=== PATIENT | male | born 1940 | race Hispanic/Latino ===

== ENCOUNTER 2016-05-10 12:06 | Day surgery (SDC) | payer MEDICARE, MEDICAID ==
[~2016-05-10] VITALS: Ht 167.6 cm; Wt 79.4 kg
--- NOTE | 2016-05-10 07:18 | PCM.HPANE ---
Patient Data Surgeon Admitting Provider: Attending Provider:Jewel Beckford MD Primary Care Physician:Johnson Payton MD Other Provider:[facility] Anesthesia Reason for Visit Nausea Ht/WT & BMI Body Mass Index Allergies Coded Allergies: hydrocodone (Verified Allergy, Severe, hives, 03/27/16) iodine (Verified Allergy, Intermediate, 05/10/16) omeprazole (Verified Allergy, Mild, SHAKINESS, 05/10/16) Uncoded Allergies: CONTRAST MEDIUM (Allergy, Severe, ANAPHYLAXIS, 05/10/16) Past Anesthesia History Anesthesia History: Denies:: Abnormal Airway, Anesthesia Reactions, Difficult Intubation, Fam Anesthesia Reaction, Fam Malignant Hypertherm, Malignant Hyperthermia Diabetes History Hx Diabetes?: No MRSA MRSA: No Medications Blood Thinner: Aspirin Active Scripts Metoclopramide (Reglan)5 Mg Tablet5 Mg PO QID PRN For Nausea #20 TABLET Ref 0 Prov:Zi Arndt MD 03/31/16 Docusate Sodium (Colace)100 Mg Fcoemvo342 Mg PO BID PRN For Constipation #60 CAPSULE Ref 0 Prov:Zi Arndt MD 03/31/16 Promethazine 25 Mg Mdsjtb88 Mg PO Q6H PRN For Nausea #15 TABLET Ref 0 Prov:Isaiah Saucedo MD 03/27/16 Promethazine Supp 25 Mg Supp25 Mg RECTAL Q8H PRN For Nausea #15 SUPP Ref 0 Prov:Isaiah Saucedo MD 03/27/16 Polyethylene Glycol 3350 (Miralax)17 Gm Powd.nxde11-06 Gm PO DAILY #60 Ref 2 Prov:Richi Bell MD 03/13/16 Metoclopramide 10 Mg Munzae60 Mg PO TID PRN For Nausea #30 TABLET Ref 0 Prov:Richi Bell MD 03/13/16 Methadone 10 Mg Tab10 Mg PO Q8H #30 TABLET Ref 0 Prov:Richi Bell MD 03/13/16 Atorvastatin Calcium 10 Mg Izfaqi41 Mg PO DAILY high cholesterol #30 TABLET Ref 11 Prov:Johnson Payton MD 08/03/13 Reported Medications Ranitidine 150 Mg Szmlity361 Mg PO BID Ref 0 05/09/16 Oxybutynin Chloride ER 5 Mg Tab.er.245 Mg PO DAILY Ref 0 05/09/16 Hydromorphone (Dilaudid)2 Mg Tablet1-2 Mg PO Q3H PRN Pain 03/06/16 Ondansetron ODT (Zofran ODT)8 Mg Tablet8 Mg PO q8hrs prn PRN For Nausea 03/03/16 Metoprolol Tartrate 50 Mg Rkrlgu38 Mg PO DAILY 30 Days Ref 0 01/15/15 Citalopram 20 Mg Fgetiq23 Mg PO DAILY Ref 0 01/08/14 Nitroglycerin SL 0.4 Mg Tab.subl0.4 Mg SL PRN PRN For Chest Pain 01/08/14 Tamsulosin (Flomax)0.4 Mg Capsule0.4 Mg PO BID Ref 0 01/08/14 Gabapentin 600 Mg Koeveo195 Mg PO QPM 30 Days Ref 0 10/01/13 Gabapentin 300 Mg Cxbwrlc103 Mg PO QAM 30 Days Ref 0 10/01/13 Discontinued Reported Medications Phenazopyridine (Pyridium)200 Mg Nwcifp095 Mg PO TID Ref 0 05/09/16 Fentanyl 50 mcg/hr Patch 1 Each Patch.td721 Patch TRANSDERM Q3D Ref 0 03/06/16 Potassium Chloride 10 Meq Tab.er.prt10 Meq PO DAILY Ref 0 TAKE WITH FOOD 01/08/14 Oxycodone HCl/Acetaminophen 5-325 (Percocet 5-325)1 Each Tablet1-2 Each PO Q4 PRN For Pain 01/08/14 Docusate Sodium 100 Mg Vezedl843-644 Mg PO BID PRN For Constipation 01/08/14 Discontinued Scripts Ciprofloxacin 500 Mg Wvqeqx629 Mg PO BID #14 TABLET Prov:Zi Arndt MD 03/31/16 Oxycodone (Roxicodone)15 Mg Tjbgzi09 Mg PO Q 4 hours PRN For Pain #20 TABLET Ref 0 Prov:Isaiah Saucedo MD 02/29/16 History History of ENT Problems?: Yes HEENT History: Positive for:: Dysphagia Hearing Problem Denies:: Abnormal Airway Cataracts Difficult Intubation Sinus Problem Hx of Heart Problems?: Yes Cardiovascular History: Positive for:: Hypertension Denies:: AICD Atrial Fibrillation Cardiac Surgery Chest Pain Congestive Heart Failure Edema Heart Murmur Irregular Heartbeat Pacemaker Thrombophlebitis Hx of Respiratory Problem?: No Respiratory History: Positive for:: Dyspnea Pneumonia Denies:: Tuberculosis Hx Neurologic Problems?: No Neurological History: Denies:: CVA Hx of GI Problems?: Yes Gastrointestinal History: Denies:: Cirrhosis Diverticulitis Gastroesphageal Reflux Gastrointestinal Bleeding Hepatitis Hiatal Hernia Rectal Bleeding Hx of Problems?: No Genitourinary History: Denies:: Kidney Stones Urinary Tract Infection Male Hx: Positive for:: Prostate Problems (prostate ca 2006 with mets to bones and spine) Denies:: Scrotal Mass Testicular Surgery Hx Musculoskeletal Problems?: No Musculoskeletal History: Denies:: Joint Replacement Hx of Psycho/Social Problems?: Yes Psycho Social History: Positive for:: Anxiety Hx Depression Denies:: Bipolar Disorder Suicide Attempt Hx Surgeries?: Yes (TOE) Hx Any Other Health Problems?: Yes Other History: Positive for:: Cancer (prostate CA with mets to bones spine) Hospitalization Denies:: Endocrine Disease Thyroid Disease History Blood Transfusions: Denies:: Blood Transfuse Reaction Blood Transfusions Hx Diabetes: No Hx Alcohol Use: NoHx Substance Use: No Smoking Status: Former Smoker Have You Smoked inLast 12 mo: No Stop/Bang Risk Assessment Category Category 1A: Patient has history of documented sleep apnea, and HAS NOT received any narcotic, sedative or anesthesia administration during this stay. Category 1B: Patient has history of documented sleep apnea, and HAS received any narcotic , sedative or anesthesia administration during this stay Category 2: Patient has SUSPECTED Obstructive Sleep Apnea, and HAS received any narcotic , sedative or anesthesia administration during this stay. Category 3: Patient has SUSPECTED Obstructive Sleep Apnea and HAS NOT received narcotic, sedative or anesthesia administration during this stay. Category 4: Outpatient in Procedural Areas with known sleep apnea or who screen positive for High Risk via the STOP/BANG questionnaire. Plan Impression Patient chart reviewed, patient interviewed and anesthestic plan with risks, benefits, and alternatives discussed, and informed consent obtained. Jaydon Lazcano MD May 10, 2016 07:18
[~2016-05-10 12:06] MED LIST: ATOR10TA66 PO; CIPR-198 PO; CITA20TA11 PO; DOCU-41 PO; FENT1PAT9 TRANSDERM; GABA-502 PO; GABA600T2 PO; HYDR2TAB27 PO; Lactated Ringer's 1,000 ML IV ONE; METO10TA3 PO; METO50TA3 PO; METO5TAB78 PO; MTH10T PO; NITR0.4T6 SL; ONDA8TAB7 PO; OXYB5TAB PO; OXYC-284 PO; OXYC15TA45 PO; PHEN-684 PO; POLY17PO6 PO; POTA10TA38 PO; PROM25SU47 RECTAL; PROM25TA14 PO; RANI150C4 PO; TAMS0.4C98 PO
[2016-05-10] MEDS ORDERED: Propofol 10,000 mCg/mL 20 mL Inj ONE (12:07)
[2016-05-10] MEDS ORDERED: Lidocaine PF 1% 30 mL Inj ONE (12:07)
[2016-05-10 12:51] VITALS: BP 133/70; PULSE 57; RESP 14; O2SAT 98
[2016-05-10] MEDS ORDERED: Lactated Ringer's 1,000 ML IV SCH (14:21)
[2016-05-10] MEDS ORDERED: Atropine 0.4 mg/mL Inj IVPUSH PRN (14:25)
[2016-05-10] MEDS ORDERED: MetoCLOpramide 5 mg/mL 2 mL Inj IVPUSH PRN (14:25)
[2016-05-10] MEDS ORDERED: Ondansetron 2 mg/mL 2 mL Inj IVPUSH PRN (14:25)
--- NOTE | 2016-05-10 14:26 | PCM.HPANE ---
Patient Data Date of Service: May 10, 2016 Surgeon Admitting Provider: Attending Provider:Jewel Beckford MD Primary Care Physician:Johnson Payton MD Other Provider:Bimal Godoy Anesthesia Reason for Visit Nausea Ht/WT & BMI Height (Feet): 5 Height (Inches): 6 Weight (Kilograms): 79.38 Body Mass Index 28.00 Allergies Coded Allergies: hydrocodone (Verified Allergy, Severe, hives, 03/27/16) iodine (Verified Allergy, Intermediate, 05/10/16) omeprazole (Verified Allergy, Mild, SHAKINESS, 05/10/16) Uncoded Allergies: CONTRAST MEDIUM (Allergy, Severe, ANAPHYLAXIS, 05/10/16) Past Anesthesia History Anesthesia History: Denies:: Abnormal Airway, Anesthesia Reactions, Difficult Intubation, Fam Anesthesia Reaction, Fam Malignant Hypertherm, Malignant Hyperthermia Diabetes History Hx Diabetes?: No MRSA MRSA: No Medications Blood Thinner: Aspirin Hypertension Medication: Yes Home Meds Incl Beta Ranjeet: Yes Date Beta Ranjeet Taken: May 10, 2016 Time Beta Ranjeet Taken: 0800 Active Scripts Metoclopramide (Reglan)5 Mg Tablet5 Mg PO QID PRN For Nausea #20 TABLET Ref 0 Prov:Zi Arndt MD 03/31/16 Docusate Sodium (Colace)100 Mg Qxydtsz103 Mg PO BID PRN For Constipation #60 CAPSULE Ref 0 Prov:Zi Arndt MD 03/31/16 Promethazine 25 Mg Uvtdoe83 Mg PO Q6H PRN For Nausea #15 TABLET Ref 0 Prov:Isaiah Saucedo MD 03/27/16 Promethazine Supp 25 Mg Supp25 Mg RECTAL Q8H PRN For Nausea #15 SUPP Ref 0 Prov:Isaiah Saucedo MD 03/27/16 Polyethylene Glycol 3350 (Miralax)17 Gm Powd.xfnm99-29 Gm PO DAILY #60 Ref 2 Prov:Richi Bell MD 03/13/16 Metoclopramide 10 Mg Iohvre95 Mg PO TID PRN For Nausea #30 TABLET Ref 0 Prov:Richi Bell MD 03/13/16 Methadone 10 Mg Tab10 Mg PO Q8H #30 TABLET Ref 0 Prov:Richi Bell MD 03/13/16 Atorvastatin Calcium 10 Mg Mntnlt37 Mg PO DAILY high cholesterol #30 TABLET Ref 11 Prov:Johnson Payton MD 08/03/13 Reported Medications Ranitidine 150 Mg Rbrvvvo080 Mg PO BID Ref 0 05/09/16 Oxybutynin Chloride ER 5 Mg Tab.er.245 Mg PO DAILY Ref 0 05/09/16 Hydromorphone (Dilaudid)2 Mg Tablet1-2 Mg PO Q3H PRN Pain 03/06/16 Ondansetron ODT (Zofran ODT)8 Mg Tablet8 Mg PO q8hrs prn PRN For Nausea 03/03/16 Metoprolol Tartrate 50 Mg Porqns99 Mg PO DAILY 30 Days Ref 0 01/15/15 Citalopram 20 Mg Yffltl05 Mg PO DAILY Ref 0 01/08/14 Nitroglycerin SL 0.4 Mg Tab.subl0.4 Mg SL PRN PRN For Chest Pain 01/08/14 Tamsulosin (Flomax)0.4 Mg Capsule0.4 Mg PO BID Ref 0 01/08/14 Gabapentin 600 Mg Cwgoll168 Mg PO QPM 30 Days Ref 0 10/01/13 Gabapentin 300 Mg Qkoxeee315 Mg PO QAM 30 Days Ref 0 10/01/13 Discontinued Reported Medications Phenazopyridine (Pyridium)200 Mg Scytlu570 Mg PO TID Ref 0 05/09/16 Fentanyl 50 mcg/hr Patch 1 Each Patch.td721 Patch TRANSDERM Q3D Ref 0 03/06/16 Potassium Chloride 10 Meq Tab.er.prt10 Meq PO DAILY Ref 0 TAKE WITH FOOD 01/08/14 Oxycodone HCl/Acetaminophen 5-325 (Percocet 5-325)1 Each Tablet1-2 Each PO Q4 PRN For Pain 01/08/14 Docusate Sodium 100 Mg Exetmb430-887 Mg PO BID PRN For Constipation 01/08/14 Discontinued Scripts Ciprofloxacin 500 Mg Rithft913 Mg PO BID #14 TABLET Prov:Zi Arndt MD 03/31/16 Oxycodone (Roxicodone)15 Mg Igxfnl09 Mg PO Q 4 hours PRN For Pain #20 TABLET Ref 0 Prov:Isaiah Saucedo MD 02/29/16 History History of ENT Problems?: Yes HEENT History: Positive for:: Dysphagia Hearing Problem Denies:: Abnormal Airway Cataracts Difficult Intubation Sinus Problem Denture Type: Full- Upper Partial- Lower Hx of Heart Problems?: Yes Cardiovascular History: Positive for:: Hypertension Denies:: AICD Atrial Fibrillation Cardiac Surgery Chest Pain Congestive Heart Failure Edema Heart Murmur Irregular Heartbeat Pacemaker Thrombophlebitis Hx of Respiratory Problem?: No Respiratory History: Positive for:: Dyspnea Pneumonia Denies:: Tuberculosis Hx Neurologic Problems?: No Neurological History: Positive for:: CVA (POSSIBLE TIA) Hx of GI Problems?: Yes Gastrointestinal History: Positive for:: Gastroesphageal Reflux Denies:: Cirrhosis Diverticulitis Gastrointestinal Bleeding Hepatitis Hiatal Hernia Rectal Bleeding Hx of Problems?: No Genitourinary History: Denies:: Kidney Stones Urinary Tract Infection Male Hx: Positive for:: Prostate Problems (prostate ca 2006 with mets to bones and spine) Denies:: Scrotal Mass Testicular Surgery Hx Musculoskeletal Problems?: No Musculoskeletal History: Denies:: Joint Replacement Hx of Psycho/Social Problems?: Yes Psycho Social History: Positive for:: Anxiety Hx Depression Denies:: Bipolar Disorder Suicide Attempt Hx Surgeries?: Yes (TOE) Hx Any Other Health Problems?: Yes Other History: Positive for:: Cancer (prostate CA with mets to bones spine) Hospitalization Denies:: Endocrine Disease Thyroid Disease History Blood Transfusions: Denies:: Blood Transfuse Reaction Blood Transfusions Hx Diabetes: No Other Pertinent History: PROSTATE CANCER, RADIATION YEARS AGO, CURRENT CHEMO. LAST 04/24/16 Hx Alcohol Use: NoHx Substance Use: No Smoking Status: Former Smoker Have You Smoked inLast 12 mo: No Stop/Bang Treated for Sleep Apnea?: No Do You Have a CPAP Machine?: No S-Snoring: Do You Snore Loudly: Yes T-Tired: feel tired, fatigued: Yes O-Obsered: Observed not breath: No P-Blood Pressure: treated: Yes B- Body Mass Index > 35 kg/m2: Yes A- Age over 50: Yes N- Neck Large Circumference: Yes G- Gender Male: Yes RUTH Total Score: 7 RUTH Risk Assessment: High Risk, =/>3 Yes RUTH Category 2: Yes Risk Assessment Category Category 1A: Patient has history of documented sleep apnea, and HAS NOT received any narcotic, sedative or anesthesia administration during this stay. Category 1B: Patient has history of documented sleep apnea, and HAS received any narcotic , sedative or anesthesia administration during this stay Category 2: Patient has SUSPECTED Obstructive Sleep Apnea, and HAS received any narcotic , sedative or anesthesia administration during this stay. Category 3: Patient has SUSPECTED Obstructive Sleep Apnea and HAS NOT received narcotic, sedative or anesthesia administration during this stay. Category 4: Outpatient in Procedural Areas with known sleep apnea or who screen positive for High Risk via the STOP/BANG questionnaire. Exam Exam Vital Signs Vital Signs Date Time Temp Pulse Resp B/P Pulse Ox O2 Delivery O2 Flow Rate FiO2 05/10/16 12:51 57 14 133/70 98 Room Air General Appearance: Alert, Oriented X3, Cooperative HEENT/AIRWAY: MP 2, Mouth Opening (wide, full dentures) Lungs: Clear to Auscultation, Normal Air Movement Heart: Regular Rate/Rhythm, Normal S1, Normal S2 Plan Impression Patient chart reviewed, patient interviewed and anesthestic plan with risks, benefits, and alternatives discussed, and informed consent obtained. NPO Status: > 8 hours ASA Physical Status: ASA2 Mod Systemic Disease Anesthetic Plan: MAC Bene/Risks/Altern/Consents: Yes HP Complete Prior to Induction: Yes Maxime Encarnacion MD May 10, 2016 14:21
--- NOTE | 2016-05-10 15:17 | PCM.ANEP1 ---
Post Anesthesia Phase 1 PACU Phase 1 Assessment Date of Service: May 10, 2016 Vital Signs O2 95% RA, HR 52, BP 143/67, RR 8 Vital Signs Date Time Temp Pulse Resp B/P Pulse Ox O2 Delivery O2 Flow Rate FiO2 05/10/16 12:51 57 14 133/70 98 Room Air Anesthetic Administered: MAC Level of Alertness: Sleeping, hard to arouse SAUL's with Equal Strength: Yes Pain: No Nausea or Vomiting: No Oxygen Delivery: Room Air Lungs: Normal Air Movement Maxime Encarnaicon MD May 10, 2016 15:17
[2016-05-10 15:18] VITALS: BP 143/67; PULSE 53; RESP 15; O2SAT 95
--- NOTE | 2016-05-10 15:18 | PCM.ANEP2 ---
Post Anesthesia Evaluation ASA/CMS Post Anesthesia Date of Service: May 10, 2016 VS in Patient's Normal Range?: Yes Resp Stable; Airway Patent?: Yes CV Function & Hydration Stable: Yes Mental Status Recovered?: Yes Pain control Satisfactory?: Yes N/V Control Satisfactory?: Yes Maxime Encarnacion MD May 10, 2016 15:18
[2016-05-10 15:26] VITALS: BP 153/73; PULSE 53; RESP 15; O2SAT 95
--- NOTE | 2016-05-10 15:34 | ENDO ---
[address] [address] ENDOSCOPY PROCEDURE PATIENT: IZZY THAKKAR : 1940 MR#: [id number] ADMIT: 05/10/2016 JOB ID: [id number] DATE OF PROCEDURE: 05/10/2016 PRIMARY CARE PROVIDER: Johnson Payton MD SURGEON: Jewel Beckford MD PROCEDURE: Esophagogastroduodenoscopy. COMPLICATIONS: None. EQUIPMENT: [id number] J ANESTHESIA: Monitored anesthesia care was provided by Anesthesia personnel. INDICATIONS: This patient is a 76-year-old man with a history of widely metastatic prostate cancer who has been troubled with persistent nausea. He was referred for further evaluation with upper endoscopy. PROCEDURAL DETAILS: The patient was brought to the Endoscopy Suite and placed in the left lateral decubitus position. Sedation was achieved by the Anesthesia personnel. The upper endoscope was then inserted through a bite block and passed under direct visualization through the mouth and oropharynx, down into the esophagus and through the stomach and into the second portion of duodenum. The scope was then slowly withdrawn examining the mucosa for any defects or lesions. No abnormalities were noted. There was mild erythema around the pylorus and perhaps slight atrophic gastritis but nothing to explain his nausea. He had a grade 3 flap valve. GE junction was at 42 cm. The Z-line was regular. The scope was then withdrawn and the case completed. ENDOSCOPIC DIAGNOSIS: Normal upper endoscopy without findings to explain the patient's persistent nausea.
[2016-05-10 15:37] VITALS: BP 130/71; PULSE 53; RESP 15; O2SAT 95
[2016-06-01] MEDS ORDERED: MTH10T PO ×2 (09:46)
[2016-06-01] MEDS ORDERED: HYDR4TAB PO (09:46)
[2016-06-16] MEDS ORDERED: METH5TAB3 PO (12:31)
[2016-07-14] MEDS ORDERED: METH5TAB3 PO (12:07)
[2016-08-11] MEDS ORDERED: MTH10T PO (11:10)
[2016-08-11] MEDS ORDERED: CITA20TA11 PO (11:10)
[2016-08-11] MEDS ORDERED: DXM4T PO (11:10)
== END 2016-05-10 23:59 | disposition home or self-care (01) ==
LOC: END 12:06
PROVIDERS: ATTEND General Practice
DX: R11.0 Nausea (principal); C61 Malignant neoplasm of prostate; I10 Essential (primary) hypertension; F41.9 Anxiety disorder, unspecified; K21.9 Gastro-esophageal reflux disease without esophagitis; Z86.010 Personal history of colon polyps; Z79.82 Long term (current) use of aspirin; Z86.73 Personal history of transient ischemic attack (TIA), and cerebral infarction without residual deficits; Z87.891 Personal history of nicotine dependence
CPT/HCPCS: 43235; J7120

== ENCOUNTER 2016-06-01 13:14 | Inpatient (IN) | payer MEDICARE, MEDICAID ==
[~2016-06-01] VITALS: Ht 177.8 cm; Wt 82.1 kg
[~2016-06-01 13:14] MED LIST changes: -CIPR-198 PO; -FENT1PAT9 TRANSDERM; +HYDR4TAB PO; -Lactated Ringer's 1,000 ML IV ONE; -OXYC-284 PO; -OXYC15TA45 PO; -PHEN-684 PO; -POTA10TA38 PO
[2016-06-01 13:20] VITALS: BP 90/53; PULSE 87; RESP 20; O2SAT 90
--- NOTE | 2016-06-01 13:33 | ED.REPORT ---
HPI-General Illness Date of Service Jun 01, 2016 ED Provider: Zi rAndt MD Patient is as 76-year-old male with a hx of prostate cancer and currently on chemotherapy who presents to the ED with his daughter complaining of tremors and confusion. Via patient's daughter, he is also experiencing generalized weakness, slow speech, Nursing Notes Stated Complaint: CHEST PAIN,TREMBLING Chief Complaint: Chest Pain Nursing Notes Reviewed: Yes Allergies: Coded Allergies: hydrocodone (Verified Allergy, Severe, hives, 06/01/16) iodine (Verified Allergy, Intermediate, 06/01/16) omeprazole (Verified Allergy, Mild, SHAKINESS, 06/01/16) Uncoded Allergies: CONTRAST MEDIUM (Allergy, Severe, ANAPHYLAXIS, 05/10/16) Scheduled Aspirin (Aspirin) 81 Mg Tablet 81 MG PO DAILY Atorvastatin Calcium (Atorvastatin Calcium) 10 Mg Tablet 10 MG PO DAILY Citalopram (Citalopram) 20 Mg Tablet 40 MG PO DAILY Dexamethasone (Dexamethasone) 4 Mg Tablet 4 MG PO DAILY Gabapentin (Gabapentin) 300 Mg Capsule 300 MG PO QAM Gabapentin (Gabapentin) 600 Mg Tablet 600 MG PO QPM Methadone (Methadone) 10 Mg Tab 15 MG PO BID Methadone (Methadone) 10 Mg Tab 10 MG PO DAILYWL Metoprolol Tartrate (Metoprolol Tartrate) 50 Mg Tablet 50 MG PO DAILY Mirtazapine (Mirtazapine) 15 Mg Tablet 15 MG PO HS Oxybutynin Chloride ER (Oxybutynin Chloride ER) 5 Mg Tab.er.24 5 MG PO DAILY Polyethylene Glycol 3350 (Miralax) 17 Gm Powd.pack 17-34 GM PO DAILY Ranitidine (Ranitidine) 150 Mg Capsule 150 MG PO BID Tamsulosin (Flomax) 0.4 Mg Capsule 0.4 MG PO BID Scheduled PRN Docusate Sodium (Colace) 100 Mg Capsule 100 MG PO BID PRN PRN For Constipation Hydromorphone (Hydromorphone) 4 Mg Tablet 4 MG PO Q4H PRN PRN Pain Metoclopramide (Metoclopramide) 10 Mg Tablet 10 MG PO TID PRN PRN For Nausea Metoclopramide (Reglan) 5 Mg Tablet 5 MG PO QID PRN PRN For Nausea Nitroglycerin SL (Nitroglycerin SL) 0.4 Mg Tab.subl 0.4 MG SL PRN PRN PRN For Chest Pain Ondansetron ODT (Zofran ODT) 8 Mg Tablet 8 MG PO q8hrs prn PRN PRN For Nausea Promethazine (Promethazine) 25 Mg Tablet 25 MG PO Q6H PRN PRN For Nausea Promethazine Supp (Promethazine Supp) 25 Mg Supp 25 MG RECTAL Q8H PRN PRN For Nausea General Time Seen by MD: 13:31 Chief Complaint Other (tremors in extremities) Hx Obtained From: Patient, Daughter Arrived By: Walk-in Sudden in Onset?: Yes Onset Occurred: Just prior to arrival Symptom Duration: Since onset Severity: Current: No pain currently Recent Healthcare: Recent doctor visit, Recent hospitalization Similar Sx Previous: No Past Medical History Past Medical History Notes: Oncologist Dr. 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 Physical Exam Vital Signs Vital Signs Date Time Temp Pulse Resp B/P Pulse Ox O2 Delivery O2 Flow Rate FiO2 06/01/16 13:46 100/51 06/01/16 13:20 38.9 87 20 90/53 90 Room Air Initial VS: Reviewed ENT: Mucous membranes moist, Conjunctiva normal, No scleral icterus Neck: Supple, Non-tender, Full range of motion Cardiovascular: Regular rate & rhythm, Heart sounds normal, Intact distal pulses Abdomen / GI: Soft, Non-tender, No guarding, No rebound, No distention Back: No CVA tenderness Extremities: Vascular intact, Neuro intact, No swelling, No tenderness Skin: Warm, Dry, No cyanosis Psychiatric: Mood/affect normal, Behavior normal, Normal thought content General/Constitutional: Awake, Alert, No acute distress, Cooperative Alertness: Positive: Confused Head / Eyes: Atraumatic, Normocephalic, PERRL, EOMI Rales / Rhonchi: Positive: Rales R base (right bases are crackling ) Interpretation & Diagnostics Lab Results Interpretation Result Diagram: 06/01/16 1330 06/01/16 1330 Test 06/01/16 13:30 06/01/16 14:55 White Blood Count 8.7th/mm3 (3.8-10.1) Red Blood Count 3.89mil/mm3 (4.40-5.80) Hemoglobin 11.0g/dL (13.8-17.2) Hematocrit 34.7% (41.0-50.0) Mean Corpuscular Volume 89.2fL (81-100) Mean Corpuscular Hemoglobin 28.3pg (27.0-35.0) Mean Corpuscular Hemoglobin Concent 31.7% (32.0-37.0) Red Cell Distribution Width 18.4% (12.3-15.4) Platelet Count 218bil/L (150-400) Neutrophils (%) (Auto) 65% (40-74) Lymphocytes (%) (Auto) 20% (14-46) Monocytes (%) (Auto) 6% (4-12) Eosinophils (%) (Auto) 0% (0-5) Basophils (%) (Auto) 1% (0-3) Band Neutrophils % 3% (1-5) Metamyelocytes % 0% (0-0) Myelocytes % 5% (0-0) Nucleated Red Blood Cells 3/100 WBC (0-24) Sodium Level 138mEq/L (134-144) Potassium Level 3.9mEq/L (3.5-5.2) Chloride Level 101mEq/L (97-108) Carbon Dioxide Level 23mmol/L (18-29) Blood Urea Nitrogen 15mg/dL (8-27) Creatinine 0.80mg/dL (0.76-1.27) Estimat Glomerular Filtration Rate 100mL/min (>59) Glucose Level 110mg/dL (60-99) Lactic Acid Level 1.9mmol/L (0.4-2.0) Calcium Level 8.1mg/dL (8.5-10.1) Magnesium Level 1.9mg/dL (1.6-2.6) Total Bilirubin 0.5mg/dL (0.0-1.2) Aspartate Amino Transf (AST/SGOT) 17U/L (0-50) Alanine Aminotransferase (ALT/SGPT) 12U/L (0-44) Alkaline Phosphatase 90U/L (25-160) Troponin T < 0.010ug/L (0.0-0.011) Total Protein 6.0g/dL (6.4-8.4) Albumin 3.3g/dL (3.4-5.0) Urine Color Yellow (YELLOW) Urine Appearance Hazy (CLEAR,HAZY) Urine pH 6.0 (5.0-8.0) Urine Specific [place] 1.015 (1.003-1.035) Urine Protein Negativemg/dL (NEG,TRACE) Urine Glucose (UA) Negativemg/dL (NEGATIVE) Urine Ketones Negativemg/dL (NEGATIVE) Urine Occult Blood Trace (NEGATIVE) Urine Nitrite Negative (NEGATIVE) Urine Bilirubin Negative (NEGATIVE) Urine Urobilinogen Normalmg/dL (NORMAL) Urine Leukocyte Esterase Negative (NEGATIVE) Urine RBC 3-10/hpf (0-2) Urine WBC 0-5/hpf (0-5) Urine Epithelial Cells Occasional/hpf (NONE-MOD) Urine Crystals None seen (NONE SEEN) Urine Bacteria None/hpf (NONE-FEW) Urine Hyaline Casts None/lpf (NONE) Urine Granular Casts None seen (NONE SEEN) Urine Waxy Casts None seen (NONE SEEN) Urine Red Blood Cell Casts None seen (NONE SEEN) Urine White Blood Cell Casts None seen (NONE SEEN) Urine Mucus Present (None Seen) Urine Trichomonas None seen (NONE SEEN) Urine Yeast None (NONE SEEN) Urinalysis Comment None Urine Culture Reflexed Not indicated Lab Results Interpretation: negative for influenza A & B ECG Interpretation ECG Interpretation: Abnormal R-wave progression Time: 10:51 Interpreted by: ED physician Normal ECG Interpretation: Normal sinus rhythm (86), No acute ischemic changes Re-Eval/Medical Decision Med Decision/Clinical Course 76-year-old male history of prostate cancer on chemotherapy presenting with confusion and weakness today per daughter. Febrile on arrival. Map's 70. Lactate normal. White blood cell count normal. Urine dip with positive leukocytes. Patient with SIRS physiology and urine suggestive of UTI on dip. He will be treated with Rocephin, given 2 L normal saline. Given one dose stress dose steroids hydrocortisone given he has been on steroids as an outpatient which were stopped one week ago. Admitted to telemetry. Time of Eval: 14:55 Patient Status: Condition unchanged Re-Evaluation/Progress Note: Pt rechecked. Informed pt of need for admission. Pt understands and agrees with plan for admission. All questions addressed. Consultation : Consulted With: Hospitalist Call Returned at: 15:00 Fur Blower: Accepts admit Note: Case discussed. Counseled Regarding: Diagnosis, Lab results, Need for admission Discharge & Departure Primary Impression: UTI (urinary tract infection) Urinary tract infection type: site unspecified Hematuria presence: without hematuria Qualified Code: N39.0 - Urinary tract infection, site not specified Additional Impression: SIRS due to non-infectious process without acute organ dysfunction Disposition: ADMITTED TO HOSPITAL Discharge Condition All VS Reviewed: Yes Condition: Stable Referrals: Johnson Payton MD (PCP) Scribe Attestation Portion of this note were transcribed by Felix Prabhakar. I, Dr. Arndt, personally performed the history, physical exam, and medical decision-making: I reviewed and confirmed the accuracy for the information in the transcribed note. Signed by: kenny Huff, 06/01/16 1500 copies to: Johnson Payton MD, Ben M MD Jun 01, 2016 13:33 FELIX PRABHAKAR Jun 01, 2016 13:42
[2016-06-01 13:46] VITALS: BP 100/51
[2016-06-01 13:49] LABS: Mean Corpuscular Hemoglobin 28.3 pg (27.0-35.0); Mean Corpuscular Volume 89.2 fL (81-100); Platelet Count 218 bil/L (150-400)
[2016-06-01] MEDS ORDERED: 0.9% Sodium Chloride 1,000 ML IV SCH (13:50)
--- NOTE | 2016-06-01 13:58 | DRSVH ---
PROCEDURE: X-RAY CHEST ONE VIEW, PORTABLE ([id number]) INDICATIONS: FEVER, LOW SPO2 TECHNIQUE: One view of the chest was acquired. COMPARISON: None. FINDINGS: Surgical changes and devices: None. Lungs and pleura: No pleural effusions or pneumothorax. Lungs are clear, aside from scarring within the left lung base which is unchanged. Mediastinum: Mediastinal contours appear normal. Heart size is normal. Bones and chest wall: No suspicious bony lesions. Overlying soft tissues appear unremarkable. IMPRESSION: No acute cardiopulmonary disease. Dictated by: Bart Mcclellan [facility] Interpreted: Colleen Fitzpatrick MD on 06/01/2016 at 13:57 Transcribed by: JOSE on 06/01/2016 at 13:58 Approved by: Colleen Fitzpatrick MD, PhD on 06/01/2016 at 17:26
[2016-06-01] MEDS ORDERED: DXM4T PO (14:02)
[2016-06-01] MEDS ORDERED: ASPI-973 PO (14:02)
[2016-06-01] MEDS ORDERED: MIRT15TA6 PO (14:02)
[2016-06-01 14:28] LABS: Magnesium 1.9 mg/dL (1.6-2.6)
[2016-06-01 14:30] LABS: BASOPHILS % (AUTO) 1 % (0-3); EOSINOPHILS % (AUTO) 0 % (0-5); MONOCYTES % (AUTO) 6 % (4-12); NEUTROPHILS % (AUTO) 65 % (40-74)
[2016-06-01 14:32] LABS: TROPONIN T < 0.010 ug/L (0.0-0.011)
[2016-06-01] MEDS ORDERED: cefTRIAXone Inj 1,000 MG in IV Premix 1 EACH IV ONE (14:50)
--- NOTE | 2016-06-01 15:11 | PCM.HPMED ---
Subjective Date of Service Jun 01, 2016 Primary Provider: Admitting Physician: Primary Care Physician: Johnson Payton MD Attending Physician: Chief Complaint: Confusion and weakness History of Present Illness: 76-year-old male history of prostate cancer on chemotherapy presenting with confusion and weakness today per daughter. Febrile on arrival. Map's 70. Lactate normal. White blood cell count normal. Urine dip with positive leukocytes. Patient with SIRS physiology and urine suggestive of UTI on dip. He will be treated with Rocephin, given 2 L normal saline. Given one dose stress dose steroids hydrocortisone given he has been on steroids as an outpatient which were stopped one week ago. Admitted to telemetry. As I get the story she has had sort of a cold and a cough for about 2 weeks and has been eating less for 3-4 weeks. He began feeling particularly poorly and having the shakes out so much confusion and encephalopathy Sunday 3 days ago. His daughter states that he was actually mentating just findings as having shakes and movement disorders. It is not clear whether these represented Reiger 's worth dystonic reactions to medication such as Reglan and/or gabapentin to that end I am going to stop those and going to continue his narcotics and I am going to treat him with antibiotics for possible bronchitis though I doubt UTI given the absolutely clear urine. Review of Systems: Gen.: No fevers chills weight loss weight gain Eyes: no visual disturbances or blurring vision HEENT: No nose/throat drainage, no pain in ears or throat, no hearing loss Lymph: No lymph nodes noted Cardiac: No chest pain, orthopnea, PND, palpitations , pedal edema or dyspnea on exertion Pulmonary: no cough, wheezing or bringing up of sputum GI: No anorexia nausea vomiting blood or black in the stool : no dysuria hematuria urinary frequency or decrease in urine output Musculoskeletal: Joint swelling no joint pain no new muscle aches or back pain Neuro: No syncope, seizures no loss of consciousness no new focal weakness, numbness or tingling Psychiatric: New new anxiety insomnia or depression Endocrine: No new heat or cold intolerances polyuria or polydipsia Hematology: No lymphadenopathy or easy bleeding or bruising noted skin: No new rashes, stasis dermatitis Allergies Coded Allergies: hydrocodone (Verified Allergy, Severe, hives, 06/01/16) iodine (Verified Allergy, Severe, it brought him to the hospital, 06/01/16) omeprazole (Verified Allergy, Mild, SHAKINESS, 06/01/16) Uncoded Allergies: CONTRAST MEDIUM (Allergy, Severe, ANAPHYLAXIS, 05/10/16) Home Medications Scheduled Aspirin (Aspirin) 81 Mg Tablet 81 MG PO DAILY Atorvastatin Calcium (Atorvastatin Calcium) 10 Mg Tablet 10 MG PO DAILY Citalopram (Citalopram) 20 Mg Tablet 40 MG PO DAILY Dexamethasone (Dexamethasone) 4 Mg Tablet 4 MG PO DAILY Gabapentin (Gabapentin) 300 Mg Capsule 300 MG PO QAM Gabapentin (Gabapentin) 600 Mg Tablet 600 MG PO QPM Methadone (Methadone) 10 Mg Tab 15 MG PO BID Methadone (Methadone) 10 Mg Tab 10 MG PO DAILYWL Metoprolol Tartrate (Metoprolol Tartrate) 50 Mg Tablet 50 MG PO DAILY Mirtazapine (Mirtazapine) 15 Mg Tablet 15 MG PO HS Oxybutynin Chloride ER (Oxybutynin Chloride ER) 5 Mg Tab.er.24 5 MG PO DAILY Polyethylene Glycol 3350 (Miralax) 17 Gm Powd.pack 17-34 GM PO DAILY Ranitidine (Ranitidine) 150 Mg Capsule 150 MG PO BID Tamsulosin (Flomax) 0.4 Mg Capsule 0.4 MG PO BID Scheduled PRN Docusate Sodium (Colace) 100 Mg Capsule 100 MG PO BID PRN PRN For Constipation Hydromorphone (Hydromorphone) 4 Mg Tablet 4 MG PO Q4H PRN PRN Pain Metoclopramide (Metoclopramide) 10 Mg Tablet 10 MG PO TID PRN PRN For Nausea Metoclopramide (Reglan) 5 Mg Tablet 5 MG PO QID PRN PRN For Nausea Nitroglycerin SL (Nitroglycerin SL) 0.4 Mg Tab.subl 0.4 MG SL PRN PRN PRN For Chest Pain Ondansetron ODT (Zofran ODT) 8 Mg Tablet 8 MG PO q8hrs prn PRN PRN For Nausea Promethazine (Promethazine) 25 Mg Tablet 25 MG PO Q6H PRN PRN For Nausea Promethazine Supp (Promethazine Supp) 25 Mg Supp 25 MG RECTAL Q8H PRN PRN For Nausea PMH 1. Metastatic prostate cancer with chronic bony pain. 2. Chronic narcotic and benzodiazepine use for pain and anxiety associated with cancer treatment. 3. Thoracic aortic aneurysm. 4. Hypertension. 5. Excess weight. 6. History of right calcaneal fracture with surgery in 2012. 7. Prior ankle surgery. 8. Upper dentures. 9. Excess weight. 10. Depression. Lives independently accompanied by his and daughter. 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 He smoked less than one pack year and has quit for over 40 years. Family History No known history of cancer or heart disease Social History Hx Alcohol Use: No Hx Substance Use: No Hx Tobacco Use: No Smoking Status: Former Smoker Exam Vital Signs Vital Sign - Last Date Time Temp Pulse Resp B/P Pulse Ox O2 Delivery O2 Flow Rate FiO2 06/01/16 13:46 100/51 06/01/16 13:20 38.9 87 20 90 Room Air Exam Gen.- A+ O 3 no apparent distress. Pleasant gentleman sitting up in bed does not look ill Eyes- open conjunctiva clear, pupils equal nonicteric Mouth- oral mucosa moist, no exudate, he is edentulous ENT- ears normal, nose normal Neck- supple/trach midline CVS- RRR no murmur or gallop Lungs CTA other than some Rales/rhonchi on the left particularly towards the bases. GI- NABS/NT soft Musc- moving 4 no obvious deformity Neuro- cranial nerves II through XII intact to gross examination, nonfocal Skin- warm and dry, no rashes/lesions/wounds noted Psych- pleasant and appropriate, Lab and Diagnostics Labs LFTs WNL, UA clear no bacteria 06/01 Result Diagram: 06/01/16 1330 06/01/16 1330 X-Rays, CTs and MRIs cxr-IMPRESSION: No acute cardiopulmonary disease. Assessment & Plan 76-year-old male admitted 06/01 with a diagnosis of UTI despite having clear urinalysis from the emergency room and being treated with Rocephin. Presenting problems or weakness/confusion given the patient's medications which include methadone and gabapentin this is not altogether surprising. I see no evidence for UTI will stop Rocephin and hold sedating meds until patient wakes up more than titrate them back in. Given global prognosis and issues will not pursue any neuro imaging unless there are focal findings. I do see evidence for possible medication side effects either these were rigors or dystonic motions for medication. Does not appear to have influenza as he does not have ongoing symptoms but he does have some bronchitis type symptoms the chest x-ray is clear but I am going to go ahead and treat with Augmentin and a bronchodilator and hydrate him overnight. I am going to hold Reglan and gabapentin and continue his narcotics and reassess tomorrow. He may be dischargeable to morning he certainly looked that way at this time. Metabolic encephalopathy acute- as above holding sedating meds gabapentin/ methadone/promethazine/hydromorphone all of which can sedate and cause encephalopathy. Metastatic prostate CA- patient on no meds at this time here. We will continue as per oncology. Urinary retention-continue Flomax hold oxybutynin as this has anticholinergic effects that may also exacerbate encephalopathy. HTN/lipids- continue patient home medications Prophylaxis- DVT with heparin and SCDs, GI not indicated Disposition- patient Is DO NOT RESUSCITATE as per palliative care consultation notes and from home Resuscitation Status: DNR/DNI:Do Not Resuscitate/Intubate Kirk Cornell MD Jun 01, 2016 15:11
[2016-06-01 15:13] LABS: APPEARANCE,URINE HAZY (CLEAR,HAZY); COLOR,URINE YELLOW (YELLOW); OCCULT BLOOD,URINE TRACE (NEGATIVE); UROBILINOGEN,URINE NORMAL (NORMAL)
[2016-06-01] MEDS ORDERED: Alum-Mag Hydrox-Simeth 30 mL Suspension PO PRN (15:15)
[2016-06-01] MEDS ORDERED: Polyethylene Glycol (PEG) 17 Gm Powder PO PRN (15:15)
[2016-06-01] MEDS ORDERED: Ondansetron 2 mg/mL 2 mL Inj IVPUSH PRN (15:15)
[2016-06-01] MEDS ORDERED: Promethazine 25 mg Rectal Suppository RECTAL PRN (15:15)
[2016-06-01] MEDS ORDERED: Ondansetron 8 mg ODT Tablet PO PRN (15:15)
[2016-06-01] MEDS ORDERED: Hydrocortisone 50 mg/mL 2 mL Inj IVPUSH ONE (15:25)
[2016-06-01] MEDS ORDERED: cefTRIAXone Inj 1,000 MG in Dextrose 5% Minibag Plus 50 ML IV SCH (15:34)
[2016-06-01 16:17] VITALS: BP 116/51; PULSE 71; RESP 16; O2SAT 90
[2016-06-01 16:38] VITALS: BP 138/68; PULSE 76; RESP 17; O2SAT 94
[2016-06-01 16:42] VITALS: PULSE 77
[2016-06-01] MEDS ORDERED: HYDR2TAB28 PO (16:44)
[2016-06-01] MEDS ORDERED: METO-272 PO (17:02)
[2016-06-01] MEDS ORDERED: POLY17PO23 PO (17:13)
--- NOTE | 2016-06-01 17:15 | NUR ---
ADMIT Pt brought onto floor via around 1715. Admit nurse ANUSHA Ortega documented initial admit assessments, reviewed MED REC - paged about medications. Report received from Shannon. Pt Arabic speaking, prefers/requests only to have family translate. Assessment completed, pt oriented to unit, room, and call light. Belongings stored, tele in place. Pt tolerates ambulation well, steady on feet. SBA for potential hypotension/reported weakness.
[2016-06-01 21:48] VITALS: BP 134/68; PULSE 64; RESP 16; O2SAT 93
[2016-06-01] MEDS: 0.9% NaCl + KCl 20 mEq/L 1,000 ML IV SCH (22:08)
[2016-06-02] VITALS (7 sets, daily range): BP systolic 125–164; BP diastolic 62–77; PULSE 58–68; RESP 16–18; O2SAT 92–96
[2016-06-02] MEDS: 0.9% NaCl + KCl 20 mEq/L 1,000 ML IV SCH ×3 (08:10→19:31)
[2016-06-02] MEDS ORDERED: Amoxicillin-Clav 875-125 mg Tablet PO SCH (08:30)
[2016-06-02] MEDS: MeTOProlol XL 50 mg ER24 Tablet PO SCH ×2 (09:00→20:36)
[2016-06-02 10:04] LABS: Mean Corpuscular Hemoglobin 28.3 pg (27.0-35.0); Mean Corpuscular Volume 90.1 fL (81-100); Platelet Count 199 bil/L (150-400)
[2016-06-02 10:20] LABS: BASOPHILS % (AUTO) 0 % (0-3); EOSINOPHILS % (AUTO) 0 % (0-5); MONOCYTES % (AUTO) 6 % (4-12); NEUTROPHILS % (AUTO) 76 % (40-74)
--- NOTE | 2016-06-02 11:17 | NUR ---
Social Work: Initial Assessment / readiness for d/c Data: Pt is a 76 y/o male admitted for SIRS, UTI. Pt's PCP is Dr Payton, pt's insurance is Medicare with [facility] supp. Readmit score is 4. DIETETIC TECHNICIAN REGISTERED met with pt at bedside with family, role explained. Pt states that he lives in [place] with his in a single story home where he uses a cane and walker sometimes. Pt states that he has no LTC or VA benefits, no history of HH or SNF, and is not a caregiver. Pt states he has been up independently in the room. Contact information and plan written on board. DIETETIC TECHNICIAN REGISTERED will continue to follow for possible HH need. DIETETIC TECHNICIAN REGISTERED will continue to follow. Assessment: Pt who is independent at baseline. Plan: Pt will d/c home via POV with family when medically stable, likely tomorrow. DIETETIC TECHNICIAN REGISTERED will continue to follow for possible HH need. DIETETIC TECHNICIAN REGISTERED will continue to follow. CARMEN Nava Addendum: 06/02/16 at 1120 by GLORY DE LA CRUZ Amended: Links added.
--- NOTE | 2016-06-02 12:55 | PCM.PNMED ---
Subjective Date of Service Jun 02, 2016 Subjective Mentation back at baseline per family Patient without new complaints Exam Vital Signs Vital Sign - Last Date Time Temp Pulse Resp B/P Pulse Ox O2 Delivery O2 Flow Rate FiO2 06/02/16 09:06 36.6 65 18 164/71 95 Room Air 06/02/16 05:40 2.00 Intake and Output 06/01/16 06/01/16 06/02/16 Cumulative From/Thru 15:00 23:00 07:00 06/01/16 13:20 - 06/02/16 06:07 Intake Total 2000 ml 400 ml 777 ml 3177 ml Balance 2000 ml 400 ml 777 ml 3177 ml Intake Oral 400 ml 400 ml IV Total 2000 ml 777 ml 2777 ml # Voids 1 1 Exam General: Alert, Oriented X3, Cooperative, No Acute Distress Eyes: PERRLA, Scleral Anicteric Mouth: Mucous Membr Moist/Kevin Chest & Lungs: Clear to auscultation & percussion, No adventitious breath sounds Cardiovascular: Regular Rate/Rhythm, Other (No JVP noted) Abdomen: Non-tender, Distended, Normoactive bowel tones, Soft Extremities: No cyanosis/clubbing/edma bilat, Warm, No Edema Neurological: Grossly Neurologically Intact, Normal Speech, Normal Gait IVs and Medications Medications Reviewed: Medications were reviewed in detail Lab and Diagnostics Result Diagram: 06/02/16 0950 06/02/16 0950 X-Rays, CTs and MRIs cxr-IMPRESSION: No acute cardiopulmonary disease. Assessment & Plan Patient is a 76yom with MHx significant for metastatic prostate cancer on multiple pain medications presented to ED weak and confused, admitted for metabolic encephalopathy. Metabolic encephalopathy acute, present on admission, resolved -- Vitals wnl, no leukocytosis, urine pristine -- Likely polypharmacy, suspect oxybutynin -- Hold promethazine and oxybutynin -- Restart gabapentin and methadone -- Monitor mentation Bronchitis, present on admission, active -- Mild coarse breath on occultation, Crx essentially normal -- Cont Augmentin and bronchodilator, will d/c if procalcitonin <0.25 Metastatic prostate Cancer, present on admission, active -- Will cont as per oncology -- Resume pain medications. Urinary retention, present on admission, ongoing -- Cont home flomax -- holding oxybutynin indefinitely Essential hypertension, present on admission, stable -- resume home meds Dyslipidemia, present on admission, presumed stable -- resume home meds. Disposition: anticipate patient d/c to home without needs in the AM. VTE Mechanical Devices: Venous Foot Pump Resuscitation Status: DNR/DNI:Do Not Resuscitate/Intubate Attending Statement The patient was seen and examined together with Dr. Pedro Pavon on 06/02/2016 and I agree with the history, exam and plan as outlined in the note above. Pedro Pavon DO Jun 02, 2016 11:31 Chano Flores MD Jun 03, 2016 13:02
--- NOTE | 2016-06-02 15:36 | NUR ---
Case Management: NURIA explained, patient signed, copy provided, original in chart. [email or web address]
[2016-06-03] VITALS (7 sets, daily range): BP systolic 102–153; BP diastolic 54–71; PULSE 67–80; RESP 18–20; O2SAT 80–94
[2016-06-03] MEDS: 0.9% NaCl + KCl 20 mEq/L 1,000 ML IV SCH (04:53)
--- NOTE | 2016-06-03 04:57 | NUR ---
TEMP & RESPIRATORY During last set of shift VS, pts temp 38.6, oxygen saturations 80s on RA. Pts LS have been coarse. Pt has congested cough, w/ c/o difficulty expectorating sputum. Pt instructed on how to use acapella valve and deep breathing exercises. Pt given prn po tylenol for fever. Pt denies difficulty breathing. Pt placed on 2L, oxygen saturation 92-93%. notified, wants to continue to monitor. No change in IVF or CXR at this time. Continue to monitor.
[2016-06-03 08:22] LABS: BASOPHILS % (AUTO) 0.3 % (0-3); EOSINOPHILS % (AUTO) 0.5 % (0-5); MONOCYTES % (AUTO) 8.8 % (4-12); Mean Corpuscular Hemoglobin 28.2 pg (27.0-35.0); NEUTROPHILS % (AUTO) 67.3 % (40-74); Platelet Count 190 bil/L (150-400)
[2016-06-03] MEDS: MeTOProlol XL 50 mg ER24 Tablet PO SCH ×2 (08:48→21:17)
--- NOTE | 2016-06-03 10:01 | PCM.PNMED ---
Subjective Date of Service Jun 03, 2016 Subjective Rodrigo spiked a fever last night and continues to have a deep cough. He is having a hard time bringing the phlegm up. Denies any increase in SOB or CP. Has been tolerating PO intake. Has not been taking his Methadone because he reports he is not in pain. Family is there overnight and is supportive. Exam Vital Signs Vital Sign - Last Date Time Temp Pulse Resp B/P Pulse Ox O2 Delivery O2 Flow Rate FiO2 06/03/16 05:45 38.0 06/03/16 04:52 73 93 Nasal Cannula 2.00 06/03/16 04:25 18 146/71 Intake and Output 06/02/16 06/02/16 06/03/16 Cumulative From/Thru 15:00 23:00 07:00 06/01/16 13:20 - 06/03/16 06:09 Intake Total 300 ml 4006 ml 1777 ml 9260 ml Output Total 1400 ml 1175 ml 1100 ml 3675 ml Balance -1100 ml 2831 ml 677 ml 5585 ml Intake Oral 300 ml 986 ml 700 ml 2386 ml IV Total 3020 ml 1077 ml 6874 ml Output Urine Total 1400 ml 1175 ml 1100 ml 3675 ml # Voids 2 3 Exam General: Alert, Oriented X3, Cooperative, No Acute Distress Eyes: PERRLA, Scleral Anicteric Mouth: Mucous Membr Moist/Lenora Chest & Lungs: RLL crackles noted, no wheezing, normal effort Cardiovascular: Regular Rate/Rhythm with soft systolic murmurnoted, No JVP upright Abdomen: Non-tender, Distended, Normoactive bowel tones, Soft Extremities: No cyanosis/clubbing/edma bilat, Warm, No Edema Neurological: Grossly Neurologically Intact, Normal Speech, IVs and Medications Medications Reviewed: Medications were reviewed in detail Lab and Diagnostics Result Diagram: 06/02/16 0950 06/03/16 0605 X-Rays, CTs and MRIs cxr-IMPRESSION: No acute cardiopulmonary disease. Assessment & Plan Patient is a 76yom with MHx significant for metastatic prostate cancer on multiple pain medications presented to ED weak and confused, admitted for AMS and possible bronchitis vs PNA. AMS, present on admission, resolved -- Vitals wnl, no leukocytosis, urine pristine -- Likely polypharmacy, suspect oxybutynin, although methadone possible too -- Hold promethazine and oxybutynin -- Restart gabapentin and methadone, continue to monitor -- Mentation improved today per family. Eating and tolerating PO well, will stop IVF. Bronchitis vs pneumonia, present on admission, active -- Patient with increased productive cough and RLL crackles and fever. -- Augmentin PO started on 06/02 and Accunebs 1.25mg/ml Q4hwa, encourage Acapella , Guaifenesin bid for expectorant -- Will workup RLL crackles to evaluate for pneumonia: CXR and viral pcr pending Metastatic prostate Cancer, present on admission, active -- Will cont as per oncology -- Resume pain medications. Urinary retention, present on admission, ongoing -- Cont home flomax -- holding oxybutynin indefinitely Essential hypertension, present on admission, stable -- resume home meds Dyslipidemia, present on admission, presumed stable -- resume home meds. Disposition: With onset of fever and increase in cough, will likely need 1-2 more days to work up possible pneumonia and for treatment. Pain Evaluation: Adequate Pain Control VTE Prophylaxis: Sub-Q Heparin (Unfractionated) VTE Mechanical Devices: Venous Foot Pump Resuscitation Status: DNR/DNI:Do Not Resuscitate/Intubate Attending Statement The patient was seen and examined together with Dr. Singh on 06/03/2016 and I agree with the findings, assessment and plan as stated above. Te Singh DO Jun 03, 2016 07:13 Chano Flores MD Jun 04, 2016 13:15
[2016-06-03] MEDS: guaiFENesin 600 mg ER12 Tablet PO SCH ×2 (11:48→21:14)
[2016-06-03] MEDS: Amoxicillin-Clav 875-125 mg Tablet PO SCH ×2 (11:48→21:17)
[2016-06-03] MEDS: Albuterol 1.25 mg/3 mL Inhalation Solution NEB SCH ×3 (11:55→20:30)
--- NOTE | 2016-06-03 13:31 | NUR ---
Case Management: IMM given and explained to Daughter Antonieta. Yaima KWONG RN
--- NOTE | 2016-06-03 15:13 | DRSVH ---
PROCEDURE: X-RAY CHEST, TWO VIEWS ([id number]) INDICATIONS: cough, RLL crackles TECHNIQUE: 2 views of the chest were acquired. COMPARISON: [facility], CR, XR CHEST 2VW, 03/17/2016, 22:33. FINDINGS: Surgical changes and devices: None. Lungs and pleura: Bilateral lower lobe infiltrates, left greater than right, suspicious for pneumonia . Possible small left effusion. No pleural effusions or pneumothorax. Mediastinum: Mediastinal contours are normal. Heart size is normal. Bones and chest wall: No suspicious bony abnormalities. Soft tissues appear unremarkable. IMPRESSION: Bilateral lower lobe infiltrates suspicious for pneumonia. Dictated by: Crys White M.D. on 06/03/2016 at 15:11 Approved by: Crys White M.D. on 06/03/2016 at 15:12
--- NOTE | 2016-06-03 17:44 | NUR ---
shakes per doc the pt has the shakes because he was beginning to withdraw from the steroids. steroids are re-ordered
[2016-06-03] MEDS ORDERED: Heparin 5,000 Unit/mL Inj SUBQ SCH (20:30)
--- NOTE | 2016-06-04 04:48 | NUR ---
PT ACTIVITY/CHILLS Pt has slept most of shift. Pt up to BR w/ SBA. Pt has denied any pain. Pt continues to have c/o "chills and being cold." Pt has remained afebrile during shift. Continue to monitor. Call light in reach. Bed alarm on. Family in room. Intentional rounding.
[2016-06-04 05:29] VITALS: BP 114/62; PULSE 58; RESP 18; O2SAT 94
[2016-06-04 06:47] LABS: Mean Corpuscular Hemoglobin 28.5 pg (27.0-35.0); Platelet Count 209 bil/L (150-400)
[2016-06-04 08:00] LABS: BASOPHILS % (AUTO) 0 % (0-3); EOSINOPHILS % (AUTO) 1 % (0-5); MONOCYTES % (AUTO) 6 % (4-12); NEUTROPHILS % (AUTO) 75 % (40-74)
[2016-06-04] MEDS: Albuterol 1.25 mg/3 mL Inhalation Solution NEB SCH ×2 (08:00→11:49)
[2016-06-04 08:01] VITALS: PULSE 63; RESP 18; O2SAT 93
[2016-06-04] MEDS: guaiFENesin 600 mg ER12 Tablet PO SCH (10:09)
[2016-06-04] MEDS: Amoxicillin-Clav 875-125 mg Tablet PO SCH (10:10)
[2016-06-04] MEDS: MeTOProlol XL 50 mg ER24 Tablet PO SCH (10:11)
--- NOTE | 2016-06-04 11:06 | PCM.DIMED ---
Pedro Pavon DO 06/04/16 1106: Discharge Instructions Date of Service Jun 04, 2016 Dates of Hospitalization Jun 01, 2016 at 16:10 Discharge Diagnosis Discharge Diagnosis AMS, present on admission, resolved Bronchitis, present on admission, stable --Will need to continue Augmentin 1 tablet each time, twice a day for 6days --Tessalon pearls for cough --Will need to followup with your primary care provider in 1wk Metastatic prostate Cancer, present on admission, ongoing Urinary retention, present on admission, ongoing Essential hypertension, present on admission, stable Dyslipidemia, present on admission, presumed stable Diet Heart Healthy Activity No restrictions Call your provider Fever or Chills, Shortness of breath, Chest pain, Excessive diarrhea Patient Instructions For your stay, you were admitted for altered mentation and bronchitis. The cause of your altered mentation likely due to Polypharmacy. Likely due to oxybutynin that you took for overactive bladder. We have discontinue oxybutynin. Please consult with your primary care provider for possible alternatives. You may not needed at all. Bronchitis--you likely have an upper respiratory infection. We will treat you with Augmentin. Please take this medication twice daily for the next 6days. Follow-up Provider: Johnson Payton MD Follow-up with PCP in: 1 week Chano Flores MD 06/04/16 1314: Pedro Pavon DO Jun 04, 2016 11:06 Chano Flores MD Jun 04, 2016 13:14
[2016-06-04] MEDS ORDERED: AGM875T PO (11:10)
--- NOTE | 2016-06-04 11:38 | NUR ---
Social Work-discharge: Data:EMR reviewed. Pt is on day 3 of hospitalization for UTI per H&P. Pt is medically stable to discharge home today. SW followed up with pt and family at bedside, SW role explained. Pt and family declining HH stating they do not feel like this will be needed. Pt has been up independent in his room. No discharge needs identified. All updated and agreeable to plan. Assessment:pt who is independent at baseline. Plan:Pt to discharge home today via POV. No discharge needs identified. All updated and agreeable to plan. CARMEN You
[2016-06-04 11:49] VITALS: PULSE 66; RESP 18; O2SAT 91
--- NOTE | 2016-06-04 13:50 | NUR ---
Discharge Nursing Note: Patient was discharged to home at 1350. Patients IV was removed intact. All of patients discharge information was reviewed with patients daughters(who are his caregivers) and all of their questions were answered to their satisfaction. Patient was brought to the hospital lobby by nursing staff member and he was driven to home by his daughter.
--- NOTE | 2016-06-04 17:39 | PCM.DC.MED ---
Discharge Summary Date of Service Jun 04, 2016 Dates of Hospitalization Date of Hospital Admission Jun 01, 2016 at 16:10 Date of Discharge: Jun 04, 2016 Providers: Admitting Physician: Kirk Cornell MD Primary Care Physician: Johnson Gallardo MD Attending Physician: Kirk Cornell MD Diagnosis at Time of Discharge Diagnosis at Time of Discharge AMS, present on admission, resolved Bronchitis, present on admission, stable --Will need to continue Augmentin 1 tablet each time, twice a day for 6days --Tessalon pearls for cough --Will need to followup with your primary care provider in 1wk Metastatic prostate Cancer, present on admission, ongoing Urinary retention, present on admission, ongoing Essential hypertension, present on admission, stable Dyslipidemia, present on admission, presumed stable Procedures XRay, CTs & MRIs cxr-IMPRESSION: No acute cardiopulmonary disease. Brief History 76-year-old male history of prostate cancer on chemotherapy presenting with confusion and weakness today per daughter. Febrile on arrival. Map's 70. Lactate normal. White blood cell count normal. Urine dip with positive leukocytes. Patient with SIRS physiology and urine suggestive of UTI on dip. He will be treated with Rocephin, given 2 L normal saline. Given one dose stress dose steroids hydrocortisone given he has been on steroids as an outpatient which were stopped one week ago. Admitted to telemetry. As I get the story she has had sort of a cold and a cough for about 2 weeks and has been eating less for 3-4 weeks. He began feeling particularly poorly and having the shakes out so much confusion and encephalopathy Sunday 3 days ago. His daughter states that he was actually mentating just findings as having shakes and movement disorders. It is not clear whether these represented Reiger 's worth dystonic reactions to medication such as Reglan and/or gabapentin to that end I am going to stop those and going to continue his narcotics and I am going to treat him with antibiotics for possible bronchitis though I doubt UTI given the absolutely clear urine. Hospital Course Patient is a 76yom with MHx significant for metastatic prostate cancer on multiple pain medications presented to ED weak and confused, admitted for AMS and possible bronchitis vs PNA. AMS, present on admission, resolved -- Vitals wnl, no leukocytosis, urine pristine -- Likely polypharmacy, suspect oxybutynin, although methadone possible too -- Hold promethazine and oxybutynin -- Restart gabapentin and methadone. Consider titrating down methadone -- Mentation improved today per family. Eating and tolerating PO well Bronchitis, resent on admission, resolving -- Patient with increased productive cough and RLL crackles and fever. -- some concern of pneumonia --- Work up RLL crackles to evaluate for pneumonia: CXR and viral pcr all negative -- Likely that patient has bronchitis. -- Augmentin PO started on 06/02 will continue for 6 more days. Metastatic prostate Cancer, present on admission, active -- Will cont as per oncology -- Resume pain medications. Urinary retention, present on admission, ongoing -- Cont home flomax -- holding oxybutynin indefinitely Essential hypertension, present on admission, stable -- resume home meds Dyslipidemia, present on admission, presumed stable -- resume home meds. Exam Vital Signs (Last) Date Time Temp Pulse Resp B/P Pulse Ox O2 Delivery O2 Flow Rate FiO2 06/04/16 11:49 66 18 91 Nasal Cannula 1.50 06/04/16 05:29 36.0 114/62 Test 06/01/16 13:30 06/01/16 14:55 06/02/16 09:50 06/04/16 06:15 Nucleated Red Blood Cells 3/100 WBC (0-24) Lactic Acid Level 1.9mmol/L (0.4-2.0) Magnesium Level 1.9mg/dL (1.6-2.6) Total Bilirubin 0.5mg/dL (0.0-1.2) Aspartate Amino Transf (AST/SGOT) 17U/L (0-50) Alanine Aminotransferase (ALT/SGPT) 12U/L (0-44) Alkaline Phosphatase 90U/L (25-160) Troponin T < 0.010ug/L (0.0-0.011) Total Protein 6.0g/dL (6.4-8.4) Albumin 3.3g/dL (3.4-5.0) Urine Color Yellow (YELLOW) Urine Appearance Hazy (CLEAR,HAZY) Urine pH 6.0 (5.0-8.0) Urine Specific Gattman 1.015 (1.003-1.035) Urine Protein Negativemg/dL (NEG,TRACE) Urine Glucose (UA) Negativemg/dL (NEGATIVE) Urine Ketones Negativemg/dL (NEGATIVE) Urine Occult Blood Trace (NEGATIVE) Urine Nitrite Negative (NEGATIVE) Urine Bilirubin Negative (NEGATIVE) Urine Urobilinogen Normalmg/dL (NORMAL) Urine Leukocyte Esterase Negative (NEGATIVE) Urine RBC 3-10/hpf (0-2) Urine WBC 0-5/hpf (0-5) Urine Epithelial Cells Occasional/hpf (NONE-MOD) Urine Crystals None seen (NONE SEEN) Urine Bacteria None/hpf (NONE-FEW) Urine Hyaline Casts None/lpf (NONE) Urine Granular Casts None seen (NONE SEEN) Urine Waxy Casts None seen (NONE SEEN) Urine Red Blood Cell Casts None seen (NONE SEEN) Urine White Blood Cell Casts None seen (NONE SEEN) Urine Mucus Present (None Seen) Urine Trichomonas None seen (NONE SEEN) Urine Yeast None (NONE SEEN) Urinalysis Comment None Urine Culture Reflexed Not indicated Myelocytes % 2% (0-0) White Blood Count 6.4th/mm3 (3.8-10.1) Red Blood Count 3.44mil/mm3 (4.40-5.80) Hemoglobin 9.8g/dL (13.8-17.2) Hematocrit 30.6% (41.0-50.0) Mean Corpuscular Volume 89.0fL (81-100) Mean Corpuscular Hemoglobin 28.5pg (27.0-35.0) Mean Corpuscular Hemoglobin Concent 32.0% (32.0-37.0) Red Cell Distribution Width 18.5% (12.3-15.4) Platelet Count 209bil/L (150-400) Neutrophils (%) (Auto) 75% (40-74) Lymphocytes (%) (Auto) 13% (14-46) Monocytes (%) (Auto) 6% (4-12) Eosinophils (%) (Auto) 1% (0-5) Basophils (%) (Auto) 0% (0-3) Band Neutrophils % 3% (1-5) Metamyelocytes % 2% (0-0) Sodium Level 142mEq/L (134-144) Potassium Level 4.3mEq/L (3.5-5.2) Chloride Level 106mEq/L (97-108) Carbon Dioxide Level 25mmol/L (18-29) Blood Urea Nitrogen 10mg/dL (8-27) Creatinine 0.66mg/dL (0.76-1.27) Estimat Glomerular Filtration Rate 124mL/min (>59) Glucose Level 110mg/dL (60-99) Calcium Level 7.7mg/dL (8.5-10.1) C-Reactive Protein 9.3mg/dL (0.0-0.5) Procalcitonin < 0.05ng/mL (See Comment) Discharge Medications Discharge Medications Atorvastatin Calcium (Atorvastatin Calcium) 10 Mg Tablet 10 MG PO DAILY Prescribed by: JOHNSON GALLARDO MD Dexamethasone (Dexamethasone) 4 Mg Tablet 2 MG PO DAILY (Reported) Gabapentin (Gabapentin) 300 Mg Capsule 600 PO TID (Reported) Methadone (Methadone) 10 Mg Tab 15 MG PO BID Prescribed by: BARBI ACRRERO MD Methadone (Methadone) 10 Mg Tab 10 MG PO DAILYWL (Reported) Metoprolol Succinate ER (Metoprolol Succinate ER) 50 Mg Tab.er.24h 50 MG PO BID (Reported) Mirtazapine (Mirtazapine) 15 Mg Tablet 7.5 MG PO HS (Reported) Pantoprazole DR (Pantoprazole DR) 20 Mg Tablet.dr 20 MG PO DAILY (Reported) Polyethylene Glycol 3350 (Miralax) 17 Gm Powd.pack 17-34 GM PO DAILY Prescribed by: SCARLETT SANCHES MD Tamsulosin (Flomax) 0.4 Mg Capsule 0.4 MG PO TID (Reported) As needed Hydromorphone (Hydromorphone) 2 Mg Tablet 2 MG PO Q4H PRN PRN For Pain (Reported ) Nitroglycerin SL (Nitroglycerin SL) 0.4 Mg Tab.subl 0.4 MG SL PRN PRN PRN For Chest Pain (Reported) Followup Plan Discharge Diet: Heart Healthy Discharge Activity: No restrictions Patient Instructions For your stay, you were admitted for altered mentation and bronchitis. The cause of your altered mentation likely due to Polypharmacy. Likely due to oxybutynin that you took for overactive bladder. We have discontinue oxybutynin. Please consult with your primary care provider for possible alternatives. You may not needed at all. Bronchitis--you likely have an upper respiratory infection. We will treat you with Augmentin. Please take this medication twice daily for the next 6days. Follow-up Provider: Johnson Gallardo MD Follow-up with PCP in: 1 week Time spent 35 minutes Attending Statement The patient was seen and examined together with Dr. Pedro Pavon on 06/04/2016 and I have added additional information to the note above copies to: Johnson Gallardo MD, Phuc H DO Jun 04, 2016 17:39 Chano Flores MD Jun 13, 2016 10:52
[2016-06-16] MEDS ORDERED: METH5TAB3 PO (12:31)
[2016-07-14] MEDS ORDERED: METH5TAB3 PO (12:07)
[2016-08-11] MEDS ORDERED: MTH10T PO (11:10)
[2016-08-11] MEDS ORDERED: DXM4T PO (11:10)
[2016-08-11] MEDS ORDERED: CITA20TA11 PO (11:10)
== END 2016-06-04 13:50 | disposition home or self-care (01) | DRG 72 ==
LOC: SED 13:14 → OBSVTOIN 16:10 → INTOOBSV 16:10 → MPC 16:10
PROVIDERS: ADMIT Hospitalist; ATTEND Hospitalist
DX: G93.41 Metabolic encephalopathy (principal); T44.3X5A Adverse effect of other parasympatholytics [anticholinergics and antimuscarinics] and spasmolytics, initial encounter; J40 Bronchitis, not specified as acute or chronic; Z92.21 Personal history of antineoplastic chemotherapy; Z79.82 Long term (current) use of aspirin; C61 Malignant neoplasm of prostate; R33.9 Retention of urine, unspecified; I10 Essential (primary) hypertension; Z66 Do not resuscitate; E78.5 Hyperlipidemia, unspecified; T40.3X5A Adverse effect of methadone, initial encounter

== ENCOUNTER 2016-06-11 08:55 | Inpatient (IN) | payer MEDICARE, MEDICAID ==
[~2016-06-11] VITALS: Ht 167.6 cm; Wt 73.4 kg
[~2016-06-11 08:55] MED LIST changes: +AGM875T PO; -CITA20TA11 PO; -DOCU-41 PO; +DXM4T PO; -GABA-502 PO; -GABA600T2 PO; -HYDR2TAB27 PO; +HYDR2TAB28 PO; -HYDR4TAB PO; +METO-272 PO; -METO10TA3 PO; -METO50TA3 PO; -METO5TAB78 PO; +MIRT15TA6 PO; -ONDA8TAB7 PO; -OXYB5TAB PO; -PROM25SU47 RECTAL; -PROM25TA14 PO; -RANI150C4 PO
[2016-06-11 09:02] VITALS: BP 120/58; PULSE 78; RESP 14; O2SAT 96
--- NOTE | 2016-06-11 09:07 | ED.REPORT ---
HPI-Chest Pain 40 and Over Date of Service Jun 11, 2016 ED Provider: Barndyn Freitas DO Pt is a 76 y.o. 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 Pt reports associated fever ( subjective), diaphoresis, mild green productive cough, vomiting, and mild SOB. Pt was recently admitted to the hospital (06/01-06/04) for bronchitis and AMS and he was discharged on a 6 day course of Augmentin. Pt states he is unsure of his current medications as his , whom he lives with, dispenses them for him. Per records pt is currently on 2mg dexamethasone daily. He denies home O2 use. Upon recheck daughter reports that pt has been vomiting due to chemo and has not been keeping his medication down. Daughter and report that 2 days ago pt was active and walking around and just yesterday began complaining of pain and "feeling ill". His became worried this morning because he kept vomiting and coughing up phlegm so she called her daughter and told her that the pt needed to be brought in to the ED. Nursing Notes Stated Complaint: CHEST PAIN Chief Complaint: Chest Pain-Non Cardiac Nature Nursing Notes Reviewed: Yes Allergies: Coded Allergies: hydrocodone (Verified Allergy, Severe, hives, 06/01/16) iodine (Verified Allergy, Severe, it brought him to the hospital, 06/01/16) omeprazole (Verified Allergy, Mild, SHAKINESS, 06/01/16) Uncoded Allergies: CONTRAST MEDIUM (Allergy, Severe, ANAPHYLAXIS, 05/10/16) Scheduled Atorvastatin Calcium (Atorvastatin Calcium) 10 Mg Tablet 10 MG PO DAILY Dexamethasone (Dexamethasone) 4 Mg Tablet 2 MG PO DAILY Gabapentin (Gabapentin) 300 Mg Capsule 600 PO TID Levofloxacin (Levaquin) 750 Mg Tablet 750 MG PO Q24H Methadone (Methadone) 10 Mg Tab 10 MG PO BID Methadone (Methadone) 5 Mg Tablet 15 MG PO AM Metoprolol Succinate ER (Metoprolol Succinate ER) 50 Mg Tab.er.24h 50 MG PO BID Mirtazapine (Mirtazapine) 15 Mg Tablet 7.5 MG PO HS Pantoprazole DR (Pantoprazole DR) 20 Mg Tablet.dr 20 MG PO DAILY Polyethylene Glycol 3350 (Miralax) 17 Gm Powd.pack 17-34 GM PO DAILY Tamsulosin (Flomax) 0.4 Mg Capsule 0.4 MG PO BID Scheduled PRN Hydromorphone (Hydromorphone) 2 Mg Tablet 2 MG PO Q4H PRN PRN For Pain Nitroglycerin SL (Nitroglycerin SL) 0.4 Mg Tab.subl 0.4 MG SL PRN PRN PRN For Chest Pain General Time Seen by MD: 09:06 Chief Complaint Chest pain Hx Obtained From: Patient Arrived By: Ambulance Sudden in Onset?: Yes Onset Occurred: 1 - 4 hours ago Symptom Duration: Since onset Location: : Chest left Quality: Painful Severity: Current: Pain level 8 out of 10 (06/01-06/04) Recent Healthcare: Recent hospitalization Past Medical History Past Medical History Notes: Oncologist Dr. Gomez [facility] Past Medical History Stage IV prostate CA with skeletal metastases (records indicate, progressive metastatic CA, with multiple new lesions identified on nuclear bone scan March 10 to Reports: Hypertension Past Surgical History toe surgery Smoking History Former Smoker Social History Alcohol Use: Denies alcohol use Drug Use: Denies drug use Other Social History: Good social support, Ambulatory Status Independent Review of Systems Constitutional: Reports: Fever (Subjective) Respiratory: Reports: Prod cough, green, Shortness of breath Cardiovascular: Reports: Chest pain GI: Reports: Vomiting Skin: Reports Diaphoresis Complete sys rev & neg: except as marked. Physical Exam Initial Vital Signs Initial VS: Reviewed Head / Eyes: Atraumatic, Normocephalic Extremities: Vascular intact, Neuro intact Skin: Warm, Dry, No cyanosis Neurologic: Alert, Oriented, Nonfocal Psychiatric: Mood/affect normal, Behavior normal, Normal thought content General/Constitutional: Awake, Alert, No acute distress Respiratory / Chest: Atraumatic, Breath sounds NL, Breath sounds = bilat, No respiratory distress, No rhonchi, No wheezing, No stridor, No chest tenderness Bibasilar rales, worse on left Cardiovascular: Heart rate NL, Regular rhythm, Heart sounds NL, No gallop, No murmurs, No rubs, Peripheral circulation NL Abdomen: Atraumatic, Soft, Non-tender, No distention Mouth: Positive: Stomatitis present (Erythematous peticheal areas covering roof of mouth) Interpretation & Diagnostics Lab Results Interpretation Test 06/11/16 09:30 06/11/16 09:50 Prothrombin Time 10.5sec (8.1-12.5) Prothromb Time International Ratio 0.98ratio Activated Partial Thromboplast Time 25.2sec (22.8-33.0) Troponin T 0.010ug/L (0.0-0.011) Pro-B-Type Natriuretic Peptide 544.9pg/mL (0-486) Lactic Acid Level 1.0mmol/L (0.4-2.0) Lab Results Interpretation: Influenza negative Point of Care Testing: Hematocrit low ECG Interpretation ECG Interpretation: No ST changes Time: 09:55 Interpreted by: ED physician Normal ECG Interpretation: Normal rate (72), Normal sinus rhythm CBC Interpretation WBC elevated X-Ray Chest Interpretation Chest Xray Interpretation: IMPRESSION: Decrease patchy residual left lung base pneumonia. Dictated by: Dennys Cote M.D. on 06/11/2016 at 10:31 Approved by: Dennys Cote M.D. on 06/11/2016 at 10:33 Re-Eval/Medical Decision Med Decision/Clinical Course 76-year-old male with a history of metastatic/refractory prostate cancer presents with increasing weakness, vomiting, and a productive cough for green sputum. He lives at home with his and she notes he has been unable to keep his medication down that he was prescribed a week ago after hospitalization for bronchitis. He has not been eating well and has sores in his mouth. He has been more weak and they are worried about his lungs. His white count is markedly increased from last visit although he is on daily dexamethasone and he did receive filgrastim last week which I confirmed with Dr. Huggins, a partner of his oncologist Dr. Gomez. Last admission one week ago his pro calcitonin was not elevated but today it is. His chest x-ray today appears improved from last week but clinically it sounds like he has worsened and I am concerned that he will not do well at home since he is unable to keep down his meds or his food. His vitals are within normal limits. I elected to treat his pneumonia with Levaquin 750 mg IV. Blood cultures were obtained. Patient will be admitted for further workup and treatment. Discussed with hospitalist Source of Hx: Old records Time of Eval: 11:17 Patient Status: Pain improved Re-Evaluation/Progress Note: Pt rechecked. Pt's family is now presents. Pt is resting but arouseable. He states pain is improved. Daughter reports that pt has been vomiting after taking his medications. Time of Eval: 11:52 Re-Evaluation/Progress Note: Pt rechecked. Pt is resting. Family states that pt has recently had trouble eating due to mouth sores. They also request pt be admitted as they do not believe they can care for him at home at this time. Consultation #1: Referral / Consult Name: Phi Huggins MD Call Returned at: 11:35 Continuing Education Specialist: Agrees with plan Note: Consulted with Dr. Huggins, oncology. State pt recieved Filgrastim, which could explain increased WBC. He agreed with plan to begin pt on Levaquin. Consultation #2: Referral / Consult Name: Mignon Corbett MD Call Returned at: 12:10 Continuing Education Specialist: Agrees with plan, Accepts admit Note: Discussed pt condition and consult with Dr. Huggins. Dr. Giron agrees with plan and accepts admit. Counseled Regarding: Diagnosis, Lab results, Need for follow-up, When/why to return to ED Discharge & Departure Primary Impression: Bacterial pneumonia Additional Impressions: Weakness SOB (shortness of breath) Stomatitis Prostate cancer metastatic to bone Disposition: ADMITTED TO HOSPITAL Discharge Condition All VS Reviewed: Yes Condition: Stable Referrals: Johnson Payton MD (PCP) Satish Attestation Portions of this note were transcribed by Jesus Orozco. I, Dr. Freitas personally performed the history, physical exam and medical decision-making; I reviewed and confirmed the accuracy of the information in the transcribed note. Signed by: Satish Gaming, 06/11/2016 and 1213. copies to: Johnson Payton MD, Gary R DO Jun 11, 2016 09:07 JESUS OROZCO Jun 11, 2016 09:19 Aspartate Amino Transf (AST/SGOT) 24U/L (0-50) Alanine Aminotransferase (ALT/SGPT) 13U/L (0-44) Alkaline Phosphatase 146U/L (25-160) Troponin T 0.010ug/L (0.0-0.011) Pro-B-Type Natriuretic Peptide 544.9pg/mL (0-486) Total Protein 6.6g/dL (6.4-8.4) Albumin 3.7g/dL (3.4-5.0) Procalcitonin 0.11ng/mL (0.00-0.08) Lactic Acid Level 1.0mmol/L (0.4-2.0) Lab Results Interpretation: Influenza negative Point of Care Testing: Hematocrit low ECG Interpretation ECG Interpretation: No ST changes Time: 09:55 Interpreted by: ED physician Normal ECG Interpretation: Normal rate (72), Normal sinus rhythm CBC Interpretation WBC elevated X-Ray Chest Interpretation Chest Xray Interpretation: IMPRESSION: Decrease patchy residual left lung base pneumonia. Dictated by: Dennys Cote M.D. on 06/11/2016 at 10:31 Approved by: Dennys Cote M.D. on 06/11/2016 at 10:33 Re-Eval/Medical Decision Med Decision/Clinical Course 76-year-old male with a history of metastatic/refractory prostate cancer presents with increasing weakness, vomiting, and a productive cough for green sputum. He lives at home with his and she notes he has been unable to keep his medication down that he was prescribed a week ago after hospitalization for bronchitis. He has not been eating well and has sores in his mouth. He has been more weak and they are worried about his lungs. His white count is markedly increased from last visit although he is on daily dexamethasone and he did receive filgrastim last week which I confirmed with Dr. Huggins, a partner of his oncologist Dr. Gomez. Last admission one week ago his pro calcitonin was not elevated but today it is. His chest x-ray today appears improved from last week but clinically it sounds like he has worsened and I am concerned that he will not do well at home since he is unable to keep down his meds or his food. His vitals are within normal limits. I elected to treat his pneumonia with Levaquin 750 mg IV. Blood cultures were obtained. Patient will be admitted for further workup and treatment. Discussed with hospitalist Source of Hx: Old records Time of Eval: 11:17 Patient Status: Pain improved Re-Evaluation/Progress Note: Pt rechecked. Pt's family is now presents. Pt is resting but arouseable. He states pain is improved. Daughter reports that pt has been vomiting after taking his medications. Time of Eval: 11:52 Re-Evaluation/Progress Note: Pt rechecked. Pt is resting. Family states that pt has recently had trouble eating due to mouth sores. They also request pt be admitted as they do not believe they can care for him at home at this time. Consultation #1: Referral / Consult Name: Phi Huggins MD Call Returned at: 11:35 Continuing Education Specialist: Agrees with plan Note: Consulted with Dr. Huggins, oncology. State pt recieved Filgrastim, which could explain increased WBC. He agreed with plan to begin pt on Levaquin. Consultation #2: Referral / Consult Name: Mignon Corbett MD Call Returned at: 12:10 Continuing Education Specialist: Agrees with plan, Accepts admit Note: Discussed pt condition and consult with Dr. Huggins. Dr. Grion agrees with plan and accepts admit. Counseled Regarding: Diagnosis, Lab results, Need for follow-up, When/why to return to ED Discharge & Departure Primary Impression: Bacterial pneumonia Additional Impressions: Weakness SOB (shortness of breath) Stomatitis Prostate cancer metastatic to bone Disposition: ADMITTED TO HOSPITAL Discharge Condition All VS Reviewed: Yes Condition: Stable Referrals: Johnson Payton MD (PCP) Satish Attestation Portions of this note were transcribed by Jesus Orozco. I, Dr. Freitas personally performed the history, physical exam and medical decision-making; I reviewed and confirmed the accuracy of the information in the transcribed note. Signed by: Satish Gaming, 06/11/2016 and 1213. copies to: Johnson Payton MD, Gary R DO Jun 11, 2016 09:07 JESUS OROZCO Jun 11, 2016 09:19
[2016-06-11 09:53] LABS: BASOPHILS % (AUTO) 0.6 % (0-3); EOSINOPHILS % (AUTO) 0.2 % (0-5); MONOCYTES % (AUTO) 0.8 % (4-12); Mean Corpuscular Hemoglobin 28.3 pg (27.0-35.0); Mean Corpuscular Volume 89.2 fL (81-100); NEUTROPHILS % (AUTO) 79.4 % (40-74); Platelet Count 237 bil/L (150-400)
[2016-06-11 10:02] LABS: INR 0.98 ratio
[2016-06-11 10:23] LABS: TROPONIN T 0.01 ug/L (0.0-0.011)
--- NOTE | 2016-06-11 10:34 | DRSVH ---
PROCEDURE: X-RAY CHEST, TWO VIEWS ([id number]) INDICATIONS: 76 year-old male with chest pain and shortness of breath. TECHNIQUE: 2 views of the chest were acquired. COMPARISON: [facility], CR, XR CHEST 2VW, 06/03/2016, 13:24. [facility], CR, XR CHEST 1VW (PORTABLE), 06/01/2016, 13:34. [facility], CR, XR CHEST 1VW (PORTABLE), , 12:49. FINDINGS: Surgical changes and devices: None. Lungs and pleura: No pleural effusions or pneumothorax. Left lung base opacities have decreased but not resolved. Right lung remains clear. Mediastinum: Mediastinal contours are normal. Heart size is normal. There is aortic atherosclerosi s. Bones and chest wall: No suspicious bony abnormalities. Soft tissues appear unremarkable. IMPRESSION: Decrease patchy residual left lung base pneumonia. Dictated by: Dennys Cote M.D. on 06/11/2016 at 10:31 Approved by: Dennys Cote M.D. on 06/11/2016 at 10:33
[2016-06-11 10:35] LABS: Magnesium 2.2 mg/dL (1.6-2.6)
[2016-06-11] MEDS ORDERED: levoFLOXacin Inj 750 MG in IV Premix 1 EACH IV ONE (11:40)
[2016-06-11] MEDS ORDERED: 0.9% Sodium Chloride 1,000 ML IV ONE (11:40)
[2016-06-11 12:02] VITALS: BP 133/51; PULSE 69; RESP 12; O2SAT 93
[2016-06-11] MEDS ORDERED: DIPHEN PO ONE ×2 (12:10→13:45)
[2016-06-11] MEDS ORDERED: LIDO PO ONE ×2 (12:10→13:45)
[2016-06-11] MEDS ORDERED: MAALOX PO ONE ×2 (12:10→13:45)
[2016-06-11 13:22] VITALS: BP 133/51; PULSE 69; RESP 12; O2SAT 93
[2016-06-11 13:51] VITALS: BP 143/63; PULSE 74; RESP 19; O2SAT 93
[2016-06-11] MEDS ORDERED: GABA-502 PO (14:19)
[2016-06-11] MEDS ORDERED: PANT20TA2 PO (14:21)
[2016-06-11] MEDS ORDERED: Ondansetron 2 mg/mL 2 mL Inj IVPUSH PRN (15:40)
[2016-06-11] MEDS ORDERED: Alum-Mag Hydrox-Simeth 30 mL Suspension PO PRN (16:00)
[2016-06-11] MEDS ORDERED: Albuterol 2.5 mg/3 mL Inhalation Solution NEB PRN (16:00)
[2016-06-11] MEDS ORDERED: Polyethylene Glycol (PEG) 17 Gm Powder PO PRN (16:00)
--- NOTE | 2016-06-11 16:20 | PCM.HPMED ---
Subjective Date of Service Jun 11, 2016 Primary Provider: Admitting Physician: Mignon Corbett MD Primary Care Physician: Johnson Gallardo MD Attending Physician: Mignon Corbett MD Admit Status: From the Emergency Department Chief Complaint: weakness, increasing productive cough, n/v History of Present Illness: Patient is Barbadian speaking but has several family members with him here today who speak Serbian. ED physician stated that he does speak Barbadian but when he tried to obtain a history from the patient the patient was not able to give very good details and a better history was actually obtained from family. So my history was obtained from the family, who did translate some questions to the patient, and from his recent medical records. He was just discharged home from the hospital June 04, having been admitted on June 01 for bronchitis versus pneumonia. During that admission it was reported that chest x-ray was unremarkable but chest x-ray today refers to a left basilar infiltrate that was noted recently. He was discharged home on Augmentin. Initially he was doing well. He then had chemotherapy for his prostate cancer 2 days ago and since then is noting decreasing appetite and decreasing energy. Today he noted nausea and began vomiting around 5 AM. Emesis was mostly phlegm and bile although perhaps there was a small amount of blood which he attributes to a nosebleed. Today also noting increased cough which is more productive and now has green sputum. He did have an obvious episode of feeling hot and sweaty last night and some mild shaking chills. He is also noting chest pain which he says is in the left lateral rib cage but since this is his usual pain associated with his cancer and not acutely changed. He did have a bowel movement this morning which was softer than usual but brown and no blood noted. Review of Systems: He is noting some sore areas in his mouth and a sore on the lip which he attributes to fever. Otherwise review of systems is unremarkable except as above. Allergies Coded Allergies: hydrocodone (Verified Allergy, Severe, hives, 06/01/16) iodine (Verified Allergy, Severe, it brought him to the hospital, 06/01/16) omeprazole (Verified Allergy, Mild, SHAKINESS, 06/01/16) Uncoded Allergies: CONTRAST MEDIUM (Allergy, Severe, ANAPHYLAXIS, 05/10/16) Home Medications The daughter who puts his medications out in the container is for him to take is not here currently. When the family called her on the phone she stated that patient is on the same medication he was discharged home on on the . These medicines include: Discharge Medications Amoxicillin/Clav K 875-125 mg (Amoxicillin/Clav K 875-125 mg) 875 Mg Tab 1 TAB PO BID Prescribed by: DELFINA SWAN DO Atorvastatin Calcium (Atorvastatin Calcium) 10 Mg Tablet 10 MG PO DAILY Prescribed by: JOHNSON GALLARDO MD Dexamethasone (Dexamethasone) 4 Mg Tablet 2 MG PO DAILY (Reported) Methadone (Methadone) 10 Mg Tab 15 MG PO BID Prescribed by: BARBI CARRERO MD Methadone (Methadone) 10 Mg Tab 10 MG PO DAILYWL (Reported) Metoprolol Succinate ER (Metoprolol Succinate ER) 50 Mg Tab.er.24h 50 MG PO BID (Reported) Mirtazapine (Mirtazapine) 15 Mg Tablet 7.5 MG PO HS (Reported) Polyethylene Glycol 3350 (Miralax) 17 Gm Powd.pack 17-34 GM PO DAILY Prescribed by: SCARLETT SANCHES MD Tamsulosin (Flomax) 0.4 Mg Capsule 0.4 MG PO TID (Reported) As needed Hydromorphone (Hydromorphone) 2 Mg Tablet 2 MG PO Q4H PRN PRN For Pain (Reported ) Nitroglycerin SL (Nitroglycerin SL) 0.4 Mg Tab.subl 0.4 MG SL PRN PRN PRN For Chest Pain (Reported) However the above list is a bit different than the list obtained by the person doing his med rec today upon admission. PMH Metastatic prostate cancer with chronic bone pain, currently undergoing chemotherapy. Recent hospitalization with bronchitis versus pneumonia Urinary retention Essential hypertension Dyslipidemia Depression History of thoracic aortic aneurysm Surgical History History of right calcaneal fracture with surgery in 2012 Prior ankle surgery Family History No known history of cancer or heart disease Social History Hx Alcohol Use: Yes Alcoholic Drinks Per Day: Quit long time ago Hx Substance Use: No Hx Tobacco Use: Yes Smoking Status: Former Smoker (he smoked less than one pack per year and quit over 40 years ago) Living Arrangement: with Family (. Also have several children who live locally and assist. 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.) Exam Vital Signs Vital Sign - Last Date Time Temp Pulse Resp B/P Pulse Ox O2 Delivery O2 Flow Rate FiO2 06/11/16 13:51 36.9 74 19 143/63 93 Room Air Exam He is alert and cooperative, seems to be answering questions appropriately through his family, in no acute distress HEENT unremarkable other than a shallow ulceration on the lip and some erythematous areas in the mouth Neck supple, no JVD, carotids 2+ Heart regular Lungs clear Abdomen soft, nontender, normal bowel tones, no obvious mass or hepatosplenomegaly Lower extremities no pedal edema Neuro: Hand preventive medicine specialist are strong and equal and able to lift both legs off the bed against resistance symmetrically Lab and Diagnostics Result Diagram: 06/11/16 0930 06/11/16 0930 X-Rays, CTs and MRIs PROCEDURE: X-RAY CHEST, TWO VIEWS ([id number]) INDICATIONS: 76 year-old male with chest pain and shortness of breath. TECHNIQUE: 2 views of the chest were acquired. COMPARISON: [facility], CR, XR CHEST 2VW, 06/03/2016, 13:24. [facility], CR, XR CHEST 1VW (PORTABLE), 06/01/2016, 13:34. [facility], CR, XR CHEST 1VW (PORTABLE), 03/31/2016, 12:49. FINDINGS: Surgical changes and devices: None. Lungs and pleura: No pleural effusions or pneumothorax. Left lung base opacities have decreased but not resolved. Right lung remains clear. Mediastinum: Mediastinal contours are normal. Heart size is normal. There is aortic atherosclerosis. Bones and chest wall: No suspicious bony abnormalities. Soft tissues appear unremarkable. IMPRESSION: Decrease patchy residual left lung base pneumonia. Assessment & Plan # Left lower lobe pneumonia which by x-ray is improving but is today noting worsened productive cough with green sputum. He does have worsened leukocytosis that but this could also be related to the Neupogen he recently received (according to his oncologist). He was recently discharged home on Augmentin . Plan by his oncologist and the ED physician was to switch him to Levaquin but he is having nausea and vomiting prior to admission and there was a concern he would not be able to keep this down so he is being admitted for IV antibiotics and control of his nausea and vomiting. Will also give oxygen and albuterol nebs as needed. Continue his usual dexamethasone dose, if his condition worsened he might need stress doses of steroids. # Metastatic prostate cancer, currently undergoing chemotherapy We will continue his same narcotics, also some when necessary IV morphine, as needed for pain control Apparently he is also on gabapentin so will continue this # Urinary retention noted during recent admission, oxybutynin was discontinued and he was started on tamsulosin Continue tamsulosin # Hypertension We will continue his same medications, his pro-calcitonin is elevated but he has not had any hypotension. # Oral lesions and soreness of the mouth We will use Magic mouthwash # Hyperlipidemia Continue atorvastatin # Depression Continue mirtazapine Mignon Corbett MD Jun 11, 2016 16:20
[2016-06-11] MEDS: 0.9% Sodium Chloride 1,000 ML IV SCH (17:07)
[2016-06-11] MEDS: DIPHEN PO SCH ×2 (17:56→22:00)
[2016-06-11] MEDS: LIDO PO SCH ×2 (17:56→22:00)
[2016-06-11] MEDS: MAALOX PO SCH ×2 (17:56→22:00)
--- NOTE | 2016-06-11 19:37 | NUR ---
Arrival to Floor Patient arrived to the floor from ED with no pain, but had some nausea shortly after arrival. Orders for antiemetic received, which alleviated nausea, patient able to eat dinner without difficulty. Ordered fluids hung, SCDs in place, O2 sats mid 90s on room air. Some crackles in left base. MRSA swab sent to lab. Patient Tunisian speaking only, admit done by admit nurse. Care is ongoing.
[2016-06-11 20:08] VITALS: BP 116/63; PULSE 72; RESP 16; O2SAT 92
[2016-06-11] MEDS: MeTOProlol XL 50 mg ER24 Tablet PO SCH (20:33)
[2016-06-11 23:59] VITALS: BP 120/82; PULSE 79; RESP 16; O2SAT 92
--- NOTE | 2016-06-12 03:50 | NUR ---
ACTIVITY: Pt. resting in bed with no c/o pain or discomfort. Denies SOB, RA. Voiding per urinal with family assist. Family at his side. On going care.
[2016-06-12 05:17] LABS: APPEARANCE,URINE CLEAR (CLEAR,HAZY); COLOR,URINE STRAW (YELLOW); OCCULT BLOOD,URINE NEGATIVE (NEGATIVE); UROBILINOGEN,URINE NORMAL (NORMAL)
[2016-06-12] MEDS: 0.9% Sodium Chloride 1,000 ML IV SCH ×2 (05:29→16:59)
[2016-06-12 08:07] LABS: BASOPHILS % (AUTO) 1.8 % (0-3); EOSINOPHILS % (AUTO) 0.6 % (0-5); MONOCYTES % (AUTO) 3.4 % (4-12); Mean Corpuscular Hemoglobin 28.4 pg (27.0-35.0); Mean Corpuscular Volume 91.2 fL (81-100); NEUTROPHILS % (AUTO) 70.5 % (40-74); Platelet Count 203 bil/L (150-400)
[2016-06-12] MEDS: LIDO PO SCH ×5 (08:30→22:00)
[2016-06-12] MEDS: MAALOX PO SCH ×5 (08:30→22:00)
[2016-06-12] MEDS: DIPHEN PO SCH ×5 (08:30→22:00)
[2016-06-12] MEDS: MeTOProlol XL 50 mg ER24 Tablet PO SCH ×2 (09:11→22:07)
[2016-06-12] MEDS: Pantoprazole 20 mg ER24 Tablet PO SCH (09:11)
[2016-06-12] MEDS: Polyethylene Glycol (PEG) 17 Gm Powder PO SCH (09:13)
[2016-06-12] MEDS: levoFLOXacin Inj 750 MG in IV Premix 1 EACH IV SCH (09:17)
[2016-06-12 09:51] VITALS: BP 113/68; PULSE 79; RESP 20; O2SAT 91
--- NOTE | 2016-06-12 11:04 | NUR ---
Respiratory Pt assessed, found supine in bed breathing RA. Sat 91%, HR 73, RR16, BS clear bilaterally. Pt stated no difficulty with breathing or his lungs. Pt aware of Tx for breathing difficulty.
--- NOTE | 2016-06-12 13:17 | PCM.PNMED ---
Subjective Date of Service Jun 12, 2016 Subjective Patient felt much better today Denied abdominal pain, nausea, vomiting Patient thinks that his breathing also significant for improved Denied pleural sputum, remained white Daughter was at the bedside very fine the story Exam Vital Signs Vital Sign - Last Date Time Temp Pulse Resp B/P Pulse Ox O2 Delivery O2 Flow Rate FiO2 06/12/16 09:51 36.7 79 20 113/68 91 Room Air Intake and Output 06/11/16 06/11/16 06/12/16 Cumulative From/Thru 15:00 23:00 07:00 06/11/16 09:02 - 06/12/16 06:50 Intake Total 500 ml 0 ml 1313 ml 1813 ml Output Total 0 ml 950 ml 950 ml Balance 500 ml 0 ml 363 ml 863 ml Intake Oral 0 ml 350 ml 350 ml IV Total 500 ml 963 ml 1463 ml Output Urine Total 0 ml 950 ml 950 ml Exam NAD, comfortably laying down on the bed no JVD, MMM, no LAD RRR, nl s1, s2 no mrg Right lower lung field crackles S,ND,NT,normoactive BS+ warm, no edema, pulses 2/2 IVs and Medications Medications Reviewed: Medications were reviewed in detail Lab and Diagnostics Result Diagram: 06/12/16 0527 06/11/16 0930 X-Rays, CTs and MRIs PROCEDURE: X-RAY CHEST, TWO VIEWS ([id number]) INDICATIONS: 76 year-old male with chest pain and shortness of breath. TECHNIQUE: 2 views of the chest were acquired. COMPARISON: [facility], CR, XR CHEST 2VW, 06/03/2016, 13:24. [facility], CR, XR CHEST 1VW (PORTABLE), 06/01/2016, 13:34. [facility], CR, XR CHEST 1VW (PORTABLE), 03/31/2016, 12:49. FINDINGS: Surgical changes and devices: None. Lungs and pleura: No pleural effusions or pneumothorax. Left lung base opacities have decreased but not resolved. Right lung remains clear. Mediastinum: Mediastinal contours are normal. Heart size is normal. There is aortic atherosclerosis. Bones and chest wall: No suspicious bony abnormalities. Soft tissues appear unremarkable. IMPRESSION: Decrease patchy residual left lung base pneumonia. Assessment & Plan #Generalized weakness, nausea, vomiting, acute dyspnea, POA, likely due to response to chemotherapy as patient had similar episodes in the past, quickly resolved, currently asymptomatic, -zofran prn for n/v -advance diet as tolerate -Consider fluid resuscitation if pt remains symptomatic #probable LLL PNA with purulent sputum, d/kam with Augmentin but not finished from prior hospitalization -Continue Levaquin for now, will do 10days course # Metastatic prostate cancer, currently undergoing chemotherapy, follow-up with Dr. Gomez upon d/c, scheduled for Neupogen today but will hold given no neutropenia. # Urinary retention noted during recent admission, oxybutynin was discontinued and he was started on tamsulosin, Continue tamsulosin # Hypertension, resume home BP meds # Oral lesions and soreness of the mouth, continue Magic mouthwash # Hyperlipidemia, continue atorvastatin # Depression, continue mirtazapine dispo: expecting tomorrow home with HH dvt ppx: LMWH diet: general DNR/DNI VTE Mechanical Devices: Intermittant Pneumatic CD Time spent 35 minutes Jean Pierre Hanna MD Jun 12, 2016 13:17
--- NOTE | 2016-06-12 17:45 | NUR ---
Activity/output Pt up SBA, has walked to the bathroom with family Voided in to toilet, taught family and pt the need to use the urinal so we can have an accurate output, stated they would comply, [employer] check a little later and family had pt use the toilet again. continue teaching done.
[2016-06-12 20:34] VITALS: PULSE 82; RESP 18; O2SAT 95
[2016-06-12 20:58] VITALS: BP 114/66; PULSE 72; RESP 16; O2SAT 96
--- NOTE | 2016-06-13 04:06 | NUR ---
activity pt has had no complaints of pain this shift, he has not complained of SOB, or N/V. family is at bedside and he has walked to the bathroom with their assistance. despite teaching pt still does not use urinal. care continues.
[2016-06-13] MEDS: 0.9% Sodium Chloride 1,000 ML IV SCH (05:29)
[2016-06-13 05:36] VITALS: BP 137/72; PULSE 62; RESP 18; O2SAT 92
[2016-06-13 06:36] LABS: Mean Corpuscular Hemoglobin 28.5 pg (27.0-35.0); Mean Corpuscular Volume 90.4 fL (81-100); Platelet Count 215 bil/L (150-400)
[2016-06-13 07:12] LABS: Magnesium 2.1 mg/dL (1.6-2.6); Phosphorus 2.5 mg/dL (2.5-4.9)
[2016-06-13 08:04] LABS: BASOPHILS % (AUTO) 0 % (0-3); EOSINOPHILS % (AUTO) 0 % (0-5); MONOCYTES % (AUTO) 6 % (4-12); NEUTROPHILS % (AUTO) 57 % (40-74)
[2016-06-13] MEDS: Polyethylene Glycol (PEG) 17 Gm Powder PO SCH (08:30)
[2016-06-13] MEDS: MeTOProlol XL 50 mg ER24 Tablet PO SCH (09:14)
[2016-06-13] MEDS: Pantoprazole 20 mg ER24 Tablet PO SCH (09:15)
[2016-06-13] MEDS: MAALOX PO SCH (09:17)
[2016-06-13] MEDS: LIDO PO SCH (09:17)
[2016-06-13] MEDS: DIPHEN PO SCH (09:17)
[2016-06-13] MEDS: levoFLOXacin Inj 750 MG in IV Premix 1 EACH IV SCH (09:18)
[2016-06-13] MEDS ORDERED: LEVO750T9 PO (12:53)
--- NOTE | 2016-06-13 12:59 | PCM.DIMED ---
Discharge Instructions Date of Service Jun 13, 2016 Dates of Hospitalization Jun 11, 2016 at 12:44 Discharge Diagnosis Discharge Diagnosis probable pneumonia adverse effect from chemotherapy Medication Instructions Please continue to take Levaquin for 7more days Diet No restrictions Call your provider Shortness of breath, Chest pain Patient Instructions You were hospitalized with multiple symptoms including cough, difficulty of breathing, nausea, vomiting. You were treated for possible pneumonia with antibiotics, all of symptoms subsided. Please follow medicine instruction as above Follow-up plan Please follow up with your primary doctor in 2weeks Please follow up with for follow up as scheduled Follow-up Provider: Johnson Payton MD Follow-up with PCP in: 2 weeks Provider: Meet Hardy MD Follow-up in: 1 week Jean Pierre Hanna MD Jun 13, 2016 12:59
--- NOTE | 2016-06-13 15:00 | NUR ---
Discharge Pt left with family in stable condition with all belongings at 1445, IV d/c'd, discharge information gone over with pt and family with an financial planning adviser, prescription given, instructions for scheduling follow up appointment given.
--- NOTE | 2016-06-13 15:06 | PCM.DC.MED ---
Discharge Summary Date of Service Jun 13, 2016 Dates of Hospitalization Date of Hospital Admission Jun 11, 2016 at 12:44 Date of Discharge: Jun 13, 2016 Providers: Admitting Physician: Mignon Corbett MD Primary Care Physician: Johnson Gallardo MD Attending Physician: Mignon Corbett MD Diagnosis at Time of Discharge Diagnosis at Time of Discharge #Generalized weakness, nausea, vomiting likely due to adverse effect from chemotherapy #probable pneumonia #Metastatic prostate cancer, #Urinary retention, presumably due to BPH # Hypertension, #Apthous ulcer, controlled with magic mouth wash #HLD #Depression, e Procedures XRay, CTs & MRIs PROCEDURE: X-RAY CHEST, TWO VIEWS ([id number]) INDICATIONS: 76 year-old male with chest pain and shortness of breath. TECHNIQUE: 2 views of the chest were acquired. COMPARISON: [facility], CR, XR CHEST 2VW, 06/03/2016, 13:24. [facility], CR, XR CHEST 1VW (PORTABLE), 06/01/2016, 13:34. [facility], CR, XR CHEST 1VW (PORTABLE), 03/31/2016, 12:49. FINDINGS: Surgical changes and devices: None. Lungs and pleura: No pleural effusions or pneumothorax. Left lung base opacities have decreased but not resolved. Right lung remains clear. Mediastinum: Mediastinal contours are normal. Heart size is normal. There is aortic atherosclerosis. Bones and chest wall: No suspicious bony abnormalities. Soft tissues appear unremarkable. IMPRESSION: Decrease patchy residual left lung base pneumonia. Brief History H&P performed by Dr. Corbett on 06/11 Patient is Mozambican speaking but has several family members with him here today who speak Telugu. ED physician stated that he does speak Mozambican but when he tried to obtain a history from the patient the patient was not able to give very good details and a better history was actually obtained from family. So my history was obtained from the family, who did translate some questions to the patient, and from his recent medical records. He was just discharged home from the hospital June 04, having been admitted on June 01 for bronchitis versus pneumonia. During that admission it was reported that chest x-ray was unremarkable but chest x-ray today refers to a left basilar infiltrate that was noted recently. He was discharged home on Augmentin. Initially he was doing well. He then had chemotherapy for his prostate cancer 2 days ago and since then is noting decreasing appetite and decreasing energy. Today he noted nausea and began vomiting around 5 AM. Emesis was mostly phlegm and bile although perhaps there was a small amount of blood which he attributes to a nosebleed. Today also noting increased cough which is more productive and now has green sputum. He did have an obvious episode of feeling hot and sweaty last night and some mild shaking chills. He is also noting chest pain which he says is in the left lateral rib cage but since this is his usual pain associated with his cancer and not acutely changed. He did have a bowel movement this morning which was softer than usual but brown and no blood noted. Hospital Course #Generalized weakness, nausea, vomiting, acute dyspnea, initially given respiratory symptoms, he was thought to be from pneumonia. However, patient had similar episodes in the past after chemo, GI symptoms quickly resolved with conservative treatment, it was thought to be more from adverse effect from chemotherapy. Patient tolerated diet well without any GI symptoms, ambulating with normal gait, evaluated by PT, deemed safe for discharge to home #probable LLL PNA with purulent sputum, patient was discharged with Augmentin but only continued for 2 days, therefore patient was started on Levaquin, plan is to finish 10 days course although respiratory symptoms were not impressive, patient maintained adequate oxygenation on room air throughout hospitalization # Metastatic prostate cancer, currently undergoing chemotherapy, follow-up with Dr. Gomez upon d/c, scheduled for Neupogen today but held given no neutropenia, patient has scheduled appointment with . # Urinary retention noted during recent admission, oxybutynin was discontinued and he was started on tamsulosin, Continued tamsulosin # Hypertension, resumed home BP meds # Apthous ulcer, controlled with magic mouth wash # Hyperlipidemia, continued atorvastatin # Depression, continued mirtazapine Exam Vital Signs (Last) Date Time Temp Pulse Resp B/P Pulse Ox O2 Delivery O2 Flow Rate FiO2 06/13/16 05:36 36.7 62 18 137/72 92 Nasal Cannula 2.00 Exam NAD, comfortably laying down on the bed no JVD, MMM, no LAD RRR, nl s1, s2 no mrg CTAB, no w,c S,ND,NT,normoactive BS+ warm, no edema, pulses 2/2 Test 06/11/16 09:30 06/11/16 09:50 06/12/16 05:05 06/12/16 05:27 Prothrombin Time 10.5sec (8.1-12.5) Prothromb Time International Ratio 0.98ratio Activated Partial Thromboplast Time 25.2sec (22.8-33.0) Troponin T 0.010ug/L (0.0-0.011) Pro-B-Type Natriuretic Peptide 544.9pg/mL (0-486) Lactic Acid Level 1.0mmol/L (0.4-2.0) Urine Color Straw (YELLOW) Urine Appearance Clear (CLEAR,HAZY) Urine pH 6.0 (5.0-8.0) Urine Specific [place] 1.005 (1.003-1.035) Urine Protein Negativemg/dL (NEG,TRACE) Urine Glucose (UA) Negativemg/dL (NEGATIVE) Urine Ketones Negativemg/dL (NEGATIVE) Urine Occult Blood Negative (NEGATIVE) Urine Nitrite Negative (NEGATIVE) Urine Bilirubin Negative (NEGATIVE) Urine Urobilinogen Normalmg/dL (NORMAL) Urine Leukocyte Esterase Negative (NEGATIVE) Urine RBC 0-2/hpf (0-2) Urine WBC 0-5/hpf (0-5) Urine Epithelial Cells Occasional/hpf (NONE-MOD) Urine Crystals None seen (NONE SEEN) Urine Bacteria None/hpf (NONE-FEW) Urine Hyaline Casts None/lpf (NONE) Urine Granular Casts None seen (NONE SEEN) Urine Waxy Casts None seen (NONE SEEN) Urine Red Blood Cell Casts None seen (NONE SEEN) Urine White Blood Cell Casts None seen (NONE SEEN) Urine Mucus None seen (None Seen) Urine Trichomonas None seen (NONE SEEN) Urine Yeast None (NONE SEEN) Urinalysis Comment Urine Culture Reflexed Not indicated Procalcitonin 0.10ng/mL (0.00-0.08) Test 06/13/16 06:00 White Blood Count 3.7th/mm3 (3.8-10.1) Red Blood Count 3.23mil/mm3 (4.40-5.80) Hemoglobin 9.2g/dL (13.8-17.2) Hematocrit 29.2% (41.0-50.0) Mean Corpuscular Volume 90.4fL (81-100) Mean Corpuscular Hemoglobin 28.5pg (27.0-35.0) Mean Corpuscular Hemoglobin Concent 31.5% (32.0-37.0) Red Cell Distribution Width 18.6% (12.3-15.4) Platelet Count 215bil/L (150-400) Neutrophils (%) (Auto) 57% (40-74) Lymphocytes (%) (Auto) 33% (14-46) Monocytes (%) (Auto) 6% (4-12) Eosinophils (%) (Auto) 0% (0-5) Basophils (%) (Auto) 0% (0-3) Band Neutrophils % 2% (1-5) Metamyelocytes % 1% (0-0) Myelocytes % 1% (0-0) Sodium Level 141mEq/L (134-144) Potassium Level 4.0mEq/L (3.5-5.2) Chloride Level 107mEq/L (97-108) Carbon Dioxide Level 23mmol/L (18-29) Blood Urea Nitrogen 9mg/dL (8-27) Creatinine 0.64mg/dL (0.76-1.27) Estimat Glomerular Filtration Rate 129mL/min (>59) Glucose Level 107mg/dL (60-99) Calcium Level 7.6mg/dL (8.5-10.1) Phosphorus Level 2.5mg/dL (2.5-4.9) Magnesium Level 2.1mg/dL (1.6-2.6) Total Bilirubin 0.4mg/dL (0.0-1.2) Aspartate Amino Transf (AST/SGOT) 16U/L (0-50) Alanine Aminotransferase (ALT/SGPT) 9U/L (0-44) Alkaline Phosphatase 91U/L (25-160) Total Protein 5.0g/dL (6.4-8.4) Albumin 3.0g/dL (3.4-5.0) Discharge Medications Discharge Medications Atorvastatin Calcium (Atorvastatin Calcium) 10 Mg Tablet 10 MG PO DAILY Prescribed by: JOHNSON GALLARDO MD Dexamethasone (Dexamethasone) 4 Mg Tablet 2 MG PO DAILY (Reported) Gabapentin (Gabapentin) 300 Mg Capsule 600 PO TID (Reported) Levofloxacin (Levaquin) 750 Mg Tablet 750 MG PO Q24H Prescribed by: JEAN PIERRE RIVERA MD Methadone (Methadone) 10 Mg Tab 15 MG PO BID Prescribed by: BARBI CARRERO MD Methadone (Methadone) 10 Mg Tab 10 MG PO DAILYWL (Reported) Metoprolol Succinate ER (Metoprolol Succinate ER) 50 Mg Tab.er.24h 50 MG PO BID (Reported) Mirtazapine (Mirtazapine) 15 Mg Tablet 7.5 MG PO HS (Reported) Pantoprazole DR (Pantoprazole DR) 20 Mg Tablet.dr 20 MG PO DAILY (Reported) Polyethylene Glycol 3350 (Miralax) 17 Gm Powd.pack 17-34 GM PO DAILY Prescribed by: SCARLETT SANCHES MD Tamsulosin (Flomax) 0.4 Mg Capsule 0.4 MG PO TID (Reported) As needed Hydromorphone (Hydromorphone) 2 Mg Tablet 2 MG PO Q4H PRN PRN For Pain (Reported ) Nitroglycerin SL (Nitroglycerin SL) 0.4 Mg Tab.subl 0.4 MG SL PRN PRN PRN For Chest Pain (Reported) Additional med instructions Please continue to take Levaquin for 7more days Followup Plan Disposition: Home Follow-up plan Please follow up with your primary doctor in 2weeks Please follow up with for follow up as scheduled Discharge Diet: No restrictions Patient Instructions You were hospitalized with multiple symptoms including cough, difficulty of breathing, nausea, vomiting. You were treated for possible pneumonia with antibiotics, all of symptoms subsided. Please follow medicine instruction as above Follow-up Provider: Johnson Gallardo MD Follow-up with PCP in: 2 weeks Provider: Meet aHrdy MD Follow-up in: 1 week Time spent 65 minutes Jean Pierre Rivera MD Jun 13, 2016 15:06
--- NOTE | 2016-06-13 15:59 | NUR ---
Social Work Discharge: Patient discharged home and SW spoke to patient daughter Mely, via phone to discuss discharge. Patient resides in [facility] with . Patient uses a cane and walker at home. Patient payer as Medicare and [facility] secondary. Patient PCP as MD Pay[place]. SW offered [facility] support if assistance needed. Patient daughter declined. Patient daughter states patient current with [facility] program for care and support and caregiver support benefiting. SW contacted [facility] and faxed clinicals. SW discussed readmissions and daughter aware. Patient daughter to ensure follow up with PCP office and clinicians in community. No other anticipated discharge needs at this time. PLAN: Home with and continued [facility] caregiver services. Annie MORALES
[2016-06-14] MEDS ORDERED: levoFLOXacin 750 mg Tablet PO SCH (08:30)
[2016-06-16] MEDS ORDERED: METH5TAB3 PO (12:31)
[2016-07-14] MEDS ORDERED: METH5TAB3 PO (12:07)
[2016-08-11] MEDS ORDERED: MTH10T PO (11:10)
[2016-08-11] MEDS ORDERED: DXM4T PO (11:10)
[2016-08-11] MEDS ORDERED: CITA20TA11 PO (11:10)
== END 2016-06-13 14:45 | disposition home or self-care (01) | DRG 194 ==
LOC: SED 08:55 → OSC 12:44
PROVIDERS: ADMIT Internal Medicine; ATTEND Internal Medicine
DX: J18.9 Pneumonia, unspecified organism (principal); C79.51 Secondary malignant neoplasm of bone; I10 Essential (primary) hypertension; E78.5 Hyperlipidemia, unspecified; F32.9 Major depressive disorder, single episode, unspecified; C61 Malignant neoplasm of prostate; R33.9 Retention of urine, unspecified; R11.2 Nausea with vomiting, unspecified; T45.1X5A Adverse effect of antineoplastic and immunosuppressive drugs, initial encounter; K12.0 Recurrent oral aphthae; Z87.891 Personal history of nicotine dependence

== ENCOUNTER 2016-07-04 10:34 | Inpatient (IN) | payer MEDICARE, MEDICAID ==
[2016-07-04] VITALS (8 sets, daily range): BP systolic 93–131; BP diastolic 46–67; PULSE 67–86; RESP 11–20; O2SAT 90–98
[~2016-07-04] VITALS: Ht 175.3 cm; Wt 81.7 kg
[~2016-07-04 10:34] MED LIST changes: -AGM875T PO; +GABA-502 PO; +METH5TAB3 PO; +PANT20TA2 PO
--- NOTE | 2016-07-04 10:46 | ED.REPORT ---
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 The patient has also experienced a fever, chills, diaphoresis, decreased urination, and foul smelling urine. He was seen by Dr. Gomez yesterday and had blood work and urine testing that looked okay. He has a chronic cough. He denies shortness of breath, chest pain, abdominal pain, diarrhea, nausea or vomiting. He was on antibiotics 2 weeks ago for a UTI and pneumonia. Nursing Notes Stated Complaint: FEVER,CHILLS Chief Complaint: General Complaint Nursing Notes Reviewed: Yes ([employer], meds not reconciled) Allergies: Coded Allergies: hydrocodone (Verified Allergy, Severe, hives, 07/04/16) iodine (Verified Allergy, Severe, it brought him to the hospital, 07/04/16) omeprazole (Verified Allergy, Mild, SHAKINESS, 07/04/16) Uncoded Allergies: CONTRAST MEDIUM (Allergy, Severe, ANAPHYLAXIS, 05/10/16) Scheduled Atorvastatin Calcium (Atorvastatin Calcium) 10 Mg Tablet 10 MG PO DAILY Gabapentin (Gabapentin) 300 Mg Capsule 300 MG PO TID Methadone (Methadone) 5 Mg Tablet 10 MG PO TID at 0700,0100,190 Metoprolol Succinate ER (Metoprolol Succinate ER) 50 Mg Tab.er.24h 50 MG PO BID Mirtazapine (Mirtazapine) 15 Mg Tablet 7.5 MG PO HS Pantoprazole DR (Pantoprazole DR) 20 Mg Tablet.dr 20 MG PO DAILY Tamsulosin (Flomax) 0.4 Mg Capsule 0.4 MG PO BID Scheduled PRN Aspirin (Aspirin) 81 Mg Tablet 81 MG PO DAILY PRN PRN For Pain Hydromorphone (Hydromorphone) 2 Mg Tablet 2 MG PO Q4H PRN PRN For Pain Nitroglycerin SL (Nitroglycerin SL) 0.4 Mg Tab.subl 0.4 MG SL PRN PRN PRN For Chest Pain Polyethylene Glycol 3350 (Miralax) 17 Gm Powd.pack 17 GM PO DAILY PRN PRN For Constipation General Time Seen by MD: 10:41 Chief Complaint Weakness Hx Obtained From: Patient, Spouse, Osteologist, EMS Arrived By: Ambulance Sudden in Onset?: No Onset Occurred: 4 days ago Symptom Duration: Since onset Severity: Current: No pain currently Severity: Maximum: No pain Recent Healthcare: Recent doctor visit, Recent hospitalization Similar Sx Previous: No Past Medical History Past Medical History Notes: Oncologist Dr. Gomez PCP - [place] CODE: DNR/DNI Past Medical History 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 Hematology oncology office visit with increasing weakness 07/03/2016 Reports: Hypertension Past Surgical History Toe surgery Family History Noncontributory Smoking History Former Smoker Social History Alcohol Use: Denies alcohol use Drug Use: Denies drug use Other Social History: Good social support, , Local resident Ambulatory Status Independent Review of Systems +foul smelling urine Full Review of Systems Constitutional: Reports: Chills, Fatigue, Fever, Weakness - generalized Respiratory: Reports: Non-productive cough (chronic) Cardiovascular: Denies: Chest pain GI: Denies: Abdominal pain, Diarrhea, Nausea, Vomiting Male: Reports Urination decreased Skin: Reports Diaphoresis Complete sys rev & neg: except as marked. Physical Exam Vital Signs Vital Signs Date Time Temp Pulse Resp B/P Pulse Ox O2 Delivery O2 Flow Rate FiO2 07/04/16 13:11 36.4 67 16 98/46 93 Nasal Cannula 2 07/04/16 11:22 86 16 114/57 90 Nasal Cannula 2 07/04/16 10:36 38.1 84 20 131/59 96 Room Air Initial VS: Reviewed, Unavailable (no vitals on chart, ordered) Head / Eyes: Atraumatic, Normocephalic, PERRL ENT: Mucous membranes moist, Conjunctiva normal, No scleral icterus Neck: Supple, Non-tender, Full range of motion Abdomen / GI: Soft, Non-tender, No guarding, No rebound, No distention Lymphatic: No lymphadenopathy Extremities: Vascular intact, Neuro intact, No swelling, No tenderness Skin: Warm, Dry, No cyanosis Neurologic: Alert, Nonfocal Psychiatric: Mood/affect normal, Behavior normal, Normal thought content General/Constitutional: Awake, Alert, Cooperative Appears fatigued. Mildly ill appearing but he is not in disress. Globally weak. Respiratory / Chest: Breath sounds = bilat, No respiratory distress Rales / Rhonchi: Positive: Rhonchi diffuse Mild cough, not dyspneic, newly hypoxic compared to clinic notes from yesterday. Cardiovascular: Heart rate NL, Regular rhythm, Heart sounds NL, No gallop, No murmurs, No rubs, Cap refill not delayed, Peripheral circulation NL Heart Rate / Rhythm: Negative: Tachycardia Interpretation & Diagnostics Lab Results Interpretation Result Diagram: 07/04/16 1050 07/04/16 1050 Test 07/04/16 10:50 07/04/16 11:23 White Blood Count 5.1th/mm3 (3.8-10.1) Red Blood Count 3.26mil/mm3 (4.40-5.80) Hemoglobin 9.4g/dL (13.8-17.2) Hematocrit 30.4% (41.0-50.0) Mean Corpuscular Volume 93.3fL (81-100) Mean Corpuscular Hemoglobin 28.8pg (27.0-35.0) Mean Corpuscular Hemoglobin Concent 30.9% (32.0-37.0) Red Cell Distribution Width 21.1% (12.3-15.4) Platelet Count 164bil/L (150-400) Neutrophils (%) (Auto) 61% (40-74) Lymphocytes (%) (Auto) 26% (14-46) Monocytes (%) (Auto) 2% (4-12) Eosinophils (%) (Auto) 2% (0-5) Basophils (%) (Auto) 1% (0-3) Band Neutrophils % 8% (1-5) Hematology Comments Sodium Level 133mEq/L (134-144) Potassium Level 4.2mEq/L (3.5-5.2) Chloride Level 98mEq/L (97-108) Carbon Dioxide Level 25mmol/L (18-29) Blood Urea Nitrogen 16mg/dL (8-27) Creatinine 0.73mg/dL (0.76-1.27) Estimat Glomerular Filtration Rate 111mL/min (>59) Glucose Level 85mg/dL (60-99) Lactic Acid Level 1.3mmol/L (0.4-2.0) Calcium Level 7.9mg/dL (8.5-10.1) Total Bilirubin 1.3mg/dL (0.0-1.2) Aspartate Amino Transf (AST/SGOT) 24U/L (0-50) Alanine Aminotransferase (ALT/SGPT) 17U/L (0-44) Alkaline Phosphatase 101U/L (25-160) Troponin T < 0.010ug/L (0.0-0.011) Pro-B-Type Natriuretic Peptide 779.0pg/mL (0-486) Total Protein 5.7g/dL (6.4-8.4) Albumin 3.2g/dL (3.4-5.0) Urine Color Yellow (YELLOW) Urine Appearance Hazy (CLEAR,HAZY) Urine pH 6.5 (5.0-8.0) Urine Specific [place] 1.020 (1.003-1.035) Urine Protein Negativemg/dL (NEG,TRACE) Urine Glucose (UA) Negativemg/dL (NEGATIVE) Urine Ketones Negativemg/dL (NEGATIVE) Urine Occult Blood Trace (NEGATIVE) Urine Nitrite Negative (NEGATIVE) Urine Bilirubin Negative (NEGATIVE) Urine Urobilinogen Normalmg/dL (NORMAL) Urine Leukocyte Esterase Negative (NEGATIVE) Urine RBC 11-50/hpf (0-2) Urine WBC 0-5/hpf (0-5) Urine Epithelial Cells Occasional/hpf (NONE-MOD) Urine Crystals None seen (NONE SEEN) Urine Bacteria None/hpf (NONE-FEW) Urine Hyaline Casts None/lpf (NONE) Urine Granular Casts None seen (NONE SEEN) Urine Waxy Casts None seen (NONE SEEN) Urine Red Blood Cell Casts None seen (NONE SEEN) Urine White Blood Cell Casts None seen (NONE SEEN) Urine Mucus Present (None Seen) Urine Trichomonas None seen (NONE SEEN) Urine Yeast None (NONE SEEN) Urinalysis Comment None Urine Culture Reflexed Not indicated Lab Results Interpretation: CBC normal, positive bandemia-times the patient did receive Neupogen yesterday CMP normal Lactic acid normal Blood cultures 2 pending UA positive hematuria following Porras placement, but no markers of infection ECG Interpretation ECG Interpretation: Normal sinus rhythm with a rate of 78 bpm No acute ischemic changes No interval changes compared with EKG taken earlier this month Time: 11:15 Interpreted by: ED physician X-Ray Chest Interpretation Chest Xray Interpretation: IMPRESSION: Increased appearance of bibasilar opacities and effusions as above. Findings are suggestive of developing airspace disease such as pneumonia. Underlying atelectasis cannot be excluded. Dictated by: Brooklynn Maria M.D. on 07/04/2016 at 11:21 Interpretation / Wet Read by: Interpret - Radiologist Re-Eval/Medical Decision Med Decision/Clinical Course This is a 76-year-old male with metastatic prostate CA on chemotherapy was hospitalized the beginning of this month with pneumonia. He then developed profound weakness and fatigue over the past 2 days. He was seen yesterday in the oncology clinic were given his symptoms he had a workup including blood work , a chest x-ray, and urine-but no clear source of infection was identified. He still had some scarring on the left chest but seemed improved compared to before and he was satting 93% without clear respiratory symptoms. However since discharge from the clinic yesterday the patient developed mikayla chills, today a fever, and worsening weakness-as well as an increased cough. His family therefore brought him in. Here on arrival to the emergency department he appears extremely fatigued, and he is febrile, additionally his O2 sats now 88% on room air. He also has a mild to moderate cough and the family talks about how is bringing up sputum to this morning which is new for him. He also has a complaint of mild dysuria, and the family noticed decreased urinary output. He has a department he had a post void residual 400 mL, so a Porras catheter was placed. However urinalysis did not reveal clear markers of infection. Blood work is no for a bandemia, but the patient receive Neupogen yesterday which would explain this. A chest x-ray demonstrates more pronounced abnormality left base than yesterday, but overall review the serial x-rays over the past couple of months and while there is an abnormality in the left lower lobe, it is not a full on mikayla infiltrate. However the patient clearly now has respiratory symptoms, hypoxia and a source. Cultures are drawn and the patient received initial starting antibiotics with Zosyn, as he has had multiple antibiotics with his previous admission for pneumonia the hospitalist is reviewing his course to help sort out additional antimicrobial coverage. Discussed the case with the patient's oncologist, and a noncontrast CT for better evaluation the lungs given his recent hospitalization for pneumonia is being obtained. Additionally with his contrast allergy, a VQ scan is being attempted has been ordered by the hospitalist. The patient's being taken over for the VQ scan at this time and then will be admitted to the floor. Receive hydration, antipyretics and is slightly improved but still very fatigued and reevaluation. Source of Hx: Old records, EMS, Family Time of Eval: 13:23 Re-Evaluation/Progress Note: Discussed plan for admission with the patient and family. All questions were addressed. Consultation #1: Referral / Consult Name: Trung Walker MD Consulted With: Hospitalist Call Returned at: 12:33 Housekeeper And Laundry Assistant: Will see patient, Agrees with eval, Agrees with plan, Accepts admit Consultation #2: Referral / Consult Name: Meet Hardy MD Consulted With: Fashion Consultant Sales Call Returned at: 13:21 Housekeeper And Laundry Assistant: Agrees with eval, Agrees with plan Note: The patient received Neupogen yesterday. Differential Diagnosis: Positive: Pneumonia, Negative: Abdominal pain, Acute coronary syndrome, Neutropenia Counseled Regarding: Diagnosis, Lab results, Need for admission Discharge & Departure Primary Impression: Pneumonia Pneumonia type: due to unspecified organism Laterality: bilateral Lung location: lower lobe of lung Qualified Code: J18.9 - Pneumonia, unspecified organism Additional Impressions: Urinary retention Prostate cancer metastatic to bone Hypoxia Fever Fever type: unspecified Qualified Code: R50.9 - Fever, unspecified Generalized weakness Disposition: ADMITTED TO HOSPITAL Discharge Condition All VS Reviewed: Yes Condition: Stable Referrals: Johnson Payton MD (PCP) Meet Hardy MD Attestation Portions of this note were transcribed by Angelita Beckford. I, Dr. Bell personally performed the history, physical exam and medical decision-making; I reviewed and confirmed the accuracy of the information in the transcribed note. Signed by: Satish Wiggins, 07/04/2016 and 1330. copies to: Johnson Payton MD; Meet Hardy MD, Matthew F MD Jul 04, 2016 10:46 Angelita Beckford Jul 04, 2016 10:52
[2016-07-04] MEDS ORDERED: [UNRECOGNIZED DRUG - CODE] IV (10:48)
[2016-07-04 11:00] LABS: Mean Corpuscular Hemoglobin 28.8 pg (27.0-35.0); Mean Corpuscular Volume 93.3 fL (81-100); Platelet Count 164 bil/L (150-400)
[2016-07-04] MEDS ORDERED: 0.9% Sodium Chloride 1,000 ML IV ONE (11:05)
--- NOTE | 2016-07-04 11:23 | DRSVH ---
PROCEDURE: X-RAY CHEST ONE VIEW, PORTABLE ([id number]) INDICATIONS: fever TECHNIQUE: One view of the chest was acquired. COMPARISON: [facility], CR, XR CHEST 2VW, 07/03/2016, 16:36. FINDINGS: Surgical changes and devices: None. Lungs and pleura: There is a slight increased appearance of bibasilar opacities, left greater than ri ght including trace effusions, left greater than right. Mediastinum: Mediastinal contours appear normal. Heart size is normal. Bones and chest wall: No suspicious bony lesions. Overlying soft tissues appear unremarkable. IMPRESSION: Increased appearance of bibasilar opacities and effusions as above. Findings are suggesti ve of developing airspace disease such as pneumonia. Underlying atelectasis cannot be excluded. Dictated by: Brooklynn Maria M.D. on 07/04/2016 at 11:21 Approved by: Brooklynn Maria M.D. on 07/04/2016 at 11:21
[2016-07-04 11:33] LABS: MONOCYTES % (AUTO) 2 % (4-12); NEUTROPHILS % (AUTO) 61 % (40-74)
[2016-07-04 11:34] LABS: BASOPHILS % (AUTO) 1 % (0-3); EOSINOPHILS % (AUTO) 2 % (0-5)
[2016-07-04] MEDS ORDERED: Piperacillin-Tazo 3.375 Gm Inj 3.375 GM in Dextrose 5% Minibag Plus 50 ML IV ONE (11:45)
[2016-07-04] MEDS ORDERED: Lidocaine 2% 5 mL Urojet Topical Jelly Syringe MUC_MEMBRM ONE (11:45)
[2016-07-04] MEDS ORDERED: Lidocaine 2% 6mL Topical Jelly ONE (11:46)
[2016-07-04 11:52] LABS: APPEARANCE,URINE HAZY (CLEAR,HAZY); COLOR,URINE YELLOW (YELLOW); OCCULT BLOOD,URINE TRACE (NEGATIVE); PH,URINE 6.5 (5.0-8.0); UROBILINOGEN,URINE NORMAL (NORMAL)
[2016-07-04] MEDS ORDERED: Alum-Mag Hydrox-Simeth 30 mL Suspension PO PRN (12:40)
[2016-07-04] MEDS ORDERED: Polyethylene Glycol (PEG) 17 Gm Powder PO PRN ×2 (12:40→16:55)
[2016-07-04] MEDS: 0.9% Sodium Chloride 1,000 ML IV SCH (13:03)
[2016-07-04] MEDS ORDERED: POLY17PO6 PO (13:53)
[2016-07-04] MEDS ORDERED: ASPI-973 PO (13:53)
--- NOTE | 2016-07-04 15:39 | DRSVH ---
PROCEDURE: CT CHEST WITHOUT CONTRAST ([id number]) INDICATIONS: Recurrent pneumonia, hypoxia, ho metas.prostate CA TECHNIQUE: Noncontrast 5 mm thick sections acquired from the pulmonary apices to the posterior costophrenic angl es. 7 mm thick coronal and sagittal MIP reformats were then acquired. For radiation dose reduction, the following was used: automated exposure control, adjustment of mA and/or kV according to patient size. COMPARISON: [facility], CT, CHEST/ABD/PELVIS/ WO CON (PNL), 08/28/2012, 12:17. [facility], CT, CT CHEST ABD PELVIS WO CON, 12/01/2015, 11:25. [facility], CT, CT CHES T ABD PELVIS WO CON, 03/15/2016, 11:35. FINDINGS: Image quality: Excellent. Lungs and pleura: Patchy consolidation is present at the bilateral lung bases which is new when rayshawn red with study dated 03/15/16. Trace groundglass opacities are present within the lateral aspect of t he right upper lobe which are new when compared with the prior study (series 3, image 12). There is t race centrilobular emphysema with apical predominance. No pleural effusion or pneumothorax. An ill-de fined 3 mm diameter solid nodule is present at the base of the right middle lobe (series 3, image 41) . This is unchanged when compared with the study dated 08/28/12. Mediastinum: Heart size is normal. No pericardial effusion. No mediastinal adenopathy by size crit eria. Thoracic aorta and central pulmonary arteries are normal in size. Scattered atheromatous calci fications are present within the aortic arch. Esophagus is normal in caliber. No hiatal hernia. Bones and chest wall: No suspicious bony lesions. No vertebral body compression fractures. No axil nguyen or supraclavicular adenopathy by size criteria. Thyroid gland is unremarkable. Abdomen: Visualized upper abdominal solid organs and bowel loops appear normal in the absence of con trast. IMPRESSION: 1. Patchy consolidation in the dependent lung bases bilaterally which is new when compared with [facility] dated 03/15/16. Differential considerations include aspiration/infection and atelectasis. 2. Trace pulmonary radiopacities at the lateral aspect of the right upper lobe likely associated with infection. 3. Aortic atherosclerosis. Dictated by: Susannah Stacy M.D. on 07/04/2016 at 15:33 Approved by: Susannah Stacy M.D. on 07/04/2016 at 15:37
--- NOTE | 2016-07-04 16:58 | DRSVH ---
PROCEDURE: NM LUNG VQ RADIOPHARMACEUTICAL: 26.7 mCi Tc-99m DTPA aerosol by inhalation and 5.36mCi Tc-99m MAA intravenously . INDICATIONS: Hypoxia with malignancy/Possible PE. TECHNIQUE: Ventilation images were obtained first with Tc-99m DTPA aerosol. Subsequently, perfusion images were acquired after intravenous injection of Tc-99m MAA. Anterior, posterior, COBURN, MAORI, RPO, LPO, left and right lateral views were obtained. COMPARISON: [facility], CT, CT CHEST WO [facility], 07/04/2016, 14:23. FINDINGS: Chest CT dated 07/04/16 demonstrate dependent changes at the bases. There is a moderate siz ed matched defect within the right middle lobe. Remain portions are unremarkable. No mismatch defects are clearly identified. IMPRESSION: Moderate right middle lobe matched defect most suggestive of low probability for embolism . Dictated by: Brooklynn Maria M.D. on 07/04/2016 at 16:47 Approved by: Brooklynn Maria M.D. on 07/04/2016 at 16:56
--- NOTE | 2016-07-04 19:00 | NUR ---
Admit Pt arrived on floor at 1600, family at bedside, admit already done, pt stating no discomfort at this time. oriented to room and call light. on 2L O2.
[2016-07-04] MEDS: Piperacillin-Tazo 3.375 Gm Inj 3.375 GM in Dextrose 5% Minibag Plus 50 ML IV SCH (19:19)
--- NOTE | 2016-07-04 19:38 | PCM.HPMED ---
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 The patient reports through his daughter who is acting as an seismic interpreter fever chills and diaphoresis with decreased urination and foul-smelling urine. Patient was seen by Dr Gomez yesterday and had blood work and urine testing that looked "okay". Patient has a chronic cough. His daughter states that he has had 4 courses of chemotherapy now for his stage IV prostate cancer and each time has ended up in the emergency room after treatment. With each episode he has had fever and chills the first episode after the first course of chemotherapy he was treated in the emergency room and released the following 3 including this one he was admitted to the hospital. After coming to the [facility] emergency room patient appeared extremely fatigue he was febrile with temperature over 101 and his oxygen saturations were low to down to 88% on room air. Patient also had a mild /moderate cough and the patient is bringing up sputum in the morning which is new for him. Patient also complains of mild dysuria and decreased urine output that the family has noticed. Emergency department he had a postvoid residual 400 mL so Porras, catheter was placed. However urinalysis did not reveal any clear markers of infection. Blood work was positive for bandemia but the patient did receive Neupogen at Dr Gomez's office yesterday which would explain the bandemia. A chest x-ray demonstrated more pronounced abnormality at the left base than the previous x-ray done yesterday. Blood Cultures were drawn in the emergency room and patient was started on IV Zosyn. A VQ scan was ordered which showed low probability of pulmonary embolism a CT scan without contrast was ordered which showed a patchy consolidation in the dependent lung bases bilaterally which is new when compared with the prior CT dated 03/15/16. As patient has bibasilar infiltrates and is immunosuppressed after chemotherapy with fever and chills the patient was admitted to the hospital service for further evaluation and treatment. As the patient is likely to be hospitalized for greater than 2 midnight for evaluation and treatment of the above problem patient was admitted as an inpatient. Review of Systems: HEENT: Patient has no headache, patient has no diplopia, patient has had recently a decrease in his visual acuity. It is described by one of his daughters as it difficulty to focus. Patient has no problems with their ears, nose or throat. Patient has no new dental problems. Patient has recently had a tooth pulled. He has full upper dentures and partial lower dentures. Has no pharyngitis or history of thrush. Neck: Patient has no stiffness in the neck. Patient has no lymphadenopathy. Patient has no other problems with their neck. Pulmonary: Patient has no shortness of breath, no cough, no expectoration of sputum. Patient has no pleurisy. Patient has no chest pain. Patient has no history of asthma or COPD. Cardiovascular: Patient has no chest pain. Patient has no history of heart murmur. Patient has no palpitations. Patient has no history of myocardial infarction. Patient has no history of coronary artery disease. Patient had a full cardiac workup approximately 10 years ago as he was having chest pressure and a cardiac workup was completely normal and it was felt that he was suffering from anxiety. Gastrointestinal: Patient has no history of hepatitis A, B or C. Patient has no history of peptic ulcer disease. Patient has no history of gastroesophageal reflux disease. Patient has no history of nausea, vomiting, or diarrhea. Patient has no history of hematemesis, hematochezia, or melena. Patient has no history of colitis. Renal: Patient has no history of kidney disease. No history of kidney stones. Genitourinary: Patient has no history of dysuria, frequency, or incontinence. Patient's family stated that patient has decreased urine output and his urine is foul-smelling. Musculoskeletal: Patient has no history of muscular skeletal problems. Neurologic: Patient has no history of stroke, no history of seizure, no history of TIA. Psychiatric: Patient has no history of psychiatric problems. The remainder of the entire review of systems was reviewed with patient and is as mentioned above otherwise negative. Allergies Coded Allergies: hydrocodone (Verified Allergy, Severe, hives, 07/04/16) iodine (Verified Allergy, Severe, it brought him to the hospital, 07/04/16) omeprazole (Verified Allergy, Mild, SHAKINESS, 07/04/16) Uncoded Allergies: CONTRAST MEDIUM (Allergy, Severe, ANAPHYLAXIS, 05/10/16) Home Medications Scheduled Atorvastatin Calcium (Atorvastatin Calcium) 10 Mg Tablet 10 MG PO DAILY Gabapentin (Gabapentin) 300 Mg Capsule 300 MG PO TID Methadone (Methadone) 5 Mg Tablet 10 MG PO TID at 0700,0100,190 Metoprolol Succinate ER (Metoprolol Succinate ER) 50 Mg Tab.er.24h 50 MG PO BID Mirtazapine (Mirtazapine) 15 Mg Tablet 7.5 MG PO HS Pantoprazole DR (Pantoprazole DR) 20 Mg Tablet.dr 20 MG PO DAILY Tamsulosin (Flomax) 0.4 Mg Capsule 0.4 MG PO BID Scheduled PRN Aspirin (Aspirin) 81 Mg Tablet 81 MG PO DAILY PRN PRN For Pain Hydromorphone (Hydromorphone) 2 Mg Tablet 2 MG PO Q4H PRN PRN For Pain Nitroglycerin SL (Nitroglycerin SL) 0.4 Mg Tab.subl 0.4 MG SL PRN PRN PRN For Chest Pain Polyethylene Glycol 3350 (Miralax) 17 Gm Powd.pack 17 GM PO DAILY PRN PRN For Constipation PMH Metastatic prostate cancer with skeletal involvement with chronic bone pain, currently undergoing chemotherapy. He has received at least 4 courses of chemotherapy. Recent hospitalization with bronchitis after second course of chemotherapy and pneumonia after third course of chemotherapy. Urinary retention with postvoid residual of over 400 mL in the emergency room. Porras catheter was placed Essential hypertension Dyslipidemia Anxiety disorder History of thoracic aortic aneurysm per chart history Surgical History History of right calcaneal fracture with surgery in 2012 Prior ankle surgery which his daughter states was an Achilles tendon repair Previous records mention a "toe surgery" patient's daughter denies this acting as his seismic interpreter. Patient denies any other surgeries other than dental extractions. Family History His father at the age of 50 of unknown causes Patient's mother at 85 from presumed old age. Patient has 6 brothers and one of which has Parkinson's disease and one has had leukemia and is a leukemia survivor at 88 years old Patient has 4 sisters who are healthy. 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 He has lived in [facility] for 50 years first in [place] for approximately 20 years and then in [place] for the the remaining 30 years. 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 He has 14 children. Patient is over 50 grandchildren. Patient smoked for 10-15 years but quit approximately 30 years ago. Patient used to drink heavily up to a case of beer a day. However, he has been sober for the last 15 years patient currently lives here in the [facility] with his family. Exam Vital Signs Vital Sign - Last Date Time Temp Pulse Resp B/P Pulse Ox O2 Delivery O2 Flow Rate FiO2 07/04/16 17:33 70 07/04/16 16:21 Supplement Oxygen 07/04/16 16:16 36.6 16 114/67 98 07/04/16 13:47 2 Exam General: Currently patient is in no apparent distress. He was having fever and chills and tremor in the emergency room. HEENT: Head is atraumatic and normocephalic. Eyes: Pupils are equally round and reactive to light and accommodation. Extraocular muscles are intact. Sclera are white, anicteric. Subconjunctival mucosa is pink. Ears and nose are unremarkable. Oropharynx: There is no mucosal lesions, there is no thrush, there is no pharyngitis. Neck: Is supple, there are no nodes, or masses or tenderness. Chest: There are rales and a few rhonchi in the right base to the right midlung and at the left base. There are no wheezes Heart: Rate, rhythm is regular. There is no murmur, rub or gallop. Abdomen: Good bowel sounds are present. Abdomen is soft, nontender, no organomegaly or masses were appreciated. Extremities: Are symmetrical and well perfused. There is no edema, there is no cellulitis, no rash. Neurologic: There are no focal neurological deficits. Cranial nerves II through XII are intact. There are no sensory or motor deficits. Psychiatric: Patients mood is calm and shows no sign of agitation. Genital: Porras catheter is present Rectal: Deferred Lab and Diagnostics Result Diagram: 07/04/16 1050 07/04/16 1050 Microbiology Blood cultures are pending X-Rays, CTs and MRIs PROCEDURE: CT CHEST WITHOUT CONTRAST ([id number]) INDICATIONS: Recurrent pneumonia, hypoxia, ho metas.prostate CA TECHNIQUE: Noncontrast 5 mm thick sections acquired from the pulmonary apices to the posterior costophrenic angles. 7 mm thick coronal and sagittal MIP reformats were then acquired. For radiation dose reduction, the following was used: automated exposure control, adjustment of mA and/or kV according to patient size. COMPARISON: [facility], CT, CHEST/ABD/PELVIS/ WO CON (PNL), 2012, 12:17. [facility], CT, CT CHEST ABD PELVIS WO CON, 12/01/2015 , 11:25. [facility], CT, CT CHEST ABD PELVIS WO CON, 03/15/2016, 11 :35. FINDINGS: Image quality: Excellent. Lungs and pleura: Patchy consolidation is present at the bilateral lung bases which is new when compared with study dated 03/15/16. Trace groundglass opacities are present within the lateral aspect of the right upper lobe which are new when compared with the prior study (series 3, image 12). There is trace centrilobular emphysema with apical predominance. No pleural effusion or pneumothorax. An ill-defined 3 mm diameter solid nodule is present at the base of the right middle lobe (series 3, image 41). This is unchanged when compared with the study dated 08/28/12. Mediastinum: Heart size is normal. No pericardial effusion. No mediastinal adenopathy by size criteria. Thoracic aorta and central pulmonary arteries are normal in size. Scattered atheromatous calcifications are present within the aortic arch. Esophagus is normal in caliber. No hiatal hernia. Bones and chest wall: No suspicious bony lesions. No vertebral body compression fractures. No axillary or supraclavicular adenopathy by size criteria. Thyroid gland is unremarkable. Abdomen: Visualized upper abdominal solid organs and bowel loops appear normal in the absence of contrast. IMPRESSION: 1. Patchy consolidation in the dependent lung bases bilaterally which is new when compared with the prior CT dated 03/15/16. Differential considerations include aspiration/infection and atelectasis. 2. Trace pulmonary radiopacities at the lateral aspect of the right upper lobe likely associated with infection. 3. Aortic atherosclerosis. Dictated by: Susannah Stacy M.D. on 07/04/2016 at 15:33 Approved by: Susananh Stacy M.D. 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 The patient reports through his daughter who is acting as an seismic interpreter fever chills and diaphoresis with decreased urination and foul-smelling urine. Patient was seen by Dr Gomez yesterday and had blood work and urine testing that looked "okay". Patient has a chronic cough. His daughter states that he has had 4 courses of chemotherapy now for his stage IV prostate cancer and each time has ended up in the emergency room after treatment. With each episode he has had fever and chills the first episode after the first course of chemotherapy he was treated in the emergency room and released the following 3 including this one he was admitted to the hospital. After coming to the [facility] emergency room patient appeared extremely fatigue he was febrile with temperature over 101 and his oxygen saturations were low to down to 88% on room air. Patient also had a mild /moderate cough and the patient is bringing up sputum in the morning which is new for him. Patient also complains of mild dysuria and decreased urine output that the family has noticed. Emergency department he had a postvoid residual 400 mL so Porras, catheter was placed. However urinalysis did not reveal any clear markers of infection. Blood work was positive for bandemia but the patient did receive Neupogen at Dr Gomez's office yesterday which would explain the bandemia. A chest x-ray demonstrated more pronounced abnormality at the left base than the previous x-ray done yesterday. Blood Cultures were drawn in the emergency room and patient was started on IV Zosyn. A VQ scan was ordered which showed low probability of pulmonary embolism a CT scan without contrast was ordered which showed a patchy consolidation in the dependent lung bases bilaterally which is new when compared with the prior CT dated 03/15/16. As patient has bibasilar infiltrates and is immunosuppressed after chemotherapy with fever and chills the patient was admitted to the hospital service for further evaluation and treatment. As the patient is likely to be hospitalized for greater than 2 midnight, for evaluation and treatment of the above problem patient was admitted as an inpatient. # Bilateral lower lobe pneumonia, present on admission with fever and chills -Continue Zosyn started in the emergency room -Check respiratory PCR panel -Check MRSA screen -Check sputum cultures -Check blood cultures # Metastatic prostate cancer with skeletal involvement, present on admission, currently undergoing chemotherapy -We will continue his same narcotics, also some when necessary IV morphine, as needed for pain control -We will continue Gabapentin # Urinary retention noted during recent admission, oxybutynin was discontinued and he was started on tamsulosin last admission -Continue Tamsulosin -Continue Porras catheter placed in the emergency room, as patient had a large postvoid residual # Hypertension -We will continue his home medications # Oral lesions and soreness of the mouth -We will use Magic mouthwash # Hyperlipidemia -Continue Atorvastatin # Depression and history of anxiety -Continue Mirtazapine Disposition: Patient will require greater than 2 midnight in the hospital for evaluation and treatment of the above. Pain Evaluation: Adequate Pain Control VTE Mechanical Devices: Intermittant Pneumatic CD Resuscitation Status: DNR/DNI:Do Not Resuscitate/Intubate Trung Walker MD Jul 04, 2016 19:38
--- NOTE | 2016-07-04 20:02 | CCS NOTE ---
[facility] [address] [address] MEDICAL ONCOLOGY OFFICE NOTE PATIENT: IZZY THAKKAR : 1940 MR#: [id number] DATE: 07/04/2016 JOB ID: [id number] DATE: 07/04/2016 HISTORY OF PRESENT ILLNESS: The patient is a 76-year-old gentleman with longstanding history of metastatic prostate cancer to the skeletal system since 2007 who has exhausted all hormonal therapy and second-line and third line options. He has been recently started on chemotherapy. For details, please refer to my office note of yesterday and from June 30. He received his chemotherapy with Taxotere at 85% of the standard dose last week and received Neupogen injection on Sunday, June 30, and then yesterday July 03. He was supposed to receive a 3rd Neupogen today. He is admitted with fevers and cough and weakness. He was seen yesterday in the infusion room by me when he was getting his Neupogen and, at that time, he was afebrile and did not have any evidence of UTI, had an adequate white count and chest x-ray had shown only a chronic consolidation in the left lower lobe. He has now developed a fever. He has had recurrent respiratory infections that have occurred several times in the past couple of months often shortly after the chemotherapy even though he has never been neutropenic. He is seen at bedside with multiple family members present. His PSA has actually started coming down. PHYSICAL EXAMINATION: He is weak and has been hypoxic, requiring oxygen. V/Q scan showed low probability for PE. CT has shown patchy consolidation suggestive for an infectious process. His labs show normal a white count with a left shift due to Neupogen injection yesterday. His creatinine has been stable. He has crackles on the left base. He is alert and oriented. Appears weak but otherwise vitals stable. ASSESSMENT AND PLAN: A 76-year-old gentleman who is on chemotherapy with single agent Taxotere with a 15% dose reduction over the past several months. He has had extensive treatment exposure over the past eight years in the metastatic setting. He has no further treatment options other than the ongoing Taxotere that was started a few months ago. His PSA that was rapidly increasing has stabilized initially and now it has started coming down. He has had now several respiratory infections and ED visits with change of pneumonia going into upper respiratory viral infections and again now pneumonia. These have occurred often shortly after the chemotherapy although he has never been neutropenic and he is receiving Neupogen support. I had a protracted conversation with the family. At this time, since his prostate cancer has somewhat improved we can afford to place the chemotherapy temporarily on hold. His next cycle would have been due in 2-1/2 weeks which will be postponed. Once he gets over this infection, he was hoping to visit his brother in [place] which I think is reasonable, and we continue simply monitoring his PSA for a month or two before starting him back on treatment if he desires. I also asked him to think about whether he wants to continue therapy at all, but at this point, he seems to want to continue, however, at this point chemotherapy will be on hold as discussed above for 4-6 weeks. He should receive his Neupogen injection that he missed from the clinic today.
--- NOTE | 2016-07-04 20:10 | NUR ---
Nasal Specimen MRSA nasopharyngeal and respiratory viral swabs collected and sent to the lab.
--- NOTE | 2016-07-04 20:27 | NUR ---
Case Management: Attempted to provide IMM but staff providing care at this time. Beth Ross RN
[2016-07-04] MEDS: MeTOProlol XL 50 mg ER24 Tablet PO SCH (20:30)
[2016-07-05] VITALS (8 sets, daily range): BP systolic 92–125; BP diastolic 55–66; PULSE 73–92; RESP 14–18; O2SAT 87–95
[2016-07-05] MEDS: Piperacillin-Tazo 3.375 Gm Inj 3.375 GM in Dextrose 5% Minibag Plus 50 ML IV SCH ×4 (00:28→17:19)
[2016-07-05 01:36] LABS: TROPONIN T 0.01 ug/L (0.0-0.011)
[2016-07-05] MEDS: 0.9% Sodium Chloride 1,000 ML IV SCH ×3 (05:27→18:45)
[2016-07-05] MEDS: Pantoprazole 20 mg ER24 Tablet PO SCH (06:05)
[2016-07-05 06:55] LABS: INR 1.04 ratio; TROPONIN T 0.01 ug/L (0.0-0.011)
[2016-07-05 06:57] LABS: BASOPHILS % (AUTO) 0.8 % (0-3); EOSINOPHILS % (AUTO) 0.8 % (0-5); MONOCYTES % (AUTO) 9.6 % (4-12); NEUTROPHILS % (AUTO) 55.4 % (40-74); Platelet Count 168 bil/L (150-400)
[2016-07-05 07:11] LABS: Phosphorus 3.3 mg/dL (2.5-4.9)
[2016-07-05] MEDS: Ondansetron 2 mg/mL 2 mL Inj IVPUSH PRN (07:13)
[2016-07-05] MEDS: MeTOProlol XL 50 mg ER24 Tablet PO SCH ×2 (08:10→20:30)
--- NOTE | 2016-07-05 10:43 | DRSVH ---
PROCEDURE: X-RAY CHEST ONE VIEW, PORTABLE ([id number]) INDICATIONS: Follow up for pneumonia/hypoxia TECHNIQUE: One view of the chest was acquired. COMPARISON: [facility], CR, XR CHEST 1VW (PORTABLE), 07/04/2016, 10:58. FINDINGS: Surgical changes and devices: None. Lungs and pleura: No pleural effusions or pneumothorax. Interval increase in bibasilar airspace opa cities.. Mediastinum: Mediastinal contours appear normal. Heart size is normal. Bones and chest wall: No suspicious bony lesions. Overlying soft tissues appear unremarkable. IMPRESSION: Increasing bibasilar airspace opacities consistent with worsening aspiration versus pneum onia. Dictated by: Bart Mcclellan RRA Interpreted: Susannah Stacy MD on 07/05/2016 at 10:42 Transcribed by: JENNIFER on 07/05/2016 at 10:43 Approved by: Susannah Stacy M.D. on 07/05/2016 at 17:01
--- NOTE | 2016-07-05 10:54 | NUR ---
Case Management: IMM given and explained to pt and via lacing cutter at 10:10. Yaima KWONG RN
--- NOTE | 2016-07-05 13:36 | DRSVH ---
[facility] [address] [place] [address] Echocardiogram Report Name: IZZY THAKKAR LStudy Date: 07/05/2016 Height: 69 in Hospital Exam Location: [facility] Weight: 18 3 lb Gender: Male BSA: 2.0 m2 : 1940 Age: 76 yrs BP: 108/60 mmHg Reason For Study: Pneumonia Ordering Physician: HOSPITALIST [facility] Performed By: Harriet Monk Referring Physician: Dr. Johnson Payton Interpretation Summary The ejection fraction is estimated to be 60-65%. The left atrium is severely dilated. There is systolic anterior motion of the chordal apparatus. There is mild to moderate aortic regurgitation. The right ventricular systolic pressure is estimated at 39 mmHg assuming a right atrial pressure of 3 mm Hg. The ascending aorta is moderately enlarged. Procedure: A two-dimensional transthoracic echocardiogram with color flow and Doppler was performed. The study quality was technically adequate. Comparison is made with the echocardiogram of 12-24-07. The patient was in normal sinus rhythm during the exam. Left Ventricle: The left ventricle is normal in size, wall thickness, and systolic function without any focal wall motion abnormalities. The ejection fraction is estimated to be 60-65%. Assessment of diastolic parameters suggests a pseudonormalization pattern, consistent with elevated filling pressures. Right Ventricle: The right ventricle is normal in size and function. Atria: The left atrium is severely dilated. The right atrium is mild to moderately dilated. The interatrial septum is intact with no evidence for an atrial septal defect. Mitral Valve: The mitral valve is grossly normal. There is systolic anterior motion of the chordal apparatus. There is trace mitral regurgitation. Aortic Valve: The aortic valve is trileaflet. The aortic valve opens well. There is mild to moderate aortic regurgitation. Tricuspid Valve: The tricuspid valve is normal in structure and function. There is trace tricuspid regurgitation. The right ventricular systolic pressure is estimated at 39 mmHg assuming a right atrial pressure of 3 mm Hg. Pulmonic Valve: There is no pulmonic valvular regurgitation. Great Vessels: The aortic root is moderately dilated. The ascending aorta is moderately enlarged. The IVC is of normal diameter and collapses greater than 50% with a sniff. This suggests a low right atrial pressure of 3 mm Hg. Pericardium/ Pleura There is no pericardial effusion. There is no pleural effusion. MMode/2D Measurements & Calculations LVIDd: 5.6 cm LA dimension: 4.6 cm RA long axis LVOT diam: 2.4 cm LVIDs: 2.2 cm AoV Opening FS: 60.2 % LA A2 area: 36.4 cm RA area IVSd: 1.3 cm LA A4 area: 34.0 cm Ao root diam LVPWd: 0.95 cm LA length (vol) : 24.2 cm RA vol Aortic Jxn: 3.6 cm LA vol: 147.5 ml : 85.0 ml asc Aorta Diam LA vol index RA : 42.7 mm/ Ao Arch Diam (Prox RVDd major Trans): 3.8 cm IVC diam: 1.7 cm : 6.6 cm LV ren. diameter/BSA LV sys. diameter/BSA RVD1 (basal) RVD2 (mid): 4.0 cm (cm/m^2): 2.8 (cm/m^2): 1.1 Doppler Measurements & Calculations Ao V2 max MV E max manpreet MV E/A: 1.1 TR max manpreet : 221.1 cm/sec : 95.8 cm/sec Med Peak E' Manpreet : 300.8 cm/sec Ao max PG MV A max manpreet TR max PG : 19.6 mmHg : 86.4 cm/sec E/E' med: 14.5 : 36.2 mmHg Ao mean PG MV P1/2t: 64.3 msec Lat Peak E' Manpreet PA V2 max : 10.3 mmHg : 106.2 cm/sec LVOT Max Manpreet E/E' lat: 11.2 PA mean PG : 114.9 cm/sec E/e' average BILL(I,D): 2.4 cm PA Accel Time sev ratio: 0.51 MV A dur: 0.13 sec: 0.13 sec AI P1/2t : 513.4 msec AI dec slope : 224.7 cm/s2c MV dec time MV P1/2t max manpreet Ao V2 mean LV V1 max PG : 0.22 sec : 146.1 cm/sec MVA(P1/2t): 3.4 cm2 Ao V2 VTI: 49.4 cmLV V1 VTI BILL(V,D): 2.4 cm2 : 25.3 cm PA V2 mean BILL indexed to BSA : 71.1 cm/sec (cm^2/m^2): 1.2 PA pr(Accel) : 16.6 mmHg Electronically signed by: Praneeth Conn on Reading Physician:07/05/2016 01:35 PM
--- NOTE | 2016-07-05 14:20 | NUR ---
Evaluation completed. Please go to "Notes" then click on "Assessments and Notes" (bottom left corner of screen). Then select appropriate discipline tab on top of screen.
--- NOTE | 2016-07-05 15:28 | NUR ---
Patient has CM at [facility] and it is Marion Henao and I faxed H&P to her. Updated DIRECTOR OF FLIGHT OPERATIONS
--- NOTE | 2016-07-05 15:42 | NUR ---
Social Work-initial assessment: Data:See initial assessment. Pt is a 76 y/o male who was admitted on 07/04/16 for pneumonia per H&P. Pt's insurance is [employer] and PCP is Johnson Payton MD. EMR Reviewed. SW met with pt and with internal combustion engine assembler( pt is primary Mongolian speaking) to discuss discharge planning, SW role explained. Pt is alert and oriented x3. Pt resides at home with his where he remains independent with basic ADLs. Pt uses a fww or cane at baseline and doesn't drive. Pt has no HH or SNF history. Pt has no terminal supervisor care or VA benefits. SW discussed DPOA/ advanced directive, pt confirms that he has completed this, SW encouraged a copy to be brought into the hospital. Pt's daughter Mely is caregiver and his SAMANTA CM is Marion Henao. UR Specialist has sent updated clinicals. Pt's family to provide transport home when medically stable via POV. SW provided phone number on white board in room. No anticipated discharge needs. SW will continue to follow if needs arise. Assessment:Pt who has caregivers at home. Plan:Pt to discharge back home when medically stable via POV. Pt to continue with SAMANTA at home. No anticipated discharge needs. SW will continue to follow if needs arise. CARMEN You Addendum: 07/05/16 at 1601 by NILAY SILVA SS Amended: Links added.
--- NOTE | 2016-07-05 18:27 | NUR ---
spiritual care: routine with document management specialist, arranged for pt to receive tawana sunday ritual. pt also agreeable for eucharistic recycler forklift driver truck driver visits.
[2016-07-05] MEDS ORDERED: Filgrastim 480 mCg/1.6 mL Inj SUBQ ONE (18:30)
--- NOTE | 2016-07-05 19:22 | NUR ---
Activity Pt. up to chair with PT today. Up with FWW, gait belt, 1 person minimal assist. Sat in chair for a couple hours. pt. has good strength to reposition in bed. Reminded to reposition today to decrease risk of pressure sore. Pt. compliant with this and with wearing SCDs. States he feels much better than he did yesterday. denies pain today.
--- NOTE | 2016-07-05 19:43 | CCS NOTE ---
[facility] [address], [address] [address] MEDICAL ONCOLOGY OFFICE NOTE PATIENT: IZZY THAKKAR : 1940 MR#: [id number] DATE: 07/04/2016 JOB ID: [id number] DATE: 07/05/2016 SUBJECTIVE: The patient has still some ongoing cough and raspiness in his voice. He feels though overall better. He has remained afebrile. His oxygen requirement has also improved. His nasal swab was positive for rhinovirus. His labs show a white count of 3.6 with a slight downward trend. Neutrophil count is still adequate. OBJECTIVE: On exam he has slight wheezing and voice hoarseness. He was eating dinner when I saw him. He was on 2 L of oxygen. No peripheral edema. ASSESSMENT AND PLAN: A 76-year-old gentleman with prostate cancer admitted with a respiratory infection. For details, please refer to my note of yesterday. I did write today for a single dose of Neupogen 480 mcg subcu x1 to complete the 3rd planned dose that he missed to [facility] the [facility]. I spoke with the nurse about that, to give the injection this evening. His overall condition is slightly improved in terms of weakness, but he still is dealing with a respiratory infection with positive rhinovirus and continues on Zosyn.
--- NOTE | 2016-07-05 22:23 | PCM.PNMED ---
Subjective Date of Service Jul 05, 2016 Subjective Patient is feeling a little bit better today. He has no other new complaints. Exam Vital Signs Vital Sign - Last Date Time Temp Pulse Resp B/P Pulse Ox O2 Delivery O2 Flow Rate FiO2 07/05/16 20:00 37.2 77 18 121/62 92 Nasal Cannula 3.50 Intake and Output 07/04/16 07/04/16 07/05/16 Cumulative From/Thru 15:00 23:00 07:00 07/04/16 10:36 - 07/05/16 06:58 Intake Total 1000 ml 400 ml 1807 ml 3207 ml Output Total 300 ml 1200 ml 625 ml 2125 ml Balance 700 ml -800 ml 1182 ml 1082 ml Intake Oral 400 ml 800 ml 1200 ml IV Total 1000 ml 1007 ml 2007 ml Output Urine Total 300 ml 1200 ml 625 ml 2125 ml Bladder Scan Volume Amount 403mLs # Bowel Movements 0 0 0 Exam General: Currently patient is in no apparent distress. He is much more comfortable lying supine in bed. HEENT: Head is atraumatic and normocephalic. Eyes: Pupils are equally round and reactive to light and accommodation. Extraocular muscles are intact. Sclera are white, anicteric. Subconjunctival mucosa is pink. Ears and nose are unremarkable. Oropharynx: There is no mucosal lesions, there is no thrush, there is no pharyngitis. Neck: Is supple, there are no nodes, or masses or tenderness. Chest: There are rales and a few rhonchi in the right base to the right midlung and at the left base. However, the lungs are clearer today. Heart: Rate, rhythm is regular. There is no murmur, rub or gallop. Abdomen: Good bowel sounds are present. Abdomen is soft, nontender, no organomegaly or masses were appreciated. Extremities: Are symmetrical and well perfused. There is no edema, there is no cellulitis, no rash. Neurologic: There are no focal neurological deficits. Cranial nerves II through XII are intact. There are no sensory or motor deficits. Psychiatric: Patients mood is calm and shows no sign of agitation. Genital: Porras catheter is present Rectal: Deferred Lab and Diagnostics Result Diagram: 07/05/16 0605 07/05/16 0605 Microbiology Blood cultures are pending X-Rays, CTs and MRIs PROCEDURE: CT CHEST WITHOUT CONTRAST ([id number]) INDICATIONS: Recurrent pneumonia, hypoxia, ho metas.prostate CA TECHNIQUE: Noncontrast 5 mm thick sections acquired from the pulmonary apices to the posterior costophrenic angles. 7 mm thick coronal and sagittal MIP reformats were then acquired. For radiation dose reduction, the following was used: automated exposure control, adjustment of mA and/or kV according to patient size. COMPARISON: [facility], CT, CHEST/ABD/PELVIS/ WO CON (PNL), 2012, 12:17. [facility], CT, CT CHEST ABD PELVIS WO CON, 12/01/2015 , 11:25. [facility], CT, CT CHEST ABD PELVIS WO CON, 03/15/2016, 11 :35. FINDINGS: Image quality: Excellent. Lungs and pleura: Patchy consolidation is present at the bilateral lung bases which is new when compared with study dated 03/15/16. Trace groundglass opacities are present within the lateral aspect of the right upper lobe which are new when compared with the prior study (series 3, image 12). There is trace centrilobular emphysema with apical predominance. No pleural effusion or pneumothorax. An ill-defined 3 mm diameter solid nodule is present at the base of the right middle lobe (series 3, image 41). This is unchanged when compared with the study dated 08/28/12. Mediastinum: Heart size is normal. No pericardial effusion. No mediastinal adenopathy by size criteria. Thoracic aorta and central pulmonary arteries are normal in size. Scattered atheromatous calcifications are present within the aortic arch. Esophagus is normal in caliber. No hiatal hernia. Bones and chest wall: No suspicious bony lesions. No vertebral body compression fractures. No axillary or supraclavicular adenopathy by size criteria. Thyroid gland is unremarkable. Abdomen: Visualized upper abdominal solid organs and bowel loops appear normal in the absence of contrast. IMPRESSION: 1. Patchy consolidation in the dependent lung bases bilaterally which is new when compared with the prior CT dated 03/15/16. Differential considerations include aspiration/infection and atelectasis. 2. Trace pulmonary radiopacities at the lateral aspect of the right upper lobe likely associated with infection. 3. Aortic atherosclerosis. Dictated by: Susannah Stacy M.D. on 07/04/2016 at 15:33 Approved by: Susannah Stacy M.D. on 07/04/2016 at 15:3 Cardiac Echo Impressions Echocardiogram Report Name: IZZY THAKKAR LStudy Date: 07/05/2016 Height: 69 in Hospital Exam Location: [facility] Weight: 18 3 lb Gender: Male BSA: 2.0 m2 : 1940 Age: 76 yrs BP: 108/60 mmHg Reason For Study: Pneumonia Ordering Physician: HOSPITALIST [facility] Performed By: Harriet Monk Referring Physician: Dr. Johnson Payton Interpretation Summary The ejection fraction is estimated to be 60-65%. The left atrium is severely dilated. There is systolic anterior motion of the chordal apparatus. There is mild to moderate aortic regurgitation. The right ventricular systolic pressure is estimated at 39 mmHg assuming a right atrial pressure of 3 mm Hg. The ascending aorta is moderately enlarged. 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 The patient reports through his daughter who is acting as an greenhouse transplanter fever chills and diaphoresis with decreased urination and foul-smelling urine. Patient was seen by Dr Gomez yesterday and had blood work and urine testing that looked "okay". Patient has a chronic cough. His daughter states that he has had 4 courses of chemotherapy now for his stage IV prostate cancer and each time has ended up in the emergency room after treatment. With each episode he has had fever and chills the first episode after the first course of chemotherapy he was treated in the emergency room and released the following 3 including this one he was admitted to the hospital. After coming to the [facility] emergency room patient appeared extremely fatigue he was febrile with temperature over 101 and his oxygen saturations were low to down to 88% on room air. Patient also had a mild /moderate cough and the patient is bringing up sputum in the morning which is new for him. Patient also complains of mild dysuria and decreased urine output that the family has noticed. Emergency department he had a postvoid residual 400 mL so Porras, catheter was placed. However urinalysis did not reveal any clear markers of infection. Blood work was positive for bandemia but the patient did receive Neupogen at Dr Gomez's office yesterday which would explain the bandemia. A chest x-ray demonstrated more pronounced abnormality at the left base than the previous x-ray done yesterday. Blood Cultures were drawn in the emergency room and patient was started on IV Zosyn. A VQ scan was ordered which showed low probability of pulmonary embolism a CT scan without contrast was ordered which showed a patchy consolidation in the dependent lung bases bilaterally which is new when compared with the prior CT dated 03/15/16. As patient has bibasilar infiltrates and is immunosuppressed after chemotherapy with fever and chills the patient was admitted to the hospital service for further evaluation and treatment. As the patient is likely to be hospitalized for greater than 2 midnight, for evaluation and treatment of the above problem patient was admitted as an inpatient. # Bilateral lower lobe pneumonia, present on admission with fever and chills -Oncology consulted and appreciate their input. Neupogen was added again today 07/05/2016 -Continue Zosyn started in the emergency room -Check respiratory PCR panel -Check MRSA screen -Check sputum cultures -Check blood cultures # Metastatic prostate cancer with skeletal involvement, present on admission, currently undergoing chemotherapy -We will continue his same narcotics, also some when necessary IV morphine, as needed for pain control -We will continue Gabapentin -Appreciate oncology input and follow-up # Urinary retention noted during recent admission, oxybutynin was discontinued and he was started on tamsulosin last admission -Continue Tamsulosin -Continue Porras catheter placed in the emergency room, as patient had a large postvoid residual # Hypertension -We will continue his home medications # Oral lesions and soreness of the mouth -We will use Magic mouthwash # Hyperlipidemia -Continue Atorvastatin # Depression and history of anxiety -Continue Mirtazapine Disposition: Patient will require another 24-48 hours hospitalization to ensure improvement prior to discharging home on oral antibiotics. Pain Evaluation: Adequate Pain Control GI Prophylaxis: Proton Pump Inhibitor VTE Prophylaxis: Sub-Q Enoxaparin VTE Mechanical Devices: Intermittant Pneumatic CD Resuscitation Status: DNR/DNI:Do Not Resuscitate/Intubate Trung Walker MD Jul 05, 2016 22:23
[2016-07-06] VITALS (9 sets, daily range): BP systolic 104–118; BP diastolic 51–65; PULSE 68–83; RESP 16–20; O2SAT 93–98
[2016-07-06] MEDS: Piperacillin-Tazo 3.375 Gm Inj 3.375 GM in Dextrose 5% Minibag Plus 50 ML IV SCH ×3 (00:32→16:05)
--- NOTE | 2016-07-06 04:42 | NUR ---
Activity Patient A&OX3, and pleasant this evening. Patient has denied any pain. Denies CP, but states SOB when coughing for an extended period of time. 3.5 L O2 via NC being worn to maintain oxygen saturation levels >92%. Patient complains of dry nose; lubrication Jel applied in the nares, and patient states relief. Patient has been able to reposition self in bed this evening. IV is running NS @ 100cc/hr with int. ABX infusing. Patient has been able to achieve an optimal amount of sleep this evening. Will continue to monitor, and continue Q1 hour checks. Addendum: 07/06/16 at 0620 by DESTINEE QUEVEDO RN Patient placed on Oxy mask due to increased irritation of the nares. CORPORATE LOGISTICS MANAGER applied. Patients O2 sats > 92%
[2016-07-06] MEDS: 0.9% Sodium Chloride 1,000 ML IV SCH ×2 (04:49→14:48)
[2016-07-06 06:09] LABS: Mean Corpuscular Hemoglobin 28.1 pg (27.0-35.0); Platelet Count 172 bil/L (150-400)
[2016-07-06] MEDS: Pantoprazole 20 mg ER24 Tablet PO SCH (06:30)
[2016-07-06 06:41] LABS: BASOPHILS % (AUTO) 0 % (0-3); EOSINOPHILS % (AUTO) 1 % (0-5); MONOCYTES % (AUTO) 6 % (4-12); NEUTROPHILS % (AUTO) 67 % (40-74)
[2016-07-06] MEDS: MeTOProlol XL 50 mg ER24 Tablet PO SCH ×2 (08:39→21:05)
--- NOTE | 2016-07-06 14:39 | NUR ---
emergency care attendantmanager harbor note: Met with patient and family. Patient is well known to me from the [facility]. Explained my role as manager harbor to his daughter who speaks Vietnamese. Patient was playing the card game "21" with his grandchildren. Daughter was concerned because Mely, Daughter was told they would be called with the results of the "Xrays" done but they were not called. Patient got worse so they brought patient to the ER. Patient did have CT Chest, Lung Scan-VQ NM, and a Chest Xray on 07/04/16. I did let her know I would try and found out what happened when Ena and Dr. Gomez return to the office tomorrow. I or Ena will let them know why they were not called. Daughter states they have no care needs at this time. Will continue to follow and address any care needs as they arise.
[2016-07-06] MEDS: Albuterol-Ipratropium 3 mL Inhalation Solution NEB PRN (17:00)
--- NOTE | 2016-07-06 17:18 | NUR ---
PAIN/ACTIVITY Patient denies pain at this time. Tolerating liquids PO and his diet well. Denies nausea. No emesis noted. Continues to be on O2 at 3 LPM via an oxymask. Neb treatments ordered for complaints of SOB. Patient got up with 1 PA and the FWW and tolerated it fairly. Patient showered this morning. Family is at the bedside.
[2016-07-06] MEDS ORDERED: HYDROmorphone 1 mg/mL Inj IVPUSH ONE (20:15)
--- NOTE | 2016-07-06 23:39 | NUR ---
Chest pain At 1956 patient complained of sudden onset of chest pain, and 8/10 generalized pain. Vitals were taken, and stat EKG was ordered. BP 110/61, HR 74, O2 94% on 2L O2 via oxy mask, T 36.9. Night hospitalist notified, and ordered Troponin levels to be drawn now and in the am. MD states no significant findings on EKG. At approx 2020 patient states pain has improved, and has denied the need for additional pain medication. Patient also states that he feels that the pain worsens when he coughs. MD aware. Will continue to monitor, and continue Q1 hours checks.
[2016-07-07] VITALS (9 sets, daily range): BP systolic 111–147; BP diastolic 60–77; PULSE 70–106; RESP 16–20; O2SAT 94–99
--- NOTE | 2016-07-07 00:30 | PCM.PNMED ---
Subjective Date of Service Jul 07, 2016 Subjective Patient is feeling a little bit better. He has no new complaints. Shortness of breath is a little better. He has less shortness of breath. Exam Vital Signs Vital Sign - Last Date Time Temp Pulse Resp B/P Pulse Ox O2 Delivery O2 Flow Rate FiO2 07/06/16 20:02 Supplement Oxygen 07/06/16 19:42 36.7 76 18 104/64 96 3.00 Intake and Output 07/06/16 07/06/16 07/07/16 Cumulative From/Thru 15:00 23:00 07:00 07/04/16 10:36 - 07/06/16 18:33 Intake Total 1844 ml 8583 ml Output Total 800 ml 4975 ml Balance 1044 ml 3608 ml Intake Oral 600 ml 3200 ml IV Total 1244 ml 5383 ml Output Urine Total 800 ml 4825 ml Emesis 150 ml # Bowel Movements 0 Exam General: Currently patient is in no apparent distress. He remains comfortable lying supine in bed. HEENT: Head is atraumatic and normocephalic. Eyes: Pupils are equally round and reactive to light and accommodation. Extraocular muscles are intact. Sclera are white, anicteric. Subconjunctival mucosa is pink. Ears and nose are unremarkable. Oropharynx: There is no mucosal lesions, there is no thrush, there is no pharyngitis. Neck: Is supple, there are no nodes, or masses or tenderness. Chest: There are rales and a few rhonchi are somewhat clearer again today Heart: Rate, rhythm is regular. There is no murmur, rub or gallop. Abdomen: Good bowel sounds are present. Abdomen is soft, nontender, no organomegaly or masses were appreciated. Extremities: Are symmetrical and well perfused. There is no edema, there is no cellulitis, no rash. Neurologic: There are no focal neurological deficits. Cranial nerves II through XII are intact. There are no sensory or motor deficits. Psychiatric: Patients mood is calm and shows no sign of agitation. Genital: Porras catheter is present Rectal: Deferred Lab and Diagnostics Result Diagram: 07/06/16 0550 07/06/16 0550 Microbiology Blood cultures are pending X-Rays, CTs and MRIs PROCEDURE: CT CHEST WITHOUT CONTRAST ([id number]) INDICATIONS: Recurrent pneumonia, hypoxia, ho metas.prostate CA TECHNIQUE: Noncontrast 5 mm thick sections acquired from the pulmonary apices to the posterior costophrenic angles. 7 mm thick coronal and sagittal MIP reformats were then acquired. For radiation dose reduction, the following was used: automated exposure control, adjustment of mA and/or kV according to patient size. COMPARISON: [facility], CT, CHEST/ABD/PELVIS/ WO CON (PNL), 2012, 12:17. [facility], CT, CT CHEST ABD PELVIS WO CON, 12/01/2015 , 11:25. [facility], CT, CT CHEST ABD PELVIS WO CON, 03/15/2016, 11 :35. FINDINGS: Image quality: Excellent. Lungs and pleura: Patchy consolidation is present at the bilateral lung bases which is new when compared with study dated 03/15/16. Trace groundglass opacities are present within the lateral aspect of the right upper lobe which are new when compared with the prior study (series 3, image 12). There is trace centrilobular emphysema with apical predominance. No pleural effusion or pneumothorax. An ill-defined 3 mm diameter solid nodule is present at the base of the right middle lobe (series 3, image 41). This is unchanged when compared with the study dated 08/28/12. Mediastinum: Heart size is normal. No pericardial effusion. No mediastinal adenopathy by size criteria. Thoracic aorta and central pulmonary arteries are normal in size. Scattered atheromatous calcifications are present within the aortic arch. Esophagus is normal in caliber. No hiatal hernia. Bones and chest wall: No suspicious bony lesions. No vertebral body compression fractures. No axillary or supraclavicular adenopathy by size criteria. Thyroid gland is unremarkable. Abdomen: Visualized upper abdominal solid organs and bowel loops appear normal in the absence of contrast. IMPRESSION: 1. Patchy consolidation in the dependent lung bases bilaterally which is new when compared with the prior CT dated 03/15/16. Differential considerations include aspiration/infection and atelectasis. 2. Trace pulmonary radiopacities at the lateral aspect of the right upper lobe likely associated with infection. 3. Aortic atherosclerosis. Dictated by: Susannah Stacy M.D. on 07/04/2016 at 15:33 Approved by: Susannah Stacy M.D. on 07/04/2016 at 15:3 Cardiac Echo Impressions Echocardiogram Report Name: IZZY THAKKAR LStudy Date: 07/05/2016 Height: 69 in Hospital Exam Location: [facility] Weight: 18 3 lb Gender: Male BSA: 2.0 m2 : 1940 Age: 76 yrs BP: 108/60 mmHg Reason For Study: Pneumonia Ordering Physician: HOSPITALIST [facility] Performed By: Harriet Monk Referring Physician: Dr. Johnson Payton Interpretation Summary The ejection fraction is estimated to be 60-65%. The left atrium is severely dilated. There is systolic anterior motion of the chordal apparatus. There is mild to moderate aortic regurgitation. The right ventricular systolic pressure is estimated at 39 mmHg assuming a right atrial pressure of 3 mm Hg. The ascending aorta is moderately enlarged. 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 The patient reports through his daughter who is acting as an church organist fever chills and diaphoresis with decreased urination and foul-smelling urine. Patient was seen by Dr Gomez yesterday and had blood work and urine testing that looked "okay". Patient has a chronic cough. His daughter states that he has had 4 courses of chemotherapy now for his stage IV prostate cancer and each time has ended up in the emergency room after treatment. With each episode he has had fever and chills the first episode after the first course of chemotherapy he was treated in the emergency room and released the following 3 including this one he was admitted to the hospital. After coming to the [facility] emergency room patient appeared extremely fatigue he was febrile with temperature over 101 and his oxygen saturations were low to down to 88% on room air. Patient also had a mild /moderate cough and the patient is bringing up sputum in the morning which is new for him. Patient also complains of mild dysuria and decreased urine output that the family has noticed. Emergency department he had a postvoid residual 400 mL so Porras, catheter was placed. However urinalysis did not reveal any clear markers of infection. Blood work was positive for bandemia but the patient did receive Neupogen at Dr Gomez's office yesterday which would explain the bandemia. A chest x-ray demonstrated more pronounced abnormality at the left base than the previous x-ray done yesterday. Blood Cultures were drawn in the emergency room and patient was started on IV Zosyn. A VQ scan was ordered which showed low probability of pulmonary embolism a CT scan without contrast was ordered which showed a patchy consolidation in the dependent lung bases bilaterally which is new when compared with the prior CT dated 03/15/16. As patient has bibasilar infiltrates and is immunosuppressed after chemotherapy with fever and chills the patient was admitted to the hospital service for further evaluation and treatment. As the patient is likely to be hospitalized for greater than 2 midnight, for evaluation and treatment of the above problem patient was admitted as an inpatient. # Bilateral lower lobe Aspiration pneumonia, present on admission with fever and chills symptomatically improved -Oncology consulted and appreciate their input. Neupogen was added again today 07/05/2016 -Continue Zosyn started in the emergency room -Check respiratory PCR panel -MRSA screen is negative -Check sputum cultures -Check blood cultures # Metastatic prostate cancer with skeletal involvement, present on admission, currently undergoing chemotherapy -We will continue his same narcotics, also some when necessary IV morphine, as needed for pain control -We will continue Gabapentin -Appreciate oncology input and follow-up # Urinary retention noted during recent admission, oxybutynin was discontinued and he was started on tamsulosin last admission -Continue Tamsulosin -Continue Porras catheter for now, placed in the emergency room, as patient had a large postvoid residual -The patient will need Porras catheter removal soon # Hypertension -We will continue his home medications # Oral lesions and soreness of the mouth -We will use Magic mouthwash # Hyperlipidemia -Continue Atorvastatin # Depression and history of anxiety -Continue Mirtazapine Disposition: Patient will require another 24-48 hours hospitalization to ensure improvement prior to discharging home on oral antibiotics. Pain Evaluation: Adequate Pain Control GI Prophylaxis: Proton Pump Inhibitor VTE Prophylaxis: Sub-Q Enoxaparin VTE Mechanical Devices: Intermittant Pneumatic CD Resuscitation Status: DNR/DNI:Do Not Resuscitate/Intubate Trung Walker MD Jul 07, 2016 00:30
[2016-07-07] MEDS: 0.9% Sodium Chloride 1,000 ML IV SCH ×3 (00:40→20:39)
[2016-07-07] MEDS: Piperacillin-Tazo 3.375 Gm Inj 3.375 GM in Dextrose 5% Minibag Plus 50 ML IV SCH ×3 (00:40→16:31)
[2016-07-07] MEDS: Pantoprazole 20 mg ER24 Tablet PO SCH (06:06)
[2016-07-07 07:16] LABS: Mean Corpuscular Hemoglobin 28.4 pg (27.0-35.0); Mean Corpuscular Volume 94.5 fL (81-100); Platelet Count 205 bil/L (150-400)
[2016-07-07 07:22] LABS: TROPONIN T 0.01 ug/L (0.0-0.011)
[2016-07-07 08:08] LABS: BASOPHILS % (AUTO) 0 % (0-3); EOSINOPHILS % (AUTO) 0 % (0-5); MONOCYTES % (AUTO) 7 % (4-12); NEUTROPHILS % (AUTO) 70 % (40-74)
[2016-07-07] MEDS: MeTOProlol XL 50 mg ER24 Tablet PO SCH ×2 (08:51→21:11)
--- NOTE | 2016-07-07 11:49 | NUR ---
Ambulate w/Nsg Pt has met all PT goals and is discharged from further PT at this time; pt to ambulate w/nsg 2-3x/day as pt tolerates.
--- NOTE | 2016-07-07 11:54 | DRSVH ---
PROCEDURE: X-RAY CHEST, TWO VIEWS ([id number]) INDICATIONS: Follow up for aspiration pneumonia TECHNIQUE: 2 views of the chest were acquired. COMPARISON: [facility], CR, XR CHEST 1VW (PORTABLE), 07/05/2016, 9:45. [facility], CR, XR CHEST 2VW, 07/03/2016, 16:36. FINDINGS: Surgical changes and devices: None. Lungs and pleura: Resolving basilar airspace opacities, otherwise lungs are clear. Mediastinum: Mediastinal contours are normal. Heart size is normal. Bones and chest wall: No suspicious bony abnormalities. Soft tissues appear unremarkable. IMPRESSION: Resolving aspiration versus pneumonia. Short interval followup is recommended with resolu tion of the patient's symptoms to ensure there is no underlying pulmonary pathology. Dictated by: Bart LOPEZ Interpreted: Susannah Stacy MD on 07/07/2016 at 11:53 Transcribed by: JENNIFER on 07/07/2016 at 11:54 Approved by: Susannah Stacy M.D. on 07/07/2016 at 13:55
[2016-07-07] MEDS: Albuterol-Ipratropium 3 mL Inhalation Solution NEB PRN ×2 (11:56→19:20)
[2016-07-07] MEDS ORDERED: Furosemide 10 mg/mL 2 mL Inj IV ONE (15:45)
--- NOTE | 2016-07-07 18:03 | NUR ---
ACTIVITY Patient denies pain. Tolerating liquids PO and his diet well. He has been eating 75-100 % of his meals. Denies nausea. No emesis noted. Denies SOB. Continues to be on O2 at 2 LPM via an oxymask. Unable to wean off O2. PO2 on room air is in the high 80's. Dr. Walker is aware of this. IFC intact and draining to pale colored UO. Patient ambulated in the hallway and has been able to sit the chair for his meals. Tolerated activity well. Family is always at the bedside and they have been calling appropriately for assistance.
[2016-07-08] MEDS: Piperacillin-Tazo 3.375 Gm Inj 3.375 GM in Dextrose 5% Minibag Plus 50 ML IV SCH ×3 (00:02→16:30)
--- NOTE | 2016-07-08 00:13 | PCM.PNMED ---
Subjective Date of Service Jul 08, 2016 Subjective Patient claims he is feeling better. However, his family states that he is not eating even food he likes brought in from home. Exam Vital Signs Vital Sign - Last Date Time Temp Pulse Resp B/P Pulse Ox O2 Delivery O2 Flow Rate FiO2 07/07/16 20:27 37.0 106 20 146/77 94 OxyMask 2.00 Intake and Output 07/07/16 07/07/16 07/08/16 Cumulative From/Thru 15:00 23:00 07:00 07/04/16 10:36 - 07/07/16 18:52 Intake Total 1286 ml 74860 ml Output Total 1185 ml 7510 ml Balance 101 ml 4071 ml Intake Oral 740 ml 4340 ml IV Total 546 ml 7241 ml Output Urine Total 1185 ml 7360 ml Emesis 150 ml # Bowel Movements 1 1 Exam General: Currently patient is in no apparent distress. He remains comfortable lying supine in bed. HEENT: Head is atraumatic and normocephalic. Eyes: Pupils are equally round and reactive to light and accommodation. Extraocular muscles are intact. Sclera are white, anicteric. Subconjunctival mucosa is pink. Ears and nose are unremarkable. Oropharynx: There is no mucosal lesions, there is no thrush, there is no pharyngitis. Neck: Is supple, there are no nodes, or masses or tenderness. Chest: There are a few basilar rales otherwise the lung trent are much clearer. Heart: Rate, rhythm is regular. There is no murmur, rub or gallop. Abdomen: Good bowel sounds are present. Abdomen is soft, nontender, no organomegaly or masses were appreciated. Extremities: Are symmetrical and well perfused. There is no edema, there is no cellulitis, no rash. Neurologic: There are no focal neurological deficits. Cranial nerves II through XII are intact. There are no sensory or motor deficits. Psychiatric: Patients mood is calm and shows no sign of agitation. Genital: Porras catheter is present Rectal: Deferred Lab and Diagnostics Result Diagram: 07/07/16 0645 07/07/16 06 Microbiology Blood cultures are pending X-Rays, CTs and MRIs PROCEDURE: CT CHEST WITHOUT CONTRAST ([id number]) INDICATIONS: Recurrent pneumonia, hypoxia, ho metas.prostate CA TECHNIQUE: Noncontrast 5 mm thick sections acquired from the pulmonary apices to the posterior costophrenic angles. 7 mm thick coronal and sagittal MIP reformats were then acquired. For radiation dose reduction, the following was used: automated exposure control, adjustment of mA and/or kV according to patient size. COMPARISON: [facility], CT, CHEST/ABD/PELVIS/ WO CON (PNL), 2012, 12:17. [facility], CT, CT CHEST ABD PELVIS WO CON, 12/01/2015 , 11:25. [facility], CT, CT CHEST ABD PELVIS WO CON, 03/15/2016, 11 :35. FINDINGS: Image quality: Excellent. Lungs and pleura: Patchy consolidation is present at the bilateral lung bases which is new when compared with study dated 03/15/16. Trace groundglass opacities are present within the lateral aspect of the right upper lobe which are new when compared with the prior study (series 3, image 12). There is trace centrilobular emphysema with apical predominance. No pleural effusion or pneumothorax. An ill-defined 3 mm diameter solid nodule is present at the base of the right middle lobe (series 3, image 41). This is unchanged when compared with the study dated 08/28/12. Mediastinum: Heart size is normal. No pericardial effusion. No mediastinal adenopathy by size criteria. Thoracic aorta and central pulmonary arteries are normal in size. Scattered atheromatous calcifications are present within the aortic arch. Esophagus is normal in caliber. No hiatal hernia. Bones and chest wall: No suspicious bony lesions. No vertebral body compression fractures. No axillary or supraclavicular adenopathy by size criteria. Thyroid gland is unremarkable. Abdomen: Visualized upper abdominal solid organs and bowel loops appear normal in the absence of contrast. IMPRESSION: 1. Patchy consolidation in the dependent lung bases bilaterally which is new when compared with the prior CT dated 03/15/16. Differential considerations include aspiration/infection and atelectasis. 2. Trace pulmonary radiopacities at the lateral aspect of the right upper lobe likely associated with infection. 3. Aortic atherosclerosis. Dictated by: Susannah Stacy M.D. on 07/04/2016 at 15:33 Approved by: Susannah Stacy M.D. on 07/04/2016 at 15:3 Cardiac Echo Impressions Echocardiogram Report Name: IZZY THAKKAR LStudy Date: 07/05/2016 Height: 69 in Hospital Exam Location: [facility] Weight: 18 3 lb Gender: Male BSA: 2.0 m2 : 1940 Age: 76 yrs BP: 108/60 mmHg Reason For Study: Pneumonia Ordering Physician: HOSPITALIST [facility] Performed By: Harriet Monk Referring Physician: Dr. Johnson Payton Interpretation Summary The ejection fraction is estimated to be 60-65%. The left atrium is severely dilated. There is systolic anterior motion of the chordal apparatus. There is mild to moderate aortic regurgitation. The right ventricular systolic pressure is estimated at 39 mmHg assuming a right atrial pressure of 3 mm Hg. The ascending aorta is moderately enlarged. 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 The patient reports through his daughter who is acting as an educational interpreter fever chills and diaphoresis with decreased urination and foul-smelling urine. Patient was seen by Dr Gomez yesterday and had blood work and urine testing that looked "okay". Patient has a chronic cough. His daughter states that he has had 4 courses of chemotherapy now for his stage IV prostate cancer and each time has ended up in the emergency room after treatment. With each episode he has had fever and chills the first episode after the first course of chemotherapy he was treated in the emergency room and released the following 3 including this one he was admitted to the hospital. After coming to the [facility] emergency room patient appeared extremely fatigue he was febrile with temperature over 101 and his oxygen saturations were low to down to 88% on room air. Patient also had a mild /moderate cough and the patient is bringing up sputum in the morning which is new for him. Patient also complains of mild dysuria and decreased urine output that the family has noticed. Emergency department he had a postvoid residual 400 mL so Porras, catheter was placed. However urinalysis did not reveal any clear markers of infection. Blood work was positive for bandemia but the patient did receive Neupogen at Dr Gomez's office yesterday which would explain the bandemia. A chest x-ray demonstrated more pronounced abnormality at the left base than the previous x-ray done yesterday. Blood Cultures were drawn in the emergency room and patient was started on IV Zosyn. A VQ scan was ordered which showed low probability of pulmonary embolism a CT scan without contrast was ordered which showed a patchy consolidation in the dependent lung bases bilaterally which is new when compared with the prior CT dated 03/15/16. As patient has bibasilar infiltrates and is immunosuppressed after chemotherapy with fever and chills the patient was admitted to the hospital service for further evaluation and treatment. As the patient is likely to be hospitalized for greater than 2 midnight, for evaluation and treatment of the above problem patient was admitted as an inpatient. # Bilateral lower lobe Aspiration pneumonia, present on admission with fever and chills symptomatically improved -Oncology consulted and appreciate their input. Neupogen was added again today 07/05/2016 -Continue Zosyn started in the emergency room -Check respiratory PCR panel -MRSA screen is negative -Sputum cultures normal ashu -Blood cultures are negative # Metastatic prostate cancer with skeletal involvement, present on admission, currently undergoing chemotherapy -We will continue his same narcotics, also when necessary IV morphine, as needed for pain control -We will continue Gabapentin -Appreciate oncology input and follow-up # Urinary retention noted during recent admission, oxybutynin was discontinued and he was started on tamsulosin last admission -Continue Tamsulosin -Continue Porras catheter for now, placed in the emergency room, as patient had a large postvoid residual -The patient will need Porras catheter removal soon # Hypertension -We will continue his home medications # Oral lesions and soreness of the mouth -We will use Magic mouthwash # Hyperlipidemia -Continue Atorvastatin # Depression and history of anxiety -Continue Mirtazapine Disposition: Patient will require another 24-48 hours hospitalization to ensure improvement prior to discharging home on oral antibiotics. Would recommend Augmentin 875 mg by mouth twice a day when discharged Pain Evaluation: Adequate Pain Control GI Prophylaxis: Proton Pump Inhibitor VTE Prophylaxis: Sub-Q Enoxaparin VTE Mechanical Devices: Intermittant Pneumatic CD Resuscitation Status: DNR/DNI:Do Not Resuscitate/Intubate Trung Walker MD Jul 08, 2016 00:13
[2016-07-08 03:41] VITALS: PULSE 79; O2SAT 92
[2016-07-08] MEDS: Albuterol-Ipratropium 3 mL Inhalation Solution NEB PRN ×2 (03:41→12:38)
--- NOTE | 2016-07-08 04:05 | NUR ---
ACTIVITY: Pt. resting in bed through the night. Made no attempts to get oob independently. Has oxymask on with 2 lit/02 but won't keep it on while asleep. Pt. desaturates on room air into the 80s. With 02 on saturation staying in the low to mid 90s. He denies SOB. Forgetful and somnolent most of the time. Pleasant and cooperative with care. Cont. to monitor.
[2016-07-08 05:53] VITALS: BP 112/52; PULSE 78; RESP 20; O2SAT 95
[2016-07-08] MEDS: Pantoprazole 20 mg ER24 Tablet PO SCH (06:37)
[2016-07-08] MEDS: 0.9% Sodium Chloride 1,000 ML IV SCH ×2 (06:39→16:39)
[2016-07-08 07:09] LABS: BASOPHILS % (AUTO) 0.3 % (0-3); EOSINOPHILS % (AUTO) 0.3 % (0-5); MONOCYTES % (AUTO) 6.8 % (4-12); Mean Corpuscular Hemoglobin 28.9 pg (27.0-35.0); NEUTROPHILS % (AUTO) 52.9 % (40-74); Platelet Count 207 bil/L (150-400)
[2016-07-08 07:34] LABS: Magnesium 1.9 mg/dL (1.6-2.6)
[2016-07-08] MEDS: MeTOProlol XL 50 mg ER24 Tablet PO SCH ×2 (08:13→21:41)
[2016-07-08 08:21] VITALS: BP 112/54; PULSE 80; RESP 14; O2SAT 96
[2016-07-08 12:38] VITALS: PULSE 74; O2SAT 95
--- NOTE | 2016-07-08 14:14 | PCM.PNMED ---
Subjective Date of Service Jul 08, 2016 Subjective He was seen to follow-up his aspiration pneumonia. His is present. They do not appear to have any significant questions. Other family members have not arrived yet for their daily visits. There are no new symptoms. Exam Vital Signs Vital Sign - Last Date Time Temp Pulse Resp B/P Pulse Ox O2 Delivery O2 Flow Rate FiO2 07/08/16 11:00 Supplement Oxygen 07/08/16 08:21 37.1 80 14 112/54 96 2.00 Intake and Output 07/07/16 07/07/16 07/08/16 Cumulative From/Thru 15:00 23:00 07:00 07/04/16 10:36 - 07/08/16 06:34 Intake Total 1286 ml 665 ml 33138 ml Output Total 1185 ml 1400 ml 8910 ml Balance 101 ml -735 ml 3336 ml Intake Oral 740 ml 400 ml 4740 ml IV Total 546 ml 265 ml 7506 ml Output Urine Total 1185 ml 1400 ml 8760 ml Emesis 150 ml # Bowel Movements 1 0 1 Exam General: Currently patient is in no apparent distress. He remains comfortable lying supine in bed. HEENT: Head is atraumatic and normocephalic. Chest: Lungs are clear to auscultation today. Heart: Rate, rhythm is regular. There is no murmur, rub or gallop. Extremities: Are symmetrical and well perfused. There is no edema, there is no cellulitis, no rash. Neurologic: There are no focal neurological deficits Psychiatric: Patients mood is calm and shows no sign of agitation. Genital: Porras catheter is present IVs and Medications Medications Reviewed: Medications were reviewed in detail Lab and Diagnostics Result Diagram: 07/08/1661907/08/16619 Microbiology Blood cultures are pending X-Rays, CTs and MRIs PROCEDURE: CT CHEST WITHOUT CONTRAST ([id number]) INDICATIONS: Recurrent pneumonia, hypoxia, ho metas.prostate CA TECHNIQUE: Noncontrast 5 mm thick sections acquired from the pulmonary apices to the posterior costophrenic angles. 7 mm thick coronal and sagittal MIP reformats were then acquired. For radiation dose reduction, the following was used: automated exposure control, adjustment of mA and/or kV according to patient size. COMPARISON: [facility], CT, CHEST/ABD/PELVIS/ WO CON (PNL), 2012, 12:17. [facility], CT, CT CHEST ABD PELVIS WO CON, 12/01/2015 , 11:25. [facility], CT, CT CHEST ABD PELVIS WO CON, 03/15/2016, 11 :35. FINDINGS: Image quality: Excellent. Lungs and pleura: Patchy consolidation is present at the bilateral lung bases which is new when compared with study dated 03/15/16. Trace groundglass opacities are present within the lateral aspect of the right upper lobe which are new when compared with the prior study (series 3, image 12). There is trace centrilobular emphysema with apical predominance. No pleural effusion or pneumothorax. An ill-defined 3 mm diameter solid nodule is present at the base of the right middle lobe (series 3, image 41). This is unchanged when compared with the study dated 08/28/12. Mediastinum: Heart size is normal. No pericardial effusion. No mediastinal adenopathy by size criteria. Thoracic aorta and central pulmonary arteries are normal in size. Scattered atheromatous calcifications are present within the aortic arch. Esophagus is normal in caliber. No hiatal hernia. Bones and chest wall: No suspicious bony lesions. No vertebral body compression fractures. No axillary or supraclavicular adenopathy by size criteria. Thyroid gland is unremarkable. Abdomen: Visualized upper abdominal solid organs and bowel loops appear normal in the absence of contrast. IMPRESSION: 1. Patchy consolidation in the dependent lung bases bilaterally which is new when compared with the prior CT dated 03/15/16. Differential considerations include aspiration/infection and atelectasis. 2. Trace pulmonary radiopacities at the lateral aspect of the right upper lobe likely associated with infection. 3. Aortic atherosclerosis. Dictated by: Susannah Stacy M.D. on 07/04/2016 at 15:33 Approved by: Susannah Stacy M.D. on 07/04/2016 at 15:3 Cardiac Echo Impressions Echocardiogram Report Name: IZZY THAKKAR LStudy Date: 07/05/2016 Height: 69 in Hospital Exam Location: [facility] Weight: 18 3 lb Gender: Male BSA: 2.0 m2 : 1940 Age: 76 yrs BP: 108/60 mmHg Reason For Study: Pneumonia Ordering Physician: HOSPITALIST [facility] Performed By: Harriet Monk Referring Physician: Dr. Johnson Payton Interpretation Summary The ejection fraction is estimated to be 60-65%. The left atrium is severely dilated. There is systolic anterior motion of the chordal apparatus. There is mild to moderate aortic regurgitation. The right ventricular systolic pressure is estimated at 39 mmHg assuming a right atrial pressure of 3 mm Hg. The ascending aorta is moderately enlarged. 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 # Bilateral lower lobe Aspiration pneumonia, present on admission with fever and chills symptomatically improved -Oncology consulted and appreciate their input. Neupogen was added 07/05/2016 -Continue Zosyn started in the emergency room -MRSA screen is negative -Sputum cultures normal ashu -Blood cultures are negative # Metastatic prostate cancer with skeletal involvement, present on admission, currently undergoing chemotherapy -We will continue his same narcotics, also when necessary IV morphine, as needed for pain control -We will continue Gabapentin -Appreciate oncology input and follow-up # Urinary retention noted during recent admission, oxybutynin was discontinued and he was started on tamsulosin last admission -Continue Tamsulosin -Continue Porras catheter for now, placed in the emergency room, as patient had a large postvoid residual -The patient will need Porras catheter removal soon # Hypertension -We will continue his home medications # Oral lesions and soreness of the mouth -We will use Magic mouthwash # Hyperlipidemia -Continue Atorvastatin # Depression and history of anxiety -Continue Mirtazapine Disposition: Patient will require another 24 hours hospitalization to ensure improvement prior to discharging home on oral antibiotics. Would recommend Augmentin 875 mg by mouth twice a day when discharged David Landers MD GI Prophylaxis: Proton Pump Inhibitor VTE Prophylaxis: Sub-Q Enoxaparin VTE Mechanical Devices: Intermittant Pneumatic CD Resuscitation Status: DNR/DNI:Do Not Resuscitate/Intubate Brad Landers MD Jul 08, 2016 11:15
[2016-07-08 16:00] VITALS: BP 107/59; PULSE 80; RESP 16; O2SAT 94
--- NOTE | 2016-07-08 16:14 | NUR ---
Mentation Patient is alert and able to make needs known. Denies pain or discomfort. stable vital signs. family at bed side this shift.
--- NOTE | 2016-07-08 18:38 | NUR ---
Elevated Temp Patient having Temp 100.8. PRN Tylenol given as ordered. Will continue to monitor Temp. Encouraged fluids for hydration. Theodore Jesus Doctor Leesa.
--- NOTE | 2016-07-08 18:55 | NUR ---
New orders New orders for ABO and blood cultures for temp more than 38.5.
[2016-07-08 19:56] VITALS: BP 119/54; PULSE 78; RESP 16; O2SAT 95
[2016-07-08] MEDS: Cefepime Inj 1,000 MG in Dextrose 5% Minibag Plus 50 ML IV SCH (21:36)
--- NOTE | 2016-07-08 23:01 | NUR ---
ACTIVITY: During first assessment Pt. is resting in bed awake visiting with family and friends, multiple visitors in pt's room at this time. All vss. Temp 36.8, Pt. denies pain, no c/o n/v, denies discomfort. Very pleasant and cooperative with nursing care. Pt's spending the night in tonight. On going care.
[2016-07-09 01:11] VITALS: BP 126/61; PULSE 70; RESP 16; O2SAT 94
[2016-07-09] MEDS: Piperacillin-Tazo 3.375 Gm Inj 3.375 GM in Dextrose 5% Minibag Plus 50 ML IV SCH ×2 (02:09→17:14)
[2016-07-09] MEDS: 0.9% Sodium Chloride 1,000 ML IV SCH ×3 (02:39→22:39)
[2016-07-09 06:00] VITALS: BP 118/59; PULSE 78; RESP 16; O2SAT 94
[2016-07-09] MEDS: Pantoprazole 20 mg ER24 Tablet PO SCH (06:08)
[2016-07-09 06:36] LABS: Mean Corpuscular Hemoglobin 28.6 pg (27.0-35.0); Mean Corpuscular Volume 93.5 fL (81-100); Platelet Count 221 bil/L (150-400)
[2016-07-09 07:13] LABS: Magnesium 2.1 mg/dL (1.6-2.6)
[2016-07-09] MEDS ORDERED: 0.9% Sodium Chloride 250 ML ONE (09:24)
[2016-07-09 09:33] LABS: BASOPHILS % (AUTO) 0 % (0-3); EOSINOPHILS % (AUTO) 1 % (0-5); MONOCYTES % (AUTO) 4 % (4-12); NEUTROPHILS % (AUTO) 59 % (40-74)
[2016-07-09] MEDS: MeTOProlol XL 50 mg ER24 Tablet PO SCH ×2 (10:09→20:27)
[2016-07-09] MEDS: Fluconazole Inj 200 MG in IV Premix 1 EACH IV SCH (10:11)
[2016-07-09 10:46] VITALS: BP 136/71; PULSE 81; RESP 18; O2SAT 93
[2016-07-09] MEDS: Cefepime Inj 1,000 MG in Dextrose 5% Minibag Plus 50 ML IV SCH (12:33)
[2016-07-09] MEDS: Triamcinolone 0.1% 30 Gm Cream TOPICAL SCH ×2 (12:33→20:28)
--- NOTE | 2016-07-09 13:23 | NUR ---
PAPITO signed. Francy Crandall TOOL LIAISON
--- NOTE | 2016-07-09 14:31 | NUR ---
Social Work- Readiness for Discharge Data:Pt is on day 5 of hospitalization for pneumonia per H&P. SW met with pt and son to follow up regarding discharge plan. Pt is not medically stable, anticipate 1-2 more days. Pt anticipated to discharge on oral abx. Pt's daughter Mely is caregiver and his SAMANTA CM is Marion Henao. SAMANTA CM will be faxed discharge packet upon discharge. Pt's family to provide transport home when medically stable via POV. No anticipated discharge needs. SW will continue to follow if needs arise. Assessment: Pt who has caregivers at home. Plan:Pt to discharge back home when medically stable via POV. Pt to continue with SAAMNTA at home. No anticipated discharge needs. SW will continue to follow if needs arise. Francy Crandall MSW
--- NOTE | 2016-07-09 15:14 | PCM.PNMED ---
Subjective Date of Service Jul 09, 2016 Subjective Seen today for ongoing Fevers and Pneumonia. Will be trying to void without catheter today. Has developed folliculitis on the right axilla and a new right elbow rash. His son is present and helpfully translates today. Exam Vital Signs Vital Sign - Last Date Time Temp Pulse Resp B/P Pulse Ox O2 Delivery O2 Flow Rate FiO2 07/09/16 06:00 36.9 78 16 118/59 94 OxyMask 2.00 Intake and Output 07/08/16 07/08/16 07/09/16 Cumulative From/Thru 15:00 23:00 07:00 07/04/16 10:36 - 07/09/16 06:31 Intake Total 445 ml 229 ml 70426 ml Output Total 250 ml 750 ml 9910 ml Balance 195 ml -521 ml 3010 ml Intake Oral 336 ml 0 ml 5076 ml IV Total 109 ml 229 ml 7844 ml Output Urine Total 250 ml 750 ml 9760 ml Emesis 150 ml # Bowel Movements 0 1 Exam General: Currently patient is in no apparent distress. He remains comfortable lying supine in bed. HEENT: Head is atraumatic and normocephalic. Chest: Lungs are clear to auscultation today. Heart: Rate, rhythm is regular. There is no murmur, rub or gallop. Extremities: Are symmetrical and well perfused. There is no edema, there is no cellulitis, no rash. Neurologic: There are no focal neurological deficits Psychiatric: Patients mood is calm and shows no sign of agitation. Genital: Porras catheter is present but is about to be removed Skin: Large patch of eczematous skin on ventral right elbow. Clumped pustules on the right axilla. IVs and Medications Medications Reviewed: Medications were reviewed in detail Lab and Diagnostics Result Diagram: 07/09/1660507/09/16 06 Microbiology Blood cultures are pending X-Rays, CTs and MRIs PROCEDURE: CT CHEST WITHOUT CONTRAST ([id number]) INDICATIONS: Recurrent pneumonia, hypoxia, ho metas.prostate CA TECHNIQUE: Noncontrast 5 mm thick sections acquired from the pulmonary apices to the posterior costophrenic angles. 7 mm thick coronal and sagittal MIP reformats were then acquired. For radiation dose reduction, the following was used: automated exposure control, adjustment of mA and/or kV according to patient size. COMPARISON: [facility], CT, CHEST/ABD/PELVIS/ WO CON (PNL), 2012, 12:17. [facility], CT, CT CHEST ABD PELVIS WO CON, 12/01/2015 , 11:25. [facility], CT, CT CHEST ABD PELVIS WO CON, 03/15/2016, 11 :35. FINDINGS: Image quality: Excellent. Lungs and pleura: Patchy consolidation is present at the bilateral lung bases which is new when compared with study dated 03/15/16. Trace groundglass opacities are present within the lateral aspect of the right upper lobe which are new when compared with the prior study (series 3, image 12). There is trace centrilobular emphysema with apical predominance. No pleural effusion or pneumothorax. An ill-defined 3 mm diameter solid nodule is present at the base of the right middle lobe (series 3, image 41). This is unchanged when compared with the study dated 08/28/12. Mediastinum: Heart size is normal. No pericardial effusion. No mediastinal adenopathy by size criteria. Thoracic aorta and central pulmonary arteries are normal in size. Scattered atheromatous calcifications are present within the aortic arch. Esophagus is normal in caliber. No hiatal hernia. Bones and chest wall: No suspicious bony lesions. No vertebral body compression fractures. No axillary or supraclavicular adenopathy by size criteria. Thyroid gland is unremarkable. Abdomen: Visualized upper abdominal solid organs and bowel loops appear normal in the absence of contrast. IMPRESSION: 1. Patchy consolidation in the dependent lung bases bilaterally which is new when compared with the prior CT dated 03/15/16. Differential considerations include aspiration/infection and atelectasis. 2. Trace pulmonary radiopacities at the lateral aspect of the right upper lobe likely associated with infection. 3. Aortic atherosclerosis. Dictated by: Susannah Stacy M.D. on 07/04/2016 at 15:33 Approved by: Susannah Stacy M.D. on 07/04/2016 at 15:3 Cardiac Echo Impressions Echocardiogram Report Name: IZZY THAKKAR LStudy Date: 07/05/2016 Height: 69 in Hospital Exam Location: [facility] Weight: 18 3 lb Gender: Male BSA: 2.0 m2 : 1940 Age: 76 yrs BP: 108/60 mmHg Reason For Study: Pneumonia Ordering Physician: HOSPITALIST [facility] Performed By: Harriet Monk Referring Physician: Dr. Johnson Payton Interpretation Summary The ejection fraction is estimated to be 60-65%. The left atrium is severely dilated. There is systolic anterior motion of the chordal apparatus. There is mild to moderate aortic regurgitation. The right ventricular systolic pressure is estimated at 39 mmHg assuming a right atrial pressure of 3 mm Hg. The ascending aorta is moderately enlarged. 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 # Bilateral lower lobe Aspiration pneumonia, present on admission with fever and chills symptomatically improved -Oncology consulted and appreciate their input. Neupogen was added 07/05/2016 -Continue Zosyn started in the emergency room -MRSA screen is negative -Sputum cultures normal ashu -Blood cultures are negative -Remains febrile daily. -Diflucan was added empirically yesterday # Metastatic prostate cancer with skeletal involvement, present on admission, currently undergoing chemotherapy -We will continue his same narcotics, also when necessary IV morphine, as needed for pain control -We will continue Gabapentin -Appreciate oncology input and follow-up # Urinary retention noted during recent admission, oxybutynin was discontinued and he was started on tamsulosin last admission -Continue Tamsulosin -Trial of Catheter removal today # Hypertension -We will continue his home medications # Oral lesions and soreness of the mouth -We will use Magic mouthwash # Hyperlipidemia -Continue Atorvastatin # Depression and history of anxiety -Continue Mirtazapine # Dermatitis of right elbow -Begin Triamcinolone cream BID # Presumed Staph Folliculitis of the right axilla -Follow and add Septra or other MRSA targeted agent if persists/spreads Disposition: Patient will require another 24-72 hours hospitalization to ensure improvement prior to discharging home on oral antibiotics. Would recommend Augmentin 875 mg by mouth twice a day when discharged David Landers MD GI Prophylaxis: Proton Pump Inhibitor VTE Prophylaxis: Sub-Q Enoxaparin VTE Mechanical Devices: Intermittant Pneumatic CD Resuscitation Status: DNR/DNI:Do Not Resuscitate/Intubate Brad Landers MD Jul 09, 2016 10:44
[2016-07-09 16:39] VITALS: BP 132/68; PULSE 76; RESP 18; O2SAT 97
--- NOTE | 2016-07-09 18:38 | NUR ---
Franklin Removed franklin per orders at approx 1130. Pt educated on voiding in urinal Reassessed pt throughout shift, at approx 1730 pt still had not voided BLadder scan 174mls Spoke to hospitalist, pt's labs do not show him as dehydrated, orders to replace franklin if bladder scan >300mls. Bed down and locked, call light w/in reach.
[2016-07-09 20:01] VITALS: BP 122/62; PULSE 83; RESP 17; O2SAT 95
--- NOTE | 2016-07-09 23:17 | NUR ---
NO VOID: Pt. unable to void. Bladder scan qxoz=334 ml. Explained to pt. he needs the Porras catheter back in. He requested a chance to try to void on his own. He attempted x2 to void and was unable. 18 Fr. Porras catheter placed and 2300 Immediately he put out about 300 ml of oriana urine. Resting in bed after Porras placement. On going care.
[2016-07-09 23:57] VITALS: BP 130/66; PULSE 82; RESP 18; O2SAT 95
[2016-07-10] MEDS: Cefepime Inj 1,000 MG in Dextrose 5% Minibag Plus 50 ML IV SCH ×2 (00:02→12:38)
[2016-07-10] MEDS: Piperacillin-Tazo 3.375 Gm Inj 3.375 GM in Dextrose 5% Minibag Plus 50 ML IV SCH ×3 (01:12→18:14)
[2016-07-10 05:25] VITALS: BP 111/57; PULSE 76; RESP 17; O2SAT 94
--- NOTE | 2016-07-10 05:55 | PCM.PNMED ---
Subjective Date of Service Jul 10, 2016 Subjective PAteint is nodding but otherwise not communicating in Polish. There are large number of family members in the room, two of the daughters are asking most of the questions. Among their concerns: patient not eating well (staff say he did eat ok), patient appears to be "out of it", they feel he is coughing and he may be having fevers. Patient is not coughing in the room though he does appear to be staring into space at times. He is on Zosyn and cefipime (dual coverage for pseudomonas). He has received neupogen once since coming to the [facility]. He has had contact with healthcare in early jun for a hospitalization for two days. Negative for diarrhea and nausea. Exam Vital Signs Vital Sign - Last Date Time Temp Pulse Resp B/P Pulse Ox O2 Delivery O2 Flow Rate FiO2 07/10/16 05:25 37.1 76 17 111/57 94 Room Air 2.00 Intake and Output 07/09/16 07/09/16 07/10/16 Cumulative From/Thru 15:00 23:00 07:00 07/04/16 10:36 - 07/10/16 05:49 Intake Total 795 ml 644 ml 80992 ml Output Total 300 ml 600 ml 15688 ml Balance 495 ml 44 ml 3549 ml Intake Oral 518 ml 400 ml 5994 ml IV Total 277 ml 244 ml 8365 ml Output Urine Total 300 ml 600 ml 85959 ml Emesis 150 ml # Bowel Movements 1 Exam General: Polite , laying in bed Eyes: [place] conjunctivae. No ptosis Neck: No masses, trachea midline, no thyromegaly Lungs: Diminished in left lower lobe with normal respiratory effort CV: RRR, no murmurs/rubs/gallops, normal PMI GI: Soft, non-tender with no hepatosplenomegaly Skin: Warm and dry. Psych: flat affect, mood neutral IVs and Medications Medications Reviewed: Medications were reviewed in detail Lab and Diagnostics CBC Test 07/07/16 06:45 07/09/16 06:06 07/10/16 06:04 Metamyelocytes % 2% (0-0) Myelocytes % 2% (0-0) Hematology Comments Rbc Neutrophils (%) (Auto) 59% (40-74) Lymphocytes (%) (Auto) 22% (14-46) Monocytes (%) (Auto) 4% (4-12) Eosinophils (%) (Auto) 1% (0-5) Basophils (%) (Auto) 0% (0-3) Band Neutrophils % 10% (1-5) White Blood Count 11.9th/mm3 (3.8-10.1) Red Blood Count 3.28mil/mm3 (4.40-5.80) Hemoglobin 9.3g/dL (13.8-17.2) Hematocrit 30.3% (41.0-50.0) Mean Corpuscular Volume 92.4fL (81-100) Mean Corpuscular Hemoglobin 28.4pg (27.0-35.0) Mean Corpuscular Hemoglobin Concent 30.7% (32.0-37.0) Red Cell Distribution Width 20.3% (12.3-15.4) Platelet Count 206bil/L (150-400) CMP Test 07/04/16 10:50 07/05/16 00:34 07/05/16 06:05 07/07/16 06:45 Lactic Acid Level 1.3mmol/L Procalcitonin 0.17ng/mL Phosphorus Level 3.3mg/dL Troponin T 0.010ug/L Pro-B-Type Natriuretic Peptide 1136pg/mL Test 07/09/16 06:06 07/10/16 05:17 Magnesium Level 2.1mg/dL Total Bilirubin 0.5mg/dL Aspartate Amino Transf (AST/SGOT) 21U/L Alanine Aminotransferase (ALT/SGPT) 9U/L Alkaline Phosphatase 139U/L Total Protein 5.4g/dL Albumin 2.8g/dL Sodium Level 138mEq/L Potassium Level 4.0mEq/L Chloride Level 102mEq/L Carbon Dioxide Level 24mmol/L Blood Urea Nitrogen 6mg/dL Creatinine 0.63mg/dL Estimat Glomerular Filtration Rate 131mL/min Glucose Level 105mg/dL Calcium Level 7.8mg/dL Result Diagram: 07/09/1606 07/09/16605 Microbiology Blood cultures are pending X-Rays, CTs and MRIs PROCEDURE: CT CHEST WITHOUT CONTRAST ([id number]) INDICATIONS: Recurrent pneumonia, hypoxia, ho metas.prostate CA TECHNIQUE: Noncontrast 5 mm thick sections acquired from the pulmonary apices to the posterior costophrenic angles. 7 mm thick coronal and sagittal MIP reformats were then acquired. For radiation dose reduction, the following was used: automated exposure control, adjustment of mA and/or kV according to patient size. COMPARISON: [facility], CT, CHEST/ABD/PELVIS/ WO CON (PNL), 2012, 12:17. [facility], CT, CT CHEST ABD PELVIS WO CON, 12/01/2015 , 11:25. [facility], CT, CT CHEST ABD PELVIS WO CON, 03/15/2016, 11 :35. FINDINGS: Image quality: Excellent. Lungs and pleura: Patchy consolidation is present at the bilateral lung bases which is new when compared with study dated 03/15/16. Trace groundglass opacities are present within the lateral aspect of the right upper lobe which are new when compared with the prior study (series 3, image 12). There is trace centrilobular emphysema with apical predominance. No pleural effusion or pneumothorax. An ill-defined 3 mm diameter solid nodule is present at the base of the right middle lobe (series 3, image 41). This is unchanged when compared with the study dated 08/28/12. Mediastinum: Heart size is normal. No pericardial effusion. No mediastinal adenopathy by size criteria. Thoracic aorta and central pulmonary arteries are normal in size. Scattered atheromatous calcifications are present within the aortic arch. Esophagus is normal in caliber. No hiatal hernia. Bones and chest wall: No suspicious bony lesions. No vertebral body compression fractures. No axillary or supraclavicular adenopathy by size criteria. Thyroid gland is unremarkable. Abdomen: Visualized upper abdominal solid organs and bowel loops appear normal in the absence of contrast. IMPRESSION: 1. Patchy consolidation in the dependent lung bases bilaterally which is new when compared with the prior CT dated 03/15/16. Differential considerations include aspiration/infection and atelectasis. 2. Trace pulmonary radiopacities at the lateral aspect of the right upper lobe likely associated with infection. 3. Aortic atherosclerosis. Dictated by: Susannah Stacy M.D. on 07/04/2016 at 15:33 Approved by: Susannah Stacy M.D. on 07/04/2016 at 15:3 Cardiac Echo Impressions Echocardiogram Report Name: THAKKARIZZY SIMPSON LStudy Date: 07/05/2016 Height: 69 in Hospital Exam Location: [facility] Weight: 18 3 lb Gender: Male BSA: 2.0 m2 : 1940 Age: 76 yrs BP: 108/60 mmHg Reason For Study: Pneumonia Ordering Physician: HOSPITALIST [facility] Performed By: Harriet Monk Referring Physician: Dr. Johnson Payton Interpretation Summary The ejection fraction is estimated to be 60-65%. The left atrium is severely dilated. There is systolic anterior motion of the chordal apparatus. There is mild to moderate aortic regurgitation. The right ventricular systolic pressure is estimated at 39 mmHg assuming a right atrial pressure of 3 mm Hg. The ascending aorta is moderately enlarged. 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 # Bilateral lower lobe Aspiration pneumonia, present on admission with fever and chills symptomatically improved -Oncology consulted and appreciate their input. Neupogen was added 07/05/2016 -Continue Zosyn started in the emergency room, he is also on cefepime: Consider discontinuing cefipime -MRSA screen is negative: No Vancomycin is added -Sputum cultures normal ashu -Blood cultures are negative -Remains afebrile daily. -Diflucan was added empirically yesterday -His WBC is not impressive, he does not appear too sick: F/U 2 view CXR is ordered. F/U procalcitonin tomorrow. He may be able to go home on PO antibiotics tomorrow as he has been on IV abx > 5 days. # Metastatic prostate cancer with skeletal involvement, present on admission, currently undergoing chemotherapy -We will continue his same narcotics, also when necessary IV morphine, as needed for pain control: Held methadone, gabapentin tonight, gave him PRN morphine IV -Appreciate oncology input and follow-up # Urinary retention noted during recent admission, oxybutynin was discontinued and he was started on tamsulosin last admission -Continue Tamsulosin -Trial of Catheter removal today: He failed, still needing a franklin # Hypertension -We will continue his home medications # Oral lesions and soreness of the mouth -We will use Magic mouthwash # Hyperlipidemia -Continue Atorvastatin # Depression and history of anxiety -Continue Mirtazapine # Dermatitis of right elbow -Begin Triamcinolone cream BID # Presumed Staph Folliculitis of the right axilla -Follow and add Septra or other MRSA targeted agent if persists/spreads #Delirium: Family is given tips on reorienting the patient. MEthadone, gabapentin and remeron were stopped. He has dilaudid PO but he is not taking it per staff. Disposition: Patient will require another 24-72 hours hospitalization to ensure improvement prior to discharging home on oral antibiotics. Would recommend Augmentin 875 mg by mouth twice a day when discharged Pain Evaluation: Adequate Pain Control GI Prophylaxis: Proton Pump Inhibitor VTE Prophylaxis: Sub-Q Enoxaparin VTE Mechanical Devices: Intermittant Pneumatic CD Resuscitation Status: DNR/DNI:Do Not Resuscitate/Intubate Noemy Cardoza DO Jul 10, 2016 05:55
[2016-07-10] MEDS: Pantoprazole 20 mg ER24 Tablet PO SCH (05:56)
[2016-07-10 06:38] LABS: Mean Corpuscular Hemoglobin 28.4 pg (27.0-35.0); Mean Corpuscular Volume 92.4 fL (81-100)
[2016-07-10] MEDS: Fluconazole Inj 200 MG in IV Premix 1 EACH IV SCH (08:30)
[2016-07-10] MEDS: Triamcinolone 0.1% 30 Gm Cream TOPICAL SCH ×2 (08:30→20:27)
[2016-07-10] MEDS: 0.9% Sodium Chloride 1,000 ML IV SCH ×2 (08:39→18:39)
[2016-07-10 09:17] VITALS: BP 127/54; PULSE 77; RESP 20; O2SAT 93
[2016-07-10] MEDS: MeTOProlol XL 50 mg ER24 Tablet PO SCH ×2 (09:39→20:25)
[2016-07-10] MEDS: Albuterol-Ipratropium 3 mL Inhalation Solution NEB PRN (11:25)
[2016-07-10 11:26] VITALS: PULSE 73; O2SAT 97
[2016-07-10 12:49] VITALS: BP 118/66; PULSE 74; RESP 20; O2SAT 96
[2016-07-10 19:35] VITALS: BP 137/62; PULSE 81; RESP 18; O2SAT 95
--- NOTE | 2016-07-10 21:07 | DRSVH ---
PROCEDURE: X-RAY CHEST, TWO VIEWS ([id number]) INDICATIONS: pneumonia TECHNIQUE: 2 views of the chest were acquired. COMPARISON: [facility], CR, XR CHEST 2VW, 07/07/2016, 11:09. FINDINGS: Surgical changes and devices: None. Lungs and pleura: There is minimal bilateral pleural effusions, improved compared to prior exam. Mini mal appearance of streaky opacities remain within the bases, also improved. Mediastinum: Mediastinal contours are normal. Heart size is normal. Bones and chest wall: No suspicious bony abnormalities. Soft tissues appear unremarkable. IMPRESSION: Improved appearance of bibasilar streaky opacities and effusions with mild residual noted . Dictated by: Brooklynn Maria M.D. on 07/10/2016 at 21:05 Approved by: Brooklynn Maria M.D. on 07/10/2016 at 21:06
[2016-07-11] MEDS: Cefepime Inj 1,000 MG in Dextrose 5% Minibag Plus 50 ML IV SCH ×2 (00:40→12:43)
[2016-07-11] MEDS: Piperacillin-Tazo 3.375 Gm Inj 3.375 GM in Dextrose 5% Minibag Plus 50 ML IV SCH ×3 (03:26→18:33)
[2016-07-11 06:05] VITALS: BP 126/51; PULSE 66; RESP 17; O2SAT 97
[2016-07-11 08:22] LABS: Mean Corpuscular Hemoglobin 28.5 pg (27.0-35.0); Mean Corpuscular Volume 92.2 fL (81-100); Platelet Count 186 bil/L (150-400)
[2016-07-11 08:32] VITALS: PULSE 71; O2SAT 95
[2016-07-11] MEDS: Albuterol-Ipratropium 3 mL Inhalation Solution NEB PRN (08:32)
[2016-07-11] MEDS: Pantoprazole 20 mg ER24 Tablet PO SCH (09:01)
[2016-07-11] MEDS: Fluconazole Inj 200 MG in IV Premix 1 EACH IV SCH (09:02)
[2016-07-11] MEDS: MeTOProlol XL 50 mg ER24 Tablet PO SCH ×2 (09:07→20:20)
[2016-07-11] MEDS: Triamcinolone 0.1% 30 Gm Cream TOPICAL SCH ×2 (09:08→23:01)
[2016-07-11 09:33] LABS: BASOPHILS % (AUTO) 0 % (0-3); EOSINOPHILS % (AUTO) 2 % (0-5); MONOCYTES % (AUTO) 7 % (4-12); NEUTROPHILS % (AUTO) 57 % (40-74)
--- NOTE | 2016-07-11 09:38 | NUR ---
public health social workerpharmacy technician trainee note: Met with patient. Patient's family states that he just "threw up". Patient's nurse is in the room and will provide patient with anti-nausea medication. Family states patient has no care needs at this time. Per Senior Infrastructure Architect, patient has SAMANTA assistance at home. Will continue to follow and address any care needs that might arise.
--- NOTE | 2016-07-11 11:59 | NUR ---
Palliative Care Palliative Care received verbal order from Dr Gladys Cardoza 07/11/16 to assist with goals of care. 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 He presented to the ED due to generalized weakness. He was admitted 07/04/16 and has been receiving care for bilateral aspiration pneumonia. Patient's oncologist is Dr Gomez. Dr Stoll, of the Outpatient Palliative Care Team, has seen patient (w/ dtr Mely) multiple times over the last 5-6 months for outpatient pain management r/t to his cancer dx. Patient and his are Panamanian-speaking only. They both live with Mely in [place]. Mely Barlow (daughter/caregiver for pt) [phone] Andreina Barlow (daughter) [phone] Palliative Care to follow. Alicia Delgado
[2016-07-11 15:21] VITALS: BP 114/63; PULSE 75; RESP 18; O2SAT 94
--- NOTE | 2016-07-11 17:26 | PCM.CONPAL ---
Date of Service Jul 11, 2016 Date of Hospital Admission: Jul 04, 2016 at 13:17 Date of Palliative Consult: Jul 11, 2016 Requesting Provider: Noemy Cardoza DO Reason Palliative Care Consult: Pain, Goals of Care Discussion Hospital Unit @time of consult: Orthopedic/Surgical Care Palliative Care Recommendation Summary of palliative recommendations: -Symptom management (Pain/other) WEAKNESS-reviewed this can be from being in bed for 1 week but I believe also biggest component is from his severity of illness. He continues to have a moist cough. Reviewed gradual rehabilitation but to listen to his level of fatigue. White count improving with Neupogen. Oversedation-- suspect this was due to interaction of his methadone with fluconazole. Pharmacy notified. Dose initially decreased in half but then later to one third. He will need to be monitored closely for withdrawal symptoms and these are reviewed with the family. We will follow this patient through this hospitalization to monitor pain management. Urinary retention-reviewed a trial of getting this out in another couple days preferably before she goes home. He is still fairly weak and I suspect will take least another couple days of recovery. He is on Flomax twice a day. Reviewed details hospice anesthetics towards end of life. Reviewed that Dr. Gomez will assist them regarding this decision based on his assessment of response to chemotherapy. -DPOA/Advanced Directives/POLST-- we will need to get this completed prior to discharge. He has not at home but has never completed -Family/emotional support-large extended family with remarkable support -Spiritual support-he is Gnosticism Additional Medical Diagnoses with primary management by Hospitalist team include : Antibiotics and antifungals will need to watch carefully regarding symptom of withdrawal Management of urinary retention Pharmacy notified regarding drug interaction with methadone and need for monitoring. He will need follow-up with Dr. Gomez at discharge Problems: End of Life Preferences DO NOT RESUSCITATE DO NOT INTUBATE no feeding tube Goals of Care Goal is to improve and be able to be home hopefully in a matter of days. Further chemotherapy to be assessed in another month- monitoring by Dr. Gomez Resuscitation Status Resuscitation Status: DNR/DNI:Do Not Resuscitate/Intubate POLST Updates/Changes Artificially Admin Nutrition: No Artifical Nutrition by Tube POLST Discussed with: Patient . Pain: Mild Symptom management: Drowsiness/sleepiness, Dyspnea Pt History History of Present Illness PALLIATIVE CONSULT NOTE consulting provider: Dr. Gladys Cardoza oncologist: Dr. Gomez PCP Dr. Payton 76 yo patient with hx of metastatic prostate CA with known bone mets since 2007. He has gone through multiple chemo tx options and radiation tx and is now on his last option Taxotere. He has had a response with this-specifically with a stabilization to decline on his PSA and a significant decrease in his pain. His pain was also being managed with methadone at 10 mg AM and PM and 5 mg MD and dexamethasone. Trial off dexamethasone failed with increase in pain and some agitation.He has been on 1-2 mg daily. On admission to hospital he was placed on methadone [address] Gomez has been giving him reduced doses but he has still had multiple complications with hospitalization for UTI, pneumonia and again pneumonia. He is now going to go off chemo for 4-6 weeks and assess hx QOL and assess if evidence of progression of ds and decide if he will be going back on Taxotere. He identifies that he would prefer to be home than in the hospital and that he is not sure the chemo is worth it. He was very sedated over the past 2 days and family thought due to methadone so it has now been held since yest and he is much better. He is accompanied by multiple daughters with excellent questions. Past Medical History Significant PMH Noted: PMH Metastatic prostate cancer with skeletal involvement with chronic bone pain, currently undergoing chemotherapy. He has received at least 4 courses of chemotherapy. Recent hospitalization with bronchitis after second course of chemotherapy and pneumonia after third course of chemotherapy. Urinary retention with postvoid residual of over 400 mL in the emergency room. Porras catheter was placed Essential hypertension Dyslipidemia Anxiety disorder History of thoracic aortic aneurysm per chart history Surgical History History of right calcaneal fracture with surgery in 2012 Prior ankle surgery which his daughter states was an Achilles tendon repair Family History His father at the age of 50 of unknown causes Patient's mother at 85 from presumed old age. Patient has 6 brothers and one of which has Parkinson's disease and one has had leukemia and is a leukemia survivor at 88 years old Patient has 4 sisters who are healthy. Exsmoker Exdrinker-hx overuse Social History Occupation: retired Family Members Issues: lives with his and large extended family in area for support Spiritual Support Spiritual Support Gnosticism- Responsive Patient Symptoms Pain (current): Mild (pain primarily sternal- with coughing. different from before and the pain in L chest is gone.) Tiredness/Fatigue: Moderate Drowsiness/Sleepiness: Moderate Anorexia: Mild Shortness of Breath: Mild Other Urinary retention now with Porras catheter. Attempt to discontinue but unable to void after 12 hours and Porras replaced Palliative Performance Scale PPS Ambulation: Reduced PPS Activity: Unable to do most activity PPS Self-Care: Considerable assistance required PPS Intake: Normal or reduced PPS Conscious Level: Full or confusion Performance Scale: 60% (able to getup to BR with walker but very weak) Medications Current Medications: Current Medications Cefepime HCl 1000 mg/Dextrose/Water 50 ml @ 12.5 mls/hr Q12H IV Last administered on 07/11/16 12:43; Admin Dose 12.5 MLS/HR; Start 07/10/16 at 00:30 Piperacillin Sod/ Tazobactam Sod/ Dextrose/Water 50 ml @ 12.5 mls/hr Q8H IV Last administered on 07/11/16 10:32; Admin Dose 12.5 MLS/HR; Start 07/10/16 at 01 :30 Morphine Sulfate 2-4 Q4H PRN IVPUSH; Start 07/10/16 at 19:35 Methadone HCl 5 mg Q8H PO Last administered on 07/11/16 16:03; Admin Dose 5 MG; Start 07/11/16 at 14:25 Scheduled Atorvastatin Calcium (Atorvastatin Calcium) 10 Mg Tablet 10 MG PO DAILY Gabapentin (Gabapentin) 300 Mg Capsule 300 MG PO TID Methadone (Methadone) 5 Mg Tablet 10 MG PO TID at 0700,0100,190 Metoprolol Succinate ER (Metoprolol Succinate ER) 50 Mg Tab.er.24h 50 MG PO BID Mirtazapine (Mirtazapine) 15 Mg Tablet 7.5 MG PO HS Pantoprazole DR (Pantoprazole DR) 20 Mg Tablet.dr 20 MG PO DAILY Tamsulosin (Flomax) 0.4 Mg Capsule 0.4 MG PO BID Scheduled PRN Aspirin (Aspirin) 81 Mg Tablet 81 MG PO DAILY PRN PRN For Pain Hydromorphone (Hydromorphone) 2 Mg Tablet 2 MG PO Q4H PRN PRN For Pain Nitroglycerin SL (Nitroglycerin SL) 0.4 Mg Tab.subl 0.4 MG SL PRN PRN PRN For Chest Pain Polyethylene Glycol 3350 (Miralax) 17 Gm Powd.pack 17 GM PO DAILY PRN PRN For Constipation Objective Findings Exam Vital Sign - Last Date Time Temp Pulse Resp B/P Pulse Ox O2 Delivery O2 Flow Rate FiO2 07/11/16 15:21 37.3 75 18 114/63 94 Nasal Cannula 2.00 Intake and Output 07/10/16 07/10/16 07/11/16 Cumulative From/Thru 15:00 23:00 07:00 07/04/16 10:36 - 07/11/16 06:08 Intake Total 500 ml 768 ml 66028 ml Output Total 500 ml 1300 ml 98244 ml Balance 0 ml -532 ml 3017 ml Intake Oral 500 ml 100 ml 6594 ml IV Total 668 ml 9033 ml Output Urine Total 500 ml 1300 ml 72924 ml Emesis 150 ml # Bowel Movements 0 1 General: Alert/Oriented x3, Other (end of visit he is feeding to sleep) HEENT: PERRLA, EOMI, Scleral Anicteric Heart: Regular Rate/Rhythm Lungs: Clear to Auscultation, Normal Air Movement Abdomen: Soft Neuro: Cranial Nerve 3-12 Intact, Other (definitely appropriate and decisional , involved in the conversation, 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 On right upper arm areas approximately 2-3 cm across with faint erythema and scaling. Daughter states had one on his chest wall treated with steroid cream and has resolved) Lab/Diagnostics Lab and Imaging results reviewed in detail in EMR. Patient/Family Conference Members Present Family Members Present 6 family members in the room. 2 daughters are primarily in conversation with one granddaughter also involved Medical Team Members Present? Gordon Stoll M.D. Discussion/Goals of Care Discussion FAMILY UNDERSTANDING OF DISEASE: Reviewed option of continuing chemotherapy depending on his interpretation of response in another 4-6 weeks. Reviewed the balance of treatment versus side effects and quality of life at this part of his illness. Patient raises the question whether his chemotherapy is worse it, but he is then willing to consider continuing his chemotherapy if necessary His daughter thinks that a majority of the family is aware of his situation but that he has a harder time accepting that he is closer to end-of-life. Counselled re EOL discussion and shifting of goals when time is appropriate toward being home with family. DISEASE PROGRESSION/EVIDENCE OF DECLINE: SYMPTOM BURDEN: GOALS: His goal is to spend as much time at home with his family as possible which is what he considers ideal quality HOPES/WORRIES: He hopes that things will be fairly well controlled as is his pain at this time-with stopping his chemotherapy He enjoys visiting with people in oncology at infusion enjoying their stories and being strength in by them Palliative Care counselled: Time spent Total time 70 minutes; >50% face to face with patient and/or family, providing counselling regarding plans and recommendations, and in care coordination with his/her medical teams. I also spent an additional [ ] minutes counseling for advanced care planning with the patient/the patients family/the surrogate decision maker. copies to: Johnson Payton MD; Meet Hardy MD, Deborah A MD Jul 11, 2016 17:26
[2016-07-11] MEDS: 0.9% Sodium Chloride 1,000 ML IV SCH (18:32)
--- NOTE | 2016-07-11 19:18 | PCM.PNMED ---
Subjective Date of Service Jul 11, 2016 Subjective Patient is feeling much better, sitting up in bed and chatting with family. He denies constipation, poor appetite. He is coughing and his chest hurts from coughing. He has failed to pass the voiding challenge last time but he wants to try again tomorrow. He also wants to get up and walking tomorrow. Palliative care has met with patient and family. He has not used the oxygen or franklin at home prior to this admission. No other concerns. Exam Vital Signs Vital Sign - Last Date Time Temp Pulse Resp B/P Pulse Ox O2 Delivery O2 Flow Rate FiO2 07/11/16 15:21 37.3 75 18 114/63 94 Nasal Cannula 2.00 Intake and Output 07/10/16 07/10/16 07/11/16 Cumulative From/Thru 15:00 23:00 07:00 07/04/16 10:36 - 07/11/16 06:08 Intake Total 500 ml 768 ml 52811 ml Output Total 500 ml 1300 ml 05931 ml Balance 0 ml -532 ml 3017 ml Intake Oral 500 ml 100 ml 6594 ml IV Total 668 ml 9033 ml Output Urine Total 500 ml 1300 ml 01368 ml Emesis 150 ml # Bowel Movements 0 1 Exam General: NAD HEENT: Normocephalic, atruamatic Heart: RRR, no S3/S4 Lungs: Improved lumg sounds since yesterday, no wheezing Abd: Soft, non-tender Ext: W/O edema Neuro: More alert and oriented IVs and Medications IV Fluids NSS 40 cc/hr Medications Reviewed: Medications were reviewed in detail Lab and Diagnostics Result Diagram: 07/11/16 0710 07/11/16 0710 Microbiology Blood cultures are pending X-Rays, CTs and MRIs PROCEDURE: CT CHEST WITHOUT CONTRAST ([id number]) INDICATIONS: Recurrent pneumonia, hypoxia, ho metas.prostate CA TECHNIQUE: Noncontrast 5 mm thick sections acquired from the pulmonary apices to the posterior costophrenic angles. 7 mm thick coronal and sagittal MIP reformats were then acquired. For radiation dose reduction, the following was used: automated exposure control, adjustment of mA and/or kV according to patient size. COMPARISON: [facility], CT, CHEST/ABD/PELVIS/ WO CON (PNL), 2012, 12:17. [facility], CT, CT CHEST ABD PELVIS WO CON, 12/01/2015 , 11:25. [facility], CT, CT CHEST ABD PELVIS WO CON, 03/15/2016, 11 :35. FINDINGS: Image quality: Excellent. Lungs and pleura: Patchy consolidation is present at the bilateral lung bases which is new when compared with study dated 03/15/16. Trace groundglass opacities are present within the lateral aspect of the right upper lobe which are new when compared with the prior study (series 3, image 12). There is trace centrilobular emphysema with apical predominance. No pleural effusion or pneumothorax. An ill-defined 3 mm diameter solid nodule is present at the base of the right middle lobe (series 3, image 41). This is unchanged when compared with the study dated 08/28/12. Mediastinum: Heart size is normal. No pericardial effusion. No mediastinal adenopathy by size criteria. Thoracic aorta and central pulmonary arteries are normal in size. Scattered atheromatous calcifications are present within the aortic arch. Esophagus is normal in caliber. No hiatal hernia. Bones and chest wall: No suspicious bony lesions. No vertebral body compression fractures. No axillary or supraclavicular adenopathy by size criteria. Thyroid gland is unremarkable. Abdomen: Visualized upper abdominal solid organs and bowel loops appear normal in the absence of contrast. IMPRESSION: 1. Patchy consolidation in the dependent lung bases bilaterally which is new when compared with the prior CT dated 03/15/16. Differential considerations include aspiration/infection and atelectasis. 2. Trace pulmonary radiopacities at the lateral aspect of the right upper lobe likely associated with infection. 3. Aortic atherosclerosis. Dictated by: Susannah Stacy M.D. on 07/04/2016 at 15:33 Approved by: Susannah Stacy M.D. on 07/04/2016 at 15:3 MERGED WITH [facility] Diagnostic [place] [address] Patient Name: IZZY THAKKAR MR#: [id number] Location: [facility] [place] Ordering Phys: Noemy Cardoza DO Date of Service: 07/10/16 192 PROCEDURE: X-RAY CHEST, TWO VIEWS ([id number]) INDICATIONS: pneumonia TECHNIQUE: 2 views of the chest were acquired. COMPARISON: [facility], CR, XR CHEST 2VW, 07/07/2016, 11:09. FINDINGS: Surgical changes and devices: None. Lungs and pleura: There is minimal bilateral pleural effusions, improved compared to prior exam. Minimal appearance of streaky opacities remain within the bases, also improved. Mediastinum: Mediastinal contours are normal. Heart size is normal. Bones and chest wall: No suspicious bony abnormalities. Soft tissues appear unremarkable. IMPRESSION: Improved appearance of bibasilar streaky opacities and effusions with mild residual noted. Dictated by: Brooklynn Maria M.D. on 07/10/2016 at 21:05 Approved by: Brooklynn Maria M.D. on 07/10/2016 at 21:06 Cardiac Echo Impressions Echocardiogram Report Name: IZZY THAKKAR LStudy Date: 07/05/2016 Height: 69 in Hospital Exam Location: [facility] Weight: 18 3 lb Gender: Male BSA: 2.0 m2 : 1940 Age: 76 yrs BP: 108/60 mmHg Reason For Study: Pneumonia Ordering Physician: HOSPITALIST [facility] Performed By: Harriet Monk Referring Physician: Dr. Johnson Payton Interpretation Summary The ejection fraction is estimated to be 60-65%. The left atrium is severely dilated. There is systolic anterior motion of the chordal apparatus. There is mild to moderate aortic regurgitation. The right ventricular systolic pressure is estimated at 39 mmHg assuming a right atrial pressure of 3 mm Hg. The ascending aorta is moderately enlarged. Assessment & Plan Patient is a very pleasant 76-year-old Sinhala-speaking male with history of stage IV prostate cancer with skeletal metastasis and hypertension who presents to the emergency department by EMS services for generalized weakness that had worsened over the last few days. # Bilateral lower lobe Aspiration pneumonia, present on admission with fever and chills symptomatically improved -Oncology consulted and appreciate their input. Neupogen was added 07/05/2016 -Continue Zosyn started in the emergency room, he is also on cefepime: Consider discontinuing cefipime -MRSA screen is negative: No Vancomycin is added -Sputum cultures normal ashu -Blood cultures are negative -Remains afebrile daily. -Diflucan was added empirically yesterday -His WBC is not impressive, he does not appear too sick: F/U 2 view CXR is ordered. F/U procalcitonin tomorrow. He may be able to go home on PO antibiotics tomorrow as he has been on IV abx > 5 days. # Metastatic prostate cancer with skeletal involvement, present on admission, currently undergoing chemotherapy -We will continue his same narcotics, also when necessary IV morphine, as needed for pain control: Held methadone, gabapentin tonight, gave him PRN morphine IV: Palliative care is consulted and they have changed his pain meds again, to cut methadone. He still has morphine PRN -Appreciate oncology input and follow-up # Urinary retention noted during recent admission, oxybutynin was discontinued and he was started on tamsulosin last admission -Continue Tamsulosin -Trial of Catheter removal today: He failed, still needing a franklin - will order another trial tomorrow, he may not be able to pass. # Hypertension -We will continue his home medications # Oral lesions and soreness of the mouth -We will use Magic mouthwash # Hyperlipidemia -Continue Atorvastatin # Depression and history of anxiety -Continue Mirtazapine # Dermatitis of right elbow -Begin Triamcinolone cream BID # Presumed Staph Folliculitis of the right axilla -Follow and add Septra or other MRSA targeted agent if persists/spreads #Delirium: Family is given tips on reorienting the patient. Methadone, gabapentin and remeron were stopped. He has dilaudid PO but he is not taking it per staff. Disposition: Patient will require another 24-72 hours hospitalization to ensure improvement prior to discharging home on oral antibiotics. Would recommend fluconazole PO when discharged Pain Evaluation: Adequate Pain Control GI Prophylaxis: Proton Pump Inhibitor VTE Prophylaxis: Sub-Q Enoxaparin VTE Mechanical Devices: Intermittant Pneumatic CD Resuscitation Status: DNR/DNI:Do Not Resuscitate/Intubate Noemy Cardoza DO Jul 11, 2016 19:18
[2016-07-11] MEDS: Ondansetron 2 mg/mL 2 mL Inj IVPUSH PRN (19:32)
--- NOTE | 2016-07-11 20:07 | NUR ---
Nausea, Pain Patient reported nausea that quickly came and passed at beginning of shift, denied any anti-nausea medication. Near end of shift patient again reported some nausea, this time with a small amount of emesis. Anti-nausea medication administered. Patient reports generalized pain during shift, states new mediation regimen helps with pain. Involved with this pain was some epigastric pain, which was completely resolved with Maalox and a small amount of pain medication. Care is ongoing.
[2016-07-11 20:33] VITALS: BP 116/67; PULSE 81; RESP 18; O2SAT 96
--- NOTE | 2016-07-12 00:10 | CONS ---
[address] [address] CONSULTATION REPORT PATIENT: IZZY THAKKAR : 1940 MR#: [id number] ADMIT: 07/04/2016 JOB ID: [id number] DATE OF SERVICE: 07/11/[address] Jose Cardoza for this timely consultation. REASON FOR CONSULTATION: Viral pneumonia in a patient with underlying prostate cancer who is receiving chemotherapy. 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 He was admitted to this facility back on July 04 when he presented with fevers, chills, sweats, concentrated foul-smelling urine and some cough with pleuritic chest pain. At that time, he was found in the ED to have a temperature over 101 with O2 sats dropping to the 80s on room air. The patient noted that he had increased cough which had been going on for several days and was becoming more productive. He also noted that in addition to his dark foul-smelling urine, he was having a bit of dysuria, and a Porras was placed which drained 400 cc of urine. Note that he had recently received chemotherapy for his prostate cancer prior to this admission, and had been receiving Neupogen to boost his white count, so his white count was difficult to interpret at the time he was admitted to this hospital on the . Because the patient was immunosuppressed by virtue of his ongoing chemotherapy and appeared to have pulmonary infiltrates on chest x-ray, he was admitted and started on intravenous antibiotics. At that time, Zosyn was started and appropriate cultures were done. Subsequently, additional antibiotics have been added and the patient is currently receiving a combination of cefepime, fluconazole and the original Zosyn he was receiving previously. The patient reports that his course throughout this hospital stay over the last week has been one of continuous improvement. Both he and his family note that he seems much better today and that his fevers and chills have essentially resolved. It is likewise notable that his cough seems to be improving and he is less short of breath than he was at the time of admission. He no longer has any urinary symptoms but, of course, this is largely a function of the fact he has a Porras catheter. The patient was also admitted to this facility in late May with possible urinary tract infection and some disorientation following that admission. The patient was admitted with bronchitis and was discharged on Augmentin prior to this admission on July 04. PAST MEDICAL HISTORY: 1. Metastatic prostate cancer times about 8 years, for which he has received considerable chemotherapy and most recently has been receiving Taxotere with G-CSF after chemotherapy. 2. Recent hospitalizations and ED visits with both bronchitis and presumptive urinary tract infections. 3. Urinary retention with placement of Porras catheter, July 04. 4. Hypertension. 5. Hyperlipidemia. 6. Anxiety disorder. 7. Thoracic aortic aneurysm. 8. History of Achilles tendon injury and repair. SOCIAL HISTORY: The patient was born in [place], but has lived in [place] for a considerable period. He has 14 children and 54 grandchildren. He lives with parts of his large extended family. He is retired at this point. He used to be a heavy drinker up to a case of beer a day, but he quit 15 years ago and has not had any since. He was a smoker, but quit 30 years ago. His last trip back to [facility] was just a little over a year ago. FAMILY HISTORY: Notable for a father who young of unknown causes. His mother at age 85 from old age. He does have a brother with Parkinson's and another brother with leukemia, but he has eight other siblings who are relatively healthy. There is no family history of tuberculosis in his parents, siblings or children. REVIEW OF SYSTEMS: Was done. The patient states he has no significant headache. No sinus complaints at this point, though he has had in the past. No sore throat, odynophagia or dysphagia. No stiff neck. He notes he did have a dry cough when he came in the hospital that was associated with shortness of breath and, of course, the fevers, chills, sweats. The cough has essentially resolved but he still has an occasional hack, but basically very little left in the way of coughing. He is no longer short of breath. His fevers, chills and sweats have resolved. He has had some nausea for which he has been receiving antiemetics, and he attributes that probably to chemotherapy. No vomiting and no diarrhea. He did have some urinary retention when he came in and received a Porras which is still present. He did have some dysuria perhaps prior to admission, but that seems a little unclear. At this point, he does not have any, of course, as he has a Porras. He has not noticed swelling in his extremities. The remainder of the review of systems is negative. PHYSICAL EXAMINATION: Reveals an afebrile gentleman, temp 37.3, pulse 81, respiratory rate 18, blood pressure 116/67. He is saturating well on 2 L. He appears comfortable and is smiling. I obtained an excellent history through his granddaughters who are available and excellent translators. The patient is fully oriented x3 and able to give a lucid history. His head is without trauma. His sinuses are nontender. Eyes with conjunctival pallor. Oral cavity without thrush, pharyngitis, palatal petechia or any other abnormality. The submandibular area and anterior neck are soft and nontender without adenopathy. His neck is supple. His back is straight and without evidence of spinous tenderness. His lungs are notable for very few crackles at the bases when he is sitting up, taking deep breaths, and auscultated from the posterior. Cardiac tones with a soft 1/6 systolic murmur heard best in the aortic area. There is no gallop rhythm. The patient's abdomen is soft and nontender without organomegaly. A Porras catheter is present. There is no suprapubic abnormalities. There is no evidence for synovitis or joint inflammation. There is no significant skin rash present. The patient has good peripheral pulses in his lower extremities. There is no evidence for cellulitis or venous stasis type changes. His motor function is intact and he is quite strong throughout. No obvious sensory abnormalities. LABORATORIES: Include white blood count 8300, platelet count 186,000, differential white blood count is notable for 10% bands, 4% metamyelocytes and 6% myelocytes, but of course, he received a G-CSF within the past few days. He has a creatinine 0.6. His LFTs are normal. Procalcitonin was 0.17 a week ago, and when repeated this morning is again 0.17. During his June admission, his procalcitonins were negative and during his May evaluation his procalcitonins were negative. Urinalysis on this occasion had 0 white cells. A respiratory viral PCR panel was positive for the rhinovirus and enterovirus combination. Sputum obtained on admission had a few polys and just showed normal ashu. Blood cultures on admission on the were negative, and going back through his lab work from his other admissions over the past month, these have all been essentially negative as well. A urine done back in March did grow Citrobacter koseri, which was sensitive to all standard antibiotics. IMAGING: During this admission, includes a chest x-ray done yesterday which showed improved bibasilar streaky infiltrates. The admission chest x-ray, back on the , showed bibasilar airspace infiltrates consistent with aspiration or pneumonia. A chest CT was also done on the date of admission on the and showed patchy consolidation in the dependent lung bases which included the possibility of atelectasis, aspiration or true pneumonia. IMPRESSION: This gentleman was admitted back on July 04, one of the series of continual admissions and ED visits, as he receives Taxotere as salvage chemotherapy for his metastatic prostate cancer. When he was admitted on the , his white blood count was 5100, which was slightly elevated. It is now 8300 with left shift, which I think is likely due to G-CSF. His procalcitonin has remained consistently negative and his urinalysis is not indicative of infection. His chest x-ray showed some bibasilar abnormalities which may have been atelectasis or pneumonia and I suspect what we are dealing with here is a rhinovirus or perhaps enterovirus pneumonia. We used to believe that only a small percentage of pneumonias in adults were due to viruses, but with the lutheran of better technology, it now appears that a very significant percentage of pneumonias in adults are viral, and recent data indicates that rhinoviruses may be the most common cause of these viral pneumonia in adults, perhaps with the exception of influenza. I see little evidence for ongoing infection in this patient and certainly no reason for dual beta-lactam therapy. At this point, I think the patient is rapidly progressing towards a point where he could be reasonably discharged. RECOMMENDATIONS: 1. I would go ahead and discontinue the cefepime. I made that recommendation earlier today, and it has already been done. 2. I would cautiously continue overnight with the Zosyn, with the plan to consider stopping that in the near future as well, as the patient has now had eight days. 3. The fluconazole was added recently and I am not certain what the indication was for the addition of this, as I do not think there is any possibility the patient has fungal pneumonia and I see no evidence for thrush at this time, but I plan to discuss this with the hospitalist tomorrow. Strongly consider discontinuing that unless there is an obvious reason. 4. I think the patient could probably discharge in the next day or two, and I am not certain that he requires any additional antibiotics, as I think what has been going on here is primarily a viral pneumonia. Thank you very much for this consult.
[2016-07-12] MEDS: Piperacillin-Tazo 3.375 Gm Inj 3.375 GM in Dextrose 5% Minibag Plus 50 ML IV SCH ×2 (02:11→10:10)
[2016-07-12 05:08] VITALS: BP 110/53; PULSE 76; RESP 16; O2SAT 94
[2016-07-12] MEDS: Pantoprazole 20 mg ER24 Tablet PO SCH (06:18)
--- NOTE | 2016-07-12 06:32 | NUR ---
GORMAN: Gorman catheter removed this am at 0615
[2016-07-12 07:00] LABS: Mean Corpuscular Hemoglobin 28.7 pg (27.0-35.0); Mean Corpuscular Volume 91.8 fL (81-100); Platelet Count 208 bil/L (150-400)
[2016-07-12 07:57] VITALS: PULSE 71; RESP 16; O2SAT 96
[2016-07-12 07:57] LABS: BASOPHILS % (AUTO) 0 % (0-3); EOSINOPHILS % (AUTO) 1 % (0-5); MONOCYTES % (AUTO) 7 % (4-12); NEUTROPHILS % (AUTO) 60 % (40-74)
[2016-07-12] MEDS: Fluconazole Inj 200 MG in IV Premix 1 EACH IV SCH (08:30)
[2016-07-12] MEDS: Triamcinolone 0.1% 30 Gm Cream TOPICAL SCH (08:30)
--- NOTE | 2016-07-12 09:26 | PCM.PALLBR ---
Palliative Care Recommendation Summary of palliative recommendations: 07/12/16- Reviewed pain management with family member this AM and called Mely ( daughter who sets up his meds) and reviewed. He is discharged on methadone 5 mg BID-but his fluconazole has been stopped as of today. Unclear if he will need more or not - at this time -no pain and no sx of withdrawal. Reviewed w/d sx-diarrhea, abd pain, sweats, agitation. His methadone can be increased to 5 mg TID if needed but to use hydromorphone PRN for sx of pain or withdrawal after that. Instructed to call Palliative office if sx develop. Follow up will be on a prn basis. Mely states she was able to taper him off the dexamethasone. 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 Answered questions and concerns this AM with family re holding on chemo, monitoring tumor markers etc. -Symptom management (Pain/other) WEAKNESS-reviewed this can be from being in bed for 1 week but I believe also biggest component is from his severity of illness. He continues to have a moist cough. Reviewed gradual rehabilitation but to listen to his level of fatigue. White count improving with Neupogen. Oversedation-- suspect this was due to interaction of his methadone with fluconazole. Pharmacy notified. Dose initially decreased in half but then later to one third. He will need to be monitored closely for withdrawal symptoms and these are reviewed with the family. We will follow this patient through this hospitalization to monitor pain management. Urinary retention-reviewed a trial of getting this out in another couple days preferably before she goes home. He is still fairly weak and I suspect will take least another couple days of recovery. He is on Flomax twice a day. Reviewed details hospice anesthetics towards end of life. Reviewed that Dr. Gomez will assist them regarding this decision based on his assessment of response to chemotherapy. -DPOA/Advanced Directives/POLST-- we will need to get this completed prior to discharge. He has not at home but has never completed -Family/emotional support-large extended family with remarkable support -Spiritual support-he is [employer] Additional Medical Diagnoses with primary management by Hospitalist team include : Antibiotics and antifungals will need to watch carefully regarding symptom of withdrawal Management of urinary retention Pharmacy notified regarding drug interaction with methadone and need for monitoring. He will need follow-up with Dr. Gomez at discharge Problems: End of Life Preferences DO NOT RESUSCITATE DO NOT INTUBATE no feeding tube Goals of Care Goal is to improve and be able to be home hopefully in a matter of days. Further chemotherapy to be assessed in another month- monitoring by Dr. Gomez Disposition HOME today Resuscitation Status Resuscitation Status: DNR/DNI:Do Not Resuscitate/Intubate POLST Updates/Changes Artificially Admin Nutrition: No Artifical Nutrition by Tube POLST Discussed with: Patient . Pain: None Symptom management: Nausea Total time 35 minutes; >50% face to face with patient and/or family, providing counselling regarding plans and recommendations, and in care coordination with his/her medical teams. including med management and conversations with family I also spent an additional [ ] minutes counseling for advanced care planning with the patient/the patients family/the surrogate decision maker. copies to: Meet Hardy MD Palliative Brief Note Date of Service Jul 12, 2016 . Patient main c/o nausea. No pain or withdrawal sx noted. Had BM this AM and happy with that. Not taking in much PO due to nausea. Dr. Conley's/Dr. Gomez's note reviewed. Jen Stoll MD Jul 12, 2016 09:26
--- NOTE | 2016-07-12 09:39 | PROG NOTE ---
[address] [address] PROGRESS NOTE PATIENT: IZZY THAKKAR : 1940 MR#: [id number] ADMIT: 07/04/2016 JOB ID: [id number] DATE: 07/12/2016 INFECTIOUS DISEASE FOLLOWUP NOTE: REASON FOR FOLLOWUP: Viral pneumonia in a patient receiving chemotherapy for prostate cancer. INTERVAL HISTORY: Overnight, the patient has felt reasonably well. He still has some nausea. He has some appetite but he is concerned that if he eats he may vomit. Aside from that, he feels quite well with no fevers, chills, or sweats. He continues to have a cough productive of some whitish sputum but is not short of breath and has no pleuritic chest pain. No skin rash or additional symptoms have been noted. PHYSICAL EXAMINATION: Reveals an afebrile gentleman, temperature 36.7, pulse 71, respiratory rate 16, blood pressure 110/53, saturating well on 2 L. Examination of the eyes reveals conjunctival pallor. Oral cavity negative. Lungs quite clear posteriorly. Surprisingly, maybe a few crackles at the left base but otherwise clear. Cardiac tones without new murmur. Abdomen is nontender. No skin rash noted. LABORATORIES: Include white count 7800, platelet count 208, hematocrit 30. He still has a left shift, which I think is due to G-CSF. He still has 6% bands, 4% myelocytes, 2% metamyelocytes, but is actually resolving. Urinalysis is negative. Micro studies include the PCR positive for rhino/enterovirus. Blood cultures are negative. Sputum was normal ashu. IMAGING: Includes a chest x-ray, which was done two days ago now on the that shows improving bibasilar infiltrates. IMPRESSION: This is a gentleman who is receiving Taxotere for salvage therapy for prostate cancer with metastasis to the skeleton. He gets sick after basically each course of Taxotere but it is at least effective and is lowering his PSA. This time he is admitted with possible pneumonia and, in fact, it would appear that he has a viral pneumonia, as evidenced by our PCR. Other studies directed at looking at causes of pneumonia have been negative, and the patient is doing well at this point. RECOMMENDATIONS: 1. I would go ahead and discontinue the Zosyn, as he has been treated now for eight or nine days. 2. I am not sure what the indication for fluconazole here is. He does not have thrush nor do I have any particular concern about a systemic fungal infection, and I think the fluconazole could also be stopped today. 3. The patient wants to be discharged today and assuming he can ambulate and take care of himself, I think that is reasonable at this point. 4. Infectious Disease will go ahead and sign off at this time. Thank you very much for this consultation.
[2016-07-12] MEDS: MeTOProlol XL 50 mg ER24 Tablet PO SCH (10:27)
--- NOTE | 2016-07-12 11:39 | NUR ---
Patient tolerating current diet. Family is aware of recommendation of NTL at home with free water protocol between meals. No further skilled acute [employer] needs at this time. [employer] to sign off
--- NOTE | 2016-07-12 11:49 | NUR ---
weaned from Oxygen pt 92-95% sats on RA, even while sleeping
--- NOTE | 2016-07-12 12:31 | PCM.DIMED ---
Discharge Instructions Date of Service Jul 12, 2016 Dates of Hospitalization Jul 04, 2016 at 13:17 Discharge Diagnosis Discharge Diagnosis Viral Pneumonia, Stage IV Prostate Cancer with skeletal mets, HTN Medication Instructions Please use Albuterol PRN Test Results Laboratory Tests Test 07/12/16 06:30 07/12/16 07:48 White Blood Count 7.8th/mm3 (3.8-10.1) Red Blood Count 3.28mil/mm3 (4.40-5.80) Hemoglobin 9.4g/dL (13.8-17.2) Hematocrit 30.1% (41.0-50.0) Mean Corpuscular Volume 91.8fL (81-100) Mean Corpuscular Hemoglobin 28.7pg (27.0-35.0) Mean Corpuscular Hemoglobin Concent 31.2% (32.0-37.0) Red Cell Distribution Width 20.4% (12.3-15.4) Platelet Count 208bil/L (150-400) Neutrophils (%) (Auto) 60% (40-74) Lymphocytes (%) (Auto) 20% (14-46) Monocytes (%) (Auto) 7% (4-12) Eosinophils (%) (Auto) 1% (0-5) Basophils (%) (Auto) 0% (0-3) Band Neutrophils % 6% (1-5) Metamyelocytes % 2% (0-0) Myelocytes % 4% (0-0) Hematology Comments Rbc Sodium Level 138mEq/L (134-144) Potassium Level 3.9mEq/L (3.5-5.2) Chloride Level 104mEq/L (97-108) Carbon Dioxide Level 21mmol/L (18-29) Blood Urea Nitrogen 7mg/dL (8-27) Creatinine 0.57mg/dL (0.76-1.27) Estimat Glomerular Filtration Rate 147mL/min (>59) Glucose Level 94mg/dL (60-99) Calcium Level 7.9mg/dL (8.5-10.1) Total Bilirubin 0.4mg/dL (0.0-1.2) Aspartate Amino Transf (AST/SGOT) 18U/L (0-50) Alanine Aminotransferase (ALT/SGPT) 7U/L (0-44) Alkaline Phosphatase 156U/L (25-160) Total Protein 4.8g/dL (6.4-8.4) Albumin 3.0g/dL (3.4-5.0) Microbiology 07/04/16 Blood Culture - Final, Complete NO GROWTH AFTER 5 DAYS 07/05/16 Sputum Quality Screen - Final, Complete 07/05/16 Sputum Culture - Final, Complete SCANT NORMAL MICHEAL PRESENT [facility] Diagnostic Imaging Department [place], [place] [id number] Patient Name: IZZY THAKKAR MR#: [id number] Location: [facility] Ordering Phys: Noemy Cardoza DO Date of Service: 07/10/16 1925 PROCEDURE: X-RAY CHEST, TWO VIEWS ([id number]) INDICATIONS: pneumonia TECHNIQUE: 2 views of the chest were acquired. COMPARISON: [facility], CR, XR CHEST 2VW, 07/07/2016, 11:09. FINDINGS: Surgical changes and devices: None. Lungs and pleura: There is minimal bilateral pleural effusions, improved compared to prior exam. Minimal appearance of streaky opacities remain within the bases, also improved. Mediastinum: Mediastinal contours are normal. Heart size is normal. Bones and chest wall: No suspicious bony abnormalities. Soft tissues appear unremarkable. IMPRESSION: Improved appearance of bibasilar streaky opacities and effusions with mild residual noted. Dictated by: Brooklynn Maria M.D. on 07/10/2016 at 21:0 [facility] Diagnostic [place] [address] Patient Name: IZZY THAKKAR MR#: [id number] Location: [facility] Ordering Phys: Trung Walker MD Date of Service: 07/07/16 0902 PROCEDURE: X-RAY CHEST, TWO VIEWS ([id number]) INDICATIONS: Follow up for aspiration pneumonia TECHNIQUE: 2 views of the chest were acquired. COMPARISON: [facility], CR, XR CHEST 1VW (PORTABLE), 07/05/2016, 9: 45. [facility], CR, XR CHEST 2VW, 07/03/2016, 16:36. FINDINGS: Surgical changes and devices: None. Lungs and pleura: Resolving basilar airspace opacities, otherwise lungs are clear. Mediastinum: Mediastinal contours are normal. Heart size is normal. Bones and chest wall: No suspicious bony abnormalities. Soft tissues appear unremarkable. IMPRESSION: Resolving aspiration versus pneumonia. Short interval followup is recommended with resolution of the patient's symptoms to ensure there is no underlying pulmonary pathology. Dictated by: Bart LOPEZ Interpreted: Susannah Stacy MD on 07/07/2016 at 11:53 Transcribed by: JENNIFER on 07/07/2016 at 11:54 Approved by: Susannah Stacy M.D. on 07/07/2016 at 13:55 5 Approved by: Brooklynn Maria M.D. on 07/10/2016 at 21:06 [facility] Diagnostic [place] [address] Patient Name: IZZY THAKKAR MR#: [id number] Location: [facility] Ordering Phys: Trung Walker MD Date of Service: 07/05/16 0600 PROCEDURE: X-RAY CHEST ONE VIEW, PORTABLE ([id number]) INDICATIONS: Follow up for pneumonia/hypoxia TECHNIQUE: One view of the chest was acquired. COMPARISON: [facility], CR, XR CHEST 1VW (PORTABLE), 07/04/2016, 10: 58. FINDINGS: Surgical changes and devices: None. Lungs and pleura: No pleural effusions or pneumothorax. Interval increase in bibasilar airspace opacities.. Mediastinum: Mediastinal contours appear normal. Heart size is normal. Bones and chest wall: No suspicious bony lesions. Overlying soft tissues appear unremarkable. IMPRESSION: Increasing bibasilar airspace opacities consistent with worsening aspiration versus pneumonia. Dictated by: Bart LOPEZ Interpreted: Susannah Stacy MD on 07/05/2016 at 10:42 Transcribed by: JENNIFER on 07/05/2016 at 10:43 Approved by: Susannah Stacy M.D. on 07/05/2016 at 17:01 [facility] Diagnostic Imaging Department [place], [place] [id number] Patient Name: IZZY THAKKAR MR#: [id number] Location: [facility] Ordering Phys: Richi Bell MD Date of Service: 07/04/16 1322 PROCEDURE: CT CHEST WITHOUT CONTRAST ([id number]) INDICATIONS: Recurrent pneumonia, hypoxia, ho metas.prostate CA TECHNIQUE: Noncontrast 5 mm thick sections acquired from the pulmonary apices to the posterior costophrenic angles. 7 mm thick coronal and sagittal MIP reformats were then acquired. For radiation dose reduction, the following was used: automated exposure control, adjustment of mA and/or kV according to patient size. COMPARISON: [facility], CT, CHEST/ABD/PELVIS/ WO CON (PNL), 2012, 12:17. [facility], CT, CT CHEST ABD PELVIS WO CON, 12/01/2015 , 11:25. [facility], CT, CT CHEST ABD PELVIS WO CON, 03/15/2016, 11 :35. FINDINGS: Image quality: Excellent. Lungs and pleura: Patchy consolidation is present at the bilateral lung bases which is new when compared with study dated 03/15/16. Trace groundglass opacities are present within the lateral aspect of the right upper lobe which are new when compared with the prior study (series 3, image 12). There is trace centrilobular emphysema with apical predominance. No pleural effusion or pneumothorax. An ill-defined 3 mm diameter solid nodule is present at the base of the right middle lobe (series 3, image 41). This is unchanged when compared with the study dated 08/28/12. Mediastinum: Heart size is normal. No pericardial effusion. No mediastinal adenopathy by size criteria. Thoracic aorta and central pulmonary arteries are normal in size. Scattered atheromatous calcifications are present within the aortic arch. Esophagus is normal in caliber. No hiatal hernia. Bones and chest wall: No suspicious bony lesions. No vertebral body compression fractures. No axillary or supraclavicular adenopathy by size criteria. Thyroid gland is unremarkable. Abdomen: Visualized upper abdominal solid organs and bowel loops appear normal in the absence of contrast. IMPRESSION: 1. Patchy consolidation in the dependent lung bases bilaterally which is new when compared with the prior CT dated 03/15/16. Differential considerations include aspiration/infection and atelectasis. 2. Trace pulmonary radiopacities at the lateral aspect of the right upper lobe likely associated with infection. 3. Aortic atherosclerosis. Dictated by: Susannah Stacy M.D. on 07/04/2016 at 15:33 Approved by: Susannah Stacy M.D. on 07/04/2016 at 15:37 [facility] Diagnostic [place] [address] Patient Name: IZZY THAKKAR MR#: [id number] Location: [facility] Ordering Phys: Trung Walker MD Date of Service: 07/04/16 1239 PROCEDURE: NM LUNG VQ RADIOPHARMACEUTICAL: 26.7 mCi Tc-99m DTPA aerosol by inhalation and 5.36mCi Tc- 99m MAA intravenously. INDICATIONS: Hypoxia with malignancy/Possible PE. TECHNIQUE: Ventilation images were obtained first with Tc-99m DTPA aerosol. Subsequently, perfusion images were acquired after intravenous injection of Tc-99m MAA. Anterior, posterior, COBURN, GUINEAN, RPO, LPO, left and right lateral views were obtained. COMPARISON: [facility], CT, CT CHEST WO CON, 07/04/2016, 14:23. FINDINGS: Chest CT dated 07/04/16 demonstrate dependent changes at the bases. There is a moderate sized matched defect within the right middle lobe. Remain portions are unremarkable. No mismatch defects are clearly identified. IMPRESSION: Moderate right middle lobe matched defect most suggestive of low probability for embolism. Dictated by: Brooklynn Maria M.D. on 07/04/2016 at 16:47 Approved by: Brooklynn Maria M.D. on 07/04/2016 at 16:56 [facility] Diagnostic Imaging Department [place], [place] [id number] Patient Name: IZZY THAKKAR MR#: [id number] Location: [facility] Ordering Phys: Richi Bell MD Date of Service: 07/04/16 1046 PROCEDURE: X-RAY CHEST ONE VIEW, PORTABLE ([id number]) INDICATIONS: fever TECHNIQUE: One view of the chest was acquired. COMPARISON: [facility], CR, XR CHEST 2VW, 07/03/2016, 16:36. FINDINGS: Surgical changes and devices: None. Lungs and pleura: There is a slight increased appearance of bibasilar opacities , left greater than right including trace effusions, left greater than right. Mediastinum: Mediastinal contours appear normal. Heart size is normal. Bones and chest wall: No suspicious bony lesions. Overlying soft tissues appear unremarkable. IMPRESSION: Increased appearance of bibasilar opacities and effusions as above. Findings are suggestive of developing airspace disease such as pneumonia. Underlying atelectasis cannot be excluded. Dictated by: Brooklynn Maria M.D. on 07/04/2016 at 11:21 Approved by: Brooklynn Maria M.D. on 07/04/2016 at 11:21 Diet Heart Healthy Activity No restrictions, Home Health Phyical Therapy Call your provider Fever or Chills, Shortness of breath, Bleeding, Chest pain, Vomitting, Excessive diarrhea, Weakness (unilateral), Other Patient Instructions Follow-up with PCP in: 2 weeks Provider: Meet Hardy MD Follow-up in: 1 week Noemy Cardoza DO Jul 12, 2016 12:31
[2016-07-12] MEDS ORDERED: METH5TAB3 PO (12:35)
[2016-07-12] MEDS ORDERED: ALBU18HF INH (12:36)
--- NOTE | 2016-07-12 12:50 | PCM.DC.MED ---
Discharge Summary Date of Service Jul 12, 2016 Dates of Hospitalization Date of Hospital Admission Jul 04, 2016 at 13:17 Date of Discharge: Jul 12, 2016 Providers: Admitting Physician: Trung Walker MD Primary Care Physician: Johnson Gallardo MD Attending Physician: Trung Walker MD Diagnosis at Time of Discharge Diagnosis at Time of Discharge Viral Pneumonia, Stage IV Prostate Cancer with skeletal mets, HTN Consultations Oncology, PT, ST, palliative care, infectious disease Procedures XRay, CTs & MRIs PROCEDURE: CT CHEST WITHOUT CONTRAST ([id number]) INDICATIONS: Recurrent pneumonia, hypoxia, ho metas.prostate CA TECHNIQUE: Noncontrast 5 mm thick sections acquired from the pulmonary apices to the posterior costophrenic angles. 7 mm thick coronal and sagittal MIP reformats were then acquired. For radiation dose reduction, the following was used: automated exposure control, adjustment of mA and/or kV according to patient size. COMPARISON: [facility], CT, CHEST/ABD/PELVIS/ WO CON (PNL), 2012, 12:17. [facility], CT, CT CHEST ABD PELVIS WO CON, 12/01/2015 , 11:25. [facility], CT, CT CHEST ABD PELVIS WO CON, 03/15/2016, 11 :35. FINDINGS: Image quality: Excellent. Lungs and pleura: Patchy consolidation is present at the bilateral lung bases which is new when compared with study dated 03/15/16. Trace groundglass opacities are present within the lateral aspect of the right upper lobe which are new when compared with the prior study (series 3, image 12). There is trace centrilobular emphysema with apical predominance. No pleural effusion or pneumothorax. An ill-defined 3 mm diameter solid nodule is present at the base of the right middle lobe (series 3, image 41). This is unchanged when compared with the study dated 08/28/12. Mediastinum: Heart size is normal. No pericardial effusion. No mediastinal adenopathy by size criteria. Thoracic aorta and central pulmonary arteries are normal in size. Scattered atheromatous calcifications are present within the aortic arch. Esophagus is normal in caliber. No hiatal hernia. Bones and chest wall: No suspicious bony lesions. No vertebral body compression fractures. No axillary or supraclavicular adenopathy by size criteria. Thyroid gland is unremarkable. Abdomen: Visualized upper abdominal solid organs and bowel loops appear normal in the absence of contrast. IMPRESSION: 1. Patchy consolidation in the dependent lung bases bilaterally which is new when compared with the prior CT dated 03/15/16. Differential considerations include aspiration/infection and atelectasis. 2. Trace pulmonary radiopacities at the lateral aspect of the right upper lobe likely associated with infection. 3. Aortic atherosclerosis. Dictated by: Susannah Stacy M.D. on 07/04/2016 at 15:33 Approved by: Susannah Stacy M.D. on 07/04/2016 at 15:3 [facility] Diagnostic Imaging Department [place], [place] [id number] Patient Name: IZZY THAKKAR MR#: [id number] Location: [facility] [place] Ordering Phys: Noemy Goodwin DO Date of Service: 07/10/161924 PROCEDURE: X-RAY CHEST, TWO VIEWS ([id number]) INDICATIONS: pneumonia TECHNIQUE: 2 views of the chest were acquired. COMPARISON: [facility], CR, XR CHEST 2VW, 07/07/2016, 11:09. FINDINGS: Surgical changes and devices: None. Lungs and pleura: There is minimal bilateral pleural effusions, improved compared to prior exam. Minimal appearance of streaky opacities remain within the bases, also improved. Mediastinum: Mediastinal contours are normal. Heart size is normal. Bones and chest wall: No suspicious bony abnormalities. Soft tissues appear unremarkable. IMPRESSION: Improved appearance of bibasilar streaky opacities and effusions with mild residual noted. Dictated by: Brooklynn Maria M.D. on 07/10/2016 at 21:05 Approved by: Brooklynn Maria M.D. on 07/10/2016 at 21:06 Cardiac Echo Impression Echocardiogram Report Name: IZZY THAKKAR LStudy Date: 07/05/2016 Height: 69 in Hospital Exam Location: [facility] Weight: 18 3 lb Gender: Male BSA: 2.0 m2 : 1940 Age: 76 yrs BP: 108/60 mmHg Reason For Study: Pneumonia Ordering Physician: HOSPITALIST [facility] Performed By: Harriet Monk Referring Physician: Dr. Johnson Gallardo Interpretation Summary The ejection fraction is estimated to be 60-65%. The left atrium is severely dilated. There is systolic anterior motion of the chordal apparatus. There is mild to moderate aortic regurgitation. The right ventricular systolic pressure is estimated at 39 mmHg assuming a right atrial pressure of 3 mm Hg. The ascending aorta is moderately enlarged. Brief History PALLIATIVE CONSULT NOTE consulting provider: Dr. Gladys Goodwin oncologist: Dr. Gomez PCP Dr. Gallardo 76 yo patient with hx of metastatic prostate CA with known bone mets since 2007. He has gone through multiple chemo tx options and radiation tx and is now on his last option Taxotere. He has had a response with this-specifically with a stabilization to decline on his PSA and a significant decrease in his pain. His pain was also being managed with methadone at 10 mg AM and PM and 5 mg MD and dexamethasone. Trial off dexamethasone failed with increase in pain and some agitation.He has been on 1-2 mg daily. On admission to hospital he was placed on methadone [address] Gomez has been giving him reduced doses but he has still had multiple complications with hospitalization for UTI, pneumonia and again pneumonia. He is now going to go off chemo for 4-6 weeks and assess hx QOL and assess if evidence of progression of ds and decide if he will be going back on Taxotere. He identifies that he would prefer to be home than in the hospital and that he is not sure the chemo is worth it. He was very sedated over the past 2 days and family thought due to methadone so it has now been held since yest and he is much better. He is accompanied by multiple daughters with excellent questions. Hospital Course Patient is a very pleasant 76-year-old [place]ese-speaking male with history of stage IV prostate cancer with skeletal metastasis and hypertension who presents to the emergency department by EMS services for generalized weakness that had worsened over the last few days. # Bilateral lower lobe Aspiration pneumonia, present on admission with fever and chills symptomatically improved. Oncology consulted and appreciate their input. Neupogen was added 07/05/2016. Patient was given 1 week of Zosyn. His sputum, blood cultures remained negative. Follow-up x-ray showed much improvement pneumonia. His respiratory panel did show H RV/ENTV. He appeared to have viral pneumonia as well. On the day of discharge patient was oxygenating without oxygen via cannula. He is ambulating with the help of his relatives. Nursing performed oxygen saturation test while walking. History of cough and chest pain and eager to go home. Sputum cultures were negative. # Metastatic prostate cancer with skeletal involvement, present on admission, currently undergoing chemotherapy - He was treated for pain with his home medications which were later titrated to avoid delirium. He will be going home on a reduced pain medication dosage. Oncology and palliative care were consulted. # Urinary retention noted during recent admission, oxybutynin was discontinued and he was started on tamsulosin last admission: Discontinued on tamsulosin, he required Porras catheter during this admission but was able to pass voiding challenge prior to discharge. # Hypertension: Home medications continued # Hyperlipidemia: Her medications were continued # Depression and history of anxiety: Home medications were continued # Dermatitis of right elbow -Begin Triamcinolone cream BID # Presumed Staph Folliculitis of the right axilla - Controlled #Delirium: Family is given tips on reorienting the patient. Methadone, gabapentin and remeron were stopped temporarily and pain medications were titrated for palliative care.. He has dilaudid PO but he is not taking it per staff. Exam Vital Signs (Last) Date Time Temp Pulse Resp B/P Pulse Ox O2 Delivery O2 Flow Rate FiO2 07/12/16 07:57 71 16 96 Nasal Cannula 2.00 07/12/16 05:08 36.7 110/53 Exam Gen.: Cheerful, sitting up talking to family HEENT: Normocephalic atraumatic Heart: Regular rate and rhythm, no S3-S4 sounds Lungs: Clear to auscultation, no crackles or wheezes Abdomen: Soft nontender, nondistended. Normal bowel sounds Neuro: No focal episodes Psych: Negative for anxiety Test 07/04/16 10:50 07/04/16 11:23 07/05/16 06:05 07/07/16 06:45 Lactic Acid Level 1.3mmol/L (0.4-2.0) Urine Color Yellow (YELLOW) Urine Appearance Hazy (CLEAR,HAZY) Urine pH 6.5 (5.0-8.0) Urine Specific [place] 1.020 (1.003-1.035) Urine Protein Negativemg/dL (NEG,TRACE) Urine Glucose (UA) Negativemg/dL (NEGATIVE) Urine Ketones Negativemg/dL (NEGATIVE) Urine Occult Blood Trace (NEGATIVE) Urine Nitrite Negative (NEGATIVE) Urine Bilirubin Negative (NEGATIVE) Urine Urobilinogen Normalmg/dL (NORMAL) Urine Leukocyte Esterase Negative (NEGATIVE) Urine RBC 11-50/hpf (0-2) Urine WBC 0-5/hpf (0-5) Urine Epithelial Cells Occasional/hpf (NONE-MOD) Urine Crystals None seen (NONE SEEN) Urine Bacteria None/hpf (NONE-FEW) Urine Hyaline Casts None/lpf (NONE) Urine Granular Casts None seen (NONE SEEN) Urine Waxy Casts None seen (NONE SEEN) Urine Red Blood Cell Casts None seen (NONE SEEN) Urine White Blood Cell Casts None seen (NONE SEEN) Urine Mucus Present (None Seen) Urine Trichomonas None seen (NONE SEEN) Urine Yeast None (NONE SEEN) Urinalysis Comment None Urine Culture Reflexed Not indicated Prothrombin Time 11.1sec (8.1-12.5) Prothromb Time International Ratio 1.04ratio Phosphorus Level 3.3mg/dL (2.5-4.9) Troponin T 0.010ug/L (0.0-0.011) Pro-B-Type Natriuretic Peptide 1136pg/mL (0-486) Test 07/09/16 06:06 07/11/16 07:10 07/12/16 06:30 07/12/16 07:48 Magnesium Level 2.1mg/dL (1.6-2.6) Procalcitonin 0.17ng/mL (0.00-0.08) White Blood Count 7.8th/mm3 (3.8-10.1) Red Blood Count 3.28mil/mm3 (4.40-5.80) Hemoglobin 9.4g/dL (13.8-17.2) Hematocrit 30.1% (41.0-50.0) Mean Corpuscular Volume 91.8fL (81-100) Mean Corpuscular Hemoglobin 28.7pg (27.0-35.0) Mean Corpuscular Hemoglobin Concent 31.2% (32.0-37.0) Red Cell Distribution Width 20.4% (12.3-15.4) Platelet Count 208bil/L (150-400) Neutrophils (%) (Auto) 60% (40-74) Lymphocytes (%) (Auto) 20% (14-46) Monocytes (%) (Auto) 7% (4-12) Eosinophils (%) (Auto) 1% (0-5) Basophils (%) (Auto) 0% (0-3) Band Neutrophils % 6% (1-5) Metamyelocytes % 2% (0-0) Myelocytes % 4% (0-0) Hematology Comments Rbc Sodium Level 138mEq/L (134-144) Potassium Level 3.9mEq/L (3.5-5.2) Chloride Level 104mEq/L (97-108) Carbon Dioxide Level 21mmol/L (18-29) Blood Urea Nitrogen 7mg/dL (8-27) Creatinine 0.57mg/dL (0.76-1.27) Estimat Glomerular Filtration Rate 147mL/min (>59) Glucose Level 94mg/dL (60-99) Calcium Level 7.9mg/dL (8.5-10.1) Total Bilirubin 0.4mg/dL (0.0-1.2) Aspartate Amino Transf (AST/SGOT) 18U/L (0-50) Alanine Aminotransferase (ALT/SGPT) 7U/L (0-44) Alkaline Phosphatase 156U/L (25-160) Total Protein 4.8g/dL (6.4-8.4) Albumin 3.0g/dL (3.4-5.0) Microbiology Results Blood cultures are pending Discharge Medications Discharge Medications Atorvastatin Calcium (Atorvastatin Calcium) 10 Mg Tablet 10 MG PO DAILY Prescribed by: JOHNSON GALLARDO MD Gabapentin (Gabapentin) 300 Mg Capsule 300 MG PO TID (Reported) Methadone (Methadone) 5 Mg Tablet 5 MG PO BID Prescribed by: NOEMY GOODWIN DO Metoprolol Succinate ER (Metoprolol Succinate ER) 50 Mg Tab.er.24h 50 MG PO BID (Reported) Mirtazapine (Mirtazapine) 15 Mg Tablet 7.5 MG PO HS (Reported) Pantoprazole DR (Pantoprazole DR) 20 Mg Tablet.dr 20 MG PO DAILY (Reported) Tamsulosin (Flomax) 0.4 Mg Capsule 0.4 MG PO BID (Reported) As needed Albuterol Sulfate (Ventolin HFA Inhaler) 200 Puff/18 Gm Inhaler 1 PUFF INH Q4 PRN PRN For Wheezing Prescribed by: NOEMY GOODWIN DO Aspirin (Aspirin) 81 Mg Tablet 81 MG PO DAILY PRN PRN For Pain (Reported) Hydromorphone (Hydromorphone) 2 Mg Tablet 2 MG PO Q4H PRN PRN For Pain (Reported ) Nitroglycerin SL (Nitroglycerin SL) 0.4 Mg Tab.subl 0.4 MG SL PRN PRN PRN For Chest Pain (Reported) Polyethylene Glycol 3350 (Miralax) 17 Gm Powd.pack 17 GM PO DAILY PRN PRN For Constipation (Reported) Additional med instructions Please use Albuterol PRN Followup Plan Discharge Diet: Heart Healthy Discharge Activity: No restrictions, Home Health Phyical Therapy Follow-up with PCP in: 2 weeks Provider: Meet Hardy MD Follow-up in: 1 week Noemy Goodwin DO Jul 12, 2016 12:49 Discharge Activity: No restrictions, Home Health Phyical Therapy Follow-up with PCP in: 2 weeks Provider: Meet Hardy MD Follow-up in: 1 week Noemy Goodwin DO Jul 12, 2016 12:49
[2016-07-12 14:24] VITALS: BP 130/69; PULSE 68; RESP 16; O2SAT 92
--- NOTE | 2016-07-12 15:37 | NUR ---
Social Work Note/Readiness for discharge: D&A: Reviewed chart. Discussed case in AM rounds and d/c is expected within the next 24-48hrs. Palliative currently following and PT evaluation pending. Pt.'s caregiver is daughter Mely. Pt. weaning off of oxygen today and has been cleared by Speech therapy. P: Anticipate home when medically stable. SAMANTA/KIKI Henao to be notified and d/c summary faxed at time of d/c. Family to provide transport. CARMEN Madden Addendum: 07/12/16 at 1544 by EBONIE DE LA CRUZ Reviewed previous PT note from 07-07-16. Therapy recommending pt. up with nrsg several times during the day. Anticipate that pt. will return home to previous level of functioning and caregiver support through his daughter.
--- NOTE | 2016-07-12 16:30 | NUR ---
discharged home with family, new Rx for Albuterol inhaler and new dose of Methadone sent electronically to [place]. Pt eating /drinking, ambulating, on RA satting 95%, while walking in hallway maintained sats 92-94% Addendum: 07/12/16 at 1632 by CARLOS WELLINGTON RN also pt voiding without problems since Vern jefferson
[2016-07-14] MEDS ORDERED: METH5TAB3 PO (12:07)
[2016-08-11] MEDS ORDERED: MTH10T PO (11:10)
[2016-08-11] MEDS ORDERED: CITA20TA11 PO (11:10)
[2016-08-11] MEDS ORDERED: DXM4T PO (11:10)
== END 2016-07-12 16:25 | disposition home or self-care (01) | DRG 178 ==
LOC: EDUNIT# 10:34 → SED 10:34 → EDBD 10:34 → OSC 13:17 → OBSVTOIN 13:17 → OSC 16:07
PROVIDERS: ADMIT Internal Medicine Infectious Disease; ATTEND Internal Medicine Infectious Disease
DX: J69.0 Pneumonitis due to inhalation of food and vomit (principal); C79.51 Secondary malignant neoplasm of bone; C61 Malignant neoplasm of prostate; I10 Essential (primary) hypertension; Z87.891 Personal history of nicotine dependence; E78.5 Hyperlipidemia, unspecified; F32.9 Major depressive disorder, single episode, unspecified; Z66 Do not resuscitate; L30.9 Dermatitis, unspecified; L73.9 Follicular disorder, unspecified; R33.9 Retention of urine, unspecified; Z51.5 Encounter for palliative care; B97.10 Unspecified enterovirus as the cause of diseases classified elsewhere

== ENCOUNTER 2016-07-26 16:29 | Inpatient (IN) | payer MEDICARE, MEDICAID ==
[~2016-07-26] VITALS: Ht 177.8 cm; Wt 78.2 kg
[~2016-07-26 16:29] MED LIST changes: +ALBU18HF INH; +ASPI-973 PO; -DXM4T PO; -MTH10T PO
[2016-07-26 16:40] VITALS: BP 201/167; PULSE 87; RESP 20; O2SAT 96
[2016-07-26 17:02] LABS: BASOPHILS % (AUTO) 0.4 % (0-3); EOSINOPHILS % (AUTO) 6.9 % (0-5); MONOCYTES % (AUTO) 14.2 % (4-12); Mean Corpuscular Hemoglobin 27.8 pg (27.0-35.0); Mean Corpuscular Volume 92.1 fL (81-100); NEUTROPHILS % (AUTO) 55.4 % (40-74); Platelet Count 327 bil/L (150-400)
[2016-07-26 17:19] LABS: TROPONIN T < 0.010 ug/L (0.0-0.011)
[2016-07-26 17:30] LABS: Magnesium 2.2 mg/dL (1.6-2.6)
[2016-07-26 17:54] VITALS: BP 115/42; PULSE 83; RESP 15; O2SAT 95
--- NOTE | 2016-07-26 17:56 | DRSVH ---
PROCEDURE: X-RAY CHEST ONE VIEW, PORTABLE ([id number]) INDICATIONS: chest pain TECHNIQUE: One view of the chest was acquired. COMPARISON: [facility], CR, XR CHEST 2VW, 07/10/2016, 20:08. FINDINGS: Surgical changes and devices: None. Lungs and pleura: No pleural effusions or pneumothorax. Lungs are clear. Bibasilar scarring/atelec tasis, and linear scarring in the left costophrenic angle Mediastinum: Mediastinal contours appear normal. Heart size is normal. Bones and chest wall: No suspicious bony lesions. Overlying soft tissues appear unremarkable. IMPRESSION: Scattered bibasilar scarring/atelectasis. No definite acute disease Dictated by: Jp Paulino M.D. on 07/26/2016 at 17:55 Approved by: Jp Paulino M.D. on 07/26/2016 at 17:56
--- NOTE | 2016-07-26 18:15 | ED.REPORT ---
HPI-Dyspnea / Wheezing Date of Service Jul 26, 2016 ED Provider: Tien Villanueva DO A 76 year old male with a history of hypertension, prostate cancer with multiple mets, and pneumonia is brought to the ED via EMS due to shortness of breath. This is accompanied by cough, chills, and fever. Per family, the pt has been more confused in the last few hours. He denies headache, neck pain, or dysuria. The pt has been in the hospital repeatedly for pneumonia in recent months. His last session of chemotherapy was two weeks ago. Nursing Notes Stated Complaint: CHEST PAIN,SOB Chief Complaint: Respiratory Distress Nursing Notes Reviewed: Yes Allergies: Coded Allergies: hydrocodone (Verified Allergy, Severe, hives, 07/04/16) iodine (Verified Allergy, Severe, it brought him to the hospital, 07/04/16) omeprazole (Verified Allergy, Mild, SHAKINESS, 07/04/16) Uncoded Allergies: CONTRAST MEDIUM (Allergy, Severe, ANAPHYLAXIS, 05/10/16) Scheduled Aspirin (Aspirin) 81 Mg Tablet 81 MG PO DAILY Atorvastatin Calcium (Atorvastatin Calcium) 10 Mg Tablet 10 MG PO DAILY Gabapentin (Gabapentin) 300 Mg Capsule 300 MG PO TID Methadone (Methadone) 5 Mg Tablet 5 MG PO BID Metoprolol Succinate ER (Metoprolol Succinate ER) 50 Mg Tab.er.24h 50 MG PO BID Mirtazapine (Mirtazapine) 15 Mg Tablet 7.5 MG PO HS Pantoprazole DR (Pantoprazole DR) 20 Mg Tablet.dr 20 MG PO QAM Tamsulosin (Flomax) 0.4 Mg Capsule 0.4 MG PO BID Scheduled PRN Albuterol Sulfate (Ventolin HFA Inhaler) 200 Puff/18 Gm Inhaler 1 PUFF INH Q4 PRN PRN For Wheezing Alprazolam (Alprazolam) 0.5 Mg Tablet 0.5-1 MG PO TID PRN PRN For Anxiety Hydromorphone (Hydromorphone) 2 Mg Tablet 2 MG PO Q4H PRN PRN For Pain Lidocaine HCl (Lidocaine HCl Viscous) 20 Mg/1 Ml Solution 5 ML MM QID PRN PRN MOUTH PAIN Nitroglycerin SL (Nitroglycerin SL) 0.4 Mg Tab.subl 0.4 MG SL PRN PRN PRN For Chest Pain Polyethylene Glycol 3350 (Miralax) 17 Gm Powd.pack 17 GM PO DAILY PRN PRN For Constipation General Time Seen by MD: 17:44 Chief Complaint Shortness of breath Hx Obtained From: Patient, Other family..., EMS Arrived By: Ambulance Sudden in Onset?: No Symptom Duration: Since onset Recent Healthcare: Recent doctor visit, Recent hospitalization Similar Sx Previous: Yes Past Medical History Past Medical History Notes: Oncologist Dr. 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 Hematology oncology office visit with increasing weakness 07/03/2016 Reports: Hypertension Past Surgical History Toe surgery Family History Noncontributory Smoking History Former Smoker Social History Alcohol Use: Denies alcohol use Drug Use: Denies drug use Other Social History: Good social support, , Local resident Ambulatory Status Independent Review of Systems Constitutional: Reports: Chills, Fever Respiratory: Reports: Non-productive cough, Pleuritic pain, Shortness of breath Cardiovascular: Reports: Chest pain Musculoskeletal: Denies: Back pain, Neck pain Skin: Denies Rash Complete sys rev & neg: except as marked. Male: Denies Dysuria Neurologic: Denies: Headache Psychiatric: Reports: Confusion Physical Exam Initial Vital Signs Vital Signs (First) Date Time Temp Pulse Resp B/P Pulse Ox O2 Delivery O2 Flow Rate FiO2 07/26/16 16:40 36.4 87 20 201/167 96 Room Air 07/26/16 20:00 2 Initial VS: Reviewed General/Constitutional: Awake, Alert ill in appearance groaning frequent cough Neck: Atraumatic, Supple, Full range of motion Respiratory / Chest: Atraumatic, No respiratory distress rales, left Cardiovascular: Heart rate NL, Regular rhythm systolic ejection murmur ENT: Atraumatic, Airway patent, Mucous membranes moist Abdomen: Atraumatic, Soft mild diffuse tenderness Back: Atraumatic, Full range of motion Lower Extremity / Pelvis / MS: Atraumatic, Full range of motion Skin: Atraumatic, Color NL, No rash, Dry hot to the touch no petechia or purpura Neurologic: Oriented X3, Speech NL, No motor deficits, No sensory deficits Upper Extremity / MS: Atraumatic, Full range of motion Psychiatric: Affect NL, Mood NL Interpretation & Diagnostics Lab Results Interpretation Result Diagram: 07/26/16 1635 07/26/16 1635 Test 07/26/16 16:35 07/26/16 21:03 White Blood Count 9.7th/mm3 (3.8-10.1) Red Blood Count 3.56mil/mm3 (4.40-5.80) Hemoglobin 9.9g/dL (13.8-17.2) Hematocrit 32.8% (41.0-50.0) Mean Corpuscular Volume 92.1fL (81-100) Mean Corpuscular Hemoglobin 27.8pg (27.0-35.0) Mean Corpuscular Hemoglobin Concent 30.2% (32.0-37.0) Red Cell Distribution Width 20.0% (12.3-15.4) Platelet Count 327bil/L (150-400) Neutrophils (%) (Auto) 55.4% (40-74) Lymphocytes (%) (Auto) 22.3% (14-46) Monocytes (%) (Auto) 14.2% (4-12) Eosinophils (%) (Auto) 6.9% (0-5) Basophils (%) (Auto) 0.4% (0-3) Hold Purple Top Tube Received (Received) D-Dimer 18.3mg/L (<0.50) Hold Blue Top Tube Received (Received) Sodium Level 138mEq/L (134-144) Potassium Level 4.0mEq/L (3.5-5.2) Chloride Level 101mEq/L (97-108) Carbon Dioxide Level 22mmol/L (18-29) Blood Urea Nitrogen 9mg/dL (8-27) Creatinine 0.63mg/dL (0.76-1.27) Estimat Glomerular Filtration Rate 131mL/min (>59) Glucose Level 96mg/dL (60-99) Lactic Acid Level 1.4mmol/L (0.4-2.0) Calcium Level 8.2mg/dL (8.5-10.1) Magnesium Level 2.2mg/dL (1.6-2.6) Total Bilirubin 0.5mg/dL (0.0-1.2) Aspartate Amino Transf (AST/SGOT) 18U/L (0-50) Alanine Aminotransferase (ALT/SGPT) 7U/L (0-44) Alkaline Phosphatase 263U/L (25-160) Troponin T < 0.010ug/L (0.0-0.011) Total Protein 6.6g/dL (6.4-8.4) Albumin 3.6g/dL (3.4-5.0) Procalcitonin 0.06ng/mL (0.00-0.08) Hold [place] Top Tube Received (Received) Hold Horn Top Tube Received (Received) Urine Color Yellow (YELLOW) Urine Appearance Clear (CLEAR,HAZY) Urine pH 5.5 (5.0-8.0) Urine Specific [place] 1.015 (1.003-1.035) Urine Protein Negativemg/dL (NEG,TRACE) Urine Glucose (UA) Negativemg/dL (NEGATIVE) Urine Ketones Negativemg/dL (NEGATIVE) Urine Occult Blood Negative (NEGATIVE) Urine Nitrite Negative (NEGATIVE) Urine Bilirubin Negative (NEGATIVE) Urine Urobilinogen Normalmg/dL (NORMAL) Urine Leukocyte Esterase Negative (NEGATIVE) Urine RBC 0-2/hpf (0-2) Urine WBC 0-5/hpf (0-5) Urine Epithelial Cells Occasional/hpf (NONE-MOD) Urine Crystals None seen (NONE SEEN) Urine Bacteria Few/hpf (NONE-FEW) Urine Hyaline Casts None/lpf (NONE) Urine Granular Casts None seen (NONE SEEN) Urine Waxy Casts None seen (NONE SEEN) Urine Red Blood Cell Casts None seen (NONE SEEN) Urine White Blood Cell Casts None seen (NONE SEEN) Urine Mucus Present (None Seen) Urine Trichomonas None seen (NONE SEEN) Urine Yeast None (NONE SEEN) Urinalysis Comment None Urine Culture Reflexed Not indicated Pulse Oximetry Interpretation Pulse Oximetry Interpretation: 96% on room air Pulse Oximetry: Pulse Ox normal Pulse Oximetry Interpretation: 95% on nasal cannula Pulse Oximetry: Pulse Ox normal ECG Interpretation ECG Interpretation: normal sinus rhythm with a rate of 82 narrow complex P waves not definitively seen Time: 17:06 Interpreted by: ED physician X-Ray Chest Interpretation Chest Xray Interpretation: IMPRESSION: Scattered bibasilar scarring/atelectasis. No definite acute disease Dictated by: Jp Paulino M.D. on 07/26/2016 at 17:55 Approved by: Jp Paulino M.D. on 07/26/2016 at 17:56 Interpretation / Wet Read by: Interpret - Radiologist Re-Eval/Medical Decision Med Decision/Clinical Course I am not sure this gentleman has pneumonia or pulmonary emboli. His d-dimer is markedly elevated. He is going to be started on Lovenox as well as antibiotics. Due to his allergies to contrast we will plan for VQ scan in the morning. Case discussed with her hospitalist and he was accepted for admission. Source of Hx: Old records Re-Evaluation/Progress : Time of Eval: 21:40 Patient Status: Condition improved Re-Evaluation/Progress Note: Pt rechecked, who is stable. Diagnosis and the plan for admission are discussed. The pt understands and agrees with the plan. All questions are addressed at this time. Consultation : Referral / Consult Name: Jean-Paul Olivia MD Consulted With: Hospitalist Call Returned at: 21:43 Communications Senior Associate: Agrees with eval, Agrees with plan, Accepts admit Note: Spoke with Dr. Olivia, hospitalist, regarding pt's case. Dr. Olivia agrees with the evaluation and agrees to admit the pt. Counseled Regarding: Diagnosis, Lab results, Need for admission Discharge & Departure Impression: Primary Impression: Febrile illness Additional Impressions: Dyspnea Dyspnea type: unspecified Qualified Code: R06.00 - Dyspnea, unspecified Cough Disposition: ADMITTED TO HOSPITAL Discharge Condition All VS Reviewed: Yes Condition: Stable Referrals: Johnson Payton MD (PCP) Satish Attestation Portions of this note were transcribed by Sawyer Kilpatrick. I, Dr. Villanueva personally performed the history, physical exam and medical decision-making; I reviewed and confirmed the accuracy of the information in the transcribed note. Signed by: Satish Funez, 07/26/2016 and [id number]. copies to: Johnson Payton MD, Todd P DO Jul 26, 2016 18:15 SAWYER KILPATRICK Jul 26, 2016 18:16
[2016-07-26] MEDS ORDERED: 0.9% Sodium Chloride 500 ML IV ONE (18:20)
[2016-07-26] MEDS: HYDROmorphone 0.5 mg/0.5 mL iSecure Syringe IVPUSH PRN ×4 (18:33→23:01)
[2016-07-26 20:00] VITALS: BP 128/89; PULSE 78; RESP 14; O2SAT 97
[2016-07-26] MEDS ORDERED: Piperacillin-Tazo 3.375 Gm Inj 3.375 GM in Dextrose 5% Minibag Plus 50 ML IV ONE (20:25)
[2016-07-26 21:12] VITALS: BP 136/61; PULSE 83; RESP 15; O2SAT 94
[2016-07-26 21:12] LABS: APPEARANCE,URINE CLEAR (CLEAR,HAZY); COLOR,URINE YELLOW (YELLOW); OCCULT BLOOD,URINE NEGATIVE (NEGATIVE); PH,URINE 5.5 (5.0-8.0); UROBILINOGEN,URINE NORMAL (NORMAL)
[2016-07-26] MEDS ORDERED: ALPR0.5T8 PO (22:09)
[2016-07-26] MEDS ORDERED: LIDO20SO MM (22:13)
[2016-07-26] MEDS ORDERED: Polyethylene Glycol (PEG) 17 Gm Powder PO PRN (22:50)
[2016-07-26] MEDS ORDERED: Alum-Mag Hydrox-Simeth 30 mL Suspension PO PRN (22:50)
[2016-07-26] MEDS ORDERED: HYDROmorphone 0.5 mg/0.5 mL iSecure Syringe IVPUSH PRN ×2 (23:25→23:30)
[2016-07-26 23:53] VITALS: BP 153/84; PULSE 88; RESP 26; O2SAT 91
[2016-07-27] VITALS (8 sets, daily range): BP systolic 111–138; BP diastolic 57–75; PULSE 66–89; RESP 20–22; O2SAT 94–97
[2016-07-27] MEDS ORDERED: Ondansetron 2 mg/mL 2 mL Inj IVPUSH PRN
[2016-07-27] MEDS: Acetaminophen IV 1,000 MG in IV Premix 1 EACH IV PRN ×2 (00:22→15:41)
[2016-07-27] MEDS: 0.9% Sodium Chloride 1,000 ML IV SCH ×3 (00:30→21:07)
--- NOTE | 2016-07-27 01:52 | PCM.HPMED ---
Subjective Date of Service Jul 26, 2016 Primary Provider: Admitting Physician: Jean-Paul Olivia MD Primary Care Physician: Johnson Payton MD Attending Physician: Jean-Paul Olivia MD Admit Status: From the Emergency Department, Remote Telemetry Chief Complaint: Weakness, pain, SOB History of Present Illness: Mr. Rodrigo Barlow is a 76-year-old Belarusian-speaking male with history of stage IV prostate cancer with skeletal metastasis, frequent pneumonia, and hypertension who presents to the emergency department by EMS services for worsening generalized weakness, productive cough, SOB, and pain all over onset today. By the time of admission, patient is somnolent and history is obtained through his daughters. They report that his cough has been persistent since the last hospitalization, but it becomes worse and more productive today. His reports thick yellow sputum. The family checked his temperature at home but it was normal. They also report that he has become progressively weaker and has no appetite. He complains of pain all over his body, nausea, and vomiting x 1. His family has not noticed any change in his mental status except that he is sleepier today. They deny any urinary symptoms, diarrhea, or headache. Patient has chronic constipation. The patient has been in the hospital repeatedly for pneumonia in recent months. His last session of chemotherapy was two weeks ago. He was told by Dr. Gomez that the chemotherapy will be placed on hold due to his increasing weakness. They plan to resume treatment when he feels better and still motivated. Otherwise, he should consider palliative care alone. In the ED, his initial temporal and oral temp was around 36.4. However, when they checked his rectal temp, it was 38.9. BP 110/59 (one reading of 201/167, improved spontaneously). HR 82, RR 18, Pulse ox 97 at 2L. WBC 9.7, H/H 9.9/34.8 , Plt 327, Eosinophils 6.9. CMP normal. LA 1.4, procal 0.06. His CXR showed scattered bibasilar scarring/atelectasis with no definite acute disease. D- Dimer was markedly elevated at 18.3, but because patient is allergic to contrast medium and iodine, CT angio cannot be done. Antibiotics was initiated with Zosyn in the ED. Review of Systems: A comprehensive review of systems was conducted with the patient and found to be negative except as above in the History of Present Illness. Allergies Coded Allergies: hydrocodone (Verified Allergy, Severe, hives, 07/04/16) iodine (Verified Allergy, Severe, it brought him to the hospital, 07/04/16) omeprazole (Verified Allergy, Mild, SHAKINESS, 07/04/16) Uncoded Allergies: CONTRAST MEDIUM (Allergy, Severe, ANAPHYLAXIS, 05/10/16) Home Medications Scheduled Aspirin (Aspirin) 81 Mg Tablet 81 MG PO DAILY Atorvastatin Calcium (Atorvastatin Calcium) 10 Mg Tablet 10 MG PO DAILY Gabapentin (Gabapentin) 300 Mg Capsule 300 MG PO TID Methadone (Methadone) 5 Mg Tablet 5 MG PO BID Metoprolol Succinate ER (Metoprolol Succinate ER) 50 Mg Tab.er.24h 50 MG PO BID Mirtazapine (Mirtazapine) 15 Mg Tablet 7.5 MG PO HS Pantoprazole DR (Pantoprazole DR) 20 Mg Tablet.dr 20 MG PO QAM Tamsulosin (Flomax) 0.4 Mg Capsule 0.4 MG PO BID Scheduled PRN Albuterol Sulfate (Ventolin HFA Inhaler) 200 Puff/18 Gm Inhaler 1 PUFF INH Q4 PRN PRN For Wheezing Alprazolam (Alprazolam) 0.5 Mg Tablet 0.5-1 MG PO TID PRN PRN For Anxiety Hydromorphone (Hydromorphone) 2 Mg Tablet 2 MG PO Q4H PRN PRN For Pain Lidocaine HCl (Lidocaine HCl Viscous) 20 Mg/1 Ml Solution 5 ML MM QID PRN PRN MOUTH PAIN Nitroglycerin SL (Nitroglycerin SL) 0.4 Mg Tab.subl 0.4 MG SL PRN PRN PRN For Chest Pain Polyethylene Glycol 3350 (Miralax) 17 Gm Powd.pack 17 GM PO DAILY PRN PRN For Constipation PMH Pneumonia UTI Depression Anxiety 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 Surgical History Toe surgery Family History Family denies any significant family history Social History Hx Alcohol Use: Yes (past alcohol use. Sober for 15 years) Hx Substance Use: Yes (marijuana use intermittently) Hx Tobacco Use: Yes Smoking Status: Former Smoker (Light smoker in his youth) Living Arrangement: with Family Additional Information Patient lives with his at home. Family reports independent ambulation at baseline and uses walker intermittently. He has no issue with swallowing per his family. Exam Vital Signs Vital Sign - Last Date Time Temp Pulse Resp B/P Pulse Ox O2 Delivery O2 Flow Rate FiO2 07/26/16 21:12 83 15 136/61 94 Nasal Cannula 4 07/26/16 17:54 38.9 Exam General: chronically ill appearance, groaning in pain, somnolent but arousable HEENT: Head is atraumatic and normocephalic. Eyes: Pupils are equally round and reactive to light and accommodation. Extraocular muscles are intact. Sclera are white, anicteric. Subconjunctival mucosa is dry. Neck: Is supple, there are no nodes, or masses or tenderness. Chest: Loud, coarse rales throughout. No wheezes or rhonchi. No accessory muscle use. Heart: Rate, rhythm is regular. There is no murmur, rub or gallop. Abdomen: Good bowel sounds are present. Abdomen is soft, nondistended but mild diffuse tenderness in all quadrant, no guarding/rebound tenderness. No organomegaly or masses were appreciated. Extremities: Are symmetrical and well perfused. There is no edema, cyanosis, or rash. Neurologic: Somnolent, but oriented. Normal speech. Patient refused to do the rest of the neuro exam. Psychiatric: No sign of agitation. Lab and Diagnostics Result Diagram: 07/26/16 1635 07/26/16 1635 X-Rays, CTs and MRIs PROCEDURE: X-RAY CHEST ONE VIEW, PORTABLE IMPRESSION: Scattered bibasilar scarring/atelectasis. No definite acute disease Dictated by: Jp Paulino M.D. on 07/26/2016 at 17:55 Approved by: Jp Paulino M.D. on 07/26/2016 at 17:56 12-lead ECG EKG regular rhythm and rate of 82. P waves not definitively seen. Assessment & Plan 76-year-old Belarusian-speaking male with history of stage IV prostate cancer with skeletal metastasis, hypertension, and multiple pneumonia who presents to the emergency department by EMS services for worsening generalized weakness, uncontrolled pain, productive cough, and dyspnea. 1. Dyspnea, acute, present on admission, active. - High suspicion index for pulmonary embolism given markedly elevated D-Dimer of 18.3 and patient's hypercoagulable state. - Due to patient's severe reaction to contrast medium, cannot proceed with CT angio. - Will start Lovenox dosing per pharmacy. - V/Q scan in the morning. - Albuterol inhaler available PRN 2. Possible healthcare-acquired pneumonia, present on admission, active. - Patient presents with increasing sputum production and purulence with a fever of 38.9. - However, normal WBC and CXR. Procal is essentially negative at 0.06. - Influenza screen negative - Continue Zosyn started in the emergency room - Sputum and blood cultures pending. - Check Legionella and strep Ag - Continue to monitor vital signs. - Concerning for aspiration given his somnolent state. Will have swallow eval in the morning and keep NPO overnight. PO meds ok. - IVF with NS @100mls/hr 3. Metastatic prostate cancer with skeletal involvement, present on admission, recently discontinuing chemotherapy. -Weakness is likely related to deconditioning from cancer - We will continue his home narcotics (Methadone and Hydromorphone PO), also some when necessary IV morphine, as needed for pain control -We will continue Gabapentin -Consult Dr. Gomez for guidance in the morning. Consider palliative care consult. -PT eval ordered. 4. Urinary retention noted during recent admission,chronic. -Continue Tamsulosin -Will place Porras catheter 5. Hypertension, chronic, controlled. - Continue home Metoprollol -We will continue to monitor vital signs. 6. Hyperlipidemia, chronic, presume stable. -Continue Atorvastatin 7. Depression and history of anxiety -Continue Mirtazapine 8. Code status: FULL CODE per family. Our record shows that the patient's code status has been DNR/DNI the last hospital visits. However, when asked about code status, the family stated that no one ever asked them this question and would like to have FULL CODE. Patient was somnolent and could not answer for himself. Patient is admitted under inpatient status with expected length of stay greater than 2 midnights due to severity of presenting symptoms, risk of adverse event, and complexity of treatment plan. Pain Evaluation: Adequate Pain Control GI Prophylaxis: Proton Pump Inhibitor VTE Prophylaxis: Sub-Q Enoxaparin Resuscitation Status: CPR: Attempt Resuscitation Eleazar Petty DO Jul 26, 2016 23:30 Jean-Paul Olivia MD Jul 27, 2016 03:32
--- NOTE | 2016-07-27 04:04 | NUR ---
Admit Patient arrived to unit at 2310 from ED on [facility]. Three person assist transfer to bed. Patient SOB, confused, nauseous and febrile with productive cough when arrived. Request made to hospitalist for liquid Tylenol and anti emetic. LOC improved post Tylenol administration, nausea resolved and pain managed at this time. Currently sleeping comfortably.
[2016-07-27 05:22] LABS: BASOPHILS % (AUTO) 0.5 % (0-3); EOSINOPHILS % (AUTO) 5.7 % (0-5); MONOCYTES % (AUTO) 13.9 % (4-12); Mean Corpuscular Hemoglobin 28.4 pg (27.0-35.0); Mean Corpuscular Volume 91.9 fL (81-100); NEUTROPHILS % (AUTO) 64.1 % (40-74); Platelet Count 281 bil/L (150-400)
[2016-07-27] MEDS: Piperacillin-Tazo 3.375 Gm Inj 3.375 GM in Dextrose 5% Minibag Plus 50 ML IV SCH ×3 (05:49→21:40)
[2016-07-27] MEDS: Pantoprazole 20 mg ER24 Tablet PO SCH (07:30)
[2016-07-27] MEDS: MeTOProlol XL 50 mg ER24 Tablet PO SCH ×2 (08:30→21:10)
[2016-07-27] MEDS: HYDROmorphone 0.5 mg/0.5 mL iSecure Syringe IVPUSH PRN ×6 (10:53→23:39)
--- NOTE | 2016-07-27 11:56 | DRSVH ---
PROCEDURE: X-RAY CHEST, TWO VIEWS ([id number]) INDICATIONS: FEBRILE ILLNESS; POST VQ SCAN TECHNIQUE: 2 views of the chest were acquired. COMPARISON: [facility], CR, XR CHEST 1VW (PORTABLE), 07/26/2016, 17:09. FINDINGS: Surgical changes and devices: None. Lungs and pleura: No pleural effusions or pneumothorax. Bibasilar airspace opacities redemonstrated . Mediastinum: Mediastinal contours are normal. Heart size is normal. Bones and chest wall: No suspicious bony abnormalities. Soft tissues appear unremarkable. IMPRESSION: Bibasilar atelectasis versus aspiration or pneumonia. Correlate clinically. Dictated by: Bart Mcclellan RRA Interpreted: Colleen Fitzpatrick MD on 07/27/2016 at 11:55 Transcribed by: JOSE on 07/27/2016 at 11:55 Approved by: Colleen Fitzpatrick MD, PhD on 07/27/2016 at 16:52
--- NOTE | 2016-07-27 12:19 | NUR ---
Evaluation completed. Please go to "Notes" then click on "Assessments and Notes" (bottom left corner of screen). Then select appropriate discipline tab on top of screen.
--- NOTE | 2016-07-27 14:46 | DRSVH ---
PROCEDURE: CA LUNG VQ RADIOPHARMACEUTICAL: 26.6 mCi Tc-99m DTPA aerosol by inhalation and 5.2 mCi Tc-99m MAA intravenously . INDICATIONS: ELEVATED D-DIMER. TECHNIQUE: Ventilation images were obtained first with Tc-99m DTPA aerosol. Subsequently, perfusion images were acquired after intravenous injection of Tc-99m MAA. Anterior, posterior, COBURN, DEJON, RPO, LPO, left and right lateral views were obtained. COMPARISON: [facility], [place], CA LUNG VQ, 07/04/2016, 15:23. [facility], , X R CHEST 2VW, 07/27/2016, 9:07. FINDINGS: Image quality ventilation images limited secondary to central deposition of radiopharmaceutical which we do to COPD versus poor aerosolization. Numerous, small, peripheral, wedge-shaped perfusion defects are identified which do not have definite matched ventilation defects. IMPRESSION: 1. Probability for pulmonary embolus is high. 2. Diagnosis sensitivity of study limited secondary to the poor quality ventilation images. Dictated by: Colleen Fitzpatrick MD, PhD on 07/27/2016 at 14:42 Approved by: Colleen Fitzpatrick MD, PhD on 07/27/2016 at 14:45
--- NOTE | 2016-07-27 15:41 | NUR ---
Faxed clinicals to [facility] per [facility]IST
--- NOTE | 2016-07-27 16:18 | NUR ---
Social Work- Initial Assessment Data: See Initial Assessment. Pt is a 76 year old male admitted 07/26/16 for febrile illness per H&P. Pt's readmit risk score is 7. Pt's insurance is [facility] and [facility] Supp. Pt's PCP is Johnson Payton MD. MEENU spoke with pt's daughter Mely Barlow regarding discharge plan, MEENU role explained. Pt resides in [place] with his . Mely is pt's caregiver, pt also has SAMANTA (KIKI Henao).MEENU requested UR Specialist fax H&P to CM. Pt uses a walker or cane at base. Pt has no HH or SNF history. Pt has no LTC or VA benefits. SW encouraged pt to bring completed form to hospital. Pt to discharge home with caregivers pending clinical course. No anticipated discharge needs. SW will continue to follow. Assessment: Pt who has SAMANTA and caregivers at home. Plan: Pt to discharge home with caregivers pending clinical course. No anticipated discharge needs. MEENU will continue to follow. CARMEN Lucio Addendum: 07/27/16 at 1620 by ZAYDA LUEVANO SS Amended: Links added.
[2016-07-27] MEDS: ALPRAZolam 0.5 mg Tablet PO PRN (16:29)
[2016-07-27 17:05] LABS: INR 1.12 ratio
--- NOTE | 2016-07-27 19:20 | PCM.CONPHA ---
Subjective Date of Service: Jul 27, 2016 Weakness, pain, SOB Reason for Pharmacy Consult: Anticoagulation Management Objective Vital Signs Date Time Temp Pulse Resp B/P Pulse Ox O2 Delivery O2 Flow Rate FiO2 07/27/16 14:05 36.1 80 20 134/68 96 Nasal Cannula 4.00 07/27/16 10:55 36.7 89 22 129/74 95 Nasal Cannula 4.00 07/27/16 09:38 37.9 86 20 138/75 94 Nasal Cannula 4.00 07/27/16 07:10 85 07/27/16 05:42 89 07/27/16 04:58 Supplement Oxygen 07/27/16 04:50 36.8 80 22 129/65 94 Nasal Cannula 4.00 07/26/16 23:53 38.1 88 26 153/84 91 Nasal Cannula 4.00 07/26/16 23:10 Supplement Oxygen 07/26/16 21:12 83 15 136/61 94 Nasal Cannula 4 07/26/16 20:00 78 14 128/89 97 Nasal Cannula 2 Intake and Output 07/25/16 07/26/16 07/27/16 00:00 00:00 00:00 Intake Total 500 ml Balance 500 ml Weight (Kilograms): 78.400 Height (Feet): 5 Height (Inches): 10.00 Test 07/26/16 16:35 07/26/16 21:03 07/27/16 05:18 07/27/16 16:45 Hold Purple Top Tube Received (Received) D-Dimer 18.3mg/L (<0.50) Hold Blue Top Tube Received (Received) Magnesium Level 2.2mg/dL (1.6-2.6) Troponin T < 0.010ug/L (0.0-0.011) Hold [place] Top Tube Received (Received) Hold [place] Top Tube Received (Received) Urine Color Yellow (YELLOW) Urine Appearance Clear (CLEAR,HAZY) Urine pH 5.5 (5.0-8.0) Urine Specific [place] 1.015 (1.003-1.035) Urine Protein Negativemg/dL (NEG,TRACE) Urine Glucose (UA) Negativemg/dL (NEGATIVE) Urine Ketones Negativemg/dL (NEGATIVE) Urine Occult Blood Negative (NEGATIVE) Urine Nitrite Negative (NEGATIVE) Urine Bilirubin Negative (NEGATIVE) Urine Urobilinogen Normalmg/dL (NORMAL) Urine Leukocyte Esterase Negative (NEGATIVE) Urine RBC 0-2/hpf (0-2) Urine WBC 0-5/hpf (0-5) Urine Epithelial Cells Occasional/hpf (NONE-MOD) Urine Crystals None seen (NONE SEEN) Urine Bacteria Few/hpf (NONE-FEW) Urine Hyaline Casts None/lpf (NONE) Urine Granular Casts None seen (NONE SEEN) Urine Waxy Casts None seen (NONE SEEN) Urine Red Blood Cell Casts None seen (NONE SEEN) Urine White Blood Cell Casts None seen (NONE SEEN) Urine Mucus Present (None Seen) Urine Trichomonas None seen (NONE SEEN) Urine Yeast None (NONE SEEN) Urinalysis Comment None Urine Culture Reflexed Not indicated Urine Legionella pneumophilia Ag Negative (Negative) White Blood Count 10.8th/mm3 (3.8-10.1) Red Blood Count 3.35mil/mm3 (4.40-5.80) Hemoglobin 9.5g/dL (13.8-17.2) Hematocrit 30.8% (41.0-50.0) Mean Corpuscular Volume 91.9fL (81-100) Mean Corpuscular Hemoglobin 28.4pg (27.0-35.0) Mean Corpuscular Hemoglobin Concent 30.8% (32.0-37.0) Red Cell Distribution Width 19.7% (12.3-15.4) Platelet Count 281bil/L (150-400) Neutrophils (%) (Auto) 64.1% (40-74) Lymphocytes (%) (Auto) 15.0% (14-46) Monocytes (%) (Auto) 13.9% (4-12) Eosinophils (%) (Auto) 5.7% (0-5) Basophils (%) (Auto) 0.5% (0-3) Sodium Level 137mEq/L (134-144) Potassium Level 4.4mEq/L (3.5-5.2) Chloride Level 103mEq/L (97-108) Carbon Dioxide Level 20mmol/L (18-29) Blood Urea Nitrogen 10mg/dL (8-27) Creatinine 0.64mg/dL (0.76-1.27) Estimat Glomerular Filtration Rate 129mL/min (>59) Glucose Level 85mg/dL (60-99) Lactic Acid Level 0.7mmol/L (0.4-2.0) Calcium Level 7.7mg/dL (8.5-10.1) Total Bilirubin 0.7mg/dL (0.0-1.2) Aspartate Amino Transf (AST/SGOT) 17U/L (0-50) Alanine Aminotransferase (ALT/SGPT) 6U/L (0-44) Alkaline Phosphatase 222U/L (25-160) Total Protein 5.5g/dL (6.4-8.4) Albumin 3.2g/dL (3.4-5.0) Procalcitonin 0.21ng/mL (0.00-0.08) Prothrombin Time 12.0sec (8.1-12.5) Prothromb Time International Ratio 1.12ratio Assessment/Plan Assessment/Plan Warfarin per Rx Indication: PE - new onset INR Goal : 2 - 3; today is 1.12 MD ordered 5mg for today; Pharmacy to manage starting tomorrow. Daily INR ordered Grupo Bradshaw PharmD Jul 27, 2016 19:20
--- NOTE | 2016-07-27 19:54 | NUR ---
Pt Off Floor Pt off floor to procedure from 0730 to 0930. Held AM meds as pt NPO for procedure and pending speech eval.
--- NOTE | 2016-07-27 20:12 | NUR ---
Family Concerns At 1850 pt family expressed desire to transfer pt to alternate care facility as they felt he was not receiving the 'best care he can get' at this facility. Although the MD had rounded on the pt and family they stated they feel as though they have not been provided with adequate information for treatment methods for the pts PE and would like further clarification of the treatment plan and options available. Also expressed concern over pt pain level and pain management from the previous shift. Informed pt family of the traffic signal supervisor maintenance extension on the white board in the room and extended the option for them to leave a message with their concerns so they could have the opportunity to be addressed by the traffic signal supervisor maintenance. Family also asked why the pts oncologist had not been consulted for the treatment of the PE. After extensive conversation, explained to family this nurse was unable to answer their questions in depth and that a note would be documented in the chart and their concerns would be passed on to the next shift. Directed them to speak with Case Management in the AM regarding logistics and options available for transfer.
[2016-07-28] VITALS (7 sets, daily range): BP systolic 94–139; BP diastolic 46–73; PULSE 70–90; RESP 16–20; O2SAT 93–100
[2016-07-28] MEDS: Albuterol 2.5 mg/3 mL Inhalation Solution NEB PRN (00:56)
[2016-07-28] MEDS: HYDROmorphone 0.5 mg/0.5 mL iSecure Syringe IVPUSH PRN ×10 (02:40→22:22)
--- NOTE | 2016-07-28 04:52 | NUR ---
Pain/ Cough/ Family Concerns Pt. reports pain 09/13. Pt. states it gets worse with coughing. Jonathan MCKEON paged about cough. Jonathan MCKENO ordered tessolon pearles for cough. Which seems to be effective for cough. Pt. has needed 3-4 liters of oxygen via oxymask to stat mid 90s. Family was educated on what is currently being done for pt's diagnosis. Family voiced understanding, and had no further questions.
[2016-07-28 04:55] LABS: INR 1.17 ratio
[2016-07-28 05:29] LABS: BASOPHILS % (AUTO) 0.5 % (0-3); EOSINOPHILS % (AUTO) 8.6 % (0-5); Mean Corpuscular Hemoglobin 27.6 pg (27.0-35.0); Mean Corpuscular Volume 92.9 fL (81-100); NEUTROPHILS % (AUTO) 61.3 % (40-74); Platelet Count 287 bil/L (150-400)
[2016-07-28] MEDS: 0.9% Sodium Chloride 1,000 ML IV SCH ×2 (05:42→16:22)
[2016-07-28] MEDS: Piperacillin-Tazo 3.375 Gm Inj 3.375 GM in Dextrose 5% Minibag Plus 50 ML IV SCH ×3 (05:43→21:14)
[2016-07-28] MEDS: Pantoprazole 20 mg ER24 Tablet PO SCH (08:16)
[2016-07-28] MEDS: MeTOProlol XL 50 mg ER24 Tablet PO SCH ×2 (08:16→21:11)
--- NOTE | 2016-07-28 12:16 | NUR ---
Advocate Called Patient Advocate Claire Lowe with help of Shazia from [employer] to address issues with family wanting pt to transfer to another hospital. Meeting set up for 3pm with and families choice of [address]A Cardoza, [employer], Patient Advocate, Nurse, and case management. Care conts
--- NOTE | 2016-07-28 13:21 | NUR ---
Palliative care note D/A: Phone call from weigher and charger Beth Ford to inquire about PC- Dr. Stoll's ability to see pt today and participate in a 3pm care conference today. Case discussed with Dr. Stoll who kindly agrees to participate. Family has expressed concerns and is considering a transfer to another acute care facility. Pt is well known to palliative care. Pt is cared for at home by family and has SAMANTA. He has end stage prostate cancer. Pt and spouse do not speak [place]wana well-children do. It is advisable to always use an cloth cutting machine operator to converse with this pt so that he can participate in conversation and does not have to rely on family for translation. Dtr Mely can be reached at [phone]. She is primary CG for pt. Dtr Andreina can be reached at [phone]. P: Palliative care to follow. Nicole VELASCO, CCM
--- NOTE | 2016-07-28 14:26 | NUR ---
Pain Pt complaining of pain 11/13, administered morning methadone and 0.5mg IV Dilaudid q2 hour for PRN pain, pt stated no pain when reassessed. continuing to monitor pain closely. Family happy with current pain management. Family frequently asking question about possible transfer, notified Charge, social worker clinical, Risk management, Meeting set up for 1500 to discuss plan of care. Addendum: 07/28/16 at 1933 by BARBI CALERO RN Family much happier with pt care after meeting.
--- NOTE | 2016-07-28 18:24 | PCM.CONPAL ---
Date of Service Jul 28, 2016 Date of Hospital Admission: Jul 26, 2016 at 22:00 Date of Palliative Consult: Jul 28, 2016 Requesting Provider: Noemy Cardoza DO Reason Palliative Care Consult: Pain, Goals of Care Discussion Hospital Unit @time of consult: Orthopedic/Surgical Care Palliative Care Recommendation Summary of palliative recommendations: -Symptom management (Pain/other) Pain-has increased slightly receiving IV morphine and hydromorphone. We will increase his methadone from 5 mg twice a day to 7.5 mg twice a day. IV opiate interval also shortened. Patient continues to hold out hope that if his pain returns that he will be able to receive radiation for control-"8 years" Pulmonary emboli-reviewed driving factor with malignancy as well as issues with anticoagulation Progressive weakness-of concern. Possibly bad sequence of viral pneumonia secondary bacterial pneumonia now pulmonary embolus but also of concern that she is malignancy is progressing. Family has a difficult time accepting potential progression of disease. -DPOA/Advanced Directives/POLST-Mely and Claire are first DPOA's -Family/emotional support-family support Goal will be to communicate acute issues with Antonieta Hdz and Mely. Dr. Gomez will be notified of this hospitalization We will continue to follow as long as patient is in hospital. I believe he and his family would benefit with ongoing outpatient palliative care Problems: End of Life Preferences At this point full code. Patient had indicated in prior discussion that if near end of life he would refer to be at home rather than in hospital Goals of Care Aggressive care with anticoagulation, antibiotics and reconsideration for reinstituting Taxotere with Dr. Gomez Resuscitation Status Resuscitation Status: CPR: Attempt Resuscitation POLST Updates/Changes POLST Discussed with: Patient, Health Care Agent (DPOAHC) . Pain: Moderate Symptom management: Depression, Anxiety, Drowsiness/sleepiness, Dyspnea, Pain Pt History History of Present Illness Mr. 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 By the time of admission, patient is somnolent and history is obtained through his daughters. They report that his cough has been persistent since the last hospitalization, but it becomes worse and more productive today. His reports thick yellow sputum. The family checked his temperature at home but it was normal. They also report that he has become progressively weaker and has no appetite. He complains of pain all over his body, nausea, and vomiting x 1. His family has not noticed any change in his mental status except that he is sleepier today. They deny any urinary symptoms, diarrhea, or headache. Patient has chronic constipation. The patient has been in the hospital repeatedly for pneumonia in recent months. His last session of chemotherapy was two weeks ago. He was told by Dr. Gomez that the chemotherapy will be placed on hold due to his increasing weakness. They plan to resume treatment when he feels better and still motivated. Otherwise, he should consider palliative care alone. In the ED, his initial temporal and oral temp was around 36.4. However, when they checked his rectal temp, it was 38.9. BP 110/59 (one reading of 201/167, improved spontaneously). HR 82, RR 18, Pulse ox 97 at 2L. WBC 9.7, H/H 9.9/34.8 , Plt 327, Eosinophils 6.9. CMP normal. LA 1.4, procal 0.06. His CXR showed scattered bibasilar scarring/atelectasis with no definite acute disease. D- Dimer was markedly elevated at 18.3, but because patient is allergic to contrast medium and iodine, CT angio cannot be done. Antibiotics was initiated with Zosyn in the ED. PALLIATIVE CARE CONSULT 76 yo pt with known metastatic prostate CA with extensive bone involvement followed by Dr. Gomez for oncology and Dr. Payton for PCP. He has been treated for years for his prostate CA and now refractory. Recently some improvement of his PSA with Taxotere but this is on hold due to his progressive weakening. He has been hospitalized in May for UTI then jun and again in July for pneumonia. Last was 07/04-07/12 with only rhinovirus found. He was still coughing up copious phlegm and had ongoing low grade T at home. he improved slightly but then this past week, increasing SOB and weaker and loss of appetite and increase in his cough. He was brought to the ER with VQ noting high probability for PE and +urine strept Ag. He is now on lovenox, warfarin and Pip/chris. His family and pt are concerned because he is not getting better but each time seems worse. 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 Patient has 6 brothers and one of which has Parkinson's disease and one has had leukemia and is a leukemia survivor at 88 years old Patient has 4 sisters who are healthy. Exsmoker--minimal Exdrinker-hx overuse Social History Occupation: retired Social Support: large supportive family Living Situation: lives with his with support from his children Spiritual Support Spiritual Support [employer] Responsive Patient Symptoms Pain (current): Mild Pain (maximium): Moderate Tiredness/Fatigue: Moderate Nausea: None Depression: Moderate Anxiety: Moderate Drowsiness/Sleepiness: Mild Anorexia: None Shortness of Breath: Moderate Palliative Performance Scale PPS Ambulation: Reduced PPS Activity: Unable to do most activity PPS Self-Care: Occasional assistance necessary PPS Intake: Normal or reduced PPS Conscious Level: Full Performance Scale: 80% Allergy Allergies Reviewed: Yes (contrast med but tolerates with prep) Medications Current Medications: Current Medications Al Hydrox/Mg Hydrox/Simethicone 30 ml Q6H PRN PO; Start 07/26/16 at 22:50 Senna 17.2 mg BID PRN PO; Start 07/26/16 at 22:50 Polyethylene Glycol 17 gm DAILY PRN PO; Start 07/26/16 at 22:50 Acetaminophen 975 mg Q6H PRN PO Last administered on 07/28/16 09:57; Admin Dose 975 MG; Start 07/26/16 at 22:50 Pharmacy Consult 1 ea DAILY XX Last administered on 07/27/16 08:30; Admin Dose 1 EA; Start 07/27/16 at 08:30 Hydromorphone HCl 0.5 mg Q4 PRN IVPUSH; Start 07/26/16 at 23:25; Stop 07/26/16 at 23:32; Status DC Hydromorphone HCl 1 mg 1 mg Q4 PRN IVPUSH; Start 07/26/16 at 23:30; Stop at 01:35; Status DC Acetaminophen/ Premix 100 ml @ 400 mls/hr Q6H PRN IV Last administered on 07/27 15:41; Admin Dose 400 MLS/HR; Start 07/27/16 at 00:00; Stop 07/28/16 at 00 :01; Status DC Ondansetron HCl 4 mg 4 mg Q4H PRN IVPUSH Last administered on 07/27/16 00:22; Admin Dose 4 MG; Start 07/27/16 at 00:00 Sodium Chloride 1,000 ml @ 100 mls/hr Q10H IV Last administered on 07/28/16 16 :22; Admin Dose 100 MLS/HR; Start 07/27/16 at 00:30 Albuterol 1 mg Q4H PRN NEB Last administered on 07/28/16 00:56; Admin Dose 2.5 MG; Start 07/27/16 at 01:30 Alprazolam 0.1 mg TID PRN PO Last administered on 07/27/16 16:29; Admin Dose 0.1 MG; Start 07/27/16 at 01:30 Aspirin 81 mg DAILY PO Last administered on 07/28/16 08:15; Admin Dose 81 MG; Start 07/27/16 at 08:30 Atorvastatin Calcium 10 mg DAILY PO Last administered on 07/28/16 08:15; Admin Dose 10 MG; Start 07/27/16 at 08:30 Gabapentin 300 mg TID PO Last administered on 07/28/16 16:22; Admin Dose 300 MG ; Start 07/27/16 at 08:30 Hydromorphone HCl 2 mg Q4H PRN PO; Start 07/27/16 at 01:30; Stop 07/27/16 at 10 :36; Status DC Lidocaine HCl 5 ml QID PRN PO; Start 07/27/16 at 01:30 Methadone HCl 5 mg BID PO Last administered on 07/28/16 08:16; Admin Dose 5 MG ; Start 07/27/16 at 08:30; Stop 07/28/16 at 16:42; Status DC Metoprolol Succinate 50 mg BID PO Last administered on 07/28/16 08:16; Admin Dose 50 MG; Start 07/27/16 at 08:30 Mirtazapine 7.5 mg HS PO Last administered on 07/27/16 21:11; Admin Dose 7.5 MG ; Start 07/27/16 at 21:00 Nitroglycerin 0.4 mg PRN PRN SL; Start 07/27/16 at 01:30 Pantoprazole 20 mg DAILYAC PO Last administered on 07/28/16 08:16; Admin Dose 20 MG; Start 07/27/16 at 07:30 Tamsulosin HCl 0.4 mg BID PO Last administered on 07/28/16 08:15; Admin Dose 0.4 MG; Start 07/27/16 at 08:30 Morphine Sulfate 1-2 mg Q4H PRN IVPUSH Last administered on 07/27/16 09:30; Admin Dose 2 MG; Start 07/27/16 at 01:35; Stop 07/28/16 at 16:42; Status DC Piperacillin Sod/ Tazobactam Sod/ Dextrose/Water 50 ml @ 12.5 mls/hr Q8H IV Last administered on 07/28/16 13:09; Admin Dose 12.5 MLS/HR; Start 07/27/16 at 05:00 Hydromorphone HCl 0.5 mg Q2H PRN IVPUSH Last administered on 07/28/16 16:22; Admin Dose 0.5 MG; Start 07/27/16 at 10:40 Enoxaparin Sodium 80 mg Q12 SUBQ Last administered on 07/28/16 08:17; Admin Dose 80 MG; Start 07/27/16 at 20:30 Pharmacy Consult 1 ea DAILY@17 XX; Start 07/27/16 at 17:00 Benzonatate 100 mg TID PRN PO Last administered on 07/28/16 00:58; Admin Dose 100 MG; Start 07/28/16 at 00:45 Methadone HCl 7.5 mg BID PO; Start 07/28/16 at 20:30; Stop 07/28/16 at 20:30; Status DC Morphine Sulfate 1-2 mg Q3H PRN IVPUSH; Start 07/28/16 at 19:35; Stop 07/28/16 at 19:35; Status DC Methadone HCl 7.5 mg BID PO; Start 07/28/16 at 20:30 Morphine Sulfate 1-2 mg Q3H PRN IVPUSH; Start 07/28/16 at 17:00 Scheduled Aspirin (Aspirin) 81 Mg Tablet 81 MG PO DAILY Atorvastatin Calcium (Atorvastatin Calcium) 10 Mg Tablet 10 MG PO DAILY Gabapentin (Gabapentin) 300 Mg Capsule 300 MG PO TID Methadone (Methadone) 5 Mg Tablet 5 MG PO BID Metoprolol Succinate ER (Metoprolol Succinate ER) 50 Mg Tab.er.24h 50 MG PO BID Mirtazapine (Mirtazapine) 15 Mg Tablet 7.5 MG PO HS Pantoprazole DR (Pantoprazole DR) 20 Mg Tablet.dr 20 MG PO QAM Tamsulosin (Flomax) 0.4 Mg Capsule 0.4 MG PO BID Scheduled PRN Albuterol Sulfate (Ventolin HFA Inhaler) 200 Puff/18 Gm Inhaler 1 PUFF INH Q4 PRN PRN For Wheezing Alprazolam (Alprazolam) 0.5 Mg Tablet 0.5-1 MG PO TID PRN PRN For Anxiety Hydromorphone (Hydromorphone) 2 Mg Tablet 2 MG PO Q4H PRN PRN For Pain Lidocaine HCl (Lidocaine HCl Viscous) 20 Mg/1 Ml Solution 5 ML MM QID PRN PRN MOUTH PAIN Nitroglycerin SL (Nitroglycerin SL) 0.4 Mg Tab.subl 0.4 MG SL PRN PRN PRN For Chest Pain Polyethylene Glycol 3350 (Miralax) 17 Gm Powd.pack 17 GM PO DAILY PRN PRN For Constipation Objective Findings Exam Vital Sign - Last Date Time Temp Pulse Resp B/P Pulse Ox O2 Delivery O2 Flow Rate FiO2 07/28/16 17:16 36.5 73 16 94/57 95 Nasal Cannula 4.00 Intake and Output 07/27/16 07/27/16 07/28/16 Cumulative From/Thru 15:00 23:00 07:00 07/26/16 16:40 - 07/28/16 05:58 Intake Total 0 ml 1739 ml 2794 ml Output Total 375 ml 350 ml 925 ml Balance -375 ml 1389 ml 1869 ml Intake Oral 0 ml 250 ml 250 ml IV Total 1489 ml 2544 ml Output Urine Total 375 ml 350 ml 925 ml # Bowel Movements 1 1 General: Alert/Oriented x3 HEENT: PERRLA, EOMI, Scleral Anicteric Neuro: Cranial Nerve 3-12 Intact, Other (responds appropriately and involved in discussion, is [facility]) Lab/Diagnostics Lab and Imaging results reviewed in detail in EMR. Patient/Family Conference Discussion/Goals of Care Discussion Discussion with family reviewing their concerns. Dr. Cardoza also reviewed prior discussion day before with other family members. Concerns are not coming back to previous baseline. Concerns with being discharged prematurely, family feeling like they are being told to "give up" Concerns with general communication as well as understanding his deterioration from which is not improving Goals of care for the patient and family is to remain as aggressive as possible that we will have a likely positive outcome. They are aware that his tumor now has limited treatment. He felt that his chemotherapy from Dr. Gomez was causing his progressive weakness. He is now been off for a number of weeks without improvement. Reviewed goals of communication with staff and family. Focus will be on communicating to Antonieta Boone and Andreina. Request that the medication is then disseminated through family. Reviewed disease process and treatments with present focus on pulmonary emboli and explanations regarding anticoagulation Reviewed treatment of pneumonitis and concern for possible aspiration. Family has been working with speech therapy Supported family in their goal of advocacy and attention.. CODE STATUS is not addressed. He was changed from DO NOT RESUSCITATE to full code this admission. In the past discussion outpatient we had discussed treatments aggressive up to but not including CPR. This discussion will need to be postponed and revisited. Time spent Total time 70 minutes; >50% face to face with patient and/or family, providing counselling regarding plans and recommendations, and in care coordination with his/her medical teams. Majority of this time was spent in family conference from [id number] I also spent an additional [ ] minutes counseling for advanced care planning with the patient/the patients family/the surrogate decision maker. copies to: Johnson Payton MD; Meet Hardy MD, Jen Graham MD Jul 28, 2016 18:23
--- NOTE | 2016-07-28 18:26 | DRSVH ---
PROCEDURE: US VENOUS LEG DUPLEX BILATERAL INDICATIONS: V/Q scan showed concern for PE TECHNIQUE: Real-time imaging, as well as color and pulse Doppler interrogation, were performed of the deep veins of both legs from the inguinal ligament to the popliteal fossa. COMPARISON: None. FINDINGS: The deep veins are normally compressible, and free of intraluminal thrombus. Color and pu lse Doppler demonstrate normal phasic intravascular flow. There is normal augmentation response to d istal compression maneuver. IMPRESSION: No evidence of bilateral lower extremity DVT. Dictated by: Rubén Maloney M.D. on 07/28/2016 at 18:25 Approved by: Rubén Maloney M.D. on 07/28/2016 at 18:25
--- NOTE | 2016-07-28 19:06 | PCM.PNMED ---
Subjective Date of Service Jul 28, 2016 Subjective Patient is seen and examined. Yesterday discussed VQ scan results and treatment protocol with his family members, they were family members in the room. His daughters Marielle Fung but not present. An attempt was made to reach Antonieta and Marielle. The other sister Mely walked in and we discussed his new finding on his VQ scan and the protocol his , lexi, 2 other granddaughters in the room. This afternoon we have met with family which included the 3 daughters and the patient regarding his care. We once again went over this new diagnosis and treatment protocol with them and their questions were answered. Dr. Armas he was contacted and suggested first doing a DVT scan of his legs and then possibly arranging for a CTA PE protocol using [place] protocol. This was explained to the daughters Antonieta and Marielle and they were agreeable to this. According to the daughters, his allergy to iodine in the contrast is fairly severe. Patient states he is feeling okay. He only urinated Once this a.m. records indicate 3 75 mL. Every 6 hours bladder scan and straight cath orders are for put in. Patient continues to be on Zosyn for his strep pneumo. Blood cultures are negative to date. PCR respiratory viral panel, MRSA scan, blood cultures and sputum cultures are all negative to date. Exam Vital Signs Vital Sign - Last Date Time Temp Pulse Resp B/P Pulse Ox O2 Delivery O2 Flow Rate FiO2 07/28/16 04:38 36.9 90 20 127/46 95 OxyMask 4.00 Intake and Output 07/27/16 07/27/16 07/28/16 Cumulative From/Thru 15:00 23:00 07:00 07/26/16 16:40 - 07/28/16 04:41 Intake Total 0 ml 1055 ml Output Total 375 ml 575 ml Balance -375 ml 480 ml Intake Oral 0 ml 0 ml IV Total 1055 ml Output Urine Total 375 ml 575 ml # Bowel Movements 0 Exam Gen.: Mildly anxious HEENT: Normocephalic, atraumatic Heart: Regular rate and rhythm no S3-S4 sounds Lungs: Diminished on the right side, no wheezing Abdomen soft, nontender Extremities: Negative for edema Psych: Mildly anxious Neuro: No focal deficits IVs and Medications IV Fluids none Medications Reviewed: Medications were reviewed in detail Lab and Diagnostics Laboratory Tests Test 07/28/16 04:05 White Blood Count 8.4th/mm3 (3.8-10.1) Red Blood Count 3.12mil/mm3 (4.40-5.80) Hemoglobin 8.6g/dL (13.8-17.2) Hematocrit 29.0% (41.0-50.0) Mean Corpuscular Volume 92.9fL (81-100) Mean Corpuscular Hemoglobin 27.6pg (27.0-35.0) Mean Corpuscular Hemoglobin Concent 29.7% (32.0-37.0) Red Cell Distribution Width 19.9% (12.3-15.4) Platelet Count 287bil/L (150-400) Neutrophils (%) (Auto) 61.3% (40-74) Lymphocytes (%) (Auto) 16.5% (14-46) Monocytes (%) (Auto) 12.0% (4-12) Eosinophils (%) (Auto) 8.6% (0-5) Basophils (%) (Auto) 0.5% (0-3) Prothrombin Time 12.6sec (8.1-12.5) Prothromb Time International Ratio 1.17ratio Sodium Level 138mEq/L (134-144) Potassium Level 3.8mEq/L (3.5-5.2) Chloride Level 103mEq/L (97-108) Carbon Dioxide Level 20mmol/L (18-29) Blood Urea Nitrogen 10mg/dL (8-27) Creatinine 0.62mg/dL (0.76-1.27) Estimat Glomerular Filtration Rate 134mL/min (>59) Glucose Level 83mg/dL (60-99) Calcium Level 8.5mg/dL (8.5-10.1) Total Bilirubin 0.5mg/dL (0.0-1.2) Aspartate Amino Transf (AST/SGOT) 13U/L (0-50) Alanine Aminotransferase (ALT/SGPT) 5U/L (0-44) Alkaline Phosphatase 191U/L (25-160) Total Protein 5.9g/dL (6.4-8.4) Albumin 2.8g/dL (3.4-5.0) Procalcitonin 0.31ng/mL (0.00-0.08) Microbiology 3/22/17 Blood Culture - Preliminary, Resulted No growth at 2 days; culture examined... 07/27/16 Sputum Quality Screen - Final, Resulted 07/27/16 Sputum Culture - Preliminary, Resulted SCANT NORMAL MICHEAL PRESENT 07/26/16 Streptococcus pneumoniae Ag Screen - Final, Complete Strep Pneumoniae Antigen Intake and Output 07/27/16 07/27/16 07/28/16 Cumulative From/Thru 15:00 23:00 07:00 07/26/16 16:40 - 07/28/16 05:58 Intake Total 0 ml 1739 ml 2794 ml Output Total 375 ml 350 ml 925 ml Balance -375 ml 1389 ml 1869 ml Intake Oral 0 ml 250 ml 250 ml IV Total 1489 ml 2544 ml Output Urine Total 375 ml 350 ml 925 ml # Bowel Movements 1 1 Result Diagram: 07/27/16 0518 07/27/16 0518 X-Rays, CTs and MRIs PROCEDURE: X-RAY CHEST ONE VIEW, PORTABLE IMPRESSION: Scattered bibasilar scarring/atelectasis. No definite acute disease Dictated by: Jp Paulino M.D. on 07/26/2016 at 17:55 Approved by: Jp Paulino M.D. on 07/26/2016 at 17:56 12-lead ECG EKG regular rhythm and rate of 82. P waves not definitively seen. 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 1. Dyspnea, acute, present on admission, active.: Dyspnea likely due to pneumonia due to strep pneumo versus pulmonary embolism - High suspicion index for pulmonary embolism given markedly elevated D-Dimer of 18.3 and patient's hypercoagulable state. - Continue Lovenox 75 mg twice a day subcutaneous. - V/Q scan showed high probability of PE, Coumadin is started pharmacy is monitoring - Albuterol inhaler available PRN -- DVT ultrasound is ordered after discussing the case with Dr. Phelps. We will consider doing a CTA PE protocol if it shows negative findings after discussing the case with radiology as he has severe contrast allergies 2. healthcare-acquired pneumonia, present on admission, active. - Patient presents with increasing sputum production and purulence with a fever of 38.9. - However, normal WBC and CXR. Procal is essentially negative at 0.06. - Influenza screen negative - Continue Zosyn IV antibiotics - Sputum and blood cultures pending. - Check Legionella and strep Ag: Legionella negative strep no antigen positive - Continue to monitor vital signs. - Concerning for aspiration : Swallow study was done and he is currently onsoft diet and nectar thickened liquids -50 mL/h the IV fluids 3. Metastatic prostate cancer with skeletal involvement, present on admission, recently discontinuing chemotherapy. -Weakness is likely related to deconditioning from cancer - We will continue his home narcotics (Methadone and Hydromorphone PO), also some when necessary IV morphine, as needed for pain control: Palliative care care is now managing medications -We will continue Gabapentin - Dr. Plummer is contacted today, he currently has no plans to do chemotherapy at this time. Patient himself is saying that he did not like the way chemotherapy medications made him feel. -PT ordered. 4. Urinary retention noted during recent admission,chronic. -Continue Tamsulosin -Will place Porras catheter 5. Hypertension, chronic, controlled. - Continue home Metoprollol -We will continue to monitor vital signs. 6. Hyperlipidemia, chronic, presume stable. -Continue Atorvastatin 7. Depression and history of anxiety -Continue Mirtazapine 8. Code status: FULL CODE per family. Our record shows that the patient's code status has been DNR/DNI the last hospital visits. However, when asked about code status, the family stated that no one ever asked them this question and would like to have FULL CODE. Patient was somnolent and could not answer for himself. Disposition: Depending on the imaging we may be able to consider not having him on Coumadin long-term. Dr. Armas he has concerns regarding patient's ability to stay on Coumadin long-term. Expect discharge in 2-4 days Pain Evaluation: Pain not Controlled GI Prophylaxis: Proton Pump Inhibitor VTE Prophylaxis: Sub-Q Enoxaparin, Theraputic Anticoag with Warfarin VTE Mechanical Devices: Intermittant Pneumatic CD Resuscitation Status: CPR: Attempt Resuscitation Noemy Cardoza DO Jul 28, 2016 05:19
--- NOTE | 2016-07-28 22:00 | NUR ---
paged/advocate/pain Pt. stated having severe pain 10/10. IV Dilaudid 0.5mg was given with no effect, so MD was paged. Jonathan MCKEON came in person to talk with pt. and family to go over pain management care plan. 1 mg IV Dilaudid q2h was ordered by Jonathan MCKEON. 1mg IV Dilaudid seems to be effective, as pt. went to sleep after dose was given. Will continue to monitor.
[2016-07-29] VITALS (10 sets, daily range): BP systolic 109–148; BP diastolic 56–71; PULSE 8–87; RESP 16–22; O2SAT 86–99
[2016-07-29] MEDS: HYDROmorphone 0.5 mg/0.5 mL iSecure Syringe IVPUSH PRN ×4 (02:02→13:06)
[2016-07-29] MEDS: Piperacillin-Tazo 3.375 Gm Inj 3.375 GM in Dextrose 5% Minibag Plus 50 ML IV SCH ×3 (05:14→20:42)
--- NOTE | 2016-07-29 05:20 | PCM.PNMED ---
Subjective Date of Service Jul 29, 2016 Subjective I have discussed with family the findings from his lower extremity DVT scan this a.m. it was negative. I have brought up the discussion that I had with Dr. Plummer regarding what to do if his DVT scan is negative. Yesterday radiology felt that because he has anaphylactic reaction to CTA iodine contrast , it would be best. not to repeat that study if we do not have to even with [place] protocol. Discussed this with daughter Marielle and she agrees to continue enoxaparin until his INR is therapeutic. She states that patient needs more pain medication and more pain control. Patient is sitting in the room chatting with several visitors and initiating a male together. Worked with nursing to adjust his medications and add dexamethasone. Exam Vital Signs Vital Sign - Last Date Time Temp Pulse Resp B/P Pulse Ox O2 Delivery O2 Flow Rate FiO2 07/29/16 00:45 38.2 87 22 122/65 97 OxyMask 3.00 Intake and Output 07/28/16 07/28/16 07/29/16 Cumulative From/Thru 15:00 23:00 07:00 07/26/16 16:40 - 07/29/16 00:30 Intake Total 800 ml 3594 ml Output Total 750 ml 1675 ml Balance 50 ml 1919 ml Intake Oral 800 ml 1050 ml IV Total 2544 ml Output Urine Total 750 ml 1675 ml # Bowel Movements 0 1 Exam Gen.: No acute distress sitting up in bed talking with relatives explained HEENT: Normocephalic, atraumatic Lungs: Diminished in lower lobes no increased work of breathing however no crackles or wheezes Abdomen nontender nondistended Extremities: Negative for edema Psychiatric negative for anxiety Neuro no focal deficits Lab and Diagnostics Laboratory Tests Test 07/29/16 04:30 White Blood Count 7.3th/mm3 (3.8-10.1) Red Blood Count 2.91mil/mm3 (4.40-5.80) Hemoglobin 8.2g/dL (13.8-17.2) Hematocrit 27.0% (41.0-50.0) Mean Corpuscular Volume 92.8fL (81-100) Mean Corpuscular Hemoglobin 28.2pg (27.0-35.0) Mean Corpuscular Hemoglobin Concent 30.4% (32.0-37.0) Red Cell Distribution Width 19.7% (12.3-15.4) Platelet Count 340bil/L (150-400) Neutrophils (%) (Auto) 55.5% (40-74) Lymphocytes (%) (Auto) 20.4% (14-46) Monocytes (%) (Auto) 12.0% (4-12) Eosinophils (%) (Auto) 10.3% (0-5) Basophils (%) (Auto) 0.6% (0-3) Hematology Comments Rbc Prothrombin Time 16.5sec (8.1-12.5) Prothromb Time International Ratio 1.53ratio Sodium Level 139mEq/L (134-144) Potassium Level 3.9mEq/L (3.5-5.2) Chloride Level 106mEq/L (97-108) Carbon Dioxide Level 21mmol/L (18-29) Blood Urea Nitrogen 9mg/dL (8-27) Creatinine 0.63mg/dL (0.76-1.27) Estimat Glomerular Filtration Rate 131mL/min (>59) Glucose Level 89mg/dL (60-99) Calcium Level 8.2mg/dL (8.5-10.1) Total Bilirubin 0.3mg/dL (0.0-1.2) Aspartate Amino Transf (AST/SGOT) 16U/L (0-50) Alanine Aminotransferase (ALT/SGPT) 5U/L (0-44) Alkaline Phosphatase 179U/L (25-160) Total Protein 5.7g/dL (6.4-8.4) Albumin 2.4g/dL (3.4-5.0) Microbiology 07/26/16 Blood Culture - Preliminary, Resulted No growth at 2 days; culture examined... 07/27/16 Sputum Quality Screen - Final, Complete 07/27/16 Sputum Culture - Final, Complete 07/26/16 Streptococcus pneumoniae Ag Screen - Final, Complete Strep Pneumoniae Antigen Result Diagram: 07/28/1640407/28/16404 X-Rays, CTs and MRIs PROCEDURE: X-RAY CHEST ONE VIEW, PORTABLE IMPRESSION: Scattered bibasilar scarring/atelectasis. No definite acute disease Dictated by: Jp Paulino M.D. on 07/26/2016 at 17:55 Approved by: Jp Paulino M.D. on 07/26/2016 at 17:56 12-lead ECG EKG regular rhythm and rate of 82. P waves not definitively seen. 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 1. Dyspnea, acute, present on admission, active.: Dyspnea likely due to pneumonia due to strep pneumo versus pulmonary embolism - High suspicion index for pulmonary embolism given markedly elevated D-Dimer of 18.3 and patient's hypercoagulable state. - Continue Lovenox 75 mg twice a day subcutaneous. - V/Q scan showed high probability of PE, Coumadin is started pharmacy is monitoring - Albuterol inhaler available PRN -- DVT ultrasound is ordered after discussing the case with Dr. Phelps, scan is negative. We considered doing a CTA PE protocol because of this negative findings but decided to hold off after discussing the case with radiology as he has severe contrast allergies. Plan is agreeable with daughter Rg 2. healthcare-acquired pneumonia, present on admission, active. - Patient presents with increasing sputum production and purulence with a fever of 38.9. - However, normal WBC and CXR. Procal is essentially negative at 0.06. - Influenza screen negative - Continue Zosyn IV antibiotics - Sputum and blood cultures pending: Negative to date - Check Legionella and strep Ag: Legionella negative strepantigen positive - Continue to monitor vital signs. - Concerning for aspiration : Swallow study was done and he is currently onsoft diet and nectar thickened liquids -50 mL/h the IV fluids 3. Metastatic prostate cancer with skeletal involvement, present on admission, recently discontinuing chemotherapy. -Weakness is likely related to deconditioning from cancer - We will continue his home narcotics (Methadone and Hydromorphone PO), also some when necessary IV morphine, as needed for pain control: Palliative care care is now managing medications -We will continue Gabapentin - Dr. Chanda Dickens is contacted today, he currently has no plans to do chemotherapy at this time. Patient himself is saying that he did not like the way chemotherapy medications made him feel. -PT ordered. 4. Urinary retention noted during recent admission,chronic. -Continue Tamsulosin -Will place Porras catheter -- Every 6 hours latter scan and straight cath if retaining greater than 400 mL but this has been an issue during his previous admissions 5. Hypertension, chronic, controlled. - Continue home Metoprollol -We will continue to monitor vital signs. 6. Hyperlipidemia, chronic, presume stable. -Continue Atorvastatin 7. Depression and history of anxiety -Continue Mirtazapine 8. Code status: FULL CODE per family. Our record shows that the patient's code status has been DNR/DNI the last hospital visits. However, when asked about code status, the family stated that no one ever asked them this question and would like to have FULL CODE. Patient was somnolent and could not answer for himself. Disposition: Depending on the imaging we may be able to consider not having him on Coumadin long-term. Dr. Armas he has concerns regarding patient's ability to stay on Coumadin long-term. Expect discharge in 2-4 days Pain Evaluation: Pain not Controlled GI Prophylaxis: Proton Pump Inhibitor VTE Prophylaxis: Sub-Q Enoxaparin, Theraputic Anticoag with Warfarin VTE Mechanical Devices: Intermittant Pneumatic CD Resuscitation Status: CPR: Attempt Resuscitation Noemy Cardoza DO Jul 29, 2016 05:20
[2016-07-29 05:23] LABS: INR 1.53 ratio
[2016-07-29 06:10] LABS: BASOPHILS % (AUTO) 0.6 % (0-3); EOSINOPHILS % (AUTO) 10.3 % (0-5); Mean Corpuscular Hemoglobin 28.2 pg (27.0-35.0); Mean Corpuscular Volume 92.8 fL (81-100); NEUTROPHILS % (AUTO) 55.5 % (40-74); Platelet Count 340 bil/L (150-400)
[2016-07-29] MEDS: Pantoprazole 20 mg ER24 Tablet PO SCH (07:53)
[2016-07-29] MEDS: MeTOProlol XL 50 mg ER24 Tablet PO SCH (07:54)
[2016-07-29] MEDS: 0.9% Sodium Chloride 1,000 ML IV SCH (09:57)
--- NOTE | 2016-07-29 19:05 | NUR ---
Pain Management Methadone increased to 10 mg BID, Dilaudid increased to 2 mg PO every 2 hours, and Tylenol 975 mg given every 6 hours if needed. Patient denied nausea this shift. Patient's family member refused assistance from staff regarding patient care and provided care for patient. Manufacturing Industrial Engineer used for pain mediation administration and teaching. Call light and tray table within reach. Will continue to monitor patient hourly.
--- NOTE | 2016-07-29 19:16 | NUR ---
family likes to do everything for their father,cant get by when you do assist
[2016-07-29] MEDS: ALPRAZolam 0.5 mg Tablet PO PRN (23:00)
[2016-07-29] MEDS: Albuterol 2.5 mg/3 mL Inhalation Solution NEB PRN (23:07)
[2016-07-30] VITALS (9 sets, daily range): BP systolic 110–142; BP diastolic 56–77; PULSE 66–102; RESP 16–18; O2SAT 91–100
[2016-07-30] MEDS: ALPRAZolam 0.5 mg Tablet PO PRN ×2 (03:29→10:06)
--- NOTE | 2016-07-30 04:11 | NUR ---
Pain/Cough/Anxiety Pt. reported increasing pain due to cough and anxiety. Tessolon Pearles PO admin for cough. Family requested neb treatment which was admin by RT. Ativan PO admin for anxiety. PO Dilaudid and PO Tylenol given for pain as needed. Will continue to monitor.
[2016-07-30 05:14] LABS: INR 2.68 ratio
[2016-07-30] MEDS: Piperacillin-Tazo 3.375 Gm Inj 3.375 GM in Dextrose 5% Minibag Plus 50 ML IV SCH ×3 (05:39→21:17)
[2016-07-30] MEDS: 0.9% Sodium Chloride 1,000 ML IV SCH ×2 (05:43→17:04)
[2016-07-30 07:09] LABS: BASOPHILS % (AUTO) 0.2 % (0-3); MONOCYTES % (AUTO) 3.2 % (4-12); Mean Corpuscular Hemoglobin 28.1 pg (27.0-35.0); NEUTROPHILS % (AUTO) 79.3 % (40-74); Platelet Count 319 bil/L (150-400)
--- NOTE | 2016-07-30 08:00 | NUR ---
PAIN Via FELDT scale patients pain level is 0/10. He is sleeping at this time.
[2016-07-30] MEDS: Pantoprazole 20 mg ER24 Tablet PO SCH (09:10)
--- NOTE | 2016-07-30 09:30 | NUR ---
MD NOTIFICATION Per television producer patient converted to Afib at 0315 this morning and converted back to sinus rhythm at 0715. Dr. Cardoza made aware. Care continues. No new orders at this time.
--- NOTE | 2016-07-30 09:45 | NUR ---
PAIN/ACTIVITY Patient rated his pain as 5/10. Methadone and Dilaudid PO was given to the patient. After this, he got up and ambulated in the bathroom with SBA and the FWW. When patient was in the bathroom. His family member took his tele off without telling the staff and gave the patient a shower. Patient then got back to the bed and now rating his pain as 7/10 after activity. His family stated that he needs more pain medication at this time. Patient was noted to laying in bed with his eyes closed. When asked, he rated his pain as 7/10. Tylenol PO and Xanax administered. But family stated that this is not adequate for his pain and that they wanted to talk to Dr. Cardoza. Dr. Cardoza was made aware of this. Care continues. Addendum: 07/30/16 at 1247 by CARLOS FARRELL RN PAIN Extra dose of Dilaudid administered per orders.
--- NOTE | 2016-07-30 09:51 | NUR ---
Evaluation completed. Please go to "Notes" then click on "Assessments and Notes" (bottom left corner of screen). Then select appropriate discipline tab on top of screen.
--- NOTE | 2016-07-30 10:46 | NUR ---
PAIN/FAMILY ISSUES Patients daughter stated that if his pain is not controlled they will bring his pain medication and just give it to him without telling anybody. They are aware that this is not hospital policy. medical pathology teacher-Scarlett Saul made aware. Dr. Cardoza was made aware RE: Pain issues. Dr. Stoll is at the bedside at this time.
[2016-07-30] MEDS ORDERED: Dextromethorphan Polistirix 6 mg/mL 90 mL Suspension PO PRN (11:50)
--- NOTE | 2016-07-30 11:50 | NUR ---
PAIN Patient rated his pain as 0/10. Dilaudid PO scheduled dose administered at this time. Addendum: 07/30/16 at 1322 by CARLOS FARRELL RN PAIN Patient denies pain/SOB/nausea at this time. Multiple family members are in the room and visiting the patient.
[2016-07-30] MEDS ORDERED: Albuterol 2.5 mg/3 mL Inhalation Solution NEB PRN (13:30)
--- NOTE | 2016-07-30 15:34 | NUR ---
PAPITO PAPITO signed
--- NOTE | 2016-07-30 15:40 | NUR ---
PAIN/ACTIVITY Patient stated that he doesn't have a lot of pain at this time. Rated his pain as 3/10 in his R rib cage area. Patient and one of his family members wanted to know if he needs to take the pain medication. Patient and his family was made aware RE: Pain control and pain management regimen at this time. Patient then decided to take scheduled dose of Dilaudid. Per his patient ate well. Patient ate the lunch that his family has brought him from home. Patient was able to get OOB and ambulated with SBA and the FWW. Tolerated activity well. Addendum: 07/30/16 at 1708 by CARLOS FARRELL RN PAIN Patient stated that he has no complaints of pain at this time.
--- NOTE | 2016-07-30 18:35 | NUR ---
UO/PAIN Per patient he voided this morning when he was showering. Unable to measure since the urinal was not used. He voided 200 ml of oriana colored UO at this time. PVR-35 ml. Patient stated that he is not in pain at this time. Pain regimen has been written in the patients white board and has been updated every time. Patient and his family has been made aware RE: Next pain med times.
--- NOTE | 2016-07-30 19:26 | PCM.PNMED ---
Subjective Date of Service Jul 30, 2016 Subjective Patient is in a better mood today. Has a lot of family visiting and he is joking with them and seems to be enjoying his time. His pain medication regimen is changed today again after talking with Dr. Stoll as patient seems to be needing more frequent pain medicine coverage. He complains of pain with coughing. Is urinating properly and their family does not feel he is having urinary issues. Negative for fevers overnight. Exam Vital Signs Vital Sign - Last Date Time Temp Pulse Resp B/P Pulse Ox O2 Delivery O2 Flow Rate FiO2 07/30/16 05:55 102 07/30/16 05:47 36.4 18 122/65 97 OxyMask 4.00 Intake and Output 07/29/16 07/29/16 07/30/16 Cumulative From/Thru 15:00 23:00 07:00 07/26/16 16:40 - 07/30/16 05:40 Intake Total 600 ml 810 ml 589 ml 6210 ml Output Total 800 ml 500 ml 2975 ml Balance -200 ml 310 ml 589 ml 3235 ml Intake Oral 600 ml 60 ml 1710 ml IV Total 750 ml 589 ml 4500 ml Output Urine Total 800 ml 500 ml 2975 ml # Bowel Movements 0 1 Exam Gen.: No acute distress not wearing oxygen today HEENT: Normocephalic, atraumatic Heart: Regular rate and rhythm no S3-S4 murmurs Lungs: Diminished by lateral leg ulcer wheezes Abdomen: Soft, nontender, nondistended , normal bowel sounds Extremities: Negative for edema Psych: Negative for depression or anxiety Neuro no focal deficits IVs and Medications IV Fluids None Medications Reviewed: Medications were reviewed in detail Lab and Diagnostics Laboratory Tests Test 07/30/16 04:10 07/30/16 06:22 Prothrombin Time 29.3sec (8.1-12.5) Prothromb Time International Ratio 2.68ratio White Blood Count 6.0th/mm3 (3.8-10.1) Red Blood Count 3.24mil/mm3 (4.40-5.80) Hemoglobin 9.1g/dL (13.8-17.2) Hematocrit 29.5% (41.0-50.0) Mean Corpuscular Volume 91.0fL (81-100) Mean Corpuscular Hemoglobin 28.1pg (27.0-35.0) Mean Corpuscular Hemoglobin Concent 30.8% (32.0-37.0) Red Cell Distribution Width 19.5% (12.3-15.4) Platelet Count 319bil/L (150-400) Neutrophils (%) (Auto) 79.3% (40-74) Lymphocytes (%) (Auto) 14.6% (14-46) Monocytes (%) (Auto) 3.2% (4-12) Eosinophils (%) (Auto) 1.0% (0-5) Basophils (%) (Auto) 0.2% (0-3) Sodium Level 141mEq/L (134-144) Potassium Level 4.1mEq/L (3.5-5.2) Chloride Level 107mEq/L (97-108) Carbon Dioxide Level 20mmol/L (18-29) Blood Urea Nitrogen 6mg/dL (8-27) Creatinine 0.50mg/dL (0.76-1.27) Estimat Glomerular Filtration Rate 171mL/min (>59) Glucose Level 145mg/dL (60-99) Calcium Level 8.3mg/dL (8.5-10.1) Total Bilirubin 0.3mg/dL (0.0-1.2) Aspartate Amino Transf (AST/SGOT) 16U/L (0-50) Alanine Aminotransferase (ALT/SGPT) 6U/L (0-44) Alkaline Phosphatase 214U/L (25-160) Total Protein 5.6g/dL (6.4-8.4) Albumin 2.9g/dL (3.4-5.0) Microbiology 07/26/16 Blood Culture - Preliminary, Resulted No growth at 2 days; culture examined... 07/27/16 Sputum Quality Screen - Final, Complete 07/27/16 Sputum Culture - Final, Complete 07/26/16 Streptococcus pneumoniae Ag Screen - Final, Complete Strep Pneumoniae Antigen Result Diagram: 07/29/1642907/29/16 043 X-Rays, CTs and MRIs PROCEDURE: X-RAY CHEST ONE VIEW, PORTABLE IMPRESSION: Scattered bibasilar scarring/atelectasis. No definite acute disease Dictated by: Jp Paulino M.D. on 07/26/2016 at 17:55 Approved by: Jp Paulino M.D. on 07/26/2016 at 17:56 [facility] Diagnostic Imaging Department [place], [place] [id number] Patient Name: IZZY THAKKAR MR#: [id number] Location: [facility] Ordering Phys: Noemy Cardoza DO Date of Service: 07/28/16 1703 PROCEDURE: US VENOUS LEG DUPLEX BILATERAL INDICATIONS: V/Q scan showed concern for PE TECHNIQUE: Real-time imaging, as well as color and pulse Doppler interrogation, were performed of the deep veins of both legs from the inguinal ligament to the popliteal fossa. COMPARISON: None. FINDINGS: The deep veins are normally compressible, and free of intraluminal thrombus. Color and pulse Doppler demonstrate normal phasic intravascular flow. There is normal augmentation response to distal compression maneuver. IMPRESSION: No evidence of bilateral lower extremity DVT. Dictated by: Rubén Maloney M.D. on 07/28/2016 at 18:25 Approved by: Rubén Maloney M.D. on 07/28/2016 at 18:25 [facility] Diagnostic Imaging Department [place], [place] [id number] Patient Name: ZIZY THAKKAR MR#: [id number] Location: [facility] Ordering Phys: Jean-Paul Olivia MD Date of Service: 07/27/16 0702 PROCEDURE: NM LUNG VQ RADIOPHARMACEUTICAL: 26.6 mCi Tc-99m DTPA aerosol by inhalation and 5.2 mCi Tc- 99m MAA intravenously. INDICATIONS: ELEVATED D-DIMER. TECHNIQUE: Ventilation images were obtained first with Tc-99m DTPA aerosol. Subsequently, perfusion images were acquired after intravenous injection of Tc-99m MAA. Anterior, posterior, COBURN, DEJON, RPO, LPO, left and right lateral views were obtained. COMPARISON: [facility], NM, NM LUNG VQ, 07/04/2016, 15:23. [facility], CR, XR CHEST 2VW, 07/27/2016, 9:07. FINDINGS: Image quality ventilation images limited secondary to central deposition of radiopharmaceutical which we do to COPD versus poor aerosolization. Numerous, small, peripheral, wedge-shaped perfusion defects are identified which do not have definite matched ventilation defects. IMPRESSION: 1. Probability for pulmonary embolus is high. 2. Diagnosis sensitivity of study limited secondary to the poor quality ventilation images. Dictated by: Colleen Fitzpatrick MD, PhD on 07/27/2016 at 14:42 Approved by: Colleen Fitzpatrick MD, PhD on 07/27/2016 at 14:45 12-lead ECG EKG regular rhythm and rate of 82. P waves not definitively seen. 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 1. Dyspnea, acute, present on admission, active.: Dyspnea likely due to pneumonia due to strep pneumo versus pulmonary embolism - High suspicion index for pulmonary embolism given markedly elevated D-Dimer of 18.3 and patient's hypercoagulable state. - Continue Lovenox 75 mg twice a day subcutaneous. - V/Q scan showed high probability of PE, Coumadin is started pharmacy is monitoring: Today his INR is therapeutic as enoxaparin and stopped - Albuterol inhaler available PRN: Change this to every 2 when necessary per family request -- DVT ultrasound is ordered after discussing the case with Dr. Gomez, scan is negative. We considered doing a CTA PE protocol because of this negative findings but decided to hold off after discussing the case with radiology as he has severe contrast allergies. Plan is agreeable with daughter Rg -- Please contact 3 daughters per any decision-making. -- Consult Dr. Gomez tomorrow a.m. as he will be rounding tomorrow. He is aware of the recent changes in patient status. -- Delsym is ordered. Michelle Marquez also on onboard 2. healthcare-acquired pneumonia, present on admission, active. - Patient presents with increasing sputum production and purulence with a fever of 38.9. - However, normal WBC and CXR. Procal is essentially negative at 0.06. - Influenza screen negative - Continue Zosyn IV antibiotics - Sputum and blood cultures pending: Negative to date - Check Legionella and strep Ag: Legionella negative strepantigen positive - Continue to monitor vital signs. - Concerning for aspiration : Swallow study was done and he is currently onsoft diet and nectar thickened liquids 3. Metastatic prostate cancer with skeletal involvement, present on admission, recently discontinuing chemotherapy. -Weakness is likely related to deconditioning from cancer - We will continue his home narcotics (Methadone and Hydromorphone PO), also some when necessary IV morphine, as needed for pain control: Palliative care care is now managing medications -We will continue Gabapentin - Dr. Chanda Dickens is contacted on 06/30/16, he currently has no plans to do chemotherapy at this time. Patient himself is saying that he did not like the way chemotherapy medications made him feel. -PT ordered. 4. Urinary retention noted during recent admission,chronic. -Continue Tamsulosin -Will place Porras catheter -- Every 6 hours latter scan and straight cath if retaining greater than 400 mL but this has been an issue during his previous admissions 5. Hypertension, chronic, controlled. - Continue home Metoprollol -We will continue to monitor vital signs. 6. Hyperlipidemia, chronic, presume stable. -Continue Atorvastatin 7. Depression and history of anxiety -Continue Mirtazapine 8. Code status: FULL CODE per family. Our record shows that the patient's code status has been DNR/DNI the last hospital visits. However, when asked about code status, the family stated that no one ever asked them this question and would like to have FULL CODE. Patient was somnolent and could not answer for himself. Disposition: Expect to discharge patient home in 2-4 days now that his INR is therapeutic and he has had 5 days of Zosyn for healthcare associated pneumonia Pain Evaluation: Adequate Pain Control GI Prophylaxis: Proton Pump Inhibitor VTE Prophylaxis: Theraputic Anticoag with Warfarin VTE Mechanical Devices: Intermittant Pneumatic CD Resuscitation Status: CPR: Attempt Resuscitation Noemy Cardoza DO Jul 30, 2016 06:19
[2016-07-30] MEDS: Methadone 10 mg/mL Oral Concentrate PO PRN (21:18)
[2016-07-31] VITALS (7 sets, daily range): BP systolic 137–164; BP diastolic 71–79; PULSE 64–113; RESP 16–18; O2SAT 93–98
[2016-07-31] MEDS: Piperacillin-Tazo 3.375 Gm Inj 3.375 GM in Dextrose 5% Minibag Plus 50 ML IV SCH ×2 (04:33→12:26)
--- NOTE | 2016-07-31 05:04 | NUR ---
PAIN Pain well managed with PO Methadone and Dilaudid around the clock. Schedule updated on white board for pt satisfaction in management. Pt able to ambulate to BR with family assistance. Strong supportive family. Hourly rounding ongoing.
[2016-07-31] MEDS: Pantoprazole 20 mg ER24 Tablet PO SCH ×2 (06:35→08:34)
[2016-07-31] MEDS: Methadone 10 mg/mL Oral Concentrate PO PRN ×3 (06:35→22:31)
[2016-07-31 06:39] LABS: BASOPHILS % (AUTO) 0.1 % (0-3); EOSINOPHILS % (AUTO) 0.1 % (0-5); MONOCYTES % (AUTO) 5.7 % (4-12); Mean Corpuscular Hemoglobin 27.5 pg (27.0-35.0); Mean Corpuscular Volume 90.6 fL (81-100); NEUTROPHILS % (AUTO) 80.8 % (40-74); Platelet Count 354 bil/L (150-400)
[2016-07-31 06:46] LABS: INR 4.98 ratio
--- NOTE | 2016-07-31 07:12 | PCM.PHAPRO ---
Progress Warfarin Management: -warfarin will be held this evening, supratherapeutic inr of 4.98 Sulma Gonzalez [facility] Jul 31, 2016 07:12
--- NOTE | 2016-07-31 08:30 | NUR ---
PAIN Patient rated his pain as 0/10 at this time. Patient stated that he has no pain. PO2 on room air is in the mid 90's when awake. Denies SOB. Patient stated that his pain is well controlled at this time. Flight Kitchen Manager was at the bedside during this mornings assessment. Patient stated via the solar project engineer that he is very appreciative of the care that he has been getting here at this time. Multiple family members are at the bedside. Addendum: 07/31/16 at 1347 by CARLOS FARRELL RN NOTE FOR 1130 Patient rated his pain as 3/10. Dilaudid 1 mg for BTP administered. Patient stated that his pain is tolerable at that time but per his family he should have some pain meds for BTP at this time. Patient then opted to take his pain medication after this. Addendum: 07/31/16 at 1349 by CARLOS FARRELL RN NOTE FOR 1230 Patients pain is still at 3/10 at this time. Scheduled Dilaudid PO administered. Will continue to monitor.
--- NOTE | 2016-07-31 12:21 | PCM.PALLBR ---
Palliative Care Recommendation 76 yo pt with known metastatic prostate CA with extensive bone involvement followed by Dr. Gomez for oncology and Dr. Payton for PCP. He has been treated for years for his prostate CA and now refractory. Recently some improvement of his PSA with Taxotere but this is on hold due to his progressive weakening. He has been hospitalized in May for UTI then jun and again in July for pneumonia. Last was 07/04-07/12 with only rhinovirus found. He was still coughing up copious phlegm and had ongoing low grade T at home. he improved slightly but then this past week, increasing SOB and weaker and loss of appetite and increase in his cough. He was brought to the ER with VQ noting high probability for PE and +urine strept Ag. He is now on lovenox, warfarin and Pip/chris. Family conference was held on 07/28 with CM, Jen Steward (his favorite RN), Dr. Stoll for PC and Patient, Sheba, daughters Antonieta, Sheba Campos and son Alejandro and electron beam photo mask maker. Details in Dr. Stoll's note of 07/28. Dr. Stoll does follow this patient for outpatient palliative care and has good rapport with the family and patient. Today, all three daughters are present, and and several other family members. Dr. Cornell is present as well. The family reports being please with his progress and the patient is demonstrating his strength and desire to go home. INR this morning at 4.98 will continue to require monitoring before safe for discharge. Summary of palliative recommendations: -Symptom management (Pain/other) PAIN: -has been stable in last 24 hour, with methadone and hydromorphone. His methadone was adjusted last week to 7 mg TID. In addition, he gets hydromorphone 3 mg q 4 hours RTC, and can have an additional 1 mg q2hr prn. --plan to continue to adjust methadone in conjunction with other meds affecting uptake. Patient continues to hold out hope that if his pain returns that he will be able to receive radiation for control-"8 years" NAUSEA--mild but still present at times. Patient is agreeable to a prophylactic dosing of ondansetron 4 mg TID. ordered to start today before dinner. PULMONARY EMBOLI-reviewed driving factor with malignancy as well as issues with anticoagulation. --Today, patient has supra-therapeutic INR of 4.98; his enoxaparin and warfarin are being held. This will need to be resolved before discharge. Progressive weakness--somewhat improved; patient displays how he is feeling with us by clenching his fist, that he is "much stronger". --There remains ongoing possible bad sequence of viral pneumonia secondary bacterial pneumonia now pulmonary embolus but also of concern that malignancy is progressing. No notes today from Dr. Gomez. -DPOA/Advanced Directives/POLST-Mely and Claire are first DPOA's. Meeting with them today to discuss their perception of care and current needs. Discussion did NOT include changing decision about code status or POLST. -Family/emotional support-family support -Family has a difficult time accepting potential progression of disease. They are upbeat today about his improved strength and good spirits. Goal will be to communicate acute issues with Antonieta Granados Rosalinda and Mely. Dr. Gomez has been notified of this hospitalization-- We will continue to follow as long as patient is in hospital. -Continue to consider ongoing outpatient palliative care Hospitalist problem list: 1. Dyspnea, acute, present on admission, active.: Dyspnea likely due to pneumonia due to strep pneumo versus pulmonary embolism - High suspicion index for pulmonary embolism given markedly elevated D-Dimer of 18.3 and patient's hypercoagulable state. - Continue Lovenox 75 mg twice a day subcutaneous. - V/Q scan showed high probability of PE, Coumadin is started pharmacy is monitoring: Today his INR is therapeutic as enoxaparin and stopped - Albuterol inhaler available PRN: Change this to every 2 when necessary per family request -- Consult Dr. Gomez tomorrow a.m. as he will be rounding tomorrow. He is aware of the recent changes in patient status. -- Delsym is ordered. Michelle Marquez also on onboard 2. healthcare-acquired pneumonia, present on admission, active. - Patient presents with increasing sputum production and purulence with a fever of 38.9. - However, normal WBC and CXR. Procal is essentially negative at 0.06. - Influenza screen negative - Continue Zosyn IV antibiotics - Sputum and blood cultures pending: Negative to date - Check Legionella and strep Ag: Legionella negative strepantigen positive - Continue to monitor vital signs. - Concerning for aspiration : Swallow study was done and he is currently onsoft diet and nectar thickened liquids 3. Metastatic prostate cancer with skeletal involvement, present on admission, recently discontinuing chemotherapy. -Weakness is likely related to deconditioning from cancer - We will continue his home narcotics (Methadone and Hydromorphone PO), also some when necessary IV morphine, as needed for pain control: Palliative care care is now managing medications -We will continue Gabapentin - Dr. Chanda Dickens is contacted on 06/30/16, he currently has no plans to do chemotherapy at this time. Patient himself is saying that he did not like the way chemotherapy medications made him feel. -PT ordered. 4. Urinary retention noted during recent admission,chronic. -Continue Tamsulosin -Will place Porras catheter -- Every 6 hours latter scan and straight cath if retaining greater than 400 mL but this has been an issue during his previous admissions 5. Hypertension, chronic, controlled. - Continue home Metoprollol -We will continue to monitor vital signs. 6. Hyperlipidemia, chronic, presume stable. -Continue Atorvastatin 7. Depression and history of anxiety -Continue Mirtazapine 8. Code status: FULL CODE per family. Confirmed by Dr. Stoll but also see notes about patient's desire to be home with his family when declining. Problems: End of Life Preferences At this point full code. Patient had indicated in prior discussion that if near end of life he would refer to be at home rather than in hospital Goals of Care Aggressive care with anticoagulation, antibiotics and reconsideration for reinstituting Taxotere with Dr. Gomez Resuscitation Status Resuscitation Status: CPR: Attempt Resuscitation POLST Updates/Changes Previous POLST?: No (patient has discussed form with Dr. Stoll but has not yet completed it. ) POLST Discussed with: Patient, Health Care Agent (DPOAHC) . Advanced Care Planning Address: Code status change (discussed, not changed) Pain: Moderate Symptom management: Nausea, Vomiting Total time 35 minutes; >50% face to face with patient and/or family, providing counselling regarding plans and recommendations, and in care coordination with his/her medical teams. copies to: Johnson Payton MD; Meet Hardy MD Palliative Brief Note Date of Service Jul 31, 2016 . RN reports that patient is having better pain control on current regime. She is concerned that family does not perceive this as she does, family is asking for more pain medications than patient seems to need. They report increased pain with every move he makes out of bed. Discussed using the breakthrough HM as premedication for any activity. Spoke to Dtr Roberta who asks that I return this afternoon when other daughters, Mely and Andreina can be present. Returned to room while Dr. Cornell is with family. He is discussing possible plans for discharge in the next 1-2 days, assuming coagulation issues are resolved. Patient is quite animated and states that his pain is well controlled, his strength is coming back. He does admit to some nausea and is agreeable to regular zofran dosing for prophylaxis. see orders. His family is pleased with his progress but understandably concerned that he not be discharged too quickly. MD will check on his status tomorrow and update them. Mile Hoff Jul 31, 2016 12:21
--- NOTE | 2016-07-31 13:47 | PCM.PNMED ---
Subjective Date of Service Jul 31, 2016 Subjective Patient states that his breathing is better, his feel stronger, His pain is controlled, has a bit of nausea on occasion but there has been no vomiting and his bowels are moving Exam Vital Signs Vital Sign - Last Date Time Temp Pulse Resp B/P Pulse Ox O2 Delivery O2 Flow Rate FiO2 07/31/16 08:46 36.1 69 16 164/72 98 Room Air 07/31/16 05:06 1.00 Intake and Output 07/30/16 07/30/16 07/31/16 Cumulative From/Thru 15:00 23:00 07:00 07/26/16 16:40 - 07/31/16 06:35 Intake Total 400 ml 1448 ml 1575 ml 9633 ml Output Total 1450 ml 200 ml 1500 ml 6125 ml Balance -1050 ml 1248 ml 75 ml 3508 ml Intake Oral 400 ml 840 ml 1200 ml 4150 ml IV Total 608 ml 375 ml 5483 ml Output Urine Total 1450 ml 200 ml 1500 ml 6125 ml # Voids 2 1 3 # Bowel Movements 0 1 2 Exam Gen.: No acute distress not wearing oxygen today, elderly male sitting up in bed conversing with family HEENT: Normocephalic, atraumatic Eyes: Open, conjunctiva clear, pupils equal eyes tracking symmetrically Neck: Trachea midline no JVD noted Heart: Regular rate and rhythm no S3-S4/murmurs Lungs: Moving air well, there were initially some wheezes but he coughed and they cleared Abdomen: Soft, nontender, nondistended , normal bowel sounds Extremities: Moving 4 Psych: Pleasant and appropriate conversing with family in Sinhala smiling Neuro no focal deficits Lab and Diagnostics Result Diagram: 07/31/16 0535 07/31/16 0535 X-Rays, CTs and MRIs PROCEDURE: X-RAY CHEST ONE VIEW, PORTABLE IMPRESSION: Scattered bibasilar scarring/atelectasis. No definite acute disease Dictated by: Jp Paulino M.D. on 07/26/2016 at 17:55 Approved by: Jp Paulino M.D. on 07/26/2016 at 17:56 [facility] Diagnostic Imaging Department [place], [place] [id number] Patient Name: IZZY THAKKAR MR#: [id number] Location: [facility] Ordering Phys: Noemy Cardoza Date of Service: 07/28/16 1703 PROCEDURE: US VENOUS LEG DUPLEX BILATERAL INDICATIONS: V/Q scan showed concern for PE TECHNIQUE: Real-time imaging, as well as color and pulse Doppler interrogation, were performed of the deep veins of both legs from the inguinal ligament to the popliteal fossa. COMPARISON: None. FINDINGS: The deep veins are normally compressible, and free of intraluminal thrombus. Color and pulse Doppler demonstrate normal phasic intravascular flow. There is normal augmentation response to distal compression maneuver. IMPRESSION: No evidence of bilateral lower extremity DVT. Dictated by: Rubén Maloney M.D. on 07/28/2016 at 18:25 Approved by: Rubén Maloney M.D. on 07/28/2016 at 18:25 [facility] Diagnostic [place] [address] Patient Name: IZZY THAKKAR MR#: [id number] Location: [facility] Ordering Phys: Jean-Paul Olivia MD Date of Service: 07/27/16 0702 PROCEDURE: NM LUNG VQ RADIOPHARMACEUTICAL: 26.6 mCi Tc-99m DTPA aerosol by inhalation and 5.2 mCi Tc- 99m MAA intravenously. INDICATIONS: ELEVATED D-DIMER. TECHNIQUE: Ventilation images were obtained first with Tc-99m DTPA aerosol. Subsequently, perfusion images were acquired after intravenous injection of Tc-99m MAA. Anterior, posterior, COBURN, IRISH, RPO, LPO, left and right lateral views were obtained. COMPARISON: [facility], [place], NM LUNG VQ, 07/04/2016, 15:23. [facility], [place], XR CHEST 2VW, 07/27/2016, 9:07. FINDINGS: Image quality ventilation images limited secondary to central deposition of radiopharmaceutical which we do to COPD versus poor aerosolization. Numerous, small, peripheral, wedge-shaped perfusion defects are identified which do not have definite matched ventilation defects. IMPRESSION: 1. Probability for pulmonary embolus is high. 2. Diagnosis sensitivity of study limited secondary to the poor quality ventilation images. Dictated by: Colleen Fitzpatrick MD, PhD on 07/27/2016 at 14:42 Approved by: Colleen Fitzpatrick MD, PhD on 07/27/2016 at 14:45 12-lead ECG EKG regular rhythm and rate of 82. P waves not definitively seen. 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 07/31 first day meeting medically complex patient is actually doing well for the second day in a row. Daughter is concerned he was sent home and got sick the last time he was here and has been here a number of times so the concern is discharged to soon. If the patient continues to do well including tomorrow they will be doubly satisfied that they can take him home. #Acute hypoxemic respiratory failure, acute, present on admission, active.: Multifactorial possible pneumonia versus PE #PE - High suspicion index for pulmonary embolism given markedly elevated D-Dimer of 18.3 and patient's hypercoagulable state. - V/Q scan showed high probability of PE, Coumadin is started pharmacy is monitoring: Today his INR is therapeutic - Albuterol inhaler available PRN: Change this to every 2 when necessary per family request -- DVT ultrasound is ordered after discussing the case with Dr. Gomez, scan is negative. We considered doing a CTA PE protocol because of this negative findings but decided to hold off after discussing the case with radiology as he has severe contrast allergies. Plan is agreeable with daughter Rg -- Please contact 3 daughters per any decision-making. # (+/-) healthcare-acquired pneumonia, present on admission, active. - Patient presents with increasing sputum production and purulence with a fever of 38.9. - However, normal WBC and CXR. Procal is essentially negative at 0.06. - Influenza screen negative - Continue Zosyn IV antibiotics 5 days, 07/31 finishing course with Augmentin perhaps 5 more days depending on family desired - Sputum and blood cultures pending: Negative to date - Check Legionella and strep Ag: Legionella negative strepantigen positive - Continue to monitor vital signs. - Concerning for aspiration : Swallow study was done and he is currently onsoft diet and nectar thickened liquids # Metastatic prostate cancer with skeletal involvement, present on admission, recently discontinuing chemotherapy. -Weakness is likely related to deconditioning from cancer - We will continue his home narcotics (Methadone and Hydromorphone PO), also some when necessary IV morphine, as needed for pain control: Palliative care care is now managing medications -We will continue Gabapentin - Dr. Chanda Dickens is contacted on 06/30/16, he currently has no plans to do chemotherapy at this time. Patient himself is saying that he did not like the way chemotherapy medications made him feel. -PT ordered. # Urinary retention noted during recent admission,chronic. -Continue Tamsulosin -Will place Porras catheter -- Every 6 hours latter scan and straight cath if retaining greater than 400 mL but this has been an issue during his previous admissions # Hypertension, chronic, controlled. - Continue home Metoprollol -We will continue to monitor vital signs. # Hyperlipidemia, chronic, presume stable. -Continue Atorvastatin # Depression and history of anxiety -Continue Mirtazapine # Code status: FULL CODE per family. Our record shows that the patient's code status has been DNR/DNI the last hospital visits. However, when asked about code status, the family stated that no one ever asked them this question and would like to have FULL CODE. Patient was somnolent and could not answer for himself. Disposition is to home 08/01 if the patient is feeling well discussed with Dr. Boone who is at the bedside and is primary caregiver GI Prophylaxis: Proton Pump Inhibitor VTE Prophylaxis: Theraputic Anticoag with Warfarin VTE Mechanical Devices: Intermittant Pneumatic CD Resuscitation Status: CPR: Attempt Resuscitation Kirk Cornell MD Jul 31, 2016 13:47
--- NOTE | 2016-07-31 15:46 | NUR ---
D/C from PT. No further skilled therapy required at this time. Pt is safe to amb w/nsg in [facility]
--- NOTE | 2016-07-31 16:10 | NUR ---
Social Work Note - Discharge Readiness: D/A: The Pt is a 76 y/o male that is now on day 5 of admission for febrile illness. PT eval completed, recommending HH. SW t/c to daughter Mely regarding discharge recommendations, left voicemail. SW met with other family members in the Pts room, informed that Mely will be at the hospital after 1pm. SW met with daughter Mely to discuss PT discharge recommendations of HH, daughter agreeable. HH list provided, daughter does not have a preference. SW referred to rotating calendar, Dari [facility] referral placed. Access given. F2F completed, Dari ALAS to apple picker. SW to follow. P: The Pt to discharge home with Dari ALAS and family to provide POV transportation. F2F completed, to be picked up by Dari ALAS. Access given. Jemma Burden, TRAVELING ACCOUNTANT Land Acquisition Analyst [employer] You
[2016-07-31] MEDS: Amoxicillin-Clav 875-125 mg Tablet PO SCH ×2 (16:28→20:33)
--- NOTE | 2016-07-31 18:23 | NUR ---
ACTIVITY/PAIN/MD VISIT Patient denies pain at this time. Current pain regimen has been effective for the patient. Patients family has not verbalized any complaints regarding his current pain regimen. Tolerating liquids PO and his diet well. He has been eating most of the food that his family brings from home. Denies nausea. No emesis noted. Denies SOB. PO2 on room air in the low to mid 90's when awake. Voiding without any issues. Ambulated in the hallway with SBA and the FWW. Tolerated activity well. Dr. Gomez was in the middle of his conversation with the patient and his family when this principal technical writer stepped into the room. Per MD no radiation or further chemotherapy will be administered due to the progression of the patients disease. Hospice referral if warranted per MD. No speeder worker at that time. Only one of the patients daughter, his and some family members were present during this conversation. Patients daughter and niece where translating for Dr. Gomez at that time. Unable to determine patients understanding of current diagnosis. shovel logger-Beth Fatima made aware. Care continues.
--- NOTE | 2016-07-31 18:27 | CCS NOTE ---
[facility] [address] [place] [address], [address] [address] MEDICAL ONCOLOGY OFFICE NOTE PATIENT: IZZY THAKKAR : 1940 MR#: [id number] DATE: 07/26/2016 JOB ID: [id number] DATE: 07/31/2016 HISTORY OF PRESENT ILLNESS: The patient is a 76-year-old gentleman with longstanding history of hormone refractory metastatic prostate cancer to the skeletal system whom we have been managing since 2007. He has sequentially been treated with multiple agents and has exhausted all hormonal treatment options including Lupron, Casodex, Xtandi and Zytiga and had a rapid disease progression in the fall of 2015 when he was started on chemotherapy with Taxotere on March 06. His PSA was increasing by tenfold and since initiation of Taxotere it eventually stabilized and actually improved. He has received six cycles of treatment so far, the last one given on June 29, 2016. Even though he never has been neutropenic he has been getting recurrent pulmonary infections and several hospitalizations for this matter with different organisms. I had seen him last on January 14. We had discussed not to continue chemotherapy for now since his PSA had improved from 278 down to 150 and decided to simply observe him and allow him to improve in his functional status. However, unfortunately, he has now another hospitalization with fever, shortness of breath, and cough. With the last admission he was infected with rhinovirus/enterovirus. Now his urine antigen was positive for Strep pneumo antigen. He was started on IV antibiotics and then with Zosyn and switched to Augmentin today. Methadone for pain management continues. Of note, his V/Q scan that was performed on July 27 came back with high probability for pulmonary embolism. The V/Q scan was done because of an elevated D-dimer which is inevitably always going to be high in this patient. He had a V/Q scan just with a hospitalization before on July 04 which was low probability. On exam, his heart rate is around 100. O2 sat 93% on room air. Blood pressure is stable. He is afebrile and has been afebrile since July 29. Upon admission he had a temperature of 38.9. His abdomen is soft. He has no significant rash, no edema. Doppler ultrasound of the legs was negative. ASSESSMENT AND PLAN: A 76-year-old gentleman with longstanding history of metastatic prostate cancer to the skeletal system that is now refractory to multiple lines of treatment. We have been managing him since 2007. Technically his cancer still would benefit from Taxotere chemotherapy that he started since late February and has had six cycles, the last one one month ago but his constitutional status does not allow all at this point, further treatment. He has had recurrent pulmonary infections even though he has never been neutropenic and this time it is positive for Strep pneumo antigen. I have discussed his case with Dr. Cardoza of the hospitalist team on Sunday, and suggested to obtain a Doppler ultrasound of his legs to see whether he has any source of a DVT which was negative. Because of contrast allergy a CT angio was not performed. When he came in obviously having metastatic cancer and being infected his D-dimer was positive which would not be a sign necessarily of a pulmonary embolism. He had a V/Q scan which showed high probability though but with a negative Doppler of his legs. At this point, I cannot exclude the possibility of a pulmonary embolism but I am not truly convinced of it. He has been started on anticoagulation and I think for now given his metastatic malignancy it is reasonable, but if he has any issues with erratic INRs or bleeding issues, my threshold would be low to discontinue Coumadin. I had a good conversation with the family explaining that I do not believe that realistically the patient will become a candidate for additional chemotherapy and we would focus on palliative care alone.
[2016-08-01 06:12] VITALS: BP 155/85; PULSE 55; RESP 18; O2SAT 96
[2016-08-01] MEDS: Methadone 10 mg/mL Oral Concentrate PO PRN (06:34)
[2016-08-01 07:16] LABS: INR 3.82 ratio
--- NOTE | 2016-08-01 08:39 | PCM.PALLBR ---
Palliative Care Recommendation 76 yo pt with known metastatic prostate CA with extensive bone involvement followed by Dr. Gomez for oncology and Dr. Payton for PCP. He has been treated for years for his prostate CA and now refractory. Recently some improvement of his PSA with Taxotere but this is on hold due to his progressive weakening. He has been hospitalized in May for UTI then jun and again in July for pneumonia. Last was 07/04-07/12 with only rhinovirus found. He was still coughing up copious phlegm and had ongoing low grade T at home. he improved slightly but then this past week, increasing SOB and weaker and loss of appetite and increase in his cough. He was brought to the ER with VQ noting high probability for PE and +urine strept Ag. He was treated with IV antibiotics and Lovenox, but is now on oral warfarin and Augmentin. 07/28: Family conference was held with CM, Jen Steward (his favorite RN), Dr. Stoll for PC and Patient, Sheba, daughters Antonieta, Sheba Campos and son Alejandro and car manager. Details in Dr. Stoll's note of 07/28. Dr. Stoll follows this patient for outpatient palliative care and has good rapport with the family and patient. 07/31: RAHEL Hoff of Pall Care Team and Attending Dr. Cornell met with all three daughters are present, and several other family members. The family pleased with pt's progress and patient eager to go home. 08/01: INR supratherapeutic at 4.98 on 07/31 and 3.82 on 08/01. Likely home discharge soon as INR trending down. Dr. Leung, car manager, pt and family will meet today at 14:30h. 08/01 Family Conference Team Meeting: Dr. Leung, met with pt, Andreina, dtr Mely and Dtr Andreina and multiple other adult family members. Intrepreter was present throughout this meeting. 1. Clarified that pt is likely to be discharged home tomorrow if INR stable and changes in his pain regimen today keep him in good control. 2. Discussed blood thinners may be discontinued by Dr. Gomez in 3 months, depending on pt's clinical situation. 3. Dr. Leung brought up pt's poor prognosis, that pt's prostate cancer can not be cured. Discussed that this is time for family to create good memories on pt's good days when he feels well, but to expect that some days he may sleep all day or have pain. 4. Discussed that chemotherapy is off the table, Dr. Gomez says it is no longer useful for his cancer. 5. Discussed radiation therapy and fact that Dr. Gomez does not think it is helpful at this time. Patient and family keep wanting to explore more radiation therapy. Dr. Leung explained that there is no discrete lesion to focus on at this time, that his spine imaging is full of metastases, but no prominent lesion. She emphasized importance of using medication to help pain for as long as possible. She recommended that pt return to outpt palliative therapy with Dr. Stoll for ongoing recommendations on this. 6 Encouraged family members present today to share this information with the large group of family members to help educate them and prepare them for the possible scenarios ahead. 7. Reinforced that patient is vulnerable to infection due to his cancer, and his past chemotherapy, and that often patients with cancer actually from a sudden infection before they from their cancer burden. 8. Answered questions and supported patient's beliefs about "healing miracles " (he has a brother with prostate cancer that was in a coma in ICU in [place] and has recovered and is walking around and visited him recently). Spoke about the miracle of God choosing to call a patient back to Him, and that family needs to prepare for both kind of miracles. Summary of palliative recommendations: -Symptom management (Pain/other) PAIN: -has been stable in last 24 hour, with methadone and hydromorphone. His methadone was adjusted 07/29 to 7 mg TID. In addition, he gets hydromorphone 3 mg q 4 hours RTC, and can have an additional 1 mg q 2hr prn--> Dr. Leung ordering the breakthrough dose to be increased to 2mg po q 2h (08/01) --08/01 is only day 3-4 of new methadone dose: plan to continue to adjust methadone. Will keep it at this dose, as number of breakthrough hydromorphone doses needed seems to be declining. NAUSEA: mild but still present at times. Patient is agreeable to a prophylactic dosing of ondansetron 4 mg TID. ordered to start on 07/31 before dinner. ANXIETY: continue alprazolam 0.5mg po TID prn. PULMONARY EMBOLI: reviewed driving factor with malignancy as well as issues with anticoagulation. 08/01, patient has supra-therapeutic INR of 3.82. Progressive weakness: somewhat improved; --There remains ongoing possible bad sequence of viral pneumonia secondary bacterial pneumonia now pulmonary embolus but also of concern that malignancy is progressing. Note from evening 07/[address] Gomez states he is no longer offering any more chemotherapy and encouraged pt to go with palliative therapy in future. On 08/[address] Leung, pt admits he did not understand what Dr. Gomez told him as no car manager present. -DPOA/Advanced Directives/POLST: Mely and Claire are first DPOA's. 07/31 discussion with them did NOT include changing decision about code status or POLST. -Family/emotional support-family support: Family has a difficult time accepting potential progression of disease. Goal will be to communicate acute issues with Antonieta Granados Rosalinda and Mely. We encourage pt and family to continue with ongoing outpatient palliative care Hospitalist problem list: 1. Dyspnea, acute, present on admission, active.: Dyspnea likely due to pneumonia due to strep pneumo versus pulmonary embolism - High suspicion index for pulmonary embolism given markedly elevated D-Dimer of 18.3 and patient's hypercoagulable state. - Continue Lovenox 75 mg twice a day subcutaneous. - V/Q scan showed high probability of PE, Coumadin is started pharmacy is monitoring: Today his INR is therapeutic as enoxaparin and stopped - Albuterol inhaler available PRN: Change this to every 2 when necessary per family request -- Consult Dr. Gomez tomorrow a.m. as he will be rounding tomorrow. He is aware of the recent changes in patient status. -- Delsym is ordered. Michelle Marquez also on onboard 2. healthcare-acquired pneumonia, present on admission, active. - Patient presents with increasing sputum production and purulence with a fever of 38.9. - However, normal WBC and CXR. Procal is essentially negative at 0.06. - Influenza screen negative - Continue Zosyn IV antibiotics - Sputum and blood cultures pending: Negative to date - Check Legionella and strep Ag: Legionella negative strepantigen positive - Continue to monitor vital signs. - Concerning for aspiration : Swallow study was done and he is currently onsoft diet and nectar thickened liquids 3. Metastatic prostate cancer with skeletal involvement, present on admission, recently discontinuing chemotherapy. -Weakness is likely related to deconditioning from cancer - We will continue his home narcotics (Methadone and Hydromorphone PO), also some when necessary IV morphine, as needed for pain control: Palliative care care is now managing medications -We will continue Gabapentin - Dr. Chanda Dickens is contacted on 06/30/16, he currently has no plans to do chemotherapy at this time. Patient himself is saying that he did not like the way chemotherapy medications made him feel. -PT ordered. 4. Urinary retention noted during recent admission,chronic. -Continue Tamsulosin -Will place Porras catheter -- Every 6 hours latter scan and straight cath if retaining greater than 400 mL but this has been an issue during his previous admissions 5. Hypertension, chronic, controlled. - Continue home Metoprollol -We will continue to monitor vital signs. 6. Hyperlipidemia, chronic, presume stable. -Continue Atorvastatin 7. Depression and history of anxiety -Continue Mirtazapine 8. Code status: FULL CODE per family. Confirmed by Dr. Stoll but also see notes about patient's desire to be home with his family when declining. Problems: End of Life Preferences At this point full code. Patient had indicated in prior discussion that if near end of life he would refer to be at home rather than in hospital Goals of Care Aggressive care with anticoagulation, antibiotics and reconsideration for reinstituting Taxotere with Dr. Gomez Resuscitation Status Resuscitation Status: CPR: Attempt Resuscitation POLST Updates/Changes Previous POLST?: No (patient has discussed form with Dr. Stoll but has not yet completed it. ) POLST Discussed with: Patient, Health Care Agent (DPOAHC) Total time 100 minutes; >50% face to face with patient and/or family, providing counselling regarding plans and recommendations, and in care coordination with his/her medical teams. I also spent an additional 65 minutes counseling for advanced care planning with the patient/the patients family/the surrogate decision maker. copies to: Johnson Payton MD; JasonMeet Ruano MD Palliative Brief Note Date of Service Aug 01, [address] Leung met pt and family for first time on a.m. rounds. Dr. Stoll has met family many times and has a great rapport with them, and has filled in Dr. Leung on some of the outstanding issues for pain management and family dynamics. Today, Rodrigo reports good pain control. He did require breakthrough meds once after exertional pain related to showering. It seemed insufficient relief. (Dr. Leung will increase this breakthrough dose today). Dr. Leung and car manager assessed pt and family understanding of prognosis as outlined by Dr. Gomez last night when he was with patient. Pt admits he couldn' t understand most of what Dr. Gomez said, but understands he "needs to be careful of cuts and bumps due to blood thinning medicine." He did not understand about prognosis in light of stopping chemotherapy. Dr. Leung explained that she will go over this in more detail in afternoon when their daughter Mely is available to listen as well. Tanya Leung MD Aug 01, 2016 08:39 when their daughter Mely is available to listen as well. Tanya Leung MD Aug 01, 2016 08:39
[2016-08-01] MEDS: Pantoprazole 20 mg ER24 Tablet PO SCH (08:47)
[2016-08-01] MEDS: Amoxicillin-Clav 875-125 mg Tablet PO SCH ×2 (08:48→20:10)
--- NOTE | 2016-08-01 09:14 | NUR ---
Palliative care note D/A: Case discussed in PC rounds. Chart reviewed. Note that Dr. Gomez indicated to family on 07/31/16 that he has no further treatments to offer and has begun discussions with pt/family regarding palliative care/hospice. Msg left for [facility] to inquire about availability of [facility] for info visit. Note that this pt and/or family may not be ready to consider hospice. Dr. Leung working with pt today. P: Palliative care to continue to follow. P: Palliative care to follow. Nicole VELASCO, CCM
--- NOTE | 2016-08-01 09:16 | PCM.PHAPRO ---
Progress Warfarin Management: -inr remains supratherapeutic at 3.82. will hold dose today and likely will resume tomorrow Sulma Gonzalez [facility] Aug 01, 2016 09:16
[2016-08-01 13:29] VITALS: BP 118/71; PULSE 79; RESP 16; O2SAT 93
--- NOTE | 2016-08-01 15:06 | PCM.PNMED ---
Subjective Date of Service Aug 01, 2016 Subjective No complaints of chest pain, dyspnea, nausea vomiting. He feels like his pain is controlled and he was ambulating. Her concerns are that he and his family are hearing DrJanelle say different things. He states that he hurt somebody tell him he needed to stay 2 or 3 more days because of his pneumonia. Exam Vital Signs Vital Sign - Last Date Time Temp Pulse Resp B/P Pulse Ox O2 Delivery O2 Flow Rate FiO2 08/01/16 13:29 36.4 79 16 118/71 93 Room Air 07/31/16 05:06 1.00 Intake and Output 07/31/16 07/31/16 08/01/16 Cumulative From/Thru 15:00 23:00 07:00 07/26/16 16:40 - 08/01/16 06:31 Intake Total 1197 ml 750 ml 28748 ml Output Total 900 ml 2000 ml 9025 ml Balance 297 ml -1250 ml 2555 ml Intake Oral 1040 ml 750 ml 5940 ml IV Total 157 ml 5640 ml Output Urine Total 900 ml 2000 ml 9025 ml # Voids 3 # Bowel Movements 0 2 Exam Gen.: No acute distress ,elderly male sitting up in bed conversing with family HEENT: Normocephalic, atraumatic Eyes: Open, conjunctiva clear, pupils equal eyes tracking symmetrically Neck: Trachea midline no JVD noted Heart: Regular rate and rhythm no S3-S4/murmurs Lungs: Moving air well, there were initially some wheezes but he coughed and they cleared Abdomen: Soft, nontender, nondistended , normal bowel sounds Extremities: Moving 4 Psych: Pleasant and appropriate conversing with family in Burkinan smiling Neuro no focal deficits Lab and Diagnostics INR 3.82 Result Diagram: 07/31/16 0535 07/31/16 0535 X-Rays, CTs and MRIs PROCEDURE: X-RAY CHEST ONE VIEW, PORTABLE IMPRESSION: Scattered bibasilar scarring/atelectasis. No definite acute disease Dictated by: Jp Paulino M.D. on 07/26/2016 at 17:55 Approved by: Jp Paulino M.D. on 07/26/2016 at 17:56 [facility] Diagnostic [place] [address] Patient Name: IZZY THAKKAR MR#: [id number] Location: [facility] Ordering Phys: Noemy Cardoza Gladys Date of Service: 07/28/16 1703 PROCEDURE: US VENOUS LEG DUPLEX BILATERAL INDICATIONS: V/Q scan showed concern for PE TECHNIQUE: Real-time imaging, as well as color and pulse Doppler interrogation, were performed of the deep veins of both legs from the inguinal ligament to the popliteal fossa. COMPARISON: None. FINDINGS: The deep veins are normally compressible, and free of intraluminal thrombus. Color and pulse Doppler demonstrate normal phasic intravascular flow. There is normal augmentation response to distal compression maneuver. IMPRESSION: No evidence of bilateral lower extremity DVT. Dictated by: Rubén Maloney M.D. on 07/28/2016 at 18:25 Approved by: Rubén Maloney M.D. on 07/28/2016 at 18:25 [facility] Diagnostic [place] [address] Patient Name: IZZY THAKKAR MR#: [id number] Location: [facility] Ordering Phys: Jean-Paul Olivia MD Date of Service: 07/27/16 0702 PROCEDURE: NM LUNG VQ RADIOPHARMACEUTICAL: 26.6 mCi Tc-99m DTPA aerosol by inhalation and 5.2 mCi Tc- 99m MAA intravenously. INDICATIONS: ELEVATED D-DIMER. TECHNIQUE: Ventilation images were obtained first with Tc-99m DTPA aerosol. Subsequently, perfusion images were acquired after intravenous injection of Tc-99m MAA. Anterior, posterior, COBURN, CHINESE, RPO, LPO, left and right lateral views were obtained. COMPARISON: [facility], NM, NM LUNG VQ, 07/04/2016, 15:23. [facility], CR, XR CHEST 2VW, 07/27/2016, 9:07. FINDINGS: Image quality ventilation images limited secondary to central deposition of radiopharmaceutical which we do to COPD versus poor aerosolization. Numerous, small, peripheral, wedge-shaped perfusion defects are identified which do not have definite matched ventilation defects. IMPRESSION: 1. Probability for pulmonary embolus is high. 2. Diagnosis sensitivity of study limited secondary to the poor quality ventilation images. Dictated by: Colleen Fitzpatrick MD, PhD on 07/27/2016 at 14:42 Approved by: Colleen Fitzpatrick MD, PhD on 07/27/2016 at 14:45 12-lead ECG EKG regular rhythm and rate of 82. P waves not definitively seen. 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 07/31 first day meeting medically complex patient is actually doing well for the second day in a row. Daughter is concerned he was sent home and got sick the last time he was here and has been here a number of times so the concern is discharged to soon. If the patient continues to do well including tomorrow they will be doubly satisfied that they can take him home. 08/01 spent well over an hour discussing the case with Drs. Saldana and Chanda patient/family or misunderstanding what is being told to them. I cannot find a provider that told he needs to stay 2 or 3 more days because of his pneumonia which is what they heard. There is a bit of discrepancy about pulmonary embolism by Dr. Gomez who feels diagnosis is somewhat in question because patient recently had low probability VQ scan, and currently no DVT by Doppler and the high probability VQ scan in the setting of pneumonia. INR is supratherapeutic still but patient not having any bleeding. CT with IV contrast could make the diagnosis but patient has had an adverse/allergic reaction nausea and vomiting in the past to contrast and clinicians all agree that diagnostic certainty this might bring his not worth the potential downsides were going to treat the pneumonia with Augmentin and possible PE with anticoagulation to be reassessed in the future. After a great deal of time and effort clarifying misunderstandings hopefully the patient and family are agreeable to discharge 08/02. I think the underlying issue is anxiety about the patient's global deterioration and impending demise in the not too distant future. Patient's pain is somewhat suboptimal control today and INR is still supratherapeutic to we aer holding him for 1 more day. #Acute hypoxemic respiratory failure: Multifactorial possible pneumonia versus PE- resolved patient ambulated the floor without desaturating 07/31 #PE-patient supratherapeutic on warfarin 3.8-08/01 no bleeding - V/Q scan showed high probability of PE, Coumadin is started pharmacy is monitoring: Today his INR is therapeutic - Albuterol inhaler available PRN: Change this to every 2 when necessary per family request -- DVT ultrasound is ordered after discussing the case with Dr. Gomez, scan is negative. -CTA PE was considered multiple times throughout the stay holding off as he has contrast. 08/01 # pneumonia, present on admission, active. - Concerning for aspiration : Swallow study was done and he is currently onsoft diet and nectar thickened liquids -Strep antigen is positive -Patient may have had viral pneumonia earlier, then strep pneumonia and/or aspiration we are finishing treatment with a course of Augmentin. 08/01 # Metastatic prostate cancer with skeletal involvement, present on admission, recently discontinuing chemotherapy. - Spoke to Dr. Gomez 08/01, he currently has no plans to do chemotherapy now and does not think it is likely in the future #Chronic pain with continuous opiate dependence - We will continue his home narcotics (Methadone and Hydromorphone PO), also some when necessary IV morphine, as needed for pain control: Palliative care care is now managing medications -We will continue Gabapentin # Urinary retention noted during recent admission,chronic. -Continue Tamsulosin -Will place Porras catheter -- Every 6 hours latter scan and straight cath if retaining greater than 400 mL but this has been an issue during his previous admissions # Hypertension, chronic, controlled. - Continue home Metoprollol # Hyperlipidemia, chronic, presume stable. -Continue Atorvastatin # Depression and history of anxiety -Continue Mirtazapine # Code status: FULL CODE per family. Repeatedly verified during this stay Disposition is to home 08/02 if the patient is feeling well discussed with Dr. Boone who is at the bedside and is primary caregiver GI Prophylaxis: Proton Pump Inhibitor VTE Prophylaxis: Theraputic Anticoag with Warfarin VTE Mechanical Devices: Intermittant Pneumatic CD Resuscitation Status: CPR: Attempt Resuscitation Time spent >70min Kirk Cornell MD Aug 01, 2016 15:06
[2016-08-01] MEDS: Methadone 10 mg/mL Oral Concentrate PO SCH ×2 (15:27→20:09)
[2016-08-01] MEDS ORDERED: ALPRAZolam 0.5 mg Tablet PO PRN (15:35)
--- NOTE | 2016-08-01 18:23 | NUR ---
Pain/comfort- The schedule of Methadone and Dilaudid appears to be effective for generalized discomfort. Patient has need any additional med for breakthrough pain. Family members here and supportive in patient's care.
[2016-08-01 21:32] VITALS: BP 168/75; PULSE 66; RESP 16; O2SAT 96
--- NOTE | 2016-08-02 04:37 | NUR ---
Pain/activity Pt reports pain at 6/10 and 7/10, current pain regimen appears to be effective. Family at bedside and assists with care. Pt is tolerating PO foods that family is providing. Good intake of fluids and good output. Ambulated to BR x2 but using urinal at bedside.
[2016-08-02 07:36] LABS: INR 2.76 ratio
--- NOTE | 2016-08-02 10:51 | PCM.PNPALL ---
Date of Service Aug 02, 2016 Date of Hospital Admission: Jul 26, 2016 at 22:00 Date of Palliative Consult: Jul 28, 2016 Palliative Care Recommendation 76 yo pt with known metastatic prostate CA with extensive bone involvement followed by Dr. Gomez for oncology and Dr. Payton for PCP. He has been treated for years for his prostate CA and now refractory. Recently some improvement of his PSA with Taxotere but this is on hold due to his progressive weakening. He has been hospitalized in May for UTI then jun and again in July for pneumonia. Last was 07/04-07/12 with only rhinovirus found. He was still coughing up copious phlegm and had ongoing low grade T at home. he improved slightly but then this past week, increasing SOB and weaker and loss of appetite and increase in his cough. He was brought to the ER with VQ noting high probability for PE and +urine strept Ag. He was treated with IV antibiotics and Lovenox, but is now on oral warfarin and Augmentin. 07/28: Family conference was held with CM, Jen Steward (his favorite RN), Dr. Stoll for PC and Patient, Sheba, daughters Antonieta, Sheba Campos and son Alejandro and automotive parts interpreter. Details in Dr. Stoll's note of 07/28. Dr. Stoll follows this patient for outpatient palliative care and has good rapport with the family and patient. 07/31: RAHEL Hoff of Pall Care Team and Attending Dr. Cornell met with all three daughters are present, and several other family members. The family pleased with pt's progress and patient eager to go home. 08/01: INR supratherapeutic at 4.98 on 07/31 and 3.82 on 08/01. Likely home discharge soon as INR trending down. Dr. Leung, automotive parts interpreter, pt and family will meet today at 14:30h. 08/01 Family Conference Team Meeting: Dr. Leung, met with pt, Andreina, dtr Mely and Dtr Andreina and multiple other adult family members. Intrepreter was present throughout this meeting. 1. Clarified that pt is likely to be discharged home tomorrow if INR stable and changes in his pain regimen today keep him in good control. 2. Discussed blood thinners may be discontinued by Dr. Gomez in 3 months, depending on pt's clinical situation. 3. Dr. Leung brought up pt's poor prognosis, that pt's prostate cancer can not be cured. Discussed that this is time for family to create good memories on pt's good days when he feels well, but to expect that some days he may sleep all day or have pain. 4. Discussed that chemotherapy is off the table, Dr. Gomez says it is no longer useful for his cancer. 5. Discussed radiation therapy and fact that Dr. Gomez does not think it is helpful at this time. Patient and family keep wanting to explore more radiation therapy. Dr. Leung explained that there is no discrete lesion to focus on at this time, that his spine imaging is full of metastases, but no prominent lesion. She emphasized importance of using medication to help pain for as long as possible. She recommended that pt return to outpt palliative therapy with Dr. Stoll for ongoing recommendations on this. 6 Encouraged family members present today to share this information with the large group of family members to help educate them and prepare them for the possible scenarios ahead. 7. Reinforced that patient is vulnerable to infection due to his cancer, and his past chemotherapy, and that often patients with cancer actually from a sudden infection before they from their cancer burden. 8. Answered questions and supported patient's beliefs about "healing miracles " (he has a brother with prostate cancer that was in a coma in ICU in [place] and has recovered and is walking around and visited him recently). Spoke about the miracle of God choosing to call a patient back to Him, and that family needs to prepare for both kind of miracles. Summary of palliative recommendations: 08/02/16-In review with Mely who sets up his meds. Will aim at methadone 10 mg BID (scheduled to minimize errors with midday dosing and his managing). On this he has rarely needed much breakthrough med. He has his hydromorphone at home but will send home with 2 week script for methadone. Mely is authorized to increase his methadone to 12.5 mg BID if he is requiring frequent BT med dosing. Mely requests OP appt in 1 week if possible to review. This will be arranged through the PC office. Code status and POLST to be reviewed at OP visit when daughter is present. Dr. Payton is PCP and I assume will be the manager secondary of antico status -Symptom management (Pain/other) PAIN: -has been stable in last 24 hour, with methadone and hydromorphone. His methadone was adjusted 07/29 to 7 mg TID. In addition, he gets hydromorphone 3 mg q 4 hours RTC, and can have an additional 1 mg q 2hr prn--> Dr. Leung ordering the breakthrough dose to be increased to 2mg po q 2h (08/01) --08/01 is only day 3-4 of new methadone dose: plan to continue to adjust methadone. Will keep it at this dose, as number of breakthrough hydromorphone doses needed seems to be declining. NAUSEA: mild but still present at times. Patient is agreeable to a prophylactic dosing of ondansetron 4 mg TID. ordered to start on 07/31 before dinner. ANXIETY: continue alprazolam 0.5mg po TID prn. PULMONARY EMBOLI: reviewed driving factor with malignancy as well as issues with anticoagulation. 08/01, patient has supra-therapeutic INR of 3.82. Progressive weakness: somewhat improved; --There remains ongoing possible bad sequence of viral pneumonia secondary bacterial pneumonia now pulmonary embolus but also of concern that malignancy is progressing. Note from evening 07/[address] Gomez states he is no longer offering any more chemotherapy and encouraged pt to go with palliative therapy in future. On 08/[address] Leung, pt admits he did not understand what Dr. Gomez told him as no automotive parts interpreter present. -DPOA/Advanced Directives/POLST: Mely and Claire are first DPOA's. 07/31 discussion with them did NOT include changing decision about code status or POLST. -Family/emotional support-family support: Family has a difficult time accepting potential progression of disease. Goal will be to communicate acute issues with Antonieta Granados Rosalinda and Mely. We encourage pt and family to continue with ongoing outpatient palliative care Hospitalist problem list: 1. Dyspnea, acute, present on admission, active.: Dyspnea likely due to pneumonia due to strep pneumo versus pulmonary embolism - High suspicion index for pulmonary embolism given markedly elevated D-Dimer of 18.3 and patient's hypercoagulable state. - Continue Lovenox 75 mg twice a day subcutaneous. - V/Q scan showed high probability of PE, Coumadin is started pharmacy is monitoring: Today his INR is therapeutic as enoxaparin and stopped - Albuterol inhaler available PRN: Change this to every 2 when necessary per family request -- Consult Dr. Gomez tomorrow a.m. as he will be rounding tomorrow. He is aware of the recent changes in patient status. -- Delsym is ordered. Michelle Marquez also on onboard 2. healthcare-acquired pneumonia, present on admission, active. - Patient presents with increasing sputum production and purulence with a fever of 38.9. - However, normal WBC and CXR. Procal is essentially negative at 0.06. - Influenza screen negative - Continue Zosyn IV antibiotics - Sputum and blood cultures pending: Negative to date - Check Legionella and strep Ag: Legionella negative strepantigen positive - Continue to monitor vital signs. - Concerning for aspiration : Swallow study was done and he is currently onsoft diet and nectar thickened liquids 3. Metastatic prostate cancer with skeletal involvement, present on admission, recently discontinuing chemotherapy. -Weakness is likely related to deconditioning from cancer - We will continue his home narcotics (Methadone and Hydromorphone PO), also some when necessary IV morphine, as needed for pain control: Palliative care care is now managing medications -We will continue Gabapentin - Dr. Chanda Dickens is contacted on 06/30/16, he currently has no plans to do chemotherapy at this time. Patient himself is saying that he did not like the way chemotherapy medications made him feel. -PT ordered. 4. Urinary retention noted during recent admission,chronic. -Continue Tamsulosin -Will place Porras catheter -- Every 6 hours latter scan and straight cath if retaining greater than 400 mL but this has been an issue during his previous admissions 5. Hypertension, chronic, controlled. - Continue home Metoprollol -We will continue to monitor vital signs. 6. Hyperlipidemia, chronic, presume stable. -Continue Atorvastatin 7. Depression and history of anxiety -Continue Mirtazapine 8. Code status: FULL CODE per family. Confirmed by Dr. Stoll but also see notes about patient's desire to be home with his family when declining. Problems: End of Life Preferences At this point full code. Patient had indicated in prior discussion that if near end of life he would refer to be at home rather than in hospital Goals of Care Aggressive care with anticoagulation, antibiotics. They understand there are no plans for further chemo. Disposition Home today with HH and PT Resuscitation Status Resuscitation Status: CPR: Attempt Resuscitation POLST Updates/Changes Previous POLST?: No (patient has discussed form with Dr. Stoll but has not yet completed it. ) POLST Discussed with: Patient, Health Care Agent (DPOAHC) . Symptom management: Pain Palliative Subjective Palliative Care Daily Responde: Patient, Family/Proxy Brief History 76 yo with hx of metastatic prostate CA with extensive mets to bone. Recent hospitalizations for pneumonia-1st viral then bacterial and now with PEs. Is now therapeutic on INR Chronic pain due to bone mets also better controlled back on his methadone dosing of 7 mg TID Patient/Family Concerns Reviewed extensively with Mely who has been with him for his appts OP. See discussion. Subjective Patient states pain now much improved and he was able to walk in [place] yesterday Palliative Performance Scale PPS Ambulation: Reduced PPS Activity: Unable to do most activity PPS Self-Care: Occasional assistance necessary PPS Intake: Normal or reduced PPS Conscious Level: Full Performace Scale: 80% Responsive Patient Symptoms Pain (current): Mild Pain (maximium): Moderate Tiredness/Fatigue: Moderate Nausea: None Depression: Moderate Anxiety: Moderate Drowsiness/Sleepiness: Mild Anorexia: None Shortness of Breath: Moderate Objective Findings Exam Vital Sign - Last Date Time Temp Pulse Resp B/P Pulse Ox O2 Delivery O2 Flow Rate FiO2 08/01/16 21:32 36.9 66 16 168/75 96 Room Air 07/31/16 05:06 1.00 Intake and Output 08/01/16 08/01/16 08/02/16 Cumulative From/Thru 15:00 23:00 07:00 07/26/16 16:40 - 08/02/16 00:59 Intake Total 40885 ml Output Total 9025 ml Balance 2555 ml Intake Oral 5940 ml IV Total 5640 ml Output Urine Total 9025 ml # Voids 3 # Bowel Movements 2 General: Alert/Oriented x3 HEENT: PERRLA, EOMI, Scleral Anicteric, Other (miotic pupils) Heart: Regular Rate/Rhythm Neuro: Cranial Nerve 3-12 Intact, Other (responds appropriately and involved in discussion, is [place]) Extremities: No Edema Lab/Diagnostics Lab and Imaging results reviewed in detail in EMR. INR 2.76 PSA stable at 1.51 Patient/Family Conference Members Present Family Members Present patient and , other family members in room but not the core of daughters who coordinate his care TC to Mely-see discussion Medical Team Members Present? Sarah MCKEON PC automotive parts interpreter Discussion/Goals of Care Discussion FAMILY UNDERSTANDING OF DISEASE: Mely is able to go over in detail her understanding of disease process and end of life issues as laid out by Edilson Leung MD PC Mely feels her dad also understands this and was able to discuss the support he expects for his when he is gone etc. His is not quite there in acceptance. Reviewed ? hospice and Mely thinks this is a good idea in the near future. He is lined up for HH and PT and we will aim for that direction and I will see him OP and we can decide if and when hospice will be appropriate. Seems like the family has made significant steps in acceptance of his illness. I will need further clarification regarding their acceptance of hospice and not hospitalization. DISEASE PROGRESSION/EVIDENCE OF DECLINE: SYMPTOM BURDEN: GOALS: To maintain his independence for as long as possible. Adequate pain control HOPES/WORRIES: Time spent Total time 40 minutes; >50% face to face with patient and/or family, providing counselling regarding plans and recommendations, and in care coordination with his/her medical teams. with care coordination with Mely and patient and family and CM etc. I also spent an additional [ ] minutes counseling for advanced care planning with the patient/the patients family/the surrogate decision maker. copies to: Johnson Payton MD; Meet Hardy MD, Deborah A MD Aug 02, 2016 10:51
[2016-08-02] MEDS: Methadone 10 mg/mL Oral Concentrate PO SCH (10:58)
[2016-08-02] MEDS: Amoxicillin-Clav 875-125 mg Tablet PO SCH (10:58)
--- NOTE | 2016-08-02 13:07 | PCM.DIMED ---
Discharge Instructions Date of Service Aug 02, 2016 Dates of Hospitalization Jul 26, 2016 at 22:00 Discharge Diagnosis Discharge Diagnosis Acute respiratory failure likely secondary to possible strep pneumonia and/or pulmonary embolism Test Results V/Q scan high probability Dopplers of lower extremities negative Diet No restrictions Activity No restrictions Call your provider Fever or Chills Patient Instructions Follow-up Provider: Meet Hardy MD Follow-up with PCP in: Other (call) Provider: Johnson Payton MD Follow-up in: Other (call) Attending's Statement At this point in time patient is consider every week for any further chemotherapy which has weakened him substantially but controlled the cancer. But his multiple hospitalizations suggests that it is now becoming too toxic for him. At this stage no further chemotherapy is planned by Dr. Gomez however if his functional status improves this may be reconsidered. We are finishing treatment for pneumonia which will be clearing his as long as breathing is improving and pain is controlled patient is doing well. He may indeed become stronger off of chemotherapy for a while but the prostate cancer we will then progress. Kirk Cornell MD Aug 02, 2016 13:07
[2016-08-02 13:09] VITALS: BP 152/71; PULSE 55; RESP 14; O2SAT 93
[2016-08-02] MEDS ORDERED: METH5TAB3 PO (13:20)
[2016-08-02] MEDS ORDERED: AGM875T PO (13:20)
[2016-08-02] MEDS ORDERED: WARF1TAB6 PO (13:20)
[2016-08-02] MEDS ORDERED: SENN-133 PO (13:20)
[2016-08-02] MEDS ORDERED: Dexamethasone PO (13:20)
[2016-08-02] MEDS ORDERED: BENZ100C8 PO (13:20)
--- NOTE | 2016-08-02 14:32 | NUR ---
spiritual care: routine with oncology rn, pt agreeable for eucharistic visitor.
[2016-08-02] MEDS ORDERED: LACT1CAP84 PO (15:09)
--- NOTE | 2016-08-02 15:11 | NUR ---
DC DC instructions and medications reviewed with and educational interpreter as well as Mignon. All belonging with pt and family. Prescriptions in hand of Mignon. Sourcing Specialist confirms no further questions from family and that they understand all instructions. Pt goes home with mignon to home with family for care. Care discontinued
--- NOTE | 2016-08-02 15:20 | NUR ---
Social Work - Discharge Data: EMR reviewed. PT has cleared pt to be discharged with HH. Pt to discharge to home with [facility]- RN and PT, and [facility] via daughter in POV. SW confirmed that [facility] has face to face. All updated and agreeable to plan. Assessment: Pt who resides at home with family and would benefit from HH -RN and PT and SAMANTA. Plan: Patient to discharge home with HH - RN and PT and SAMANTA. CARMEN Rivas
--- NOTE | 2016-08-02 17:45 | PCM.DC.MED ---
Discharge Summary Date of Service Aug 02, 2016 Dates of Hospitalization Date of Hospital Admission Jul 26, 2016 at 22:00 Date of Discharge: Aug 02, 2016 Providers: Admitting Physician: Jean-Paul Olivia MD Primary Care Physician: Johnson Gallardo MD Attending Physician: Jean-Paul Olivia MD Diagnosis at Time of Discharge Diagnosis at Time of Discharge Acute respiratory failure likely secondary to possible strep pneumonia and/or pulmonary embolism Consultations Palliative care Drs. Norwood and Jerman thank you Hematology/oncology Dr. Chanda Graham thank you Procedures XRay, CTs & MRIs PROCEDURE: X-RAY CHEST ONE VIEW, PORTABLE IMPRESSION: Scattered bibasilar scarring/atelectasis. No definite acute disease Dictated by: Jp Paulino M.D. on 07/26/2016 at 17:55 Approved by: Jp Paulino M.D. on 07/26/2016 at 17:56 PROCEDURE: US VENOUS LEG DUPLEX BILATERAL IMPRESSION: No evidence of bilateral lower extremity DVT. Dictated by: Rubén Maloney M.D. on 07/28/2016 at 18:25 Approved by: Rubén Maloney M.D. on 07/28/2016 at 18:25 PROCEDURE: NM LUNG VQ 1. Probability for pulmonary embolus is high. 2. Diagnosis sensitivity of study limited secondary to the poor quality ventilation images. Dictated by: Colleen Fitzpatrick MD, PhD on 07/27/2016 at 14:42 Approved by: Colleen Fitzpatrick MD, PhD on 07/27/2016 at 14:45 ECG 12 Lead EKG regular rhythm and rate of 82. P waves not definitively seen. 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 By the time of admission, patient is somnolent and history is obtained through his daughters. They report that his cough has been persistent since the last hospitalization, but it becomes worse and more productive today. His reports thick yellow sputum. The family checked his temperature at home but it was normal. They also report that he has become progressively weaker and has no appetite. He complains of pain all over his body, nausea, and vomiting x 1. His family has not noticed any change in his mental status except that he is sleepier today. They deny any urinary symptoms, diarrhea, or headache. Patient has chronic constipation. The patient has been in the hospital repeatedly for pneumonia in recent months. His last session of chemotherapy was two weeks ago. He was told by Dr. Gomez that the chemotherapy will be placed on hold due to his increasing weakness. They plan to resume treatment when he feels better and still motivated. Otherwise, he should consider palliative care alone. 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 07/31 first day meeting medically complex patient is actually doing well for the second day in a row. Daughter is concerned he was sent home and got sick the last time he was here and has been here a number of times so the concern is discharged to soon. If the patient continues to do well including tomorrow they will be doubly satisfied that they can take him home. 08/01 spent well over an hour discussing the case with Drs. Saldana and Chanda patient/family or misunderstanding what is being told to them. I cannot find a provider that told he needs to stay 2 or 3 more days because of his pneumonia which is what they heard. There is a bit of discrepancy about pulmonary embolism by Dr. Gomez who feels diagnosis is somewhat in question because patient recently had low probability VQ scan, and currently no DVT by Doppler and the high probability VQ scan in the setting of pneumonia. INR is supratherapeutic still but patient not having any bleeding. CT with IV contrast could make the diagnosis but patient has had an adverse/allergic reaction nausea and vomiting in the past to contrast and clinicians all agree that diagnostic certainty this might bring his not worth the potential downsides were going to treat the pneumonia with Augmentin and possible PE with anticoagulation to be reassessed in the future. After a great deal of time and effort clarifying misunderstandings hopefully the patient and family are agreeable to discharge 08/02. I think the underlying issue is anxiety about the patient's global deterioration and impending demise in the not too distant future. Patient's pain is somewhat suboptimal control today and INR is still supratherapeutic to we aer holding him for 1 more day. 08/02 patient's daughter Mely arrived patient was happy/anxious to discharge I believe all of the family's questions had already been answered, they had none for me today. I hope they finally understand the frail nature of his condition and that he is nearing the end of life. For now although he was quite spry and seemed to be happy to be off of chemotherapy as it made him feel poorly. We worked extensively to make sure that he and his family understood the implications of being off of chemotherapy and natural progression of disease. #Acute hypoxemic respiratory failure: Multifactorial possible pneumonia versus PE- resolved patient ambulated the floor without desaturating 07/31 #Supratherapeutic INR-patient received 5 mg warfarin 07/27, 4 mg 07/28 and that was on hold until INR dropped to 2.76 today after being supratherapeutic, resuming 1 mg daily follow-up 08/03 and adjust accordingly -The physical nature of warfarin and its interactions was discussed with his daughter Mely, she was told that it would probably drop after stopping antibiotics. For now we will may be elevated, and the green leafy vegetables reversed with. -Goal INR 2-3 for PE #PE-patient supratherapeutic on warfarin 3.8-08/01 no bleeding - V/Q scan showed high probability of PE, Coumadin is started pharmacy is monitoring: Today his INR is therapeutic - Albuterol inhaler available PRN: Change this to every 2 when necessary per family request - DVT negative. -CTA PE was considered multiple times throughout the stay holding off as he has contrast. 08/01, risk was not worth the possible gain of diagnostic certainty for PE versus pneumonia -PE diagnosis is a bit in question per Dr. Chanda Dickens as it was low risk in May , and Dopplers of lower extremities are normal, and the abnormality is found in the setting of possible pneumonia by CXR and positive strep urine antigen # pneumonia, present on admission, active. - Concerning for aspiration : Swallow study was done and he is currently onsoft diet and nectar thickened liquids -Strep antigen is positive -Patient may have had viral pneumonia earlier, then strep pneumonia and/or aspiration we are finishing treatment with a course of Augmentin. 08/01-08/09 # Metastatic prostate cancer with skeletal involvement, present on admission, recently discontinuing chemotherapy. - Spoke to Dr. Gomez 08/01, he currently has no plans to do chemotherapy now and does not think it is likely in the future #Anemia Hg stable 8.5-9.5 range -Consider anemia panel if appropriate, on discharge and only noted this had not been done so that I can tell since 2007. #Chronic pain with continuous opiate dependence-pain adequately controlled - We will continue his home narcotics (Methadone and Hydromorphone PO), also some when necessary IV morphine, as needed for pain control: Palliative care care is now managing medications -continue Gabapentin # Urinary retention noted during recent admission,chronic. -Continue Tamsulosin, acute issues resolved patient left without catheter # Hypertension, chronic, controlled. - Continue home Metoprollol # Hyperlipidemia, chronic, presume stable. -Continue Atorvastatin # Depression and history of anxiety -Continue Mirtazapine # Code status: FULL CODE per family. Repeatedly verified during this stay Disposition is to home 08/02 if the patient is feeling well discussed with Dr. Boone who is at the bedside and is primary caregiver Exam Vital Signs (Last) Date Time Temp Pulse Resp B/P Pulse Ox O2 Delivery O2 Flow Rate FiO2 08/02/16 13:09 36.4 55 14 152/71 93 Room Air 07/31/16 05:06 1.00 Exam Gen.: No acute distress ,elderly male sitting up in bed conversing with family, as quickly as I saw the patient I saw him dressed and ambulating up the door with a walker I have asked him to wait for the rest of the staff. HEENT: Normocephalic, atraumatic Ears normal, nose normal Eyes: Open, conjunctiva clear, pupils equal eyes tracking symmetrically Neck: Trachea midline no JVD noted Heart: Normal rate Lungs: Normal rate no accessory muscle usage Abdomen: Flat Extremities: Moving 4 Psych: Pleasant and appropriate conversing with family in Somali smiling Neuro no focal deficits Skin no obvious rashes exposed Test 07/26/16 16:35 07/26/16 21:03 07/27/16 05:18 07/28/16 04:05 Hold Purple Top Tube Received (Received) D-Dimer 18.3mg/L (<0.50) Hold Blue Top Tube Received (Received) Magnesium Level 2.2mg/dL (1.6-2.6) Troponin T < 0.010ug/L (0.0-0.011) Hold [place] Top Tube Received (Received) Hold Horn Top Tube Received (Received) Urine Color Yellow (YELLOW) Urine Appearance Clear (CLEAR,HAZY) Urine pH 5.5 (5.0-8.0) Urine Specific [place] 1.015 (1.003-1.035) Urine Protein Negativemg/dL (NEG,TRACE) Urine Glucose (UA) Negativemg/dL (NEGATIVE) Urine Ketones Negativemg/dL (NEGATIVE) Urine Occult Blood Negative (NEGATIVE) Urine Nitrite Negative (NEGATIVE) Urine Bilirubin Negative (NEGATIVE) Urine Urobilinogen Normalmg/dL (NORMAL) Urine Leukocyte Esterase Negative (NEGATIVE) Urine RBC 0-2/hpf (0-2) Urine WBC 0-5/hpf (0-5) Urine Epithelial Cells Occasional/hpf (NONE-MOD) Urine Crystals None seen (NONE SEEN) Urine Bacteria Few/hpf (NONE-FEW) Urine Hyaline Casts None/lpf (NONE) Urine Granular Casts None seen (NONE SEEN) Urine Waxy Casts None seen (NONE SEEN) Urine Red Blood Cell Casts None seen (NONE SEEN) Urine White Blood Cell Casts None seen (NONE SEEN) Urine Mucus Present (None Seen) Urine Trichomonas None seen (NONE SEEN) Urine Yeast None (NONE SEEN) Urinalysis Comment None Urine Culture Reflexed Not indicated Urine Legionella pneumophilia Ag Negative (Negative) Lactic Acid Level 0.7mmol/L (0.4-2.0) Procalcitonin 0.31ng/mL (0.00-0.08) Test 07/29/16 04:30 07/30/16 06:22 07/31/16 05:35 08/02/16 05:55 Hematology Comments Rbc Prostate Specific Antigen 151.8ng/mL (0.0-4.0) White Blood Count 7.7th/mm3 (3.8-10.1) Red Blood Count 3.20mil/mm3 (4.40-5.80) Hemoglobin 8.8g/dL (13.8-17.2) Hematocrit 29.0% (41.0-50.0) Mean Corpuscular Volume 90.6fL (81-100) Mean Corpuscular Hemoglobin 27.5pg (27.0-35.0) Mean Corpuscular Hemoglobin Concent 30.3% (32.0-37.0) Red Cell Distribution Width 19.1% (12.3-15.4) Platelet Count 354bil/L (150-400) Neutrophils (%) (Auto) 80.8% (40-74) Lymphocytes (%) (Auto) 12.3% (14-46) Monocytes (%) (Auto) 5.7% (4-12) Eosinophils (%) (Auto) 0.1% (0-5) Basophils (%) (Auto) 0.1% (0-3) Sodium Level 141mEq/L (134-144) Potassium Level 3.9mEq/L (3.5-5.2) Chloride Level 107mEq/L (97-108) Carbon Dioxide Level 22mmol/L (18-29) Blood Urea Nitrogen 8mg/dL (8-27) Creatinine 0.53mg/dL (0.76-1.27) Estimat Glomerular Filtration Rate 160mL/min (>59) Glucose Level 155mg/dL (60-99) Calcium Level 8.4mg/dL (8.5-10.1) Total Bilirubin 0.2mg/dL (0.0-1.2) Aspartate Amino Transf (AST/SGOT) 16U/L (0-50) Alanine Aminotransferase (ALT/SGPT) 6U/L (0-44) Alkaline Phosphatase 192U/L (25-160) Total Protein 5.5g/dL (6.4-8.4) Albumin 2.9g/dL (3.4-5.0) Prothrombin Time 30.1sec (8.1-12.5) Prothromb Time International Ratio 2.76ratio Discharge Medications Discharge Medications ([Dexamethasone]) 2 MG TABLET 1 MG PO BIDWM Prescribed by: PRAVIN NASH MD Amoxicillin/Clav K 875-125 mg (Amoxicillin/Clav K 875-125 mg) 875 Mg Tab 1 TAB PO BID Prescribed by: PRAVIN NASH MD Atorvastatin Calcium (Atorvastatin Calcium) 10 Mg Tablet 10 MG PO DAILY Prescribed by: JOHNSON GALLARDO MD Gabapentin (Gabapentin) 300 Mg Capsule 300 MG PO TID (Reported) Lactobac #2-S. Therm-Bifido #1 (Visbiome 112.5 Billion Capsule) 112.5 Billion Cell Capsule 2 EACH PO DAILY Prescribed by: PRAVIN NASH MD Methadone (Methadone) 5 Mg Tablet 5 MG PO BID Prescribed by: PRAVIN NASH MD Mirtazapine (Mirtazapine) 15 Mg Tablet 7.5 MG PO HS (Reported) Pantoprazole DR (Pantoprazole DR) 20 Mg Tablet.dr 20 MG PO QAM (Reported) Tamsulosin (Flomax) 0.4 Mg Capsule 0.4 MG PO BID (Reported) Warfarin Sodium (Warfarin Sodium) 1 Mg Tablet 1 MG PO DAILY Prescribed by: PRAVIN NASH MD As needed Albuterol Sulfate (Ventolin HFA Inhaler) 200 Puff/18 Gm Inhaler 1 PUFF INH Q4 PRN PRN For Wheezing Prescribed by: LUISITO GOODWIN DO Alprazolam (Alprazolam) 0.5 Mg Tablet 0.5-1 MG PO TID PRN PRN For Anxiety ( Reported) Benzonatate (Benzonatate) 100 Mg Capsule 100 MG PO TID PRN PRN For Cough Prescribed by: PRAVIN NASH MD Hydromorphone (Hydromorphone) 2 Mg Tablet 2 MG PO Q4H PRN PRN For Pain (Reported ) Lidocaine HCl (Lidocaine HCl Viscous) 20 Mg/1 Ml Solution 5 ML MM QID PRN PRN MOUTH PAIN (Reported) Nitroglycerin SL (Nitroglycerin SL) 0.4 Mg Tab.subl 0.4 MG SL PRN PRN PRN For Chest Pain (Reported) Polyethylene Glycol 3350 (Miralax) 17 Gm Powd.pack 17 GM PO DAILY PRN PRN For Constipation (Reported) Sennosides (Senna) 8.6 Mg Tablet 17.2 MG PO BID PRN PRN For Constipation Prescribed by: PRAVIN NASH MD Followup Plan Discharge Diet: No restrictions Discharge Activity: No restrictions Follow-up Provider: Meet Hardy MD Follow-up with PCP in: Other (call) Provider: Johnson Gallardo MD Follow-up in: Other (call) Time spent Greater than 30 minutes copies to: Johnson Gallardo MD, Andris E MD Aug 02, 2016 13:20
--- NOTE | 2016-08-08 14:18 | NUR ---
Palliative care note D/A: Phone call from dtr indicating needs new Rx for anti-emetic. Cannot recall name, [facility] states do not have on record. Contact Dr. Stoll who agrees to refill, learn from Mely that pharmacy has found scrip after dtr asked for print out of meds. Dr. Stoll aware no need for refill. Mely confirms appt for 08/09/16 at 1400. P: PC to follow as needed. Nicole VELASCO, CCM
[2016-08-11] MEDS ORDERED: CITA20TA11 PO (11:10)
[2016-08-11] MEDS ORDERED: DXM4T PO (11:10)
[2016-08-11] MEDS ORDERED: MTH10T PO (11:10)
== END 2016-08-02 15:20 | disposition home or self-care (01) | DRG 175 ==
LOC: EDUNIT# 16:29 → EDBD 16:29 → SED 16:29 → OSC 22:00
PROVIDERS: ADMIT Hospitalist; ATTEND Hospitalist
DX: I26.99 Other pulmonary embolism without acute cor pulmonale (principal); J18.9 Pneumonia, unspecified organism; J96.01 Acute respiratory failure with hypoxia; C79.51 Secondary malignant neoplasm of bone; C61 Malignant neoplasm of prostate; R33.8 Other retention of urine; F32.9 Major depressive disorder, single episode, unspecified; Z79.82 Long term (current) use of aspirin; Z79.51 Long term (current) use of inhaled steroids; Z87.891 Personal history of nicotine dependence; Z79.01 Long term (current) use of anticoagulants

== ENCOUNTER 2016-08-17 18:22 | Inpatient (IN) | payer MEDICARE, MEDICAID ==
[~2016-08-17] VITALS: Ht 175.3 cm; Wt 79.0 kg
[~2016-08-17 18:22] MED LIST changes: +ALPR0.5T8 PO; -ASPI-973 PO; +BENZ100C8 PO; +CITA20TA11 PO; +DXM4T PO; +LACT1CAP84 PO; +LIDO20SO MM; -METH5TAB3 PO; -METO-272 PO; +MTH10T PO; +SENN-133 PO; +WARF1TAB6 PO
[2016-08-17 18:23] VITALS: BP 150/108; PULSE 94; RESP 25; O2SAT 86
--- NOTE | 2016-08-17 18:33 | ED.REPORT ---
HPI-General Illness Date of Service Aug 17, 2016 ED Provider: Tad Gomez MD Patient is a 76 year old male on blood thinners with a hx of HTN, Prostate cancer, and PE who presents to the ED complaining of diffuse myalgias onset last night. Associated symptoms include confusion, vague chest pain (onset last night) and decreased responsiveness. Per daughter, he is not experiencing cough , but has had some SOB, no abdominal pain, dysuria, urinary urgency,head trauma or any other symptoms. He would not swallow his pain medication this morning or drink water. No known sick contacts. He last had chemo 3 weeks ago. History is very limited as the patient is quite confused. Nursing Notes Stated Complaint: ALTERED LEVEL OF CONCIOUSNESS Chief Complaint: General Complaint Nursing Notes Reviewed: Yes Allergies: Coded Allergies: hydrocodone (Verified Allergy, Severe, hives, 07/04/16) iodine (Verified Allergy, Severe, it brought him to the hospital, 07/04/16) omeprazole (Verified Allergy, Mild, SHAKINESS, 07/04/16) Uncoded Allergies: CONTRAST MEDIUM (Allergy, Severe, ANAPHYLAXIS, 05/10/16) Scheduled Atorvastatin Calcium (Atorvastatin Calcium) 10 Mg Tablet 10 MG PO DAILY Dexamethasone (Dexamethasone) 4 Mg Tablet 2 MG PO BIDWM Enoxaparin (Lovenox) 80 Mg/0.8 Ml Syringe 80 MG SUBQ Q12 Gabapentin (Gabapentin) 300 Mg Capsule 300 MG PO TID Lactobac #2-S. Therm-Bifido #1 (Visbiome 112.5 Billion Capsule) 112.5 Billion Cell Capsule 2 EACH PO DAILY Methadone (Methadone) 10 Mg Tab 10 MG PO BID Mirtazapine (Mirtazapine) 15 Mg Tablet 7.5 MG PO HS Pantoprazole DR (Pantoprazole DR) 20 Mg Tablet.dr 20 MG PO QAM Potassium Chloride ER (Potassium Chloride ER) 10 Meq Tablet 10 MEQ PO DAILY TAKE WITH FOOD Sertraline HCl (Sertraline) 25 Mg Tablet 25 MG PO QAM Tamsulosin (Flomax) 0.4 Mg Capsule 0.4 MG PO BID Warfarin Sodium (Warfarin Sodium) 1 Mg Tablet 1 MG PO DAILY Scheduled PRN Albuterol Sulfate (Ventolin HFA Inhaler) 200 Puff/18 Gm Inhaler 1 PUFF INH Q4 PRN PRN For Wheezing Alprazolam (Alprazolam) 0.5 Mg Tablet 0.5-1 MG PO TID PRN PRN For Anxiety Benzonatate (Benzonatate) 100 Mg Capsule 100 MG PO TID PRN PRN For Cough Haloperidol (Haloperidol) 1 Mg Tablet 0.5 MG PO Q6H PRN PRN For Agitation Hydromorphone (Hydromorphone) 2 Mg Tablet 2 MG PO Q4H PRN PRN For Pain Lidocaine HCl (Lidocaine HCl Viscous) 20 Mg/1 Ml Solution 5 ML MM QID PRN PRN MOUTH PAIN Nitroglycerin SL (Nitroglycerin SL) 0.4 Mg Tab.subl 0.4 MG SL PRN PRN PRN For Chest Pain Ondansetron (Ondansetron) 8 Mg Tablet 8 MG PO Q8H PRN PRN For Nausea/Vomiting Polyethylene Glycol 3350 (Miralax) 17 Gm Powd.pack 17 GM PO DAILY PRN PRN For Constipation Sennosides (Senna) 8.6 Mg Tablet 17.2 MG PO BID PRN PRN For Constipation Sucralfate (Sucralfate) 1 Gm Tablet 1 GM PO QID PRN PRN GERD General Time Seen by MD: 18:25 Chief Complaint Other (Myalgia ) Hx Obtained From: Other family... Arrived By: Walk-in Sudden in Onset?: Yes Onset Occurred: Yesterday Similar Sx Previous: No Past Medical History Past Medical History Notes: Oncologist Dr. 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 Hematology oncology office visit with increasing weakness 07/03/2016 Reports: Hypertension Past Surgical History Toe surgery Family History Noncontributory Smoking History Former Smoker Social History Alcohol Use: Denies alcohol use Drug Use: Denies drug use Other Social History: Good social support, , Local resident Ambulatory Status Independent Review of Systems Full Review of Systems Respiratory: Denies: Non-productive cough, Shortness of breath Cardiovascular: Reports: Chest pain GI: Denies: Abdominal pain Male: Denies Dysuria, Denies Urinary urgency Musculoskeletal: Reports: Myalgia Neurologic: Reports: Confusion Psychiatric: Reports: Change mental status Complete sys rev & neg: except as marked. Physical Exam Vital Signs Vital Signs Date Time Temp Pulse Resp B/P Pulse Ox O2 Delivery O2 Flow Rate FiO2 08/17/16 20:47 37.5 90 20 112/52 98 Room Air 08/17/16 18:23 39.1 94 25 150/108 86 Room Air Initial VS: Reviewed General/Constitutional: Well-developed, Well-nourished Head / Eyes: Atraumatic, Normocephalic Neck: Supple, Full range of motion Skin: Warm, Dry Respiratory / Chest: Atraumatic Coarse breath sounds, decreased air movement L>R Cardiovascular: Heart sounds NL, No gallop, No murmurs, No rubs, Peripheral circulation NL Heart Rate / Rhythm: Positive: Tachycardia Abdomen: Soft, Non-tender, No guarding, No rebound, No distention Lower Extremity / Pelvis / MS: Inspection NL, No swelling NO calf swelling or tenderness Male Genitourinary: Inspection NL, Testes NL Mental Status: Positive: Confused (Per family ) at baseline can carry conversation. Unable to at this time. No facial droop. Moving all extremities equally. Interpretation & Diagnostics Lab Results Interpretation Result Diagram: 08/17/16 1838 08/17/16 1838 Test 08/17/16 18:38 08/17/16 19:27 08/17/16 20:36 White Blood Count 11.7th/mm3 (3.8-10.1) Red Blood Count 3.92mil/mm3 (4.40-5.80) Hemoglobin 11.0g/dL (13.8-17.2) Hematocrit 35.2% (41.0-50.0) Mean Corpuscular Volume 89.8fL (81-100) Mean Corpuscular Hemoglobin 28.1pg (27.0-35.0) Mean Corpuscular Hemoglobin Concent 31.3% (32.0-37.0) Red Cell Distribution Width 19.5% (12.3-15.4) Platelet Count 136bil/L (150-400) Neutrophils (%) (Auto) 65.8% (40-74) Lymphocytes (%) (Auto) 20.9% (14-46) Monocytes (%) (Auto) 9.3% (4-12) Eosinophils (%) (Auto) 3.3% (0-5) Basophils (%) (Auto) 0.1% (0-3) Hold Purple Top Tube Received (Received) Hold Blue Top Tube Received (Received) Sodium Level 131mEq/L (134-144) Potassium Level 4.5mEq/L (3.5-5.2) Chloride Level 96mEq/L (97-108) Carbon Dioxide Level 22mmol/L (18-29) Blood Urea Nitrogen 18mg/dL (8-27) Creatinine 0.70mg/dL (0.76-1.27) Estimat Glomerular Filtration Rate 116mL/min (>59) Glucose Level 90mg/dL (60-99) Calcium Level 8.3mg/dL (8.5-10.1) Magnesium Level 2.0mg/dL (1.6-2.6) Total Bilirubin 0.8mg/dL (0.0-1.2) Aspartate Amino Transf (AST/SGOT) 42U/L (0-50) Alanine Aminotransferase (ALT/SGPT) 9U/L (0-44) Alkaline Phosphatase 600U/L (25-160) Troponin T 0.086ug/L (0.0-0.011) Pro-B-Type Natriuretic Peptide 1069pg/mL (0-486) Total Protein 6.5g/dL (6.4-8.4) Albumin 3.5g/dL (3.4-5.0) Procalcitonin 0.61ng/mL (0.00-0.08) Hold Red Top Tube Received (Received) Hold Earp Top Tube Received (Received) Alcohols < 10mg/dL (0-10) Lactic Acid Level 0.8mmol/L (0.4-2.0) Urine Color Dark yellow (YELLOW) Urine Appearance Slightly cloudy Urine pH 5.5 (5.0-8.0) Urine Specific [place] 1.020 (1.003-1.035) Urine Protein Tracemg/dL (NEG,TRACE) Urine Glucose (UA) Negativemg/dL (NEGATIVE) Urine Ketones Negativemg/dL (NEGATIVE) Urine Occult Blood Large (NEGATIVE) Urine Nitrite Negative (NEGATIVE) Urine Bilirubin Negative (NEGATIVE) Urine Urobilinogen Normalmg/dL (NORMAL) Urine Leukocyte Esterase Negative (NEGATIVE) Urine RBC Packed/hpf (0-2) Urine WBC 0-5/hpf (0-5) Urine Epithelial Cells Occasional/hpf (NONE-MOD) Urine Crystals None seen (NONE SEEN) Urine Bacteria None/hpf (NONE-FEW) Urine Hyaline Casts None/lpf (NONE) Urine Granular Casts None seen (NONE SEEN) Urine Waxy Casts None seen (NONE SEEN) Urine Red Blood Cell Casts None seen (NONE SEEN) Urine White Blood Cell Casts None seen (NONE SEEN) Urine Mucus Present (None Seen) Urine Trichomonas None seen (NONE SEEN) Urine Yeast None (NONE SEEN) Urine Culture Reflexed Not indicated ECG Interpretation ECG Interpretation: sinus rate 92 Normal axis interval no St, T changes abnL R wave progression no change from 07/27/16 Time: 20:04 Interpreted by: ED physician X-Ray Chest Interpretation Chest Xray Interpretation: IMPRESSION: Low lung volumes and scattered atelectasis. No definite focal consolidation Dictated by: Jp Paulino M.D. on 08/17/2016 at 20:03 Approved by: Jp Paulino M.D. on 08/17/2016 at 20:03 View: Portable, 1 view Interpretation / Wet Read by: Interpret - Radiologist CT Head Interpretation IMPRESSION: No acute intracranial process. Left maxillary sinus disease Dictated by: Jp Paulino M.D. on 08/17/2016 at 20:01 Approved by: Jp Paulino M.D. on 08/17/2016 at 20:03 Study: Head CT no contrast Interpretation / Wet Read by: Interpret - Radiologist Re-Eval/Medical Decision Med Decision/Clinical Course Patient is a 76 year old male on blood thinners with a hx of HTN, Prostate cancer, and PE who presents to the ED complaining of diffuse myalgias onset last night. Associated symptoms include confusion, vague chest pain (onset last night) and decreased responsiveness. Per daughter, he is not experiencing cough , but has had some SOB, no abdominal pain, dysuria, urinary urgency,head trauma or any other symptoms. He would not swallow his pain medication this morning or drink water. No known sick contacts. He last had chemo 3 weeks ago. History is very limited as the patient is quite confused. Here in the emergency department the patient is generally unwell appearing, he is febrile to 39.1, tachycardic in the low 100s with increased respiratory rate and appears generally unwell. He is hypoxic in the mid 80s on room air requiring 3-4 L of supplemental oxygen by nasal cannula. Chest x-ray in my assessment demonstrated likely left lower lobe pneumonia though per radiologist read was equivocal. Head CT demonstrated no acute intracranial process. Laboratory studies were notable as below: Leukocytosis of 11.6 Hct 35 Mild hyponatremia with a sodium of 131 Stable renal function Lactic acid within normal limits The cause of the patient's fever is not 100% clear however the overall clinical picture favors pneumonia. While he does not have a cough he is short of breath with increasing oxygen requirement, fever and leukocytosis. Given the patient' s recent hospitalizations and the fact that he is also recently been treated with chemotherapy I opted to initiate broad-spectrum antibiotics with vancomycin and Zosyn. Prior to starting antibiotics 2 sets of blood cultures were obtained. He was additionally treated with a 1 L fluid bolus. I did consider other causes of his fever including soft tissue infection however there is no evidence thereof. Serial abdominal examinations remained benign without any suggestive of acute surgical intra-abdominal process. He had full range of motion of his neck and his neck was supple and given the overall clinical picture seems most consistent with pneumonia we opted not to obtain lumbar puncture at this moment. His fever was treated with Tylenol and he subsequently defervesced. He also became quite a bit more alert and awake and at one point stated that he did not want to be admitted to the hospital however we are able to convince him otherwise. He was discussed with the admitting hospitalist and transferred in stable condition. Time of Eval: 19:27 Re-Evaluation/Progress Note: Discussed plan for admission. Pt family agrees. All questions addressed at this time. Consultation : Referral / Consult Name: Jean-Paul Olivia MD Consulted With: Hospitalist Call Returned at: 20:55 Radiation Control Worker: Will see patient, Agrees with eval, Agrees with plan, Accepts admit Note: DIscussed pt case. Accepts admit. Counseled Regarding: Diagnosis, Lab results, Need for admission Discharge & Departure Primary Impression: Altered mental status Altered mental status type: unspecified Qualified Code: R41.82 - Altered mental status, unspecified Additional Impressions: Fever Fever type: unspecified Qualified Code: R50.9 - Fever, unspecified Left lower lobe pneumonia Pneumonia type: due to unspecified organism Qualified Code: J18.1 - Lobar pneumonia, unspecified organism Hypoxia Respiratory distress Hyponatremia Leukocytosis Leukocytosis type: unspecified Qualified Code: D72.829 - Elevated white blood cell count, unspecified Dehydration Prostate cancer metastatic to bone Disposition: ADMITTED TO HOSPITAL Referrals: Johnson Payton MD (PCP) Crit Care Except Billable Proc Time Spent: 105-134 minutes Services Performed: Patient management by me, Time spent at bedside, Reviewing test results, Reviewing imaging, Discussing patient care, Documentation in record, Time with fam/surrogate Scribe Attestation Portions of this note were transcribed by Dorinda Humphrey. I, Dr. Gomez personally performed the history, physical exam and medical decision-making; I reviewed and confirmed the accuracy of the information in the transcribed note. Signed by: Dorinda Humphrey 08/17/16, [id number] copies to: Johnson Payton MD, Beck O MD Aug 17, 2016 18:33 DORINDA HUMPHREY Aug 17, 2016 19:20
[2016-08-17] MEDS ORDERED: 0.9% Sodium Chloride 1,000 ML IV ONE ×2 (19:00→19:05)
[2016-08-17 19:11] LABS: BASOPHILS % (AUTO) 0.1 % (0-3); EOSINOPHILS % (AUTO) 3.3 % (0-5); MONOCYTES % (AUTO) 9.3 % (4-12); Mean Corpuscular Hemoglobin 28.1 pg (27.0-35.0); Mean Corpuscular Volume 89.8 fL (81-100); NEUTROPHILS % (AUTO) 65.8 % (40-74); Platelet Count 136 bil/L (150-400)
--- NOTE | 2016-08-17 20:05 | DRSVH ---
PROCEDURE: X-RAY CHEST ONE VIEW, PORTABLE ([id number]) INDICATIONS: ams, fever TECHNIQUE: One view of the chest was acquired. COMPARISON: [facility], CR, XR CHEST 2VW, 07/27/2016, 9:07. FINDINGS: Surgical changes and devices: None. Lungs and pleura: No pleural effusions or pneumothorax. Scattered by basilar mild atelectasis. Low l wiliam volumes. Mediastinum: Mediastinal contours appear normal. Heart size is normal. Bones and chest wall: No suspicious bony lesions. Overlying soft tissues appear unremarkable. IMPRESSION: Low lung volumes and scattered atelectasis. No definite focal consolidation Dictated by: Jp Paulino M.D. on 08/17/2016 at 20:03 Approved by: Jp Paulino M.D. on 08/17/2016 at 20:03
--- NOTE | 2016-08-17 20:05 | DRSVH ---
PROCEDURE: CT BRAIN WITHOUT CONTRAST ([id number]) INDICATIONS: ams TECHNIQUE: Noncontrast 4.5 mm thick angled axial sections acquired from the foramen magnum to the vertex, with c oronal reformats. COMPARISON: [facility], CT, BRAIN W/O CONTRAST, 08/02/2013, 15:13. FINDINGS: Image quality: Excellent. CSF spaces: Basal cisterns are patent. No extra-axial fluid collections. The ventricles are symmet esau in size and shape. Brain: No intracranial bleeds or masses. There is cerebral volume loss for age, with resultant vent ricular and sulcal prominence. There are periventricular and deep white matter chronic small vessel ischemic changes. There is intracranial internal carotid artery atherosclerosis. Skull and face: Calvarium and visualized facial bones appear intact, without suspicious lesions. Sinuses: Left maxillary sinus disease with near-complete opacification. IMPRESSION: No acute intracranial process. Left maxillary sinus disease Dictated by: Jp Paulino M.D. on 08/17/2016 at 20:01 Approved by: Jp Paulino M.D. on 08/17/2016 at 20:03
[2016-08-17 20:12] LABS: TROPONIN T 0.086 ug/L (0.0-0.011)
[2016-08-17] MEDS ORDERED: HALO1TAB PO (20:20)
[2016-08-17] MEDS ORDERED: SERT25TA6 PO (20:20)
[2016-08-17] MEDS ORDERED: SUCR1TAB PO (20:20)
[2016-08-17] MEDS ORDERED: LOV80 SUBQ (20:20)
[2016-08-17] MEDS ORDERED: ONDA-54 PO (20:20)
[2016-08-17] MEDS ORDERED: POTA10TA12 PO (20:27)
[2016-08-17] MEDS ORDERED: Alum-Mag Hydrox-Simeth 30 mL Suspension PO PRN ×2 (20:45→21:55)
[2016-08-17] MEDS ORDERED: Vancomycin Dose per Pharmacist XX ONE (20:45)
[2016-08-17] MEDS ORDERED: Piperacillin-Tazo 3.375 Gm Inj 3.375 GM in Dextrose 5% Minibag Plus 50 ML IV ONE (20:45)
[2016-08-17] MEDS ORDERED: Ondansetron 2 mg/mL 2 mL Inj IVPUSH PRN (20:45)
[2016-08-17 20:47] VITALS: BP 112/52; PULSE 90; RESP 20; O2SAT 98
[2016-08-17] MEDS ORDERED: Vancomycin Inj 1,500 MG in 0.9% Sodium Chloride 500 ML IV ONE (21:00)
[2016-08-17 21:03] LABS: APPEARANCE,URINE SLIGHTLY CLOUDY (CLEAR,HAZY); COLOR,URINE DARK YELLOW (YELLOW); OCCULT BLOOD,URINE LARGE (NEGATIVE); PH,URINE 5.5 (5.0-8.0); UROBILINOGEN,URINE NORMAL (NORMAL)
--- NOTE | 2016-08-17 21:09 | PCM.HPMED ---
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 Last admit on 07/26/2016 for pneumonia versus PE which was low probability on V/Q scan, and negative dopplers for DVT. She was placed on warfarin at that time. Patient was discharged on 08/02/2016, on 14 days of Augmentin after clinically improving. Patient's and daughter are present in the room. Patient's daughter states that her father had completed the full course of Augmentin approximately one week ago. She states her father was feeling better for about 1 week, prior to worsening again last night. Patient spiked a fever of 103 prior to presentation to the ED. His daughter states that patient has been complaining of diffuse body pain that is not normal for him. She states this occurred the last time he was admitted to the hospital. She states normally he does not have diffuse body pain. Patient states the pain is rated 10 out of 10. Patient states he is currently in 10 out of 10 pain. Associated symptoms include fevers, chills, rigors, generalized weakness and pain, cloudy sensorium and an inability to respond appropriately to family members when spoken to. This is what brought him to the ED tonight. Patient's daughter did report that when he becomes febrile he slurs his words. Patient does complain of chronic abdominal pain. But she denied headaches dizziness syncope, falls, facial droop or focal weakness, sick contacts, diarrhea, shortness of breath. Associated symptoms include confusion, chest pain (onset last night) and decreased responsiveness. Per daughter, he is not experiencing cough, SOB, abdominal pain, dysuria, urinary urgency,head trauma or any other symptoms. He would not swallow his pain medication this morning or drink water. Patient family members report that he is last chemotherapy for prostate cancer was approximately 3 weeks ago and there are no plans for further chemotherapy in the future. Patient's oncologist is Dr. Gomez. Patient was admitted to hospital for further workup of acute encephalopathy, and suspected pneumonia. Chest x-ray showed: Low lung volumes and scattered atelectasis. No definite focal consolidation CT brain without contrast showed: No acute intracranial process. Left maxillary sinus disease Vital signs at time of presentation: Temperature 39.1, pulse 94, respiratory rate 25, blood pressure 150/108, pulse ox 86 on room air Repeat vitals: Temperature 37.5, pulse 90, auditory rate 20, blood pressure 112/ 52, and you percent room air. In ED patient was given 2 L normal saline bolus, given single dose of Zosyn. Vancomycin single dose. And by mouth Tylenol for fever. Hemogram showed: WBCs 11.7 with 65.8% PMNs, H/H 11.0/35.2, MCV 89.8, MCH 28.1, MCHC 31.3, platelets 136 Chemistry was significant for sodium 131, Cl 96, potassium 4.5, CO2 22, BUN 18, creatinine 0.70, glucose 90, lactic acid 0.8, magnesium 2.0, AST 42, ALT 9, alkaline phosphatase 600, Troponin was elevated at 0.086 UA pending Toxicology: alcohol less than 10 Review of Systems: A comprehensive review of systems was conducted and was negative except as mentioned in history of present illness. Allergies Coded Allergies: hydrocodone (Verified Allergy, Severe, hives, 07/04/16) iodine (Verified Allergy, Severe, it brought him to the hospital, 07/04/16) omeprazole (Verified Allergy, Mild, SHAKINESS, 07/04/16) Uncoded Allergies: CONTRAST MEDIUM (Allergy, Severe, ANAPHYLAXIS, 05/10/16) Home Medications Atorvastatin Calcium (Atorvastatin Calcium) 10 Mg Tablet 10 MG PO DAILY Citalopram (Citalopram) 20 Mg Tablet 20 MG PO DAILY Dexamethasone (Dexamethasone) 4 Mg Tablet 4 MG PO DAILY Gabapentin (Gabapentin) 300 Mg Capsule 300 MG PO TID Methadone (Methadone) 10 Mg Tab 10 MG PO BID Mirtazapine (Mirtazapine) 15 Mg Tablet 7.5 MG PO HS Pantoprazole DR (Pantoprazole DR) 20 Mg Tablet.dr 20 MG PO QAM Tamsulosin (Flomax) 0.4 Mg Capsule 0.4 MG PO BID Warfarin Sodium (Warfarin Sodium) 1 Mg Tablet 1 MG PO DAILY PRN Albuterol Sulfate (Ventolin HFA Inhaler) 200 Puff/18 Gm Inhaler 1 PUFF INH Q4 PRN PRN For Wheezing Alprazolam (Alprazolam) 0.5 Mg Tablet 0.5-1 MG PO TID PRN PRN For Anxiety Benzonatate (Benzonatate) 100 Mg Capsule 100 MG PO TID PRN PRN For Cough Hydromorphone (Hydromorphone) 2 Mg Tablet 2 MG PO Q4H PRN PRN For Pain Lidocaine HCl (Lidocaine HCl Viscous) 20 Mg/1 Ml Solution 5 ML MM QID PRN PRN MOUTH PAIN Nitroglycerin SL (Nitroglycerin SL) 0.4 Mg Tab.subl 0.4 MG SL PRN PRN PRN For Chest Pain Polyethylene Glycol 3350 (Miralax) 17 Gm Powd.pack 17 GM PO DAILY PRN PRN For Constipation Sennosides (Senna) 8.6 Mg Tablet 17.2 MG PO BID PRN PRN For Constipation [facility] Oncologist Dr. Gomez PCP - [facility] Pneumonia UTI Depression Anxiety 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 Hematology oncology office visit with increasing weakness 07/03/2016 Hypertension Past Surgical History Toe surgery Family History Noncontributory Smoking History Former Smoker Social History Alcohol Use: Denies alcohol use Drug Use: Denies drug use Other Social History: Good social support, , Local resident Ambulatory Status Surgical History Right ankle surgery Family History denies any family history Social History Hx Alcohol Use: Yes (past alcohol use. Sober for 15 years) Hx Substance Use: Yes (marijuana use intermittently) Hx Tobacco Use: Yes Smoking Status: Former Smoker Exam Vital Signs Vital Sign - Last Date Time Temp Pulse Resp B/P Pulse Ox O2 Delivery O2 Flow Rate FiO2 08/17/16 20:47 37.5 90 20 112/52 98 Room Air Exam General: Appears stated age, alert to self and year only, could not recall month, or what type of building he was in. Macanese-speaking male speaking in full sentences. Does not appear in acute distress lying in bed. HEENT: NC/AT, eyes, PER and pinpoint, EOMI, neck, soft supple, no adenopathy, no JVD, no masses, no thyromegaly, throat mucous membranes pink and moist, no erythema, no exudates, no tonsillar swelling, no uvular deviation. Lungs: Bilateral crackles mid and lower lung base, no use of accessory muscles of respiration, good air movement, good respiratory effort. Heart: Regular rate and rhythm, no murmur, S1-S2 present, no rub, no click, no distant heart sounds, Abdomen: Soft, patient reports diffuse tenderness to palpation, nondistended, bowel sounds active, no rebound, no guarding, Genitourinary: No CVA tenderness, no suprapubic tenderness, no Porras catheter, Extremities: Muscle strength 5 out of 5 bilaterally upper/lower extremity. Pulses equal and symmetric upper/lower extremity including radial and dorsalis pedis, no edema Neurologic: Patient is neurologically intact, speaking in in full sentences, no focal neurological signs, no facial droop, no slurred speech. Skin: Warm dry and intact without rash Lab and Diagnostics Result Diagram: 08/17/16183708/17/161837 X-Rays, CTs and MRIs Date of Service: 08/17/161899 PROCEDURE: X-RAY CHEST ONE VIEW, PORTABLE INDICATIONS: ams, fever TECHNIQUE: One view of the chest was acquired. COMPARISON: [facility], CR, XR CHEST 2VW, 07/27/2016, 9:07. FINDINGS: Surgical changes and devices: None. Lungs and pleura: No pleural effusions or pneumothorax. Scattered by basilar mild atelectasis. Low lung volumes. Mediastinum: Mediastinal contours appear normal. Heart size is normal. Bones and chest wall: No suspicious bony lesions. Overlying soft tissues appear unremarkable. IMPRESSION: Low lung volumes and scattered atelectasis. No definite focal consolidation Dictated by: Jp Paulino M.D. on 08/17/2016 at 20:03 Approved by: Jp Paulino M.D. on 08/17/2016 at 20:03 Date of Service: 08/17/16 190 PROCEDURE: CT BRAIN WITHOUT CONTRAST INDICATIONS: ams TECHNIQUE: Noncontrast 4.5 mm thick angled axial sections acquired from the foramen magnum to the vertex, with coronal reformats. COMPARISON: [facility], CT, BRAIN W/O CONTRAST, 08/02/2013, 15:13. FINDINGS: Image quality: Excellent. CSF spaces: Basal cisterns are patent. No extra-axial fluid collections. The ventricles are symmetric in size and shape. Brain: No intracranial bleeds or masses. There is cerebral volume loss for age , with resultant ventricular and sulcal prominence. There are periventricular and deep white matter chronic small vessel ischemic changes. There is intracranial internal carotid artery atherosclerosis. Skull and face: Calvarium and visualized facial bones appear intact, without suspicious lesions. Sinuses: Left maxillary sinus disease with near-complete opacification. IMPRESSION: No acute intracranial process. Left maxillary sinus disease Dictated by: Jp Paulino M.D. on 08/17/2016 at 20:01 Approved by: Jp Paulino M.D. on 08/17/2016 at 20:03 Assessment & Plan Patient is a 76 year old male on blood thinners for suspected PE last admit, with a hx of HTN, prostatic prostate cancer, who presents to the ED acute onset encephalopathy and diffuse body pain onset last night. Patient was admitted the hospital for acute encephalopathy and suspected pneumonia. # Acute Encephalopathy, present on admission, active - CT brain without contrast showed: No acute intracranial process. Left maxillary sinus disease - Plan to treat patient's pneumonia and monitor his mental status. # Pneumonia, present on admission, active. - He was admitted on 07/26/2016 with acute hypoxemic respiratory failure: Multifactorial possible pneumonia versus PE- with CXR suggestive of pneumonia with a positive strep urine antigen. Patient's hypoxia resolved prior to his discharge on 08/02/2016. Patient had viral pneumonia earlier, then strep pneumonia, and then possibly some aspiration type pneumonia. He was discharged home on Augmentin to complete treatment. - Patient had V/Q scan done on prior admission 07/26/2016 which showed high probability of PE, Coumadin was started at that time, however patient's lower extremity Dopplers were negative for DVT. - CTA PE was considered on last admit but was not done secondary to risk versus benefit for confirmation of PE as his pneumonia. - Vital signs at time of presentation 08/17/2016: Temperature 39.1, pulse 94, respiratory rate 25, blood pressure 150/108, pulse ox 86 on room air - Repeat vitals: Temperature 37.5, pulse 90, auditory rate 20, blood pressure 112/52, and you percent room air. - Chest x-ray this admission showed: Low lung volumes and scattered atelectasis. No definite focal consolidation - WBCs 11.7 with 65.8% PMNs, - In ED patient was given 2 L normal saline bolus, given single dose of Zosyn. And IV Tylenol. - Sputum ordered and pending - Blood Cx X 2 - Procalcitonin ordered and pending - We will continue Pip/Tazo, and continue MRSA coverage with Vancomycin . - Acetominophen for Fever control - IV Saline fluids - Legionella urine antigen, and Strep pneumonia urine antigen - Viral PCR (biofire) - Influenzae A/B # Hyponatremia, present on admission, active - Sodium 131 - IV maintenance fluids with normal saline # Elevated troponin, present on admission, - Troponin 0.086 - Trending troponins # Anemia, normocytic hypochromic, present on admission, chronicity unknown - On prior discharge 08/02/2016 patient's Hg stable 8.5-9.5 range - H/H 11.0/35.2, MCV 89.8, MCH 28.1, MCHC 31.3, platelets 136 - Per discharge summary on 08/02/2016 patient has not been worked up for his anemia since 2007 - Likely likely etiologies include patient's history of chemotherapy and metastatic prostate cancer # Metastatic prostate cancer with skeletal involvement, present on admission, recently discontinuing chemotherapy. 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 - Per discharge summary on 08/02/2016. Dr. Gomez 08/01, had no plans to do chemotherapy now and does not think it is likely in the future. - Continue home tamsulosin #Chronic pain with continuous opiate dependence-pain adequately controlled - We will continue his home narcotics (Methadone and Hydromorphone PO), - Continue Gabapentin - We will add IV morphine 1-2 mg every 4 hours when necessary for breakthrough pain # Hypertension, chronic, controlled. - Continue home Metoprolol # Hyperlipidemia, chronic, presume stable. -Continue Atorvastatin # Depression and history of anxiety -Continue Mirtazapine Disposition: Admitted to in patient service with expected length of stay greater than 2 days, secondary to severity of presenting symptoms, treatment plan, complexity of clinical work up, and risk of adverse events. CODE STATUS: Full code PCP: Dr. Payton DVT PE prophylaxis: SubQ heparin Q8H Contact: Pain Evaluation: Pain not Controlled VTE Prophylaxis: Sub-Q Heparin (Unfractionated) Resuscitation Status: CPR: Attempt Resuscitation Attending Statement The patient was seen and examined together with Dr. Ceballos on 08/17 and I agree with the history, exam and plan as outlined in the note above. 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 By the time of admission, patient is somnolent and history is obtained through his daughters. They report that his cough has been persistent since the last hospitalization, but it becomes worse and more productive today. His reports thick yellow sputum. The family checked his temperature at home but it was normal. They also report that he has become progressively weaker and has no appetite. He complains of pain all over his body, nausea, and vomiting x 1. His family has not noticed any change in his mental status except that he is sleepier today. They deny any urinary symptoms, diarrhea, or headache. Patient has chronic constipation. The patient has been in the hospital repeatedly for pneumonia in recent months. His last session of chemotherapy was two weeks ago. He was told by Dr. Gomez that the chemotherapy will be placed on hold due to his increasing weakness. They plan to resume treatment when he feels better and still motivated. Otherwise, he should consider palliative care alone. 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 07/31 first day meeting medically complex patient is actually doing well for the second day in a row. Daughter is concerned he was sent home and got sick the last time he was here and has been here a number of times so the concern is discharged to soon. If the patient continues to do well including tomorrow they will be doubly satisfied that they can take him home. 08/01 spent well over an hour discussing the case with Drs. ShanaNicole patient/family or misunderstanding what is being told to them. I cannot find a provider that told he needs to stay 2 or 3 more days because of his pneumonia which is what they heard. There is a bit of discrepancy about pulmonary embolism by Dr. Gomez who feels diagnosis is somewhat in question because patient recently had low probability VQ scan, and currently no DVT by Doppler and the high probability VQ scan in the setting of pneumonia. INR is supratherapeutic still but patient not having any bleeding. CT with IV contrast could make the diagnosis but patient has had an adverse/allergic reaction nausea and vomiting in the past to contrast and clinicians all agree that diagnostic certainty this might bring his not worth the potential downsides were going to treat the pneumonia with Augmentin and possible PE with anticoagulation to be reassessed in the future. After a great deal of time and effort clarifying misunderstandings hopefully the patient and family are agreeable to discharge 08/02. I think the underlying issue is anxiety about the patient's global deterioration and impending demise in the not too distant future. Patient's pain is somewhat suboptimal control today and INR is still supratherapeutic to we aer holding him for 1 more day. 08/02 patient's daughter Mely arrived patient was happy/anxious to discharge I believe all of the family's questions had already been answered, they had none for me today. I hope they finally understand the frail nature of his condition and that he is nearing the end of life. For now although he was quite spry and seemed to be happy to be off of chemotherapy as it made him feel poorly. We worked extensively to make sure that he and his family understood the implications of being off of chemotherapy and natural progression of disease. #Supratherapeutic INR-patient received 5 mg warfarin 07/27, 4 mg 07/28 and that was on hold until INR dropped to 2.76 today after being supratherapeutic, resuming 1 mg daily follow-up 08/03 and adjust accordingly -The physical nature of warfarin and its interactions was discussed with his daughter Mely, she was told that it would probably drop after stopping antibiotics. For now we will may be elevated, and the green leafy vegetables reversed with. -Goal INR 2-3 for PE #PE-patient supratherapeutic on warfarin 3.8-08/01 no bleeding - V/Q scan showed high probability of PE, Coumadin is started pharmacy is monitoring: Today his INR is therapeutic - Albuterol inhaler available PRN: Change this to every 2 when necessary per family request - DVT negative. -CTA PE was considered multiple times throughout the stay holding off as he has contrast. 08/01, risk was not worth the possible gain of diagnostic certainty for PE versus pneumonia -PE diagnosis is a bit in question per Dr. Chanda Dickens as it was low risk in May , and Dopplers of lower extremities are normal, and the abnormality is found in the setting of possible pneumonia by CXR and positive strep urine antigen Pain Evaluation: Pain not Controlled VTE Prophylaxis: Sub-Q Heparin (Unfractionated) Resuscitation Status: CPR: Attempt Resuscitation Rios Ceballos DO Aug 17, 2016 21:09 Rios Ceballos DO Aug 17, 2016 21:09 patient's global deterioration and impending demise in the not too distant future. Patient's pain is somewhat suboptimal control today and INR is still supratherapeutic to we aer holding him for 1 more day. 08/02 patient's daughter Mely arrived patient was happy/anxious to discharge I believe all of the family's questions had already been answered, they had none for me today. I hope they finally understand the frail nature of his condition and that he is nearing the end of life. For now although he was quite spry and seemed to be happy to be off of chemotherapy as it made him feel poorly. We worked extensively to make sure that he and his family understood the implications of being off of chemotherapy and natural progression of disease. #Supratherapeutic INR-patient received 5 mg warfarin 07/27, 4 mg 07/28 and that was on hold until INR dropped to 2.76 today after being supratherapeutic, resuming 1 mg daily follow-up 08/03 and adjust accordingly -The physical nature of warfarin and its interactions was discussed with his daughter Mely, she was told that it would probably drop after stopping antibiotics. For now we will may be elevated, and the green leafy vegetables reversed with. -Goal INR 2-3 for PE #PE-patient supratherapeutic on warfarin 3.8-08/01 no bleeding - V/Q scan showed high probability of PE, Coumadin is started pharmacy is monitoring: Today his INR is therapeutic - Albuterol inhaler available PRN: Change this to every 2 when necessary per family request - DVT negative. -CTA PE was considered multiple times throughout the stay holding off as he has contrast. 08/01, risk was not worth the possible gain of diagnostic certainty for PE versus pneumonia -PE diagnosis is a bit in question per Dr. Chanda Dickens as it was low risk in May , and Dopplers of lower extremities are normal, and the abnormality is found in the setting of possible pneumonia by CXR and positive strep urine antigen VTE Prophylaxis: Sub-Q Heparin (Unfractionated) Resuscitation Status: CPR: Attempt Resuscitation Rios Ceballos DO Aug 17, 2016 21:09
[2016-08-17] MEDS ORDERED: Polyethylene Glycol (PEG) 17 Gm Powder PO PRN (21:55)
[2016-08-17 21:56] VITALS: BP 113/54; PULSE 93; RESP 18; O2SAT 96
[2016-08-17 22:00] VITALS: BP_SYST 113; BP_SYST 130; BP_DIAS 54; BP_DIAS 57; PULSE 86; PULSE 93; RESP 17; RESP 18; O2SAT 92; O2SAT 96
[2016-08-17] MEDS: 0.9% Sodium Chloride 1,000 ML IV SCH (22:18)
--- NOTE | 2016-08-18 00:02 | PCM.PHAPRO ---
Progress Date of Service: Aug 17, 2016 Acute encephalopathy Vancomycin Management Per Pharmacy: Indication: HCAP (pneumonia) Goal Vanco Trough: 15-20 mg/dL Labs: WBC: 11.7 SrCr: 0.7 mg/dL Procalcitonin: 0.61 Lactic Acid: 0.8, not elevated Micro: MRSA nasal screen pending, blood cultures pending Vitals: Temp: 39.1 HR: ~95 BPM BP: WNL RR: 25 breaths/min on admit Nephrotoxic Risk Factors: Zosyn IV Recommendation: Load: Vancomycin 1500 mg IV x 1 (~20 mg/kg) Maintenance: Vancomycin 1250 mg IV Q12h Trough: Vancomycin trough on 08/19/16 @ 0830 prior to AM dose Pharmacy to continue to monitor and adjust dose as needed. Thank You, Rema Schuster, Pharm D. Rema Schuster Aug 18, 2016 00:02
[2016-08-18 00:25] VITALS: BP 139/66; PULSE 89; RESP 17; O2SAT 93
--- NOTE | 2016-08-18 02:20 | NUR ---
Arrival to unit Patient arrived to unit at 2240 from ED via gurney. Transferred from ED [facility]herburn to hospital bed via SBA/1 Person assist. 2LO2 via NC is being worn to maintain o2 sats >92% and ACCOUNT SUPPORT MANAGER applied. IV in left wrist is patent, intact and currently infusing NS @ 100cc/hr with intermittent ABX. Patient complains of generalized pain, CP, and SOB that has be constant and chronic. Tele monitor applied. Patient has been sleeping shortly after admission and appears comfortable. Will continue to monitor, and continue Q 1 hour checks.
[2016-08-18 02:58] LABS: BASOPHILS % (AUTO) 0.1 % (0-3); EOSINOPHILS % (AUTO) 0.3 % (0-5); MONOCYTES % (AUTO) 9.1 % (4-12); Mean Corpuscular Hemoglobin 27.8 pg (27.0-35.0); Mean Corpuscular Volume 90.4 fL (81-100); Platelet Count 134 bil/L (150-400)
[2016-08-18] MEDS: Piperacillin-Tazo 3.375 Gm Inj 3.375 GM in Dextrose 5% Minibag Plus 50 ML IV SCH ×2 (03:17→08:30)
[2016-08-18 03:26] VITALS: PULSE 78
[2016-08-18 05:41] VITALS: BP 136/72; PULSE 77; RESP 17; O2SAT 97
[2016-08-18] MEDS: 0.9% Sodium Chloride 1,000 ML IV SCH (07:52)
[2016-08-18 08:00] VITALS: PULSE 76
[2016-08-18] MEDS ORDERED: Vancomycin Dose per Pharmacist XX SCH (08:30)
[2016-08-18] MEDS ORDERED: Vancomycin Inj 1,250 MG in 0.9% Sodium Chloride 250 ML IV SCH (08:30)
--- NOTE | 2016-08-18 09:00 | NUR ---
Palliative care note D/A: Dr. Stoll spoke to pt dtr Mely (on 08/17/16) in regards to previous plan for HNW referral. During this conversation, Mley noted that pt was weaker and had a fever. She wished for him to have a hosp bed. She was referred to pt PCP for hosp bed procurement. Dr. Stoll believed there was strong chance for pt to come to ED in the next day or so. If pt did get admitted, PC would like to continue discussion with pt/family in regards to HNW support. Mely noted that while she was in favor of hospice, she attempted to enlist opinions from her siblings regarding this plan and got no response. She is concerned that if she makes this decision alone, plan will not be supported in the family. Dr. Stoll had also arranged for 4:00 FCTM in outpt palliative care on Sunday08/21/16 as alternate plan. This worker opens EMR to chart above and finds that pt is admitted. Dr. Stoll notified. P: Palliative care to follow. Nicole VELASCO, [facility] Addendum: 08/18/16 at 1057 by NILAY MORELAND Palliative care note amendment D/A: Dr. Stoll speaks to Dr. Walker. This worker discusses case briefly in dc rounds. Dr. Stoll meets with family today and family indicates that they would like pt admitted to another hospital. This was a concern that family had had on previous admit and were counseled to take him to a different ED next urgent/emergent episode but family did not understand this. Family is considering AMA with transition to another ED. Phone call to Sandy lund to explain. She is aware and is assisting the family with this discharge. Rn Midwife working on paperwork. P: Palliative care to follow as needed. Nicole VELASCO [facility] Addendum: 08/18/16 at 1529 by NILAY MORELAND PC note amendment D/A: Phone call from Pavithra at [facility] who indicates that pt dtr Mely called her a bit ago. Mely expressed that she wished for [facility] to f/u with pt/family in three weeks. Mely indicated that pt was either at or on their way to . P: Palliative care to follow. Nicole VELASCO, [facility]
[2016-08-18 10:23] VITALS: BP 124/69; PULSE 85; O2SAT 96
[2016-08-18 10:44] LABS: INR 1.97 ratio
[2016-08-18] MEDS ORDERED: Linezolid Inj 600 MG in IV Premix 1 EACH IV SCH (11:00)
[2016-08-18] MEDS ORDERED: Sucralfate 100 mg/mL 10 mL Suspension PO SCH (11:30)
--- NOTE | 2016-08-18 11:39 | NUR ---
Social Work- Initial Assessment Data: See Initial Assessment. Pt is a 76 year old male admitted 08/17/16 for fever, altered mental status and pneumonia per H&P. Pt does not have a re-admit score. Pt's insurance is [employer] and [facility] Supp. Pt's PCP is Johnson Payton MD. MEENU spoke with pt's daughter/MABLE Barlow at bedside regarding discharge plan, SW role explained and initial assessment complete. Patient's daughter requested that the patient be discharged from the hospital. SW explained to the patient's daughter that the doctor was not discharging the patient and that if they did leave with the patient then it would be against medical advice. Patient's daughter voiced understanding and that the patient still wanted to leave AMA. SW notified patient's attending physician and nurse. Pt resides in [place] with his . Mely is pt's caregiver, pt also has SAMANTA (KIKI Henao). MEENU requested UR Specialist fax H&P to CM. Pt uses a walker or cane at base. Pt has had [facility], but no SNF history. Pt has no LTC or VA benefits. Currently the patient will discharge AMA. SW will continue to follow. Plan: Pt will discharge AMA. SW will continue to follow. Lorin Bravo LMSW, [facility] Addendum: 08/18/16 at 1147 by LORIN BRAVO SS Amended: Links added.
--- NOTE | 2016-08-18 13:51 | PCM.PALLBR ---
Palliative Care Recommendation Summary of palliative recommendations: -Symptom management (Pain/other) Family and patient remain up in air regarding GOC-code status remains full code. They also continue to feel that there is "something else going on" that we have not fixed.After discussion with 2 daughters and pt-they request discharge with their intent to try an alternate evaluation. CM notified of this. -DPOA/Advanced Directives/POLST -Family/emotional support -Spiritual support Patient Goals: 1. Patient wants to be told the truth about his/her illness, even if it is unpleasant. 2. Patient would like to be told prognosis when it can be predicted, to better guide treatment decisions. 3. Patient would choose quality of life over quantity of life, and defines quality as [ ]. 4. Patient would request that comfort care take priority over cognitive/mental confusion. Additional Medical Diagnoses with primary management by Hospitalist team include : Problems: Disposition to be determined Resuscitation Status Resuscitation Status: CPR: Attempt Resuscitation . Symptom management: Nausea, Depression, Constipation Total time [ ] minutes; >50% face to face with patient and/or family, providing counselling regarding plans and recommendations, and in care coordination with his/her medical teams. 50 min spent on coord, care, discussion with family and med management. I also spent an additional [ ] minutes counseling for advanced care planning with the patient/the patients family/the surrogate decision maker. copies to: Johnson Payton MD; Vianey Natarajan MD Palliative Brief Note Date of Service Aug 18, 2016 . Patient seen in follow up on TC 08/17/16 with Mely. 76 yo pt with known metastatic prostate CA with mets to the bone-extensive now off last effort of chemo due to progressive weakness and repeat hospitalizations. He developed worsening weakness and fever with some nausea which prompted coming to the ER yesterday. He has been on dysphagic diet at home, had not developed a cough. Last hospitalization also noted PEs and he was started on warfarin. He has chronic pain-well controlled on methadone at recent increase by Mely to 12.5 mg BID since 10 was not enough. He takes prn hydromorphone usually 2 mg 1-2 times daily.Also dexamethasone at 4 mg AM Substernal discomfort and nausea helped with using carafate. He is doing better since IV fluids in ER and antibiotics started. Daughter-Giuseppe frustrated that in ER he had franklin placed to get UA and it caused bleeding and he had said no to cath-but ER doc said they needed it. They again question whether they want to take him to a different hospital-to see if "they can find what we are missing" as to recurrent episodes. Meds reviewed and corrected at least in part- in EMR- methadone restarted, hydromorphone and carafate. INR ordered. Info communicated to RN, CM, . [place] Offered to meet with family-would prefer all active family be involved-pt, and at least 3 daughters who seem to be consistently involved. Can set this up sun or mon. Goal to review his GOC, code status (still full code etc. Family will let me know if they wish to pursue this. Jen Stoll MD Aug 18, 2016 13:51
--- NOTE | 2016-08-18 14:21 | NUR ---
Faxed clinicals to patient H[facility] CM Marion Henao per FACILITIES MAINTENANCE MANAGER
--- NOTE | 2016-08-18 17:45 | NUR ---
Leaving AMA Patient expressed desire to leave hospital against medical advice. Registered Nurse Practitioner brought to floor, risks and potential problems due to leaving AMA explained to patient, who still desired to leave AMA. Patient signed paperwork for AMA discharge. Patient then left hospital with family. When leaving hospital patient alert and oriented, with pain under control, denies nausea, vomiting or other difficultly.
[2016-08-18] MEDS ORDERED: Methadone 10 mg/mL Oral Concentrate PO SCH (22:00)
--- NOTE | 2016-08-19 01:06 | PCM.DC.MED ---
Discharge Summary Date of Service Aug 18, 2016 Dates of Hospitalization Date of Hospital Admission Aug 17, 2016 at 21:12 Date of Discharge: Aug 18, 2016 Providers: Admitting Physician: Jean-Paul Olivia MD Primary Care Physician: Johnson Gallardo MD Attending Physician: Jean-Paul Olivia MD Procedures XRay, CTs & MRIs Date of Service: 08/17/16 190 PROCEDURE: X-RAY CHEST ONE VIEW, PORTABLE INDICATIONS: ams, fever TECHNIQUE: One view of the chest was acquired. COMPARISON: [facility], CR, XR CHEST 2VW, 07/27/2016, 9:07. FINDINGS: Surgical changes and devices: None. Lungs and pleura: No pleural effusions or pneumothorax. Scattered by basilar mild atelectasis. Low lung volumes. Mediastinum: Mediastinal contours appear normal. Heart size is normal. Bones and chest wall: No suspicious bony lesions. Overlying soft tissues appear unremarkable. IMPRESSION: Low lung volumes and scattered atelectasis. No definite focal consolidation Dictated by: Jp Paulino M.D. on 08/17/2016 at 20:03 Approved by: Jp Paulino M.D. on 08/17/2016 at 20:03 Date of Service: 08/17/16 1900 PROCEDURE: CT BRAIN WITHOUT CONTRAST INDICATIONS: ams TECHNIQUE: Noncontrast 4.5 mm thick angled axial sections acquired from the foramen magnum to the vertex, with coronal reformats. COMPARISON: [facility], CT, BRAIN W/O CONTRAST, 08/02/2013, 15:13. FINDINGS: Image quality: Excellent. CSF spaces: Basal cisterns are patent. No extra-axial fluid collections. The ventricles are symmetric in size and shape. Brain: No intracranial bleeds or masses. There is cerebral volume loss for age , with resultant ventricular and sulcal prominence. There are periventricular and deep white matter chronic small vessel ischemic changes. There is intracranial internal carotid artery atherosclerosis. Skull and face: Calvarium and visualized facial bones appear intact, without suspicious lesions. Sinuses: Left maxillary sinus disease with near-complete opacification. IMPRESSION: No acute intracranial process. Left maxillary sinus disease Dictated by: Jp Paulino M.D. on 08/17/2016 at 20:01 Approved by: Jp Paulino M.D. on 08/17/2016 at 20:03 Brief History Patient is a pleasant 76 year old [place]ian-speaking male with history of stage IV prostate cancer with skeletal metastasis, HTN, three-month history of cough productive initially of green sputum and now white sputum, and recent admission for frequent bouts of pneumonia. Last admit on 07/26/2016 for pneumonia versus PE which was low probability on V/Q scan, and negative dopplers for DVT. She was placed on warfarin at that time. Patient was discharged on 08/02/2016, on 14 days of Augmentin after clinically improving. Patient's and daughter are present in the room. Patient's daughter states that her father had completed the full course of Augmentin approximately one week ago. She states her father was feeling better for about 1 week, prior to worsening again last night. Patient spiked a fever of 103 prior to presentation to the ED. His daughter states that patient has been complaining of diffuse body pain that is not normal for him. She states this occurred the last time he was admitted to the hospital. She states normally he does not have diffuse body pain. Patient states the pain is rated 10 out of 10. Patient states he is currently in 10 out of 10 pain. Associated symptoms include fevers, chills, rigors, generalized weakness and pain, cloudy sensorium and an inability to respond appropriately to family members when spoken to. This is what brought him to the ED tonight. Patient's daughter did report that when he becomes febrile he slurs his words. Patient does complain of chronic abdominal pain. But she denied headaches dizziness syncope, falls, facial droop or focal weakness, sick contacts, diarrhea, shortness of breath. Associated symptoms include confusion, chest pain (onset last night) and decreased responsiveness. Per daughter, he is not experiencing cough, SOB, abdominal pain, dysuria, urinary urgency,head trauma or any other symptoms. He would not swallow his pain medication this morning or drink water. Patient family members report that he is last chemotherapy for prostate cancer was approximately 3 weeks ago and there are no plans for further chemotherapy in the future. Patient's oncologist is Dr. Gomez. Patient was admitted to the hospitalist service for further workup of acute encephalopathy, and suspected pneumonia. Hospital Course Patient is a 76 year old male on blood thinners for suspected PE last admit, with a hx of HTN, prostatic prostate cancer, who presents to the ED acute onset encephalopathy and diffuse body pain onset last night. Patient was admitted the hospital for acute encephalopathy and suspected pneumonia. # Acute Encephalopathy, present on admission, active - CT brain without contrast showed: No acute intracranial process. Left maxillary sinus disease - Plan to treat patient's pneumonia and monitor his mental status. # Pneumonia, present on admission, active. - He was admitted on 07/26/2016 with acute hypoxemic respiratory failure: Multifactorial possible pneumonia versus PE- with CXR suggestive of pneumonia with a positive strep urine antigen. Patient's hypoxia resolved prior to his discharge on 08/02/2016. Patient had viral pneumonia earlier, then strep pneumonia, and then possibly some aspiration type pneumonia. He was discharged home on Augmentin to complete treatment. - Patient had V/Q scan done on prior admission 07/26/2016 which showed high probability of PE, Coumadin was started at that time, however patient's lower extremity Dopplers were negative for DVT. - CTA PE was considered on last admit but was not done secondary to risk versus benefit for confirmation of PE as his pneumonia. - Vital signs at time of presentation 08/17/2016: Temperature 39.1, pulse 94, respiratory rate 25, blood pressure 150/108, pulse ox 86 on room air - Repeat vitals: Temperature 37.5, pulse 90, auditory rate 20, blood pressure 112/52, and you percent room air. - Chest x-ray this admission showed: Low lung volumes and scattered atelectasis. No definite focal consolidation - WBCs 11.7 with 65.8% PMNs, - In ED patient was given 2 L normal saline bolus, given single dose of Zosyn. And IV Tylenol. - Sputum ordered and pending - Blood Cx X 2 - Procalcitonin ordered and pending - We will continue Pip/Tazo, and continue MRSA coverage with Vancomycin . - Acetominophen for Fever control - IV Saline fluids - Legionella urine antigen, and Strep pneumonia urine antigen - Viral PCR (biofire) - Influenzae A/B # Hyponatremia, present on admission, active - Sodium 131 - IV maintenance fluids with normal saline # Elevated troponin, present on admission, - Troponin 0.086 - Trending troponins # Anemia, normocytic hypochromic, present on admission, chronicity unknown - On prior discharge 08/02/2016 patient's Hg stable 8.5-9.5 range - H/H 11.0/35.2, MCV 89.8, MCH 28.1, MCHC 31.3, platelets 136 - Per discharge summary on 08/02/2016 patient has not been worked up for his anemia since 2007 - Likely likely etiologies include patient's history of chemotherapy and metastatic prostate cancer # Metastatic prostate cancer with skeletal involvement, present on admission, recently discontinuing chemotherapy. 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 - Per discharge summary on 08/02/2016. Dr. Gomez 08/01, had no plans to do chemotherapy now and does not think it is likely in the future. - Continue home tamsulosin #Chronic pain with continuous opiate dependence-pain adequately controlled - We will continue his home narcotics (Methadone and Hydromorphone PO), - Continue Gabapentin - We will add IV morphine 1-2 mg every 4 hours when necessary for breakthrough pain # Hypertension, chronic, controlled. - Continue home Metoprolol # Hyperlipidemia, chronic, presume stable. -Continue Atorvastatin # Depression and history of anxiety -Continue Mirtazapine Disposition: Patient left the hospital AGAINST MEDICAL ADVICE before I could evaluate him.. CODE STATUS: Full code PCP: Dr. Gallardo DVT PE prophylaxis: SubQ heparin Q8H Contact: Exam Vital Signs (Last) Date Time Temp Pulse Resp B/P Pulse Ox O2 Delivery O2 Flow Rate FiO2 08/18/16 10:23 36.8 85 124/69 96 Room Air 08/18/16 05:41 17 08/17/16 22:00 2 Exam Patient left the hospital AGAINST MEDICAL ADVICE before I could examine him. Test 08/17/16 18:38 08/17/16 19:27 08/17/16 20:30 08/17/16 20:36 Hold Purple Top Tube Received (Received) Hold Blue Top Tube Received (Received) Hemoglobin A1c 5.6% (4.8-5.6) Magnesium Level 2.0mg/dL (1.6-2.6) Pro-B-Type Natriuretic Peptide 1069pg/mL (0-486) Hold Red Top Tube Received (Received) Hold Schuyler Top Tube Received (Received) Alcohols < 10mg/dL (0-10) Lactic Acid Level 0.8mmol/L (0.4-2.0) Urine Legionella pneumophilia Ag Negative (Negative) Urine Color Dark yellow (YELLOW) Urine Appearance Slightly cloudy Urine pH 5.5 (5.0-8.0) Urine Specific [place] 1.020 (1.003-1.035) Urine Protein Tracemg/dL (NEG,TRACE) Urine Glucose (UA) Negativemg/dL (NEGATIVE) Urine Ketones Negativemg/dL (NEGATIVE) Urine Occult Blood Large (NEGATIVE) Urine Nitrite Negative (NEGATIVE) Urine Bilirubin Negative (NEGATIVE) Urine Urobilinogen Normalmg/dL (NORMAL) Urine Leukocyte Esterase Negative (NEGATIVE) Urine RBC Packed/hpf (0-2) Urine WBC 0-5/hpf (0-5) Urine Epithelial Cells Occasional/hpf (NONE-MOD) Urine Crystals None seen (NONE SEEN) Urine Bacteria None/hpf (NONE-FEW) Urine Hyaline Casts None/lpf (NONE) Urine Granular Casts None seen (NONE SEEN) Urine Waxy Casts None seen (NONE SEEN) Urine Red Blood Cell Casts None seen (NONE SEEN) Urine White Blood Cell Casts None seen (NONE SEEN) Urine Mucus Present (None Seen) Urine Trichomonas None seen (NONE SEEN) Urine Yeast None (NONE SEEN) Urine Culture Reflexed Not indicated Test 08/18/16 02:50 08/18/16 10:10 White Blood Count 11.1th/mm3 (3.8-10.1) Red Blood Count 3.35mil/mm3 (4.40-5.80) Hemoglobin 9.3g/dL (13.8-17.2) Hematocrit 30.3% (41.0-50.0) Mean Corpuscular Volume 90.4fL (81-100) Mean Corpuscular Hemoglobin 27.8pg (27.0-35.0) Mean Corpuscular Hemoglobin Concent 30.7% (32.0-37.0) Red Cell Distribution Width 19.4% (12.3-15.4) Platelet Count 134bil/L (150-400) Neutrophils (%) (Auto) 82.0% (40-74) Lymphocytes (%) (Auto) 7.8% (14-46) Monocytes (%) (Auto) 9.1% (4-12) Eosinophils (%) (Auto) 0.3% (0-5) Basophils (%) (Auto) 0.1% (0-3) Sodium Level 137mEq/L (134-144) Potassium Level 4.4mEq/L (3.5-5.2) Chloride Level 105mEq/L (97-108) Carbon Dioxide Level 19mmol/L (18-29) Blood Urea Nitrogen 15mg/dL (8-27) Creatinine 0.60mg/dL (0.76-1.27) Estimat Glomerular Filtration Rate 139mL/min (>59) Glucose Level 113mg/dL (60-99) Calcium Level 7.9mg/dL (8.5-10.1) Total Bilirubin 0.7mg/dL (0.0-1.2) Aspartate Amino Transf (AST/SGOT) 32U/L (0-50) Alanine Aminotransferase (ALT/SGPT) 8U/L (0-44) Alkaline Phosphatase 468U/L (25-160) Troponin T 0.050ug/L (0.0-0.011) Total Protein 5.7g/dL (6.4-8.4) Albumin 3.1g/dL (3.4-5.0) Procalcitonin 1.28ng/mL (0.00-0.08) Prothrombin Time 21.4sec (8.1-12.5) Prothromb Time International Ratio 1.97ratio Discharge Medications Discharge Medications Atorvastatin Calcium (Atorvastatin Calcium) 10 Mg Tablet 10 MG PO DAILY Prescribed by: JOHNSON GALLARDO MD Dexamethasone (Dexamethasone) 4 Mg Tablet 2 MG PO BIDWM (Reported) Enoxaparin (Lovenox) 80 Mg/0.8 Ml Syringe 80 MG SUBQ Q12 (Reported) Gabapentin (Gabapentin) 300 Mg Capsule 300 MG PO TID (Reported) Lactobac #2-S. Therm-Bifido #1 (Visbiome 112.5 Billion Capsule) 112.5 Billion Cell Capsule 2 EACH PO DAILY Prescribed by: PRAVIN NASH MD Methadone (Methadone) 10 Mg Tab 10 MG PO BID (Reported) Mirtazapine (Mirtazapine) 15 Mg Tablet 7.5 MG PO HS (Reported) Pantoprazole DR (Pantoprazole DR) 20 Mg Tablet.dr 20 MG PO QAM (Reported) Potassium Chloride ER (Potassium Chloride ER) 10 Meq Tablet 10 MEQ PO DAILY ( Reported) TAKE WITH FOOD Sertraline HCl (Sertraline) 25 Mg Tablet 25 MG PO QAM (Reported) Tamsulosin (Flomax) 0.4 Mg Capsule 0.4 MG PO BID (Reported) Warfarin Sodium (Warfarin Sodium) 1 Mg Tablet 1 MG PO DAILY Prescribed by: PRAVIN NASH MD As needed Albuterol Sulfate (Ventolin HFA Inhaler) 200 Puff/18 Gm Inhaler 1 PUFF INH Q4 PRN PRN For Wheezing Prescribed by: LUISITO GOODWIN DO Alprazolam (Alprazolam) 0.5 Mg Tablet 0.5-1 MG PO TID PRN PRN For Anxiety ( Reported) Benzonatate (Benzonatate) 100 Mg Capsule 100 MG PO TID PRN PRN For Cough Prescribed by: PRAVIN NASH MD Haloperidol (Haloperidol) 1 Mg Tablet 0.5 MG PO Q6H PRN PRN For Agitation ( Reported) Hydromorphone (Hydromorphone) 2 Mg Tablet 2 MG PO Q4H PRN PRN For Pain (Reported ) Lidocaine HCl (Lidocaine HCl Viscous) 20 Mg/1 Ml Solution 5 ML MM QID PRN PRN MOUTH PAIN (Reported) Nitroglycerin SL (Nitroglycerin SL) 0.4 Mg Tab.subl 0.4 MG SL PRN PRN PRN For Chest Pain (Reported) Ondansetron (Ondansetron) 8 Mg Tablet 8 MG PO Q8H PRN PRN For Nausea/Vomiting ( Reported) Polyethylene Glycol 3350 (Miralax) 17 Gm Powd.pack 17 GM PO DAILY PRN PRN For Constipation (Reported) Sennosides (Senna) 8.6 Mg Tablet 17.2 MG PO BID PRN PRN For Constipation Prescribed by: PRAVIN NASH MD Sucralfate (Sucralfate) 1 Gm Tablet 1 GM PO QID PRN PRN GERD (Reported) Followup Plan Disposition: The patient left the hospital AGAINST MEDICAL ADVICE Follow-up Provider: Johnson Gallardo MD Follow-up with PCP in: 1 week (the patient left the hospital AGAINST MEDICAL ADVICE) Time spent The patient left the hospital AGAINST MEDICAL ADVICE before I could evaluate him. Trung Walker MD Aug 19, 2016 01:06
[2016-08-19] MEDS ORDERED: Vancomycin Serum Trough XX ONE (07:30)
--- NOTE | 2016-09-01 12:20 | NUR ---
Palliative care note D/A: Dr. Stoll has had communication with pt dtr. She indicates that pt is currently at home, having been discharged from recently. Dr. Stoll is working on prescribing some medications for pt. Pt has a follow up appt at Oncology on September 18. P: Palliative to follow. Nicole VELASCO, CCM
== END 2016-08-18 14:18 | disposition left against medical advice (07) | DRG 194 ==
LOC: SED 18:22 → OSC 21:12
PROVIDERS: ADMIT Hospitalist; ATTEND Hospitalist
DX: J18.9 Pneumonia, unspecified organism (principal); C79.51 Secondary malignant neoplasm of bone; C61 Malignant neoplasm of prostate; E86.0 Dehydration; D64.81 Anemia due to antineoplastic chemotherapy

== ENCOUNTER 2016-10-10 21:15 | Observation (INO) | payer MEDICARE, MEDICAID ==
[~2016-10-10] VITALS: Ht 175.3 cm; Wt 78.0 kg
[~2016-10-10 21:15] MED LIST changes: -CITA20TA11 PO; +HALO1TAB PO; +LOV80 SUBQ; +ONDA-54 PO; +POTA10TA12 PO; +SERT25TA6 PO; +SUCR1TAB PO
--- NOTE | 2016-10-10 21:25 | ED.REPORT ---
HPI-Head Prob / Injury Date of Service Oct 10, 2016 ED Provider: Trung Jon MD A 76 year old male on Coumadin with a history of hypertension, PE and metastatic colon cancer presents to the ED due to a fall. The pt tripped earlier today and fell backwards, hitting his head. The pt denies dizziness, weakness, or lightheadedness prior to falling and denies nausea or vomiting after the event. He is now complaining of back pain, head pain and mild neck pain. Nursing Notes Stated Complaint: FELL HIT BACK OF HEAD, ON BLOOD THINNERS Nursing Notes Reviewed: Yes Allergies: Coded Allergies: hydrocodone (Verified Allergy, Severe, hives, 07/04/16) iodine (Verified Allergy, Severe, it brought him to the hospital, 07/04/16) omeprazole (Verified Allergy, Mild, SHAKINESS, 07/04/16) Uncoded Allergies: CONTRAST MEDIUM (Allergy, Severe, ANAPHYLAXIS, 05/10/16) Scheduled Dexamethasone (Dexamethasone) 4 Mg Tablet 4 MG PO DAILY Gabapentin (Gabapentin) 300 Mg Capsule 300 MG PO TID Methadone (Methadone) 10 Mg Tab 15 MG PO BID Metoprolol Succinate ER (Metoprolol Succinate ER) 50 Mg Tab.er.24h 50 MG PO BID Potassium Chloride ER (Potassium Chloride ER) 10 Meq Tablet 20 MEQ PO DAILY TAKE WITH FOOD Ranitidine (Ranitidine) 150 Mg Capsule 150 MG PO BID Sertraline HCl (Sertraline) 25 Mg Tablet 25 MG PO QAM Terazosin (Terazosin) 5 Mg Capsule 5 MG PO BID Warfarin Sodium (Warfarin Sodium) 1 Mg Tablet 1 MG PO DAILY Scheduled PRN Albuterol Sulfate (Ventolin HFA Inhaler) 200 Puff/18 Gm Inhaler 1 PUFF INH Q4 PRN PRN For Wheezing Alprazolam (Alprazolam) 0.5 Mg Tablet 1 MG PO TID PRN PRN For Anxiety Docusate Sodium (Colace) 100 Mg Capsule 100 MG PO DAILY PRN PRN For Constipation Haloperidol (Haloperidol) 1 Mg Tablet 1 MG PO Q6H PRN PRN For Agitation Hydromorphone (Hydromorphone) 2 Mg Tablet 2 MG PO Q4H PRN PRN For Pain Miscellaneous Medications ([triple swish]) General Time Seen by Provider: 21:25 Chief Complaint Blunt head trauma, Other (Fall) Hx Obtained From: Patient Arrived By: Walk-in Onset Occurred: 1 - 4 hours ago Recent Healthcare: Recent doctor visit, Recent hospitalization Similar Sx Previous: No Past Medical History Past Medical History Notes: Oncologist Dr. 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 Hematology oncology office visit with increasing weakness 07/03/2016 Reports: Hypertension Past Surgical History Toe surgery Family History Noncontributory Smoking History Former Smoker Social History Alcohol Use: Denies alcohol use Drug Use: Denies drug use Other Social History: Good social support, , Local resident Ambulatory Status Independent Review of Systems Review of Systems Note: Head pain GI: Denies: Abdominal pain Musculoskeletal: Reports: Back pain, Neck pain Skin: Denies Rash Neurologic: Denies: Dizziness, Lightheaded, Weakness Complete sys rev & neg: except as marked. Physical Exam Initial Vital Signs Vital Signs (First) Date Time Temp Pulse Resp B/P Pulse Ox O2 Delivery O2 Flow Rate FiO2 10/10/16 21:26 37.8 78 20 140/58 96 Room Air Initial VS: Reviewed General/Constitutional: Awake, Alert appears pale and anemic Head / Eyes: Normocephalic, PERRL, EOMI mild tenderness on the posterior scalp ENT: Atraumatic, Airway patent, Mucous membranes moist Neck: Supple, Full range of motion neck nontender with no bruising or deformity Neurologic: Oriented X3, Speech NL, No motor deficits, No sensory deficits Respiratory / Chest: Atraumatic, Breath sounds NL, Breath sounds = bilat, No respiratory distress Cardiovascular: Heart rate NL, Regular rhythm, Heart sounds NL Upper Extremity / MS: Atraumatic, Full range of motion Lower Extremity / Pelvis / MS: Atraumatic, Full range of motion, Pelvis stable Skin: Atraumatic, Color NL, No rash, Warm, Dry Psychiatric: Affect NL, Mood NL Abdomen: Atraumatic, Soft, Non-tender Back: Atraumatic, Full range of motion Interpretation & Diagnostics Interpretation & Diagnostics: CT Thoracic Spine: CONCLUSION: Compression fracture of T12. No central canal stenosis or retropulsed fragments are identified. Right pleural thickening is noted. Other findings described above. Lab Results Interpretation Result Diagram: 10/10/16 2205 10/10/16 2205 Test 10/10/16 22:05 White Blood Count 8.4th/mm3 (3.8-10.1) Red Blood Count 3.21mil/mm3 (4.40-5.80) Hemoglobin 9.0g/dL (13.8-17.2) Hematocrit 29.0% (41.0-50.0) Mean Corpuscular Volume 90fL (81-100) Mean Corpuscular Hemoglobin 28.0pg (27.0-35.0) Mean Corpuscular Hemoglobin Concent 31.0% (32.0-37.0) Red Cell Distribution Width 18.2% (12.3-15.4) Platelet Count 185bil/L (150-400) Neutrophils (%) (Auto) 73% (40-74) Lymphocytes (%) (Auto) 15% (14-46) Monocytes (%) (Auto) 11% (4-12) Eosinophils (%) (Auto) 1% (0-5) Basophils (%) (Auto) 0% (0-3) Prothrombin Time 28.4sec (8.1-12.5) Prothromb Time International Ratio 2.60ratio Sodium Level 139mEq/L (134-144) Potassium Level 3.4mEq/L (3.5-5.2) Chloride Level 106mEq/L (97-108) Carbon Dioxide Level 21mmol/L (18-29) Blood Urea Nitrogen 16mg/dL (8-27) Creatinine 0.74mg/dL (0.76-1.27) Estimat Glomerular Filtration Rate 109mL/min (>59) Glucose Level 126mg/dL (60-99) Calcium Level 8.2mg/dL (8.5-10.1) CT Head Interpretation IMPRESSION: 1. No acute intracranial abnormalities. 2. Cerebral volume loss and chronic microvascular ischemic changes. 3. Left maxillary sinus is improved. ADDENDUM: There is a small moderate fluid in the right mastoids. Recommend clinical correlation for mastoiditis. Interpretation / Wet Read by: Interpret - Radiologist CT C-Spine Interpretation IMPRESSION: 1. No acute injuries in cervical spine. 2. Mild compression fractures of C5 and C6 likely chronic. 3. Degenerative changes in cervical spine as described. 4. Patchy sclerosis consistent with metastases. Metastatic disease is better seen on the comparison bone scan. 5. Small right pleural effusion. Interpretation / Wet Read by: Interpret - Radiologist Re-Eval/Medical Decision Med Decision/Clinical Course 76-year-old with metastatic colon cancer with known bone metastases, presents after a mechanical fall and a moderate head impact without loss of consciousness. No findings of bleeding on CT, but he is adequately anticoagulated. He does have an acute compression fracture of T12 without retropulsion. No other acute findings on CT of head and neck and T spines. Admitted now per protocol for repeat CT scanning in 8-12 hours. Pain control with oxycodone currently adequate. Transported in stable condition. Source of Hx: Old records Re-Evaluation/Progress : Time of Eval: 23:02 Re-Evaluation/Progress Note: Pt rechecked, who is resting. He is informed of his radiology results and the need for admission. The pt understands and agrees with the plan. All questions are addressed at this time. Consultation : Referral / Consult Name: Jean-Paul Olivia MD Consulted With: Hospitalist Call Returned at: 23:15 Circulation Clerk: Agrees with eval, Agrees with plan, Accepts admit Note: Spoke with Dr. Olivia, hospitalist, regarding pt's case. Dr. Olivia agrees with the evaluation and agrees to admit the pt. Counseled Regarding: Diagnosis, Lab results, Need for admission Discharge & Departure Primary Impression: Blunt head injury Encounter type: initial encounter Qualified Code: S09.8XXA - Other specified injuries of head, initial encounter Additional Impressions: Anticoagulated Compression fracture of T12 vertebra Encounter type: initial encounter Qualified Code: M48.54XA - Collapsed vertebra, not elsewhere classified, thoracic region, initial encounter for fracture Metastasis from colon cancer Fall Encounter type: initial encounter Qualified Code: W19.XXXA - Unspecified fall, initial encounter Disposition: ADMITTED TO HOSPITAL All VS Reviewed: Yes Condition: Stable Referrals: Johnson Payton MD (PCP) Scribe Attestation Portions of this note were transcribed by Sawyer Kilpatrick. I, Dr. Jon personally performed the history, physical exam and medical decision-making; I reviewed and confirmed the accuracy of the information in the transcribed note. Signed by: Satish Funez, 10/10/16 and 2322. copies to: Johnson Payton MD, Christopher W MD Oct 10, 2016 21:25 SAWYER KILPATRICK Oct 10, 2016 21:32
[2016-10-10 21:26] VITALS: BP 140/58; PULSE 78; RESP 20; O2SAT 96
--- NOTE | 2016-10-10 21:59 | DRSVH ---
PROCEDURE: CT BRAIN WITHOUT CONTRAST ([id number]) INDICATIONS: fall, on coumadin TECHNIQUE: Noncontrast 4.5 mm thick angled axial sections acquired from the foramen magnum to the vertex, with c oronal reformats. COMPARISON: [facility], CT, CT BRAIN WO CON, 08/17/2016, 19:38. FINDINGS: Image quality: Excellent. CSF spaces: Basal cisterns are patent. No extra-axial fluid collections. The ventricles are symmet esau in size and shape. Brain: No intracranial bleeds or masses. There is cerebral volume loss for age, with resultant vent ricular and sulcal prominence. There are periventricular and deep white matter chronic small vessel ischemic changes. There is intracranial internal carotid artery atherosclerosis. Skull and face: Calvarium and visualized facial bones appear intact, without suspicious lesions. Sinuses: There is a mucus retention material in the left maxillary sinus, which is decreased. The mas toids are clear. IMPRESSION: 1. No acute intracranial abnormalities. 2. Cerebral volume loss and chronic microvascular ischemic changes. 3. Left maxillary sinus is improved. Dictated by: Crys White M.D. on 10/10/2016 at 21:55 Approved by: Crys White M.D. on 10/10/2016 at 21:57
--- NOTE | 2016-10-10 22:08 | DRSVH ---
PROCEDURE: CT CERVICAL SPINE WITHOUT CONTRAST ([id number]) INDICATIONS: fall, on coumadin, pain TECHNIQUE: Noncontrast 3 mm thick sections acquired from the skull base to the T4 level. Sagittal and coronal r eformats were then constructed. For radiation dose reduction, the following was used: automated exp osure control, adjustment of mA and/or kV according to patient size. COMPARISON: [facility]ated [facility], MR, CERVICAL SPINE W&W/O CONTRAST, 02/28/2010, 14:27. [place], [place], BONE SCAN WHOLE BODY, 09/24/2013, 15:12. [facility], CT, CT CHEST WO CON, 07/04/2016, 14:23. [facility], CT, CT BRAIN WO CON, 10/10/2016, 21:36. [place], [place], [place] BONE SCAN WHOLE BODY, 03/10/2016, 12:33. FINDINGS: Image quality: Excellent. Bones: No acute fractures or dislocations. Mild compression deformity of C5 and C6 is noted, consist ent chronic compression fractures. There is mild/moderate degenerative disease at C3-C4, C5-C6 and C6 -C7. There is uncovertebral hypertrophy at C3-C4. Mild bilateral facet arthropathy is present, most p ronounced at C4-C5 on the right. Visualized superior ribs are intact. Diffuse patchy osseous scleros is consistent with metastases. Soft tissues: Prevertebral soft tissues are normal in thickness. No paravertebral hematomas. No ap ical pneumothoraces. There is a small right perfusion. IMPRESSION: 1. No acute injuries in cervical spine. 2. Mild compression fractures of C5 and C6 likely chronic. 3. Degenerative changes in cervical spine as described. 4. Patchy sclerosis consistent with metastases. Metastatic disease is better seen on the comparison b one scan. 5. Small right pleural effusion. Dictated by: Crys White M.D. on 10/10/2016 at 21:57 Approved by: Crys White M.D. on 10/10/2016 at 22:06
[2016-10-10 22:22] LABS: BASOPHILS % (AUTO) 0 % (0-3); EOSINOPHILS % (AUTO) 1 % (0-5); MONOCYTES % (AUTO) 11 % (4-12); Mean Corpuscular Volume 90 fL (81-100); NEUTROPHILS % (AUTO) 73 % (40-74); Platelet Count 185 bil/L (150-400)
[2016-10-10 22:37] LABS: INR 2.6 ratio
[2016-10-10] MEDS ORDERED: Alum-Mag Hydrox-Simeth 30 mL Suspension PO PRN (23:20)
[2016-10-10] MEDS ORDERED: Polyethylene Glycol (PEG) 17 Gm Powder PO PRN (23:20)
[2016-10-10] MEDS ORDERED: Ondansetron 2 mg/mL 2 mL Inj IVPUSH PRN (23:20)
[2016-10-10 23:22] VITALS: BP 139/62; PULSE 67; RESP 20; O2SAT 96
[2016-10-10 23:48] VITALS: BP 139/62; PULSE 67; RESP 20; O2SAT 96
--- NOTE | 2016-10-10 23:59 | PCM.HPMED ---
Subjective Date of Service Oct 10, 2016 Primary Provider: Admitting Physician: Primary Care Physician: Johnson Gallardo MD Attending Physician: Admit Status: From the Emergency Department, 23-Hour Observation, Remote Telemetry Chief Complaint: Fall hitting back of head History of Present Illness: Rodrigo Barlow is a 76 year old male on Coumadin with Hypertension, Pulmonary embolism and metastatic prostatic cancer presents to [facility] emergency department due to a fall. Patient speaks [place] exclusively and the history was reported by his daughter. The patient was outside doing some gardening when he tripped and fell backwards, hitting the back of his head. The pt denies dizziness, weakness, or lightheadedness prior to falling and denies nausea or vomiting after the event. Later in the day he started complaining of back pain, head pain and mild neck pain. Patient currently taking Coumadin for Pulmonary embolism. Metastatic prostatic cancer with no current ongoing chemotherapy Case discussed with Dr Jon, Ct head showed no bleeding. INR therapeutic. Plan to admit for repeat head imaging Review of Systems: Pertinent positives as noted in HPI. All other systems were reviewed and are negative Allergies Coded Allergies: hydrocodone (Verified Allergy, Severe, hives, 07/04/16) iodine (Verified Allergy, Severe, it brought him to the hospital, 07/04/16) omeprazole (Verified Allergy, Mild, SHAKINESS, 07/04/16) Uncoded Allergies: CONTRAST MEDIUM (Allergy, Severe, ANAPHYLAXIS, 05/10/16) Home Medications From last discharge summary, not yet confirmed Atorvastatin Calcium (Atorvastatin Calcium) 10 Mg Tablet 10 MG PO DAILY Prescribed by: JOHNSON GALLARDO MD Dexamethasone (Dexamethasone) 4 Mg Tablet 2 MG PO BIDWM (Reported) Enoxaparin (Lovenox) 80 Mg/0.8 Ml Syringe 80 MG SUBQ Q12 (Reported) Gabapentin (Gabapentin) 300 Mg Capsule 300 MG PO TID (Reported) Lactobac #2-S. Therm-Bifido #1 (Visbiome 112.5 Billion Capsule) 112.5 Billion Cell Capsule 2 EACH PO DAILY Prescribed by: PRAVIN NASH MD Methadone (Methadone) 10 Mg Tab 10 MG PO BID (Reported) Mirtazapine (Mirtazapine) 15 Mg Tablet 7.5 MG PO HS (Reported) Pantoprazole DR (Pantoprazole DR) 20 Mg Tablet.dr 20 MG PO QAM (Reported) Potassium Chloride ER (Potassium Chloride ER) 10 Meq Tablet 10 MEQ PO DAILY ( Reported) TAKE WITH FOOD Sertraline HCl (Sertraline) 25 Mg Tablet 25 MG PO QAM (Reported) Tamsulosin (Flomax) 0.4 Mg Capsule 0.4 MG PO BID (Reported) Warfarin Sodium (Warfarin Sodium) 1 Mg Tablet 1 MG PO DAILY Prescribed by: PRAVIN NASH MD As needed Albuterol Sulfate (Ventolin HFA Inhaler) 200 Puff/18 Gm Inhaler 1 PUFF INH Q4 PRN PRN For Wheezing Prescribed by: LUISITO GOODWIN DO Alprazolam (Alprazolam) 0.5 Mg Tablet 0.5-1 MG PO TID PRN PRN For Anxiety ( Reported) Benzonatate (Benzonatate) 100 Mg Capsule 100 MG PO TID PRN PRN For Cough Prescribed by: PRAVIN NASH MD Haloperidol (Haloperidol) 1 Mg Tablet 0.5 MG PO Q6H PRN PRN For Agitation ( Reported) Hydromorphone (Hydromorphone) 2 Mg Tablet 2 MG PO Q4H PRN PRN For Pain (Reported ) Lidocaine HCl (Lidocaine HCl Viscous) 20 Mg/1 Ml Solution 5 ML MM QID PRN PRN MOUTH PAIN (Reported) Nitroglycerin SL (Nitroglycerin SL) 0.4 Mg Tab.subl 0.4 MG SL PRN PRN PRN For Chest Pain (Reported) Ondansetron (Ondansetron) 8 Mg Tablet 8 MG PO Q8H PRN PRN For Nausea/Vomiting ( Reported) Polyethylene Glycol 3350 (Miralax) 17 Gm Powd.pack 17 GM PO DAILY PRN PRN For Constipation (Reported) Sennosides (Senna) 8.6 Mg Tablet 17.2 MG PO BID PRN PRN For Constipation Prescribed by: PRAVIN NASH MD Sucralfate (Sucralfate) 1 Gm Tablet 1 GM PO QID PRN PRN GERD (Reported) PMH Pneumonia UTI Pulmonary embolism with VQ scan showing high probability Depression Anxiety 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 Hypertension . Surgical History Toe surgery Family History Family denies any significant family history Social History Hx Alcohol Use: Yes (15 years ago) Hx Substance Use: No Hx Tobacco Use: Yes Smoking Status: Former Smoker Living Arrangement: with Family Exam Vital Signs Vital Sign - Last Date Time Temp Pulse Resp B/P Pulse Ox O2 Delivery O2 Flow Rate FiO2 10/10/16 23:22 67 20 139/62 96 Room Air 10/10/16 21:26 37.8 Exam General: Alert, Oriented X3, Cooperative, No acute Distress Eyes: PERRLA, Scleral Anicteric Mouth: Mouth Normal, Mucous Membranes Moist/[place] Neck: Supple, no Thyromegaly, trachea central. Chest & Lungs: Clear to auscultation & percussion, No adventitious breath sounds, no crackles, no wheeze Cardiovascular: Normal S1, Normal S2, No Murmurs/Rubs/Gallops, Regular Rate/ Rhythm, Murmur, Other (No JVD, no peripheral edema) Pulses: Radial (present and equal), Dorsalis Pedi (present and equal) Abdomen: Soft, Non-tender, Non-distended, Normoactive bowel tones. Musculoskeletal: Unremarkable. Normal range of motion, no swollen or erythematous joints Extremities: No edema, no cyanosis, no clubbing. Skin: No rashes. Warm and dry, no erythematous areas Neurological: Grossly neurologically intact, has generalized weakness, Normal Speech, Sensation Intact Lymphatic: Lymph nodes Cervical and Axillary not palpable. Lab and Diagnostics Labs Laboratory Tests Test 10/10/16 22:05 White Blood Count 8.4th/mm3 (3.8-10.1) Red Blood Count 3.21mil/mm3 (4.40-5.80) Hemoglobin 9.0g/dL (13.8-17.2) Hematocrit 29.0% (41.0-50.0) Mean Corpuscular Volume 90fL (81-100) Mean Corpuscular Hemoglobin 28.0pg (27.0-35.0) Mean Corpuscular Hemoglobin Concent 31.0% (32.0-37.0) Red Cell Distribution Width 18.2% (12.3-15.4) Platelet Count 185bil/L (150-400) Neutrophils (%) (Auto) 73% (40-74) Lymphocytes (%) (Auto) 15% (14-46) Monocytes (%) (Auto) 11% (4-12) Eosinophils (%) (Auto) 1% (0-5) Basophils (%) (Auto) 0% (0-3) Prothrombin Time 28.4sec (8.1-12.5) Prothromb Time International Ratio 2.60ratio Sodium Level 139mEq/L (134-144) Potassium Level 3.4mEq/L (3.5-5.2) Chloride Level 106mEq/L (97-108) Carbon Dioxide Level 21mmol/L (18-29) Blood Urea Nitrogen 16mg/dL (8-27) Creatinine 0.74mg/dL (0.76-1.27) Estimat Glomerular Filtration Rate 109mL/min (>59) Glucose Level 126mg/dL (60-99) Calcium Level 8.2mg/dL (8.5-10.1) Result Diagram: 10/10/16220410/10/162204 X-Rays, CTs and MRIs CT BRAIN WITHOUT CONTRAST 10/10 1. No acute intracranial abnormalities. 2. Cerebral volume loss and chronic microvascular ischemic changes 3. Left maxillary sinus is improved. ADDENDUM: There is a small moderate fluid in the right mastoids. Recommend clinical correlation for mastoiditis. Dictated by: Crys White M.D. on 10/10/2016 at 21:55 Approved by: Crys White M.D. on 10/10/2016 at 21:57 Assessment & Plan Rodrigo Barlow is a 76 year old male on Coumadin with Hypertension, Pulmonary embolism and metastatic colon cancer presents to [facility] emergency department due to a fall. Blunt head injury after fall. Present on admission Follow hospital protocol for intracranial bleeding with patient on anticoagulations - neuro check every 4 hours by nurses - repeat CT head without contrast in the morning - holding Coumadin dose for now Pulmonary embolism, chronic Recent diagnosed in July 2016 likely related to cancer diagnosis. Started on Coumadin with INR therapeutic today - continue Coumadin when head bleed is negative Metastatic prostate cancer with skeletal involvement,. 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 - No plans for further chemotherapy Chronic cancer pain with continuous opiate dependence-pain adequately controlled - We will continue his home narcotics (Methadone and Hydromorphone PO), - Continue Gabapentin Hypertension, chronic, controlled. - Continue home Metoprolol Hyperlipidemia, chronic, presume stable. -Continue Atorvastatin Depression and history of anxiety -Continue Mirtazapine - Acetaminophen as needed for mild pain/fever/headache - Bowel regimen as needed - Antiemetic as needed Patient is admitted under observation status with expected length of stay less than 2 midnights due to severity of presenting symptoms, risk of adverse event, and complexity of treatment plan. . Resuscitation Status: CPR: Attempt Resuscitation Jean-Paul Olivia MD Oct 10, 2016 23:34
[2016-10-11 00:13] VITALS: BP 139/68; PULSE 58; RESP 16; O2SAT 95
[2016-10-11] MEDS ORDERED: METO-272 PO (00:26)
[2016-10-11] MEDS ORDERED: DOCU-41 PO (00:26)
[2016-10-11] MEDS ORDERED: triple swish (00:31)
[2016-10-11] MEDS ORDERED: TERA5CAP6 PO (00:32)
[2016-10-11] MEDS ORDERED: RANI150C4 PO (00:39)
[2016-10-11] MEDS ORDERED: Albuterol 2.5 mg/3 mL Inhalation Solution NEB PRN (00:52)
--- NOTE | 2016-10-11 01:28 | NUR ---
Admission note Pt had a ground level fall at home. Neuro grossly intact. Answers questions appropriately. States he has a small amount of pain in his mid back. Family at bedside interprets in to [place]ish for patient Pt understands use of call light for needs. Will cont to monitor
[2016-10-11 04:57] VITALS: BP 145/73; PULSE 56; RESP 18; O2SAT 91
--- NOTE | 2016-10-11 05:41 | NUR ---
Pain Pt denies pain. He states he is "comfortable" He has slept most of the night Family member at bedside. Will cont to monitor
[2016-10-11] MEDS ORDERED: MeTOProlol XL 50 mg ER24 Tablet PO SCH (08:30)
--- NOTE | 2016-10-11 08:42 | DRSVH ---
PROCEDURE: CT BRAIN WITHOUT CONTRAST ([id number]) INDICATIONS: trauma TECHNIQUE: Noncontrast 4.5 mm thick angled axial sections acquired from the foramen magnum to the vertex, with c oronal reformats. COMPARISON: [facility], CT, CT BRAIN WO CON, 10/10/2016, 21:36. [facility], CT, CT BRAIN WO CON, 08/17/2016, 19:38. [facility], CT, BRAIN W/O CONTRAST, 08/02/2013, 15 :13. FINDINGS: Image quality: Excellent. CSF spaces: Basal cisterns are patent. No extra-axial fluid collections. The ventricles are symmet esau in size and shape. Brain: No intracranial bleeds or masses. There is cerebral volume loss for age, with resultant vent ricular and sulcal prominence. There are periventricular and deep white matter chronic small vessel ischemic changes. There is intracranial internal carotid artery atherosclerosis. Skull and face: Calvarium and visualized facial bones appear intact, without suspicious lesions. Sinuses: Visualized sinuses and mastoids are clear. IMPRESSION: No acute intracranial abnormality. Dictated by: Rubén Maloney M.D. on 10/11/2016 at 8:40 Approved by: Rubén Maloney M.D. on 10/11/2016 at 8:40
--- NOTE | 2016-10-11 08:50 | DRSVH ---
PROCEDURE: CT THORACIC SPINE WITHOUT CONTRAST ([id number]) INDICATIONS: fall, on coumadin, pain TECHNIQUE: Noncontrast 3 mm thick sections acquired through the region of interest in the thoracic spine. Sagit diego and coronal reformats were then constructed. For radiation dose reduction, the following was use d: automated exposure control. COMPARISON: [facility], [place], [place] BONE SCAN WHOLE BODY, 03/10/2016, 12:33. FINDINGS: Image quality: Excellent. Bones: There is normal overall bony alignment. Acute appearing T12 compression fracture noted. T12 c ompression fracture results in approximately 25% loss of normal intervertebral body height. No retrop ulsed fragments or kyphosis associated with the to show compression fracture. No suspicious sclerotic or lytic bony lesions. Central spinal canal is of normal overall caliber. Numerous, ill-defined, sc lerotic foci are scattered throughout the thoracic spine and visualized ribs compatible with known pr ostate cancer skeletal metastases. Multilevel degenerative disc disease and facet arthropathy are not ed. Soft tissues: No paravertebral masses or hematomas. Visualized posteromedial lungs appear clear. Tr ines right-sided pleural fluid collection noted. IMPRESSION: Acute T12 compression fracture results in approximately 20% loss of normal height. Dictated by: Colleen Fitzpatrick MD, PhD on 10/11/2016 at 8:41 Approved by: Colleen Fitzpatrick MD, PhD on 10/11/2016 at 8:48
[2016-10-11 09:14] VITALS: BP 140/64; PULSE 62; RESP 16; O2SAT 98
--- NOTE | 2016-10-11 10:28 | NUR ---
Case Management- QUIÑONES explained and signed by patient. Copy given to patient. Orginal placed in chart. Virgie Grimm RN/UR
[2016-10-11] MEDS ORDERED: Potassium Chloride 20 mEq SR Tablet PO STA (10:52)
--- NOTE | 2016-10-11 10:55 | PCM.DIMED ---
Discharge Instructions Date of Service Oct 11, 2016 Dates of Hospitalization Oct 10, 2016 at 23:40 Discharge Diagnosis Discharge Diagnosis Blunt head injury after fall Acute t-12 compression fracture (20%) Pulmonary embolism, chronic Metastatic prostate cancer with skeletal involvement,. Chronic cancer pain with continuous opiate dependence Hypertension, Hyperlipidemia, . Depression and history of anxiety Activity Discharge Activity: Limited until seen by PCP Call your provider Call your provider for: Other (severe headache) Patient Instructions Follow-up plan follow up with your primary care provider in about a week Follow-up with PCP in: 1 week Gordon eMrlos MD Oct 11, 2016 10:55
--- NOTE | 2016-10-11 11:04 | PCM.DC.MED ---
Discharge Summary Date of Service Oct 11, 2016 Dates of Hospitalization Date of Hospital Admission Oct 10, 2016 at 23:40 Date of Discharge: Oct 11, 2016 Providers: Admitting Physician: Jean-Paul Olivia MD Primary Care Physician: Johnson Payton MD Attending Physician: Jean-Paul Olivia MD Diagnosis at Time of Discharge Diagnosis at Time of Discharge Blunt head injury after fall. Present on admission, resolved Acute T-12 compression fracture, poa, stable Pulmonary embolism, poa, stable Metastatic prostate cancer with skeletal involvement, poa, stable Chronic cancer pain with continuous opiate dependence-pain, stable Hypertension, chronic, poa, controlled. Hyperlipidemia, poa, stable Procedures XRay, CTs & MRIs CT BRAIN WITHOUT CONTRAST 10/10 1. No acute intracranial abnormalities. 2. Cerebral volume loss and chronic microvascular ischemic changes 3. Left maxillary sinus is improved. ADDENDUM: There is a small moderate fluid in the right mastoids. Recommend clinical correlation for mastoiditis. Dictated by: Crys White M.D. on 10/10/2016 at 21:55 Approved by: Crys White M.D. on 10/10/2016 at 21:57 PROCEDURE: CT THORACIC SPINE WITHOUT CONTRAST ([id number]) Bones: There is normal overall bony alignment. Acute appearing T12 compression fracture noted. T12 compression fracture results in approximately 25% loss of normal intervertebral body height. No retropulsed fragments or kyphosis associated with the to show compression fracture. No suspicious sclerotic or lytic bony lesions. Central spinal canal is of normal overall caliber. Numerous , ill-defined, sclerotic foci are scattered throughout the thoracic spine and visualized ribs compatible with known prostate cancer skeletal metastases. Multilevel degenerative disc disease and facet arthropathy are noted. Soft tissues: No paravertebral masses or hematomas. Visualized posteromedial lungs appear clear. Trace right-sided pleural fluid collection noted. IMPRESSION: Acute T12 compression fracture results in approximately 20% loss of normal height. Dictated by: Colleen Fitzpatrick MD, PhD on 10/11/2016 at 8:41 PROCEDURE: CT CERVICAL SPINE WITHOUT CONTRAST ([id number]) Bones: No acute fractures or dislocations. Mild compression deformity of C5 and C6 is noted, consistent chronic compression fractures. There is mild/ moderate degenerative disease at C3-C4, C5-C6 and C6-C7. There is uncovertebral hypertrophy at C3-C4. Mild bilateral facet arthropathy is present, most pronounced at C4-C5 on the right. Visualized superior ribs are intact. Diffuse patchy osseous sclerosis consistent with metastases. Soft tissues: Prevertebral soft tissues are normal in thickness. No paravertebral hematomas. No apical pneumothoraces. There is a small right perfusion. IMPRESSION: 1. No acute injuries in cervical spine. 2. Mild compression fractures of C5 and C6 likely chronic. 3. Degenerative changes in cervical spine as described. 4. Patchy sclerosis consistent with metastases. Metastatic disease is better seen on the comparison bone scan. 5. Small right pleural effusion. Dictated by: Crys White M.D. on 10/10/2016 at 21:57 PROCEDURE: CT BRAIN WITHOUT CONTRAST ([id number]) CSF spaces: Basal cisterns are patent. No extra-axial fluid collections. The ventricles are symmetric in size and shape. Brain: No intracranial bleeds or masses. There is cerebral volume loss for age , with resultant ventricular and sulcal prominence. There are periventricular and deep white matter chronic small vessel ischemic changes. There is intracranial internal carotid artery atherosclerosis. Skull and face: Calvarium and visualized facial bones appear intact, without suspicious lesions. Sinuses: Visualized sinuses and mastoids are clear. IMPRESSION: No acute intracranial abnormality. Dictated by: Rubén Maloney M.D. on 10/11/2016 at 8:40 Brief History Rodrigo Barlow is a 76 year old male on Coumadin with Hypertension, Pulmonary embolism and metastatic prostatic cancer presents to [facility] emergency department due to a fall. Patient speaks Romansh exclusively and the history was reported by his daughter. The patient was outside doing some gardening when he tripped and fell backwards, hitting the back of his head. The pt denies dizziness, weakness, or lightheadedness prior to falling and denies nausea or vomiting after the event. Later in the day he started complaining of back pain, head pain and mild neck pain. Patient currently taking Coumadin for Pulmonary embolism. Metastatic prostatic cancer with no current ongoing chemotherapy Case discussed with Dr Jon, Ct head showed no bleeding. INR therapeutic. Plan to admit for repeat head imaging Hospital Course Rodrigo Barlow is a 76 year old male on Coumadin with Hypertension, Pulmonary embolism and metastatic colon cancer presents to [facility] emergency department due to a fall. Blunt head injury after fall. Present on admission Follow hospital protocol for intracranial bleeding with patient on anticoagulations - neuro check every 4 hours by nurses - repeat CT head without contrast in the morning - holding Coumadin dose for now -Dischage patient both head CT negative for any acute events Acute T-12 compression fracture -minimally symptomatic -Follow up with PCP Pulmonary embolism, chronic Recent diagnosed in July 2016 likely related to cancer diagnosis. Started on Coumadin with INR therapeutic today - continue Coumadin when head bleed is negative Metastatic prostate cancer with skeletal involvement,. 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 - No plans for further chemotherapy Chronic cancer pain with continuous opiate dependence-pain adequately controlled - We will continue his home narcotics (Methadone and Hydromorphone PO), - Continue Gabapentin Hypertension, chronic, controlled. - Continue home Metoprolol Hyperlipidemia, chronic, presume stable. -Continue Atorvastatin Depression and history of anxiety -Continue Mirtazapine . Exam Vital Signs (Last) Date Time Temp Pulse Resp B/P Pulse Ox O2 Delivery O2 Flow Rate FiO2 10/11/16 09:14 36.7 62 16 140/64 98 Room Air Test 10/10/16 22:05 White Blood Count 8.4th/mm3 (3.8-10.1) Red Blood Count 3.21mil/mm3 (4.40-5.80) Hemoglobin 9.0g/dL (13.8-17.2) Hematocrit 29.0% (41.0-50.0) Mean Corpuscular Volume 90fL (81-100) Mean Corpuscular Hemoglobin 28.0pg (27.0-35.0) Mean Corpuscular Hemoglobin Concent 31.0% (32.0-37.0) Red Cell Distribution Width 18.2% (12.3-15.4) Platelet Count 185bil/L (150-400) Neutrophils (%) (Auto) 73% (40-74) Lymphocytes (%) (Auto) 15% (14-46) Monocytes (%) (Auto) 11% (4-12) Eosinophils (%) (Auto) 1% (0-5) Basophils (%) (Auto) 0% (0-3) Prothrombin Time 28.4sec (8.1-12.5) Prothromb Time International Ratio 2.60ratio Sodium Level 139mEq/L (134-144) Potassium Level 3.4mEq/L (3.5-5.2) Chloride Level 106mEq/L (97-108) Carbon Dioxide Level 21mmol/L (18-29) Blood Urea Nitrogen 16mg/dL (8-27) Creatinine 0.74mg/dL (0.76-1.27) Estimat Glomerular Filtration Rate 109mL/min (>59) Glucose Level 126mg/dL (60-99) Calcium Level 8.2mg/dL (8.5-10.1) Discharge Medications Discharge Medications Dexamethasone (Dexamethasone) 4 Mg Tablet 4 MG PO DAILY (Reported) Gabapentin (Gabapentin) 300 Mg Capsule 300 MG PO TID (Reported) Methadone (Methadone) 10 Mg Tab 15 MG PO BID (Reported) Metoprolol Succinate ER (Metoprolol Succinate ER) 50 Mg Tab.er.24h 50 MG PO BID (Reported) Potassium Chloride ER (Potassium Chloride ER) 10 Meq Tablet 20 MEQ PO DAILY ( Reported) TAKE WITH FOOD Ranitidine (Ranitidine) 150 Mg Capsule 150 MG PO BID (Reported) Sertraline HCl (Sertraline) 25 Mg Tablet 25 MG PO QAM (Reported) Terazosin (Terazosin) 5 Mg Capsule 5 MG PO BID (Reported) Warfarin Sodium (Warfarin Sodium) 1 Mg Tablet 1 MG PO DAILY Prescribed by: PRAVIN NASH MD As needed Albuterol Sulfate (Ventolin HFA Inhaler) 200 Puff/18 Gm Inhaler 1 PUFF INH Q4 PRN PRN For Wheezing Prescribed by: LUISITO GOODWIN DO Alprazolam (Alprazolam) 0.5 Mg Tablet 1 MG PO TID PRN PRN For Anxiety (Reported ) Docusate Sodium (Colace) 100 Mg Capsule 100 MG PO DAILY PRN PRN For Constipation (Reported) Haloperidol (Haloperidol) 1 Mg Tablet 1 MG PO Q6H PRN PRN For Agitation ( Reported) Hydromorphone (Hydromorphone) 2 Mg Tablet 2 MG PO Q4H PRN PRN For Pain (Reported ) Miscellaneous Medications ([triple swish]) (Reported) Followup Plan Follow-up plan follow up with your primary care provider in about a week Discharge Activity: Limited until seen by PCP Follow-up with PCP in: 1 week Time spent 32 minutes time spent discharging patient home today so far. copies to: Johnson Payton MD, D Geoffrey MD Oct 11, 2016 11:04
--- NOTE | 2016-10-11 11:39 | NUR ---
Social Work: Initial Assessment / Discharge Data: Pt is a 76 y/o male admitted for GLF, blunt head injury. Pt's PCP is Dr Payton, pt's insurance is Medicare with [facility] supp. EMR reviewed. Readmit score is 5, high. TEASELER met with pt and spouse at bedside with cut off sawyer, role explained. Pt states he lives in [place] with his in a single story home with a ramp to enter. Pt states he uses a cane occasionally, drives, has hx of HH unknown company, no hx of SNF, no LTC or VA benefits. Pt is not a caregiver. No d/c planning needs identified at this time. D/C orders are in. Assessment: Pt who is independent at baseline. Plan: Pt will d/c home via POV with son today. No d/c planning needs identified at this time. D/C orders are in. CARMEN Nava Addendum: 10/11/16 at 1142 by GLORY DE LA CRUZ Amended: Links added. Addendum: 10/11/16 at 1201 by ZAYDA LUEVANO SS Pt has history of Dari ALAS. Pt has SAMANTA, CM is Marion Henao. WALLPAPER PRINTER HELPER to fax clinicals to Marion at [facility]. CARMEN Lucio
--- NOTE | 2016-10-11 14:22 | NUR ---
Discharge Pt left with family in stable condition with all belongings at 1336, IV d/c'd, no prescriptions given, CT scan this am negative for crainal bleeding, discharge paper work gone over with pt and his with the educational sign language interpreter, pt and stated they had no questions at this time, encouraged to call MD if symptoms occur, instructions given for them to set up follow up appointment.
== END 2016-10-11 13:35 | disposition home or self-care (01) ==
LOC: SED 21:15 → UNDOADMOB 23:34 → OSC 23:34
PROVIDERS: ADMIT Hospitalist; ATTEND Hospitalist
DX: S09.90XA Unspecified injury of head, initial encounter (principal); W01.0XXA Fall on same level from slipping, tripping and stumbling without subsequent striking against object, initial encounter; Y93.01 Activity, walking, marching and hiking; Y92.017 Garden or yard in single-family (private) house as the place of occurrence of the external cause; M48.54XA Collapsed vertebra, not elsewhere classified, thoracic region, initial encounter for fracture; I26.99 Other pulmonary embolism without acute cor pulmonale; C61 Malignant neoplasm of prostate; C79.51 Secondary malignant neoplasm of bone; C78.5 Secondary malignant neoplasm of large intestine and rectum; G89.3 Neoplasm related pain (acute) (chronic); I10 Essential (primary) hypertension; E78.5 Hyperlipidemia, unspecified; F41.8 Other specified anxiety disorders; Z92.21 Personal history of antineoplastic chemotherapy; Z87.891 Personal history of nicotine dependence; Z79.891 Long term (current) use of opiate analgesic; Z79.01 Long term (current) use of anticoagulants; Z79.51 Long term (current) use of inhaled steroids
CPT/HCPCS: 36415; 70450; 72125; 72128; 80048; 85025; 85610; 99285; G0378

== ENCOUNTER 2016-10-17 11:29 | Emergency (ER) | payer MEDICARE, MEDICAID ==
[~2016-10-17] VITALS: Ht 170.2 cm; Wt 77.7 kg
[~2016-10-17 11:29] MED LIST changes: -ATOR10TA66 PO; -BENZ100C8 PO; +DOCU-41 PO; -LACT1CAP84 PO; -LIDO20SO MM; -LOV80 SUBQ; +METO-272 PO; -MIRT15TA6 PO; -NITR0.4T6 SL; -ONDA-54 PO; -PANT20TA2 PO; -POLY17PO6 PO; +RANI150C4 PO; -SENN-133 PO; -SUCR1TAB PO; -TAMS0.4C98 PO; +TERA5CAP6 PO; +triple swish
[2016-10-17 11:35] VITALS: BP 113/61; PULSE 70; RESP 16; O2SAT 97
--- NOTE | 2016-10-17 12:09 | DRSVH ---
PROCEDURE: CT BRAIN WITHOUT CONTRAST ([id number]) INDICATIONS: headache/fell/on coumadin TECHNIQUE: Noncontrast 4.5 mm thick angled axial sections acquired from the foramen magnum to the vertex, with c oronal reformats. COMPARISON: [facility], CT, CT BRAIN WO CON, 10/11/2016, 8:13. [facility], C T, CT BRAIN WO CON, 10/10/2016, 21:36. [facility], CT, CT BRAIN WO CON, 08/17/2016, 19:38. FINDINGS: Image quality: Excellent. CSF spaces: Basal cisterns are patent. No extra-axial fluid collections. The ventricles are symmet esau in size and shape. Brain: No intracranial bleeds or masses. There is cerebral volume loss for age, with resultant vent ricular and sulcal prominence. There are periventricular and deep white matter chronic small vessel ischemic changes. There is intracranial internal carotid artery atherosclerosis. Skull and face: Calvarium and visualized facial bones appear intact, without suspicious lesions. Sinuses: Visualized sinuses and mastoids are clear. IMPRESSION: No acute intracranial abnormality. Dictated by: Rubén Maloney M.D. on 10/17/2016 at 12:06 Approved by: Rubén Maloney M.D. on 10/17/2016 at 12:07
[2016-10-17 12:18] LABS: INR 1.91 ratio
--- NOTE | 2016-10-17 12:22 | ED.REPORT ---
HPI-Head Prob / Injury Date of Service Oct 17, 2016 ED Provider: Leon Kim PA-C Kwasi is a 76-year-old male with a history of metastatic prostate cancer presenting with chief complaint of 3 days of headache. He speaks Nigerien and his daughter acts as ladderman. Reports a fall 6 days ago which resulted in a back fracture. Normal head CT performed at that time. Patient was admitted to the hospital and worked up. Headache developing over the last 3 days, associated with increased fatigue, 2 days leg swelling. Denies fever, chills, vision change, neurological change. Nursing Notes Stated Complaint: HEAD PAIN Chief Complaint: General Complaint Nursing Notes Reviewed: Yes Allergies: Coded Allergies: hydrocodone (Verified Allergy, Severe, hives, 07/04/16) iodine (Verified Allergy, Severe, it brought him to the hospital, 07/04/16) omeprazole (Verified Allergy, Mild, SHAKINESS, 07/04/16) Uncoded Allergies: CONTRAST MEDIUM (Allergy, Severe, ANAPHYLAXIS, 05/10/16) Scheduled Dexamethasone (Dexamethasone) 4 Mg Tablet 4 MG PO DAILY Gabapentin (Gabapentin) 300 Mg Capsule 300 MG PO TID Methadone (Methadone) 10 Mg Tab 15 MG PO BID Metoprolol Succinate ER (Metoprolol Succinate ER) 50 Mg Tab.er.24h 50 MG PO BID Potassium Chloride ER (Potassium Chloride ER) 10 Meq Tablet 20 MEQ PO DAILY TAKE WITH FOOD Ranitidine (Ranitidine) 150 Mg Capsule 150 MG PO BID Sertraline HCl (Sertraline) 25 Mg Tablet 25 MG PO QAM Terazosin (Terazosin) 5 Mg Capsule 5 MG PO BID Warfarin Sodium (Warfarin Sodium) 1 Mg Tablet 1 MG PO DAILY Scheduled PRN Albuterol Sulfate (Ventolin HFA Inhaler) 200 Puff/18 Gm Inhaler 1 PUFF INH Q4 PRN PRN For Wheezing Alprazolam (Alprazolam) 0.5 Mg Tablet 1 MG PO TID PRN PRN For Anxiety Docusate Sodium (Colace) 100 Mg Capsule 100 MG PO DAILY PRN PRN For Constipation Haloperidol (Haloperidol) 1 Mg Tablet 1 MG PO Q6H PRN PRN For Agitation Hydromorphone (Hydromorphone) 2 Mg Tablet 2 MG PO Q4H PRN PRN For Pain Miscellaneous Medications ([triple swish]) General Time Seen by Provider: 13:13 Chief Complaint Other (head pain) Past Medical History Past Medical History Notes: Oncologist Dr. Gomez PCP - [facility] CODE: DNR/DNI Past Medical History Pneumonia UTI Depression PE Anxiety 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 Hematology oncology office visit with increasing weakness 07/03/2016 Reports: Hypertension Past Surgical History Toe surgery Family History Noncontributory Smoking History Former Smoker Social History Alcohol Use: Denies alcohol use Drug Use: Denies drug use Other Social History: Good social support, , Local resident Ambulatory Status Independent Review of Systems Review of Systems Note: Negative unless stated otherwise in history of present illness Physical Exam General: Well appearing, well developed, well nourished, no acute distress. Head: Atraumatic, normocephalic. Eyes: No scleral icterus or injection. No discharge. Vision grossly intact. ENT: Voice clear, hearing grossly intact. Respiratory: Regular rate and rhythm. Breath sounds present, clear to auscultation and equal bilaterally. No respiratory distress. No increased work of breathing, speaks in complete sentences. Cardiovascular: Regular rate and rhythm, without murmur, gallop or rub. No pedal edema. Chest: Normal to inspection, mildly tender diffusely across anterior and lateral chest. Patient states this reproduces his pain. Skin: Warm and dry. Neurological: Normal gait, finger-nose, rapid hand, heel-taylor. Cranial nerves: Vision grossly intact, EOMI. round, symmetrical, constricted and nonreactive. Facial motion symmetrical, sensation to light touch over forehead, maxilla and mandible present and equal B/L. Voice clear and fluent, no drooling/pooling of saliva, uvula rises midline. Psychological: alert and oriented. Speech appropriate, linear and logical. Behavior appropriate. Initial Vital Signs Vital Signs (First) Date Time Temp Pulse Resp B/P Pulse Ox O2 Delivery O2 Flow Rate FiO2 10/17/16 11:35 36.4 70 16 113/61 97 Room Air Normal Interpretation & Diagnostics Lab Results Interpretation Result Diagram: 10/17/16 1155 10/17/16 1155 Test 10/17/16 11:55 White Blood Count 7.9th/mm3 (3.8-10.1) Red Blood Count 3.30mil/mm3 (4.40-5.80) Hemoglobin 8.9g/dL (13.8-17.2) Hematocrit 30.5% (41.0-50.0) Mean Corpuscular Volume 92.4fL (81-100) Mean Corpuscular Hemoglobin 27.0pg (27.0-35.0) Mean Corpuscular Hemoglobin Concent 29.2% (32.0-37.0) Red Cell Distribution Width 18.5% (12.3-15.4) Platelet Count 147bil/L (150-400) Neutrophils (%) (Auto) 75.1% (40-74) Lymphocytes (%) (Auto) 11.8% (14-46) Monocytes (%) (Auto) 10.3% (4-12) Eosinophils (%) (Auto) 1.4% (0-5) Basophils (%) (Auto) 0.1% (0-3) Prothrombin Time 20.7sec (8.1-12.5) Prothromb Time International Ratio 1.91ratio Sodium Level 138mEq/L (134-144) Potassium Level 4.2mEq/L (3.5-5.2) Chloride Level 103mEq/L (97-108) Carbon Dioxide Level 24mmol/L (18-29) Blood Urea Nitrogen 12mg/dL (8-27) Creatinine 0.74mg/dL (0.76-1.27) Estimat Glomerular Filtration Rate 109mL/min (>59) Glucose Level 96mg/dL (60-99) Calcium Level 8.4mg/dL (8.5-10.1) Total Bilirubin 0.4mg/dL (0.0-1.2) Aspartate Amino Transf (AST/SGOT) 21U/L (0-50) Alanine Aminotransferase (ALT/SGPT) 9U/L (0-44) Alkaline Phosphatase 241U/L (25-160) Troponin T < 0.010ug/L (0.0-0.011) Total Protein 5.4g/dL (6.4-8.4) Albumin 3.5g/dL (3.4-5.0) ECG Interpretation ECG Interpretation: Sinus rhythm, negative for ischemic changes Time: 13:19 Interpreted by: ED physician (Dr. Saucedo) CT Head Interpretation PROCEDURE: CT BRAIN WITHOUT CONTRAST ([id number]) INDICATIONS: headache/fell/on coumadin IMPRESSION: No acute intracranial abnormality. Re-Eval/Medical Decision Med Decision/Clinical Course 76-year-old male with a history of metastatic prostate cancer and a fall 6 days ago presents with head pain. Patient was admitted to the hospital and thoroughly worked up following the fall, with normal head CT. Reports use of blood thinners. Reports worsening pain over the last 3 days, increased fatigue , leg swelling. Incidentally mentions episode of chest pain yesterday, complains of intermittent mild chest pain today. Though none currently. Physical examination reveals a generally alert and oriented, well-appearing elderly man, normal neurological examination. Head CT is normal, INR is 1.95. Patient leaves the department temporarily to receive a nuclear medicine scan that was previously scheduled. At this point, I reassured against delayed intracranial bleeding secondary to the patient's fall. I am however concerned about the patient's mention of chest pain. On examination his pain appears to be reproducible with palpation. Review of records indicates that approximately one month ago the patient was admitted to the hospital for pneumonia, altered mental status and noted to have elevated troponins. He left the hospital AMA. He has no cardiac diagnosis listed. He appears to have normal kidney function historically. I discussed the case with Dr. Saucedo, and we agree that light of this history it would be most prudent to obtain EKG, troponin prior to discharge. EKG, troponin are reassuring. I see no indication perform serial troponin due to the duration of symptoms. CBC and CMP have abnormalities, all of which upon review of records appear to be at baseline or improved. I discussed these signs with Dr. Saucedo, we agree the patient is stable and safe to be discharged home. Patient and his daughter feel ready to be discharged. Patient reports his headache pain is completely resolved after taking his home medications. Advised follow-up with primary care in 1 week. Provided strict emergency return precautions. Patient and his daughter verbalize understanding of and consent to plan Discharge & Departure Primary Impression: Headache Headache type: unspecified Headache chronicity pattern: unspecified pattern Intractability: not intractable Qualified Code: R51 - Headache Additional Impression: Chest wall pain Disposition: Home All VS Reviewed: Yes Additional Instructions: Evaluation for head pain in the emergency department consists of history, physical examination, blood work, EKG and CT scan all of which are reassuring is not caused by an immediately dangerous condition such as bleeding in the brain. I am also reassured that you are not experiencing a heart attack at this time. I believe the pain in your chest is most likely musculoskeletal. However I suggested that you follow up with your primary care provider within the next week. Return to emergency department for any new or worsening symptoms including increasing pain, shortness of breath, worsening headache, vomiting or seizures. Referrals: Johnson Payton MD (PCP) EDSupervising Provider for APC: Isaiah Saucedo MD copies to: Johnson Payton MD, Seth PA-C Oct 17, 2016 12:21
[2016-10-17 13:17] LABS: BASOPHILS % (AUTO) 0.1 % (0-3); EOSINOPHILS % (AUTO) 1.4 % (0-5); MONOCYTES % (AUTO) 10.3 % (4-12); Mean Corpuscular Volume 92.4 fL (81-100); NEUTROPHILS % (AUTO) 75.1 % (40-74); Platelet Count 147 bil/L (150-400)
[2016-10-17 13:41] LABS: TROPONIN T < 0.010 ug/L (0.0-0.011)
== END 2016-10-17 13:59 | disposition home or self-care (01) ==
LOC: SED 11:29
DX: R51 Headache (principal); R07.89 Other chest pain; W19.XXXA Unspecified fall, initial encounter; Y93.9 Activity, unspecified; Y99.8 Other external cause status; Y92.9 Unspecified place or not applicable; Z86.711 Personal history of pulmonary embolism; Z85.46 Personal history of malignant neoplasm of prostate; Z87.891 Personal history of nicotine dependence; Z87.440 Personal history of urinary (tract) infections; Z85.830 Personal history of malignant neoplasm of bone; Z79.01 Long term (current) use of anticoagulants; Z88.5 Allergy status to narcotic agent; Z88.8 Allergy status to other drugs, medicaments and biological substances
CPT/HCPCS: 36415; 70450; 78306; 80053; 84484; 85025; 85610; 93005; 99285; A9503

== ENCOUNTER 2016-12-11 11:08 | Emergency (ER) | payer MEDICARE, MEDICAID ==
[~2016-12-11] VITALS: Ht 170.2 cm; Wt 68.2 kg
[2016-12-11 11:17] VITALS: BP 107/61; PULSE 70; RESP 17; O2SAT 95
[2016-12-11 12:45] LABS: BASOPHILS % (AUTO) 0.2 % (0-3); EOSINOPHILS % (AUTO) 2.3 % (0-5); MONOCYTES % (AUTO) 11.4 % (4-12); Mean Corpuscular Hemoglobin 27.8 pg (27.0-35.0); Mean Corpuscular Volume 90.6 fL (81-100); NEUTROPHILS % (AUTO) 64.4 % (40-74); Platelet Count 188 bil/L (150-400)
[2016-12-11 13:06] LABS: Magnesium 2.1 mg/dL (1.6-2.6)
[2016-12-11 14:28] VITALS: BP 99/56; PULSE 67; RESP 15; O2SAT 95
[2016-12-11] MEDS ORDERED: 0.9% Sodium Chloride 1,000 ML IV ONE (14:29)
[2016-12-11] MEDS ORDERED: HYDROmorphone 0.5 mg/0.5 mL iSecure Syringe IVPUSH PRN (14:30)
--- NOTE | 2016-12-11 14:42 | ED.REPORT ---
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 Patient is Citizen [place]speaking and his daughter, who is quite knowledgeable about his treatment, translates for him. They have declined interpretation services. Daughter reports 4 day history of diffuse abdominal pain, vomiting without blood or bile, small amount of diarrhea, body aches. Refractory to ondansetron at home. Also admits mild and intermittent dysuria. Denies chest pain, shortness of breath, fever, shaking chills, hematuria. The patient's last cancer treatment was performed in [place] [employer] approximately 2 weeks ago, they deny any other new medications. Patient is treated with Xufigo by Dr. Fede Townsend. Patient reports traveling to [place], returning approximately 2 weeks ago. Nursing Notes Stated Complaint: VOMITING X4DAYS/BODY ACHES Chief Complaint: Male Abdominal Pain Nursing Notes Reviewed: Yes Allergies: Coded Allergies: hydrocodone (Verified Allergy, Severe, hives, 07/04/16) iodine (Verified Allergy, Severe, it brought him to the hospital, 07/04/16) omeprazole (Verified Allergy, Mild, SHAKINESS, 07/04/16) Uncoded Allergies: CONTRAST MEDIUM (Allergy, Severe, ANAPHYLAXIS, 05/10/16) Scheduled Dexamethasone (Dexamethasone) 4 Mg Tablet 4 MG PO DAILY Gabapentin (Gabapentin) 300 Mg Capsule 300 MG PO TID Methadone (Methadone) 10 Mg Tab 15 MG PO BID Metoprolol Succinate ER (Metoprolol Succinate ER) 50 Mg Tab.er.24h 50 MG PO BID Ondansetron ODT (Ondansetron ODT) 8 Mg Tab.rapdis 8 MG PO TID Potassium Chloride ER (Potassium Chloride ER) 10 Meq Tablet 20 MEQ PO DAILY TAKE WITH FOOD Ranitidine (Ranitidine) 150 Mg Capsule 150 MG PO BID Sertraline HCl (Sertraline) 25 Mg Tablet 25 MG PO QAM Terazosin (Terazosin) 5 Mg Capsule 5 MG PO BID Warfarin Sodium (Warfarin Sodium) 1 Mg Tablet 1 MG PO DAILY Scheduled PRN Albuterol Sulfate (Ventolin HFA Inhaler) 200 Puff/18 Gm Inhaler 1 PUFF INH Q4 PRN PRN For Wheezing Alprazolam (Alprazolam) 0.5 Mg Tablet 1 MG PO TID PRN PRN For Anxiety Docusate Sodium (Colace) 100 Mg Capsule 100 MG PO DAILY PRN PRN For Constipation Haloperidol (Haloperidol) 1 Mg Tablet 1 MG PO Q6H PRN PRN For Agitation Hydromorphone (Hydromorphone) 2 Mg Tablet 2 MG PO Q4H PRN PRN For Pain Miscellaneous Medications ([triple swish]) General Time Seen by MD: 14:13 Chief Complaint Other (vomiting ) Sudden in Onset?: No Past Medical History Past Medical History Notes: Oncologist Dr. 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 Hematology oncology office visit with increasing weakness 07/03/2016 Reports: Hypertension Past Surgical History Toe surgery Family History Noncontributory Smoking History Unknown if Ever Smoker Social History Alcohol Use: Denies alcohol use Drug Use: Denies drug use Other Social History: Good social support, , Local resident Ambulatory Status Independent Review of Systems General: Denies fever, chills, malaise. HEENT: Denies congestion, headache, sore throat. Respiratory: Denies dyspnea, cough, shortness of breath, wheezing. Cardiovascular: Denies chest pain, palpitations. Gastrointestinal: Admits vomiting, diarrhea, abdominal pain. Genitourinary: Admits dysuria, Denies frequency, urgency, hematuria. Otherwise as noted in HPI. Physical Exam General: Well appearing, well developed, well nourished, no acute distress. Head: Atraumatic, normocephalic. Eyes: No scleral icterus or injection. No discharge. Vision grossly intact. ENT: Voice clear, hearing grossly intact. Respiratory: Regular rate and rhythm. Breath sounds present, clear to auscultation and equal bilaterally. No respiratory distress. No increased work of breathing, speaks in complete sentences. Cardiovascular: Regular rate and rhythm, without murmur, gallop or rub. No pedal edema. Gastrointestinal: Abdomen flat and non-tender without guarding or rebound. Bowel sounds normoactive. Skin: Warm and dry. Neurological: Grossly nonfocal. Psychological: Alert and oriented. Speech appropriate, linear and logical. Behavior appropriate. Initial Vital Signs Vital Signs (First) Date Time Temp Pulse Resp B/P Pulse Ox O2 Delivery O2 Flow Rate FiO2 12/11/16 11:17 36 70 17 107/61 95 Room Air Low blood pressure Interpretation & Diagnostics Lab Results Interpretation Result Diagram: 12/11/16 1230 12/11/16 1230 Test 12/11/16 12:30 12/11/16 14:10 12/11/16 14:50 White Blood Count 4.3th/mm3 (3.8-10.1) Red Blood Count 3.52mil/mm3 (4.40-5.80) Hemoglobin 9.8g/dL (13.8-17.2) Hematocrit 31.9% (41.0-50.0) Mean Corpuscular Volume 90.6fL (81-100) Mean Corpuscular Hemoglobin 27.8pg (27.0-35.0) Mean Corpuscular Hemoglobin Concent 30.7% (32.0-37.0) Red Cell Distribution Width 21.1% (12.3-15.4) Platelet Count 188bil/L (150-400) Neutrophils (%) (Auto) 64.4% (40-74) Lymphocytes (%) (Auto) 21.0% (14-46) Monocytes (%) (Auto) 11.4% (4-12) Eosinophils (%) (Auto) 2.3% (0-5) Basophils (%) (Auto) 0.2% (0-3) Prothrombin Time 19.4sec (8.1-12.5) Prothromb Time International Ratio 1.79ratio Sodium Level 137mEq/L (134-144) Potassium Level 4.2mEq/L (3.5-5.2) Chloride Level 103mEq/L (97-108) Carbon Dioxide Level 20mmol/L (18-29) Blood Urea Nitrogen 8mg/dL (8-27) Creatinine 0.60mg/dL (0.76-1.27) Estimat Glomerular Filtration Rate 139mL/min (>59) Glucose Level 113mg/dL (60-99) Lactic Acid Level 1.7mmol/L (0.4-2.0) Calcium Level 7.9mg/dL (8.5-10.1) Magnesium Level 2.1mg/dL (1.6-2.6) Total Bilirubin 0.4mg/dL (0.0-1.2) Aspartate Amino Transf (AST/SGOT) 24U/L (0-50) Alanine Aminotransferase (ALT/SGPT) 8U/L (0-44) Alkaline Phosphatase 74U/L (25-160) Total Protein 5.6g/dL (6.4-8.4) Albumin 3.3g/dL (3.4-5.0) Lipase 13U/L (13-60) Hold Red Top Tube Received (Received) Hold Horn Top Tube Received (Received) Urine Color Straw (YELLOW) Urine Appearance Clear (CLEAR,HAZY) Urine pH 7.0 (5.0-8.0) Urine Specific [place] 1.010 (1.003-1.035) Urine Protein Negativemg/dL (NEG,TRACE) Urine Glucose (UA) Negativemg/dL (NEGATIVE) Urine Ketones Negativemg/dL (NEGATIVE) Urine Occult Blood Negative (NEGATIVE) Urine Nitrite Negative (NEGATIVE) Urine Bilirubin Negative (NEGATIVE) Urine Urobilinogen Normalmg/dL (NORMAL) Urine Leukocyte Esterase Negative (NEGATIVE) Urine RBC 0-2/hpf (0-2) Urine WBC 0-5/hpf (0-5) Urine Epithelial Cells Occasional/hpf (NONE-MOD) Urine Crystals None seen (NONE SEEN) Urine Bacteria None/hpf (NONE-FEW) Urine Hyaline Casts None/lpf (NONE) Urine Granular Casts None seen (NONE SEEN) Urine Waxy Casts None seen (NONE SEEN) Urine Red Blood Cell Casts None seen (NONE SEEN) Urine White Blood Cell Casts None seen (NONE SEEN) Urine Mucus Present (None Seen) Urine Trichomonas None seen (NONE SEEN) Urine Yeast None (NONE SEEN) Urinalysis Comment None Urine Culture Reflexed Not indicated Re-Eval/Medical Decision Med Decision/Clinical Course 76-year-old male currently undergoing treatment for stage IV prostate cancer presents with chief complaint of 4 days vomiting associated with diffuse abdominal pain, some diarrhea, body aches. Patient denies new medications, most recent treatment was 2 weeks ago. Also reports returned from [place] approximately 2 weeks ago. His examination is generally benign, well-appearing, vital signs are normal with exception of borderline low blood pressure which is consistent with previous visits. CBC and CMP are consistent with previous studies, show mild anemia. negative for leukocytosis. Calcium, creatinine, total protein and albumin are mildly low. Lactic acid is normal Treatment initiated with 1 L normal saline, IV ondansetron, hydromorphone. INR is drawn at patient request. This returns at the low end of therapeutic spectrum. Following treatment the patient feels significantly better, wishes to be discharged to home. He passes a by mouth challenge. I am reassured against an immediately dangerous cause of his nausea and vomiting and believe he is stable and safe to go home. I discussed case with Dr. Saucedo, who expresses agreement. Advise primary care follow-up, emergency return precautions. Patient and his daughter verbalize understanding of and consented to the plan. 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 Discharge & Departure Primary Impression: Vomiting Vomiting type: unspecified Vomiting Intractability: non-intractable Nausea presence: with nausea Qualified Code: R11.2 - Nausea with vomiting, unspecified Disposition: Home Vital Signs - All Vital Signs Date Time Temp Pulse Resp B/P Pulse Ox O2 Delivery O2 Flow Rate FiO2 12/11/16 17:21 71 15 104/64 94 Room Air 12/11/16 14:59 65 17 111/64 95 Room Air 12/11/16 14:28 67 15 99/56 95 Room Air 12/11/16 11:17 36 70 17 107/61 95 Room Air )( All Prior VS Reviewed: Yes Condition: Stable Patient Instructions: Acute Nausea and Vomiting (ED) Additional Instructions: Evaluation in the emergency department for nausea and vomiting includes interview, physical examination, blood tests and urinalysis all of which suggests that this is not caused by an immediately dangerous condition. I believe you are stable and safe to go home. Continue using Zofran to treat nausea. I will provide a prescription for additional pills should she need them. Make an effort to stay hydrated by taking small amounts of liquid throughout the day. I typically recommend apple juice cut 50-50 with water. Follow-up with your primary care provider in the next few days to be sure this is progressing as expected We checked her Coumadin level at her request. Your INR is 1.79. Return to emergency department for any new or worsening symptoms including increasing abdominal pain, fever, vomiting that does not respond to medication. Referrals: Johnson Payton MD (PCP) EDSupervising Provider for APC: Isaiah Saucedo MD copies to: Johnson Payton MD, Seth PA-C Dec 11, 2016 14:42
[2016-12-11 14:47] LABS: INR 1.79 ratio
[2016-12-11 14:59] VITALS: BP 111/64; PULSE 65; RESP 17; O2SAT 95
[2016-12-11 15:57] LABS: APPEARANCE,URINE CLEAR (CLEAR,HAZY); COLOR,URINE STRAW (YELLOW)
[2016-12-11 15:58] LABS: OCCULT BLOOD,URINE NEGATIVE (NEGATIVE); UROBILINOGEN,URINE NORMAL (NORMAL)
[2016-12-11] MEDS ORDERED: ONDA8TAB10 PO (16:36)
[2016-12-11 17:21] VITALS: BP 104/64; PULSE 71; RESP 15; O2SAT 94
== END 2016-12-11 17:22 | disposition home or self-care (01) ==
LOC: SED 11:08
DX: R11.2 Nausea with vomiting, unspecified (principal); I10 Essential (primary) hypertension; Z86.711 Personal history of pulmonary embolism; Z85.46 Personal history of malignant neoplasm of prostate; Z79.01 Long term (current) use of anticoagulants; Z88.5 Allergy status to narcotic agent; Z88.8 Allergy status to other drugs, medicaments and biological substances
CPT/HCPCS: 36415; 80053; 81000; 83605; 83690; 83735; 85025; 85610; 87040; 96361; 96374; 99285; J1170; J7030